=== PATIENT | male | born 1955 | race Caucasian/White ===

== ENCOUNTER 2016-06-27 13:38 | Emergency (ER) | payer MEDICAID ==
[2016-06-27 13:43] VITALS: BP 113/70; PULSE 87; RESP 16; TEMP 97.7; O2SAT 96
[2016-06-27] MEDS ORDERED: NS 1,000 ML IV ONE ×2 (13:44→15:37)
[2016-06-27] MEDS ORDERED: HYDROmorphONE/DILAUDID 1 MG/ML SYR IVP ONE (13:44)
[2016-06-27] MEDS ORDERED: ONDANSETRON 4 MG/2 ML VIAL IVP ONE (13:44)
--- NOTE | 2016-06-27 13:49 | EDPHY ---
H & P Stated Complaint: ABD PAIN, ETOH Time Seen by Provider: 06/27/16 13:39 HPI/ROS: CHIEF COMPLAINT: Abdominal pain HISTORY OF PRESENT ILLNESS: Patient is a homeless alcoholic man chronic pancreatitis who comes to the emergency department complaining of epigastric pain that he feels is a flare up of his chronic pancreatitis. He states that it is exacerbated today because he drink a pint this morning. He has not had a fever. He has not had any vomiting. He denies chest pain or shortness of breath. He states that this is exactly similar to multiple previous episodes. He also states that his amylase and lipase no longer get elevated. REVIEW OF SYSTEMS: Constitutional: denies: chills, fever, recent illness, recent injury EENTM: denies: blurred vision, double vision, nose congestion Respiratory: denies: cough, shortness of breath Cardiac: denies: chest pain, irregular heart rate, lightheadedness, palpitations Gastrointestinal/Abdominal: See HPI Genitourinary: denies: dysuria, frequency, hematuria, pain Musculoskeletal: denies: joint pain, muscle pain Skin: denies: lesions, rash, jaundice, bruising Neurological: denies: headache, numbness, paresthesia, tingling, dizziness, weakness Hematologic/Lymphatic: denies: blood clots, easy bleeding, easy bruising Immunologic/allergic: denies: HIV/AIDS, transplant EXAM: GENERAL: Obese and in no acute distress. HEAD: Atraumatic, normocephalic. EYES: Pupils equal round and reactive to light, extraocular movements intact, sclera anicteric, conjunctiva are normal. ENT: TMs normal, nares patent, oropharynx clear without exudates. Moist mucous membranes. NECK: Normal range of motion, supple without lymphadenopathy or JVD. LUNGS: Breath sounds clear to auscultation bilaterally and equal. No wheezes rales or rhonchi. HEART: Regular rate and rhythm without murmurs, rubs or gallops. ABDOMEN: Epigastric tenderness, large ventral hernia, no discoloration. BACK: No CVA tenderness, no spinal tenderness, step-offs or deformities EXTREMITIES: Normal range of motion, no pitting or edema. No clubbing or cyanosis. NEUROLOGICAL: Cranial nerves II through XII grossly intact. Normal speech, normal gait. 5/5 strength, normal movement in all extremities, normal sensation PSYCH: Normal mood, normal affect. SKIN: Warm, dry, normal turgor, no visible rashes or lesions. Source: Patient, EMS, Old records Exam Limitations: No limitations - Personal History Current Tetanus/Diphtheria Vaccine: Yes Tetanus Vaccine Date: 06/21/2009 - Medical/Surgical History Hx Asthma: No Hx Chronic Respiratory Disease: No Hx Diabetes: No Hx Cardiac Disease: No Hx Renal Disease: No Hx Cirrhosis: No Hx Alcoholism: Yes Hx HIV/AIDS: No Hx Splenectomy or Spleen Trauma: No Other PMH: Pancreatitis, alcoholism, htn - Family History Significant Family History: Hypertension - Social History Smoking Status: Never smoked Alcohol Use: Sober Drug Use: None Constitutional: Initial Vital Signs Temperature (C) 36.5 C 06/27/16 13:41 Heart Rate 87 06/27/16 13:41 Respiratory Rate 16 06/27/16 13:41 Blood Pressure 113/70 06/27/16 13:41 O2 Sat (%) 96 06/27/16 13:41 O2 Delivery Mode Room Air Allergies/Adverse Reactions: No Known Allergies Allergy (Verified 05/20/16 13:41) Home Medications: Medication Instructions Recorded Meloxicam 7.5 mg PO DAILY 07/11/15 Lisinopril [Zestril 20 mg (*)] 20 mg PO DAILY #0 tab 07/18/15 Flomax 08/14/15 Medical Decision Making - Diagnostics EKG Interpretation: An EKG obtained and was read and documented in trace view. Please see trace view for full reading and report. Sinus rhythm, no acute ischemic changes ED Course/Re-evaluation: 3:30 p.m. the patient is feeling better. I will give him another L of fluids. He has received Toradol. He would like to avoid admission if possible. We will continue to hydrate and observe. 5:30 p.m. the patient eloped from the emergency department while we were busy with another patient. Differential Diagnosis: Partial list of the Differential diagnosis considered include but were not limited to; pancreatitis, alcoholism, gastritis and although unlikely based on the history and physical exam, I also considered obstruction, volvulus, ischemia , diverticulitis, appendicitis, acute coronary disease. - Data Points Laboratory Results: Laboratory Results 06/27/16 14:10 06/27/16 14:10 06/27/16 14:10 WBC 8.76 10^3/uL (3.80-9.50) RBC 5.56 10^6/uL (4.40-6.38) Hgb 16.8 g/dL (13.7-17.5) Hct 48.6 % (40.0-51.0) MCV 87.4 fL (81.5-99.8) MCH 30.2 pg (27.9-34.1) MCHC 34.6 g/dL (32.4-36.7) RDW 12.9 % (11.5-15.2) Plt Count 255 10^3/uL (150-400) MPV 9.5 fL (8.7-11.7) Neut % (Auto) 52.0 % (39.3-74.2) Lymph % (Auto) 36.5 % (15.0-45.0) [place] % (Auto) 6.8 % (4.5-13.0) Eos % (Auto) 2.1 % (0.6-7.6) Baso % (Auto) 0.9 % (0.3-1.7) Nucleat RBC Rel Count 0.0 % (0.0-0.2) Absolute Neuts (auto) 4.55 10^3/uL (1.70-6.50) Absolute Lymphs (auto) 3.20 H 10^3/uL (1.00-3.00) Absolute Monos (auto) 0.60 10^3/uL (0.30-0.80) Absolute Eos (auto) 0.18 10^3/uL (0.03-0.40) Absolute Basos (auto) 0.08 10^3/uL (0.02-0.10) Absolute Nucleated RBC 0.00 10^3/uL (0-0.01) Immature Gran % 1.7 H % (0.0-1.1) Immature Gran # 0.15 H 10^3/uL (0.00-0.10) Sodium 142 mEq/L (134-144) Potassium 4.5 mEq/L (3.5-5.2) Chloride 103 mEq/L (97-110) Carbon Dioxide 20 L mEq/l (22-31) Anion Gap 19 mEq/L (8-16) BUN 14 mg/dL (7-23) Creatinine 1.1 mg/dL (0.7-1.3) Estimated GFR > 60 Glucose 94 mg/dL (70-100) Calcium 9.1 mg/dL (8.5-10.4) Total Bilirubin 0.4 mg/dL (0.1-1.4) Conjugated Bilirubin 0.3 mg/dL (0.0-0.5) Unconjugated Bilirubin 0.1 mg/dL (0.0-1.1) AST 21 IU/L (17-59) ALT 34 IU/L (21-72) Alkaline Phosphatase 68 IU/L (38-126) Total Protein 7.2 g/dL (6.3-8.2) Albumin 4.3 g/dL (3.5-5.0) Lipase 419.0 H IU/L (23-300) Medications Given: Discontinued Medications Hydromorphone HCl (Dilaudid) 1 mg IVP EDNOW ONE Stop: 06/27/16 13:45 Last Admin: 06/27/16 14:14 Dose: 1 mg Sodium Chloride (Ns) 1,000 mls @ 0 mls/hr IV ONCE ONE PRN Reason: Wide Open Stop: 06/27/16 13:45 Last Admin: 06/27/16 14:15 Dose: 1,000 mls Sodium Chloride (Ns) 1,000 mls @ 0 mls/hr IV ONCE ONE PRN Reason: Wide Open Stop: 06/27/16 15:38 Last Admin: 06/27/16 15:38 Dose: 1,000 mls Ketorolac Tromethamine (Toradol) 30 mg IVP EDNOW ONE Stop: 06/27/16 14:17 Last Admin: 06/27/16 14:20 Dose: 30 mg Ondansetron HCl (Zofran) 4 mg IVP EDNOW ONE Stop: 06/27/16 13:45 Last Admin: 06/27/16 14:15 Dose: 4 mg Departure - Departure Disposition: Home, Routine, Self-Care Clinical Impression: Alcohol abuse Pancreatitis Qualifiers: Chronicity: chronic Pancreatitis type: alcohol induced Qualifier Code: (K86.0) Alcohol-induced chronic pancreatitis Condition: Good Instructions: Pancreatitis (ED) Referrals: NONE *PRIMARY CARE P,. [Primary Care Provider] - As per Instructions
[2016-06-27] MEDS ORDERED: KETOROLAC 30 MG/1 ML SDV IVP ONE (14:16)
[2016-06-27 14:19] LABS: % IMMATURE GRANULYOCYTES 1.7 % (0.0-1.1); ABSOLUTE IMMATURE GRANULOCYTES 0.15 10^3/uL (0.00-0.10); ADD DIFF? NO; ADD MORPH? NO; ADD SCAN? NO; ATYPICAL LYMPHOCYTE FLAG 0 (0-99); FRAGMENT RBC FLAG 0 (0-99); HEMATOCRIT 48.6 % (40.0-51.0); HEMOGLOBIN 16.8 g/dL (13.7-17.5); LEFT SHIFT FLG 10 (0-99); LIPEMIA HEMOLYSIS FLAG 90 (0-99); MEAN CELL HEMOGLOBIN 30.2 pg (27.9-34.1); MEAN CELL HEMOGLOBIN CONCENTR. 34.6 g/dL (32.4-36.7); MEAN CELL VOLUME 87.4 fL (81.5-99.8); MEAN PLATELET VOLUME 9.5 fL (8.7-11.7); PLATELET CLUMPS FLAG 0 (0-99); PLATELET COUNT 255 10^3/uL (150-400); RED BLOOD CELL COUNT 5.56 10^6/uL (4.40-6.38); RED CELL DISTRIBUTION WIDTH 12.9 % (11.5-15.2)
--- NOTE | 2016-06-27 14:26 | CPEKG ---
Heart Rate: 74 RR Interval: 811 P-R Interval: 152 QRSD Interval: 92 QT Interval: 376 QTC Interval: 418 P [place]: 62 QRS [place]: -28 T Wave [place]: 23 EKG Severity - OTHERWISE NORMAL ECG - EKG Impression: SINUS RHYTHM EKG Impression: BORDERLINE LEFT AXIS DEVIATION Electronically Signed By: Jeremías De Leon 27-Jun-2016 14:44:52
[2016-06-27 14:46] LABS: ALANINE AMINOTRANSFERASE 34 IU/L (21-72); ALBUMIN 4.3 g/dL (3.5-5.0); ALKALINE PHOSPHATASE 68 IU/L (38-126); ANION GAP 19 mEq/L (8-16); ASPARTATE AMINOTRANSFERASE 21 IU/L (17-59); BILIRUBIN,TOTAL 0.4 mg/dL (0.1-1.4); BILIRUBIN-CONJUGATED 0.3 mg/dL (0.0-0.5); BILIRUBIN-UNCONJUGATED 0.1 mg/dL (0.0-1.1); CALCIUM 9.1 mg/dL (8.5-10.4); CARBON DIOXIDE 20 mEq/l (22-31); CHLORIDE 103 mEq/L (97-110); CREATININE 1.1 mg/dL (0.7-1.3); GLOMERULAR FILTRATION RATE > 60; GLUCOSE 94 mg/dL (70-100); POTASSIUM 4.5 mEq/L (3.5-5.2); SODIUM 142 mEq/L (134-144); TOTAL PROTEIN 7.2 g/dL (6.3-8.2)
== END 2016-06-27 17:32 | disposition home or self-care (01) ==
LOC: EDUNIT# → EDBD
DX: K86.0 Alcohol-induced chronic pancreatitis (principal); F10.10 Alcohol abuse, uncomplicated; I10 Essential (primary) hypertension
CPT/HCPCS: 96374; J1170; J1885; J2405

== ENCOUNTER 2016-08-27 22:42 | Emergency (ER) | payer MEDICAID ==
[2016-08-27 22:58] VITALS: TEMP 97.9
--- NOTE | 2016-08-27 23:21 | EDPHY ---
H & P Stated Complaint: FOUND DOWN, + ETOH, ? IVDA Time Seen by Provider: 08/27/16 22:51 HPI/ROS: HPI CHIEF COMPLAINT: Alcohol intoxication HISTORY OF PRESENT ILLNESS: This patient is 61-year-old male, significant past medical history for alcoholism in daily alcohol abuse, chronic pancreatitis, alcohol withdrawal seizures, presents emergency room by EMS presents to the emergency room intoxicated with alcohol smells of alcohol, complaining of epigastric abdominal pain consistent with his chronic pancreatitis. He denies any vomiting denies hematemesis, denies black tarry stool. He is visibly intoxicated here. Past Medical History: alcohol abuse, alcoholism, chronic pancreatitis, chronic abdominal pain, alcohol withdrawal seizures, Past Surgical History: Hand surgery Social History: Daily alcohol use Family History: Noncontributory ROS REVIEW OF SYSTEMS: A comprehensive 10 point review of systems is otherwise negative aside from elements mentioned in the history of present illness. Exam Constitutional appears intoxicated with alcohol, smells of alcohol triage nursing summary reviewed, vital signs reviewed, awake/alert. Eyes normal conjunctivae and sclera, horizontal beating nystagmus consistent with acute alcohol intoxication, PERRLA. HENT normal inspection, atraumatic, moist mucus membranes, no epistaxis, neck supple/ no meningismus, no raccoon eyes. Respiratory clear to auscultation bilaterally, normal breath sounds, no respiratory distress, no wheezing. Cardiovascular rate normal, regular rhythm, no murmur, no edema, distal pulses normal. Gastrointestinal soft, non-tender, no rebound, no guarding, normal bowel sounds, no distension, no pulsatile mass. Genitourinary no CVA tenderness. Musculoskeletal no midline vertebral tenderness, full range of motion, no calf swelling, no tenderness of extremities, no meningismus, good pulses, neurovascularly intact. Skin pink, warm, & dry, no rash, skin atraumatic. Neurologic slurring speech, alcohol intoxication awake, alert and oriented x 3 , AAOx3, moves all 4 extremities equally, motor intact, sensory intact, CN II- XII intact, truncal ataxia, normal vision, Psychiatric normal mood/affect. Heme/Lymph/Immune no lymphadenopathy. Differential Diagnosis: Includes but is not limited to in a particular order, alcohol intoxication, alcohol abuse, dehydration, electrolyte abnormality, pancreatitis Medical Decision Making:Patient had an IV established receive a fluid bolus, check alcohol level and lipase. Monitor closely for sobriety. Once sober. Patient be safely discharged from the emergency room. Re-evaluation: 0650: This patient ambulated well throughout the emergency room. A stable gait , sober. Safe for discharge. He has not any a ongoing abdominal pain, fever, vomiting. Source: Patient - Personal History Current Tetanus Diphtheria and Acellular Pertussis (TDAP): Yes Tetanus Vaccine Date: 06/21/2009 - Medical/Surgical History Hx Asthma: No Hx Chronic Respiratory Disease: No Hx Diabetes: No Hx Cardiac Disease: No Hx Renal Disease: No Hx Cirrhosis: No Hx Alcoholism: Yes Hx HIV/AIDS: No Hx Splenectomy or Spleen Trauma: No Other PMH: Pancreatitis, alcoholism, htn - Social History Smoking Status: Never smoked Constitutional: Initial Vital Signs Temperature (C) 36.6 C 08/27/16 22:45 Heart Rate 95 08/27/16 22:45 Respiratory Rate 16 08/27/16 22:45 Blood Pressure 130/89 H 08/27/16 22:45 O2 Sat (%) 92 08/27/16 22:45 O2 Delivery Mode Nasal Cannula O2 (L/minute) 2 Allergies/Adverse Reactions: No Known Allergies Allergy (Verified 05/20/16 13:41) Home Medications: Medication Instructions Recorded Meloxicam 7.5 mg PO DAILY 07/11/15 Lisinopril [Zestril 20 mg (*)] 20 mg PO DAILY #0 tab 07/18/15 Flomax 08/14/15 Medical Decision Making - Data Points Laboratory Results: Laboratory Results 08/28/16 01:47 08/28/16 01:47 08/28/16 08/28/16 01:47 01:47 WBC 7.35 10^3/uL 10^3/uL (3.80-9.50) RBC 4.77 10^6/uL 10^6/uL (4.40-6.38) Hgb 14.6 g/dL g/dL (13.7-17.5) Hct 41.5 % % (40.0-51.0) MCV 87.0 fL fL (81.5-99.8) MCH 30.6 pg pg (27.9-34.1) MCHC 35.2 g/dL g/dL (32.4-36.7) RDW 13.2 % % (11.5-15.2) Plt Count 149 10^3/uL L 10^3/uL (150-400) MPV 9.9 fL fL (8.7-11.7) Neut % (Auto) 61.2 % % (39.3-74.2) Lymph % (Auto) 28.3 % % (15.0-45.0) [place] % (Auto) 6.9 % % (4.5-13.0) Eos % (Auto) 2.4 % % (0.6-7.6) Baso % (Auto) 0.5 % % (0.3-1.7) Nucleat RBC Rel Count 0.0 % % (0.0-0.2) Absolute Neuts (auto) 4.49 10^3/uL 10^3/uL (1.70-6.50) Absolute Lymphs (auto) 2.08 10^3/uL 10^3/uL (1.00-3.00) Absolute Monos (auto) 0.51 10^3/uL 10^3/uL (0.30-0.80) Absolute Eos (auto) 0.18 10^3/uL 10^3/uL (0.03-0.40) Absolute Basos (auto) 0.04 10^3/uL 10^3/uL (0.02-0.10) Absolute Nucleated RBC 0.00 10^3/uL 10^3/uL (0-0.01) Immature Gran % 0.7 % % (0.0-1.1) Immature Gran # 0.05 10^3/uL 10^3/uL (0.00-0.10) Sodium 149 mEq/L H mEq/L (134-144) Potassium 3.7 mEq/L mEq/L (3.5-5.2) Chloride 110 mEq/L mEq/L (97-110) Carbon Dioxide 23 mEq/l mEq/l (22-31) Anion Gap 16 mEq/L mEq/L (8-16) BUN 9 mg/dL mg/dL (7-23) Creatinine 0.7 mg/dL mg/dL (0.7-1.3) Estimated GFR > 60 Glucose 108 mg/dL H mg/dL (70-100) Calcium 8.5 mg/dL mg/dL (8.5-10.4) Lipase 138.0 IU/L IU/L (23-300) Ethyl Alcohol 322 mg/dL H mg/dL (0-10) Medications Given: Discontinued Medications Sodium Chloride (Ns) 1,000 mls @ 0 mls/hr IV ONCE ONE PRN Reason: Wide Open Stop: 08/27/16 23:31 Last Admin: 08/28/16 02:04 Dose: Not Given Departure - Departure Disposition: Home, Routine, Self-Care Clinical Impression: Alcohol intoxication Qualifiers: Complication of substance-induced condition: uncomplicated Qualified Code(s): F10.120 - Alcohol abuse with intoxication, uncomplicated Condition: Good Instructions: Alcohol Intoxication (ED) Referrals: NONE *PRIMARY CARE P,. [Primary Care Provider] - As per Instructions
[2016-08-27] MEDS ORDERED: NS 1,000 ML IV ONE (23:30)
[2016-08-28 01:51] LABS: % IMMATURE GRANULYOCYTES 0.7 % (0.0-1.1); ABSOLUTE IMMATURE GRANULOCYTES 0.05 10^3/uL (0.00-0.10); ADD DIFF? NO; ADD MORPH? NO; ADD SCAN? NO; ATYPICAL LYMPHOCYTE FLAG 0 (0-99); FRAGMENT RBC FLAG 0 (0-99); HEMATOCRIT 41.5 % (40.0-51.0); HEMOGLOBIN 14.6 g/dL (13.7-17.5); LEFT SHIFT FLG 0 (0-99); LIPEMIA HEMOLYSIS FLAG 90 (0-99); MEAN CELL HEMOGLOBIN 30.6 pg (27.9-34.1); MEAN CELL HEMOGLOBIN CONCENTR. 35.2 g/dL (32.4-36.7); MEAN PLATELET VOLUME 9.9 fL (8.7-11.7); PLATELET CLUMPS FLAG 0 (0-99); PLATELET COUNT 149 10^3/uL (150-400); RED BLOOD CELL COUNT 4.77 10^6/uL (4.40-6.38); RED CELL DISTRIBUTION WIDTH 13.2 % (11.5-15.2)
[2016-08-28 02:04] LABS: ANION GAP 16 mEq/L (8-16); CALCIUM 8.5 mg/dL (8.5-10.4); CARBON DIOXIDE 23 mEq/l (22-31); CHLORIDE 110 mEq/L (97-110); CREATININE 0.7 mg/dL (0.7-1.3); GLOMERULAR FILTRATION RATE > 60; GLUCOSE 108 mg/dL (70-100); POTASSIUM 3.7 mEq/L (3.5-5.2); SODIUM 149 mEq/L (134-144)
[2016-08-28 02:11] LABS: ETHANOL SERUM 322 mg/dL (0-10)
[2016-08-28 05:02] VITALS: BP 111/72; PULSE 87; RESP 18; O2SAT 96
== END 2016-08-28 07:01 | disposition home or self-care (01) ==
LOC: EDUNIT#
DX: F10.120 Alcohol abuse with intoxication, uncomplicated (principal); I10 Essential (primary) hypertension
CPT/HCPCS: G0480

== ENCOUNTER 2016-08-28 11:50 | Emergency (ER) | payer MEDICAID ==
[2016-08-28 12:02] VITALS: TEMP 97.7
--- NOTE | 2016-08-28 13:29 | EDPHY ---
H & P Stated Complaint: yelling in hotel room, PD called, ETOH Time Seen by Provider: 08/28/16 11:55 HPI/ROS: Chief complaint: Intoxication HPI: 61-year-old male well known to this emergency department with a history of chronic alcoholism, chronic pancreatitis and alcohol withdrawal seizures. Patient was seen earlier this morning for abdominal pain and was medically cleared and discharged. Please come report this morning at the patient when this in his hotel room yelling. On arrival they found him on the floor awake and alert and intoxicated. Patient states that he went home this morning and started drinking again. He is complaining of persistent abdominal pain which is unchanged. No nausea or vomiting. No diarrhea. Not vomiting blood. Denies hitting his head. ROS: 10 point Review of Systems is negative except as noted in the HPI. Past medical history: Alcoholism Chronic pancreatitis Alcohol withdrawal seizures Medications: None Allergies: No known drug allergies Social history: Drinks alcohol daily E very heavily Physical exam: Gen: Awake, Alert, smells very strongly of alcohol HEENT: Atraumatic Nose: no rhinorrhea Eyes: PERRLA, EOMI Mouth: Moist mucosa Neck: Supple, no JVD Chest: nontender, lungs clear to auscultation Heart: S1, S2 normal, no murmur Abd: Soft, epigastric tenderness to deep palpation, no guarding Back: no CVA tenderness, no midline tenderness Ext: no edema, non-tender Skin: no rash Neuro: CN II-XII intact, Sensation grossly intact, Strength 5/5 in bilateral upper and lower extremities - Personal History Current Tetanus/Diphtheria Vaccine: Yes Current Tetanus Diphtheria and Acellular Pertussis (TDAP): Yes Tetanus Vaccine Date: 06/21/2009 - Medical/Surgical History Hx Asthma: No Hx Chronic Respiratory Disease: No Hx Diabetes: No Hx Cardiac Disease: No Hx Renal Disease: No Hx Cirrhosis: No Hx Alcoholism: Yes Hx HIV/AIDS: No Hx Splenectomy or Spleen Trauma: No Other PMH: Pancreatitis, alcoholism, htn - Social History Smoking Status: Never smoked Constitutional: Initial Vital Signs Temperature (C) 36.5 C 08/28/16 11:59 Heart Rate 80 08/28/16 11:59 Respiratory Rate 16 08/28/16 11:59 Blood Pressure 125/77 H 08/28/16 11:59 O2 Sat (%) 88 L 08/28/16 11:59 O2 Delivery Mode Room Air Allergies/Adverse Reactions: No Known Allergies Allergy (Verified 05/20/16 13:41) Home Medications: Medication Instructions Recorded Meloxicam 7.5 mg PO DAILY 07/11/15 Lisinopril [Zestril 20 mg (*)] 20 mg PO DAILY #0 tab 07/18/15 Flomax 08/14/15 Medical Decision Making ED Course/Re-evaluation: Patient is now awake and appropriate. Ambulating unassisted to the bathroom. No current complaints. Medically cleared for the [facility] Departure - Departure Disposition: Home, Routine, Self-Care Clinical Impression: Alcohol dependence, Alcohol intoxication, Pancreatitis Condition: Good Instructions: Pancreatitis (ED), Alcohol Intoxication (ED) Referrals: NONE *PRIMARY CARE P,. [Primary Care Provider] - As per Instructions
[2016-08-28 14:17] VITALS: BP 145/74; PULSE 87; RESP 18; O2SAT 95
== END 2016-08-28 14:18 | disposition home or self-care (01) ==
LOC: EDUNIT#
DX: F10.229 Alcohol dependence with intoxication, unspecified (principal); K85.90 Acute pancreatitis without necrosis or infection, unspecified; I10 Essential (primary) hypertension

== ENCOUNTER 2016-09-27 14:19 | Emergency (ER) | payer MEDICAID ==
--- NOTE | 2016-09-27 14:28 | EDPHY ---
Mental Health General Narrative: CHIEF COMPLAINT: suicidal ideation, M1 hold HISTORY OF PRESENT ILLNESS: 61-year-old male presents emergency department by ambulance by EMS accompanied by police on an M1 hold. Patient is well known to our facility for alcohol intoxication and suicidal ideations. Patient called 911 today reporting suicidal ideations, patient reports he has been drinking alcohol today. Upon EMS arrival the patient reported he wanted to . He denies any plan on how to do so. Patient denies suicidal ideation to me upon asking. He has no complaints. REVIEW OF SYSTEMS: Unable to obtain due to intoxication. Physical Exam Gen: Alert and Oriented, smells of alcohol HEENT: PERRL, moist mucous membranes NECK: no meningismus CV: regular rate and regular rhythm PULM: CTAB, no wheezes ABDOMEN: Obese, soft, non tender to palpation, BS present BACK: No CVA tenderness NEURO: Follows commands, moves all extremities, no facial asymmetry EXTREMITIES: normal appearing SKIN: no rash or break in skin on exposed skin PSYCH: answers questions appropriately. Previous Psychiatric History: substance abuse Smoking Status: Never smoked Time Patient Placed on M1 Hold: 14:30 Medical Decision Makinpm-patient continues to deny being suicidal to me. He now reports that he called the police and said he was suicidal as he wanted to be removed from the location that he was. Patient has no complaints. He is ambulatory without difficulty, without assistance, no tongue fasciculations, no tremors, no auditory or visual hallucinations. M1 hold was removed and patient will be [facility] to [facility]. - Objective Vital Signs: Initial Vital Signs Temperature (C) 36.4 C 09/27/16 14:31 Heart Rate 88 09/27/16 14:31 Respiratory Rate 16 09/27/16 14:31 Blood Pressure 116/74 09/27/16 14:31 O2 Sat (%) 91 L 09/27/16 14:31 O2 Delivery Mode Room Air Allergies/Adverse Reactions: No Known Allergies Allergy (Verified 05/20/16 13:41) Home Medications: Medication Instructions Recorded Meloxicam 7.5 mg PO DAILY 07/11/15 Lisinopril [Zestril 20 mg (*)] 20 mg PO DAILY #0 tab 07/18/15 Flomax 08/14/15 Laboratory Results: Laboratory Results 09/27/16 14:59 09/27/16 14:59 09/27/16 09/27/16 09/27/16 14:59 14:59 14:43 WBC 8.60 10^3/uL 10^3/uL (3.80-9.50) RBC 5.31 10^6/uL 10^6/uL (4.40-6.38) Hgb 16.0 g/dL g/dL (13.7-17.5) Hct 46.4 % % (40.0-51.0) MCV 87.4 fL fL (81.5-99.8) MCH 30.1 pg pg (27.9-34.1) MCHC 34.5 g/dL g/dL (32.4-36.7) RDW 13.4 % % (11.5-15.2) Plt Count 244 10^3/uL 10^3/uL (150-400) MPV 10.0 fL fL (8.7-11.7) Neut % (Auto) 56.4 % % (39.3-74.2) Lymph % (Auto) 33.6 % % (15.0-45.0) [place] % (Auto) 5.9 % % (4.5-13.0) Eos % (Auto) 2.3 % % (0.6-7.6) Baso % (Auto) 0.5 % % (0.3-1.7) Nucleat RBC Rel Count 0.0 % % (0.0-0.2) Absolute Neuts (auto) 4.85 10^3/uL 10^3/uL (1.70-6.50) Absolute Lymphs (auto) 2.89 10^3/uL 10^3/uL (1.00-3.00) Absolute Monos (auto) 0.51 10^3/uL 10^3/uL (0.30-0.80) Absolute Eos (auto) 0.20 10^3/uL 10^3/uL (0.03-0.40) Absolute Basos (auto) 0.04 10^3/uL 10^3/uL (0.02-0.10) Absolute Nucleated RBC 0.00 10^3/uL 10^3/uL (0-0.01) Immature Gran % 1.3 % H % (0.0-1.1) Immature Gran # 0.11 10^3/uL H 10^3/uL (0.00-0.10) Sodium 142 mEq/L mEq/L (134-144) Potassium 4.0 mEq/L mEq/L (3.5-5.2) Chloride 106 mEq/L mEq/L (97-110) Carbon Dioxide 21 mEq/l L mEq/l (22-31) Anion Gap 15 mEq/L mEq/L (8-16) BUN 14 mg/dL mg/dL (7-23) Creatinine 0.8 mg/dL mg/dL (0.7-1.3) Estimated GFR > 60 Glucose 124 mg/dL H mg/dL (70-100) Calcium 9.2 mg/dL mg/dL (8.5-10.4) Urine Opiates Screen NEGATIVE (NEGATIVE) Urine Barbiturates NEGATIVE (NEGATIVE) Ur Phencyclidine Scrn NEGATIVE (NEGATIVE) Ur Amphetamine Screen NEGATIVE (NEGATIVE) U Benzodiazepines Scrn NEGATIVE (NEGATIVE) Urine Cocaine Screen NEGATIVE (NEGATIVE) U Marijuana (THC) Screen NEGATIVE (NEGATIVE) Ethyl Alcohol 299 mg/dL H mg/dL (0-10) Departure - Departure Disposition: Home, Routine, Self-Care Clinical Impression: Alcohol intoxication Qualifiers: Complication of substance-induced condition: uncomplicated Qualified Code(s): F10.120 - Alcohol abuse with intoxication, uncomplicated Condition: Good Instructions: Alcohol Intoxication (ED), Depression (ED) Additional Instructions: 1. You are being discharged to the [facility]. 2. [facility] does operate a 24/7 psychiatric crisis unit located at [address] [place] [address]. The telephone number for the 24 hour crisis center is [phone]. 3. Please return to the ED if you are feeling suicidal, having thoughts of harming yourself/others or should you feel unsafe or have worsening symptoms. Referrals: [facility] [Outside] - As per Instructions
[2016-09-27 14:34] VITALS: O2SAT 91
[2016-09-27 15:10] LABS: % IMMATURE GRANULYOCYTES 1.3 % (0.0-1.1); ABSOLUTE IMMATURE GRANULOCYTES 0.11 10^3/uL (0.00-0.10); ADD DIFF? NO; ADD MORPH? NO; ADD SCAN? NO; ATYPICAL LYMPHOCYTE FLAG 0 (0-99); FRAGMENT RBC FLAG 0 (0-99); HEMATOCRIT 46.4 % (40.0-51.0); LEFT SHIFT FLG 10 (0-99); LIPEMIA HEMOLYSIS FLAG 90 (0-99); MEAN CELL HEMOGLOBIN 30.1 pg (27.9-34.1); MEAN CELL HEMOGLOBIN CONCENTR. 34.5 g/dL (32.4-36.7); MEAN CELL VOLUME 87.4 fL (81.5-99.8); PLATELET CLUMPS FLAG 20 (0-99); PLATELET COUNT 244 10^3/uL (150-400); RED BLOOD CELL COUNT 5.31 10^6/uL (4.40-6.38); RED CELL DISTRIBUTION WIDTH 13.4 % (11.5-15.2)
[2016-09-27 15:35] LABS: ANION GAP 15 mEq/L (8-16); CALCIUM 9.2 mg/dL (8.5-10.4); CARBON DIOXIDE 21 mEq/l (22-31); CHLORIDE 106 mEq/L (97-110); CREATININE 0.8 mg/dL (0.7-1.3); ETHANOL SERUM 299 mg/dL (0-10); GLOMERULAR FILTRATION RATE > 60; GLUCOSE 124 mg/dL (70-100); SODIUM 142 mEq/L (134-144)
[2016-09-27 17:23] VITALS: BP 139/80; PULSE 85; RESP 12; TEMP 97.3
== END 2016-09-27 17:45 | disposition home or self-care (01) ==
LOC: EDUNIT#
DX: F10.120 Alcohol abuse with intoxication, uncomplicated (principal)
CPT/HCPCS: 80305; G0480

== ENCOUNTER 2016-12-01 12:22 | Emergency (ER) | payer MEDICAID ==
[2016-12-01 12:28] VITALS: PULSE 89; TEMP 98.4
--- NOTE | 2016-12-01 12:30 | EDPHY ---
H & P - Personal History Tetanus Vaccine Date: 06/21/2009 - Medical/Surgical History Hx Asthma: No Hx Chronic Respiratory Disease: No Hx Diabetes: No Hx Cardiac Disease: No Hx Renal Disease: No Hx Cirrhosis: No Hx Alcoholism: Yes Hx HIV/AIDS: No Hx Splenectomy or Spleen Trauma: No Other PMH: Pancreatitis, alcoholism, htn - Social History Smoking Status: Never smoked Time Seen by Provider: 12/01/16 12:26 HPI/ROS: CHIEF COMPLAINT: Suspected alcohol intoxication HISTORY OF PRESENT ILLNESS: 61-year-old male familiar to emergency department staff, history of alcoholism, arrives via ambulance after he was found sleeping under a [place]ing[place] on a local street. There are no reports of trauma. There are no structures of height nearby. No reports of fall from height. No chest pain. No back pain. No suicidal or homicidal ideation. REVIEW OF SYSTEMS: A ten point review of systems was performed and is negative with the exception of the items mentioned in the HPI PAST MEDICAL & SURGICAL HISTORY: Alcoholism SOCIAL HISTORY: positive alcohol use PHYSICAL EXAM (Prior to examination, patient consented to physical exam, hands were washed and my usual and customary physical exam procedures followed) 1) GENERAL: poorly kept, alert and oriented. 2) HEAD: Normocephalic, atraumatic 3) HEENT: Pupils equal, round, reactive to light bilaterally. Sclera anicteric. 4) NECK: Full range of motion, no meningeal signs. 5) LUNGS: Clear auscultation bilaterally, no wheezes, no rhonchi, no retractions. 6) HEART: Regular rate and rhythm, no murmur, no heave, no gallop. 7) ABDOMEN: No guarding, no rebound, no focal tenderness,, 8) MUSCULOSKELETAL: no signs of trauma No peripheral edema or discoloration. 9) BACK: no visual or palpable abnormality. 10) SKIN: No rash, no petechiae. 11) Psychiatric: Patient is oriented X 3, there is no agitation. DIFFERENTIAL DIAGNOSIS: [in no particular include but limited to acute alcohol intoxication, polysubstance abuse, trauma (Carmen Taylor) Constitutional: Initial Vital Signs Temperature (C) 36.9 C 12/01/16 12:27 Heart Rate 89 12/01/16 12:27 Respiratory Rate 14 12/01/16 12:27 Blood Pressure 155/105 H 12/01/16 12:27 O2 Sat (%) 94 12/01/16 12:27 O2 Delivery Mode Room Air O2 (L/minute) 2 Allergies/Adverse Reactions: No Known Allergies Allergy (Verified 12/01/16 12:26) Home Medications: Medication Instructions Recorded Meloxicam 7.5 mg PO DAILY 07/11/15 Lisinopril [Zestril 20 mg (*)] 20 mg PO DAILY #0 tab 07/18/15 Flomax 08/14/15 Medical Decision Making ED Course/Re-evaluation: 12:20 p.m.: Patient seen on arrival by myself and Dr. Adiel Bullock 12:29 p.m.: Breathalyzer alcohol at this time is 315 (Carmen Taylor) I did not see this patient while he was in the emergency department other than on arrival and taking the history per EMS. However his care was discussed with the PA while the patient was in the department. I agree with treatment plan and management (Adiel Bullock) Departure - Departure Disposition: Home, Routine, Self-Care Clinical Impression: Alcohol intoxication Qualifiers: Complication of substance-induced condition: uncomplicated Qualified Code(s): F10.920 - Alcohol use, unspecified with intoxication, uncomplicated Condition: Good Instructions: Alcohol Intoxication (ED) Referrals: [facility] [Outside] - 1 day without fail
[2016-12-01 13:59] VITALS: BP 145/99; RESP 15; O2SAT 93
== END 2016-12-01 13:59 | disposition home or self-care (01) ==
LOC: EDUNIT#
DX: F10.920 Alcohol use, unspecified with intoxication, uncomplicated (principal); I10 Essential (primary) hypertension

== ENCOUNTER 2016-12-06 17:29 | Emergency (ER) | payer MEDICAID ==
[2016-12-06 17:40] VITALS: RESP 18; TEMP 97.9
--- NOTE | 2016-12-06 17:47 | EDPHY ---
H & P Time Seen by Provider: 12/06/16 17:38 HPI/ROS: CHIEF COMPLAINT: My pancreatitis is worse HISTORY OF PRESENT ILLNESS: 61-year-old man has chronic pancreatitis and alcoholism a continues to drink. He has been seen in the emergency department multiple times. His chief complaint to me is "it's my chronic pancreatitis" and wants to know "what can you do for me?" Patient has chronic abdominal pain which is unchanged today. He continues to drink a large amount of vodka including today. Today he says he vomited once but it was 7 or 8 hours ago and none since. No black stools or melena or red blood per rectum. No hematemesis or coffee- ground emesis. No diarrhea no trauma or fall or injury. REVIEW OF SYSTEMS: Eye: no change in vision ENT: no sore throat Cardiac: no chest pain or syncope Pulmonary: no cough or SOB Abdomen: HPI Musculoskeletal: no back pain Skin: no rash Neuro: no headache Constitutional: no fever : no urinary symptoms A comprehensive 10 point review of systems is otherwise negative aside from elements mentioned in the history of present illness. PAST MEDICAL HISTORY: Chronic pancreatitis, alcoholism, hypertension Social history: Recent alcohol, nonsmoker General Appearance: Alert and conversant, cooperative. Eyes: No scleral icterus. ENT, Mouth: Normal mucous membranes. Respiratory: Normal respiratory effort, breath sounds equal, lungs are clear to auscultation. Cardiovascular: Regular rate and rhythm. Gastrointestinal: Abdomen is soft and non tender. Not distended, normal bowel sounds, no peritoneal signs. Neurological: Alert and oriented x3. Normally conversant. Face symmetric, normal movement and sensation in all extremities. Skin: Warm and dry, no rashes. Musculoskeletal: No peripheral edema and no joint swelling. Psychiatric: Not agitated. Emergency Department course/MDM: Patient presents with alcohol intoxication and chronic abdominal pain problem. His initial oxygen saturation was low but when I sat him up he is about 91% on room air. He does not have any respiratory complaints. He does not have a cough or hemoptysis or leg swelling. I do not think that CHF or pulmonary embolism or pneumonia are likely. Smoking Status: Never smoked Constitutional: Initial Vital Signs Temperature (C) 36.6 C 12/06/16 17:38 Heart Rate 79 12/06/16 17:38 Respiratory Rate 18 12/06/16 17:38 Blood Pressure 149/85 H 12/06/16 17:38 O2 Sat (%) 96 12/06/16 17:38 O2 Delivery Mode Room Air Allergies/Adverse Reactions: No Known Allergies Allergy (Verified 12/01/16 12:26) Home Medications: Medication Instructions Recorded Meloxicam 7.5 mg PO DAILY 07/11/15 Lisinopril [Zestril 20 mg (*)] 20 mg PO DAILY #0 tab 07/18/15 Flomax 08/14/15 Medical Decision Making Differential Diagnosis: Differential considered including but not limited to alcoholic gastritis, pancreatitis, bowel obstruction, cholecystitis. Departure - Departure Disposition: Home, Routine, Self-Care Clinical Impression: Alcoholism Abdominal pain Qualifiers: Abdominal location: generalized Qualified Code(s): R10.84 - Generalized abdominal pain Condition: Good Instructions: Alcohol Intoxication (ED), Alcohol Dependence (ED) Referrals: NONE *PRIMARY CARE P,. [Primary Care Provider] - As per Instructions [facility],. [Clinic] - As per Instructions
[2016-12-06 18:44] VITALS: BP 143/100; PULSE 87; O2SAT 90
== END 2016-12-06 18:44 | disposition home or self-care (01) ==
LOC: EDUNIT#
DX: F10.20 Alcohol dependence, uncomplicated (principal); R10.84 Generalized abdominal pain; I10 Essential (primary) hypertension

== ENCOUNTER 2016-12-10 15:24 | Emergency (ER) | payer MEDICAID ==
[2016-12-10 15:35] VITALS: RESP 18; TEMP 100
--- NOTE | 2016-12-10 16:10 | EDPHY ---
H & P Stated Complaint: ETOH, Depression HPI/ROS: CHIEF COMPLAINT: HISTORY OF PRESENT ILLNESS: REVIEW OF SYSTEMS: A ten point review of systems was performed and is negative with the exception of the items mentioned in the HPI. - Personal History Current Tetanus/Diphtheria Vaccine: No Tetanus Vaccine Date: 06/21/2009 - Medical/Surgical History Hx Asthma: No Hx Chronic Respiratory Disease: No Hx Diabetes: No Hx Cardiac Disease: No Hx Renal Disease: No Hx Cirrhosis: No Hx Alcoholism: Yes Hx HIV/AIDS: No Hx Splenectomy or Spleen Trauma: No Other PMH: Pancreatitis, alcoholism > 30 years, htn, depression - Social History Smoking Status: Never smoked - Physical Exam Exam: General Appearance: Alert. Vital signs reviewed. * Eyes: Pupils equal and round, no conjunctival injection, no discharge. Anicteric. ENT, Mouth: Mucous membranes are moist, no oropharyngeal erythema or edema. Neck: No lymphadenopathy, supple. Respiratory: Lungs are clear to auscultation; no wheezes, rales, or rhonchi. Cardiovascular: Regular rate and rhythm; no murmur, rub, or gallop. Gastrointestinal: Abdomen is soft and nontender, no masses or organomegaly, bowel sounds normal. Skin: Warm and dry, no rashes on exposed skin, normal color. Back: Nontender to palpation over the thoracolumbar spine. No CVAT. Extremities: No lower extremity edema, no calf tenderness or swelling. Neurological: Alert and oriented. Moving all four extremities easily and equally. Psychiatric: Normal affect. Constitutional: Initial Vital Signs Temperature (C) 37.8 C 12/10/16 15:33 Heart Rate 90 12/10/16 15:33 Respiratory Rate 18 12/10/16 15:33 Blood Pressure 158/109 H 12/10/16 15:33 O2 Sat (%) 92 12/10/16 15:33 O2 Delivery Mode Room Air Allergies/Adverse Reactions: No Known Allergies Allergy (Verified 12/01/16 12:26) Home Medications: Medication Instructions Recorded Meloxicam 7.5 mg PO DAILY 07/11/15 Lisinopril [Zestril 20 mg (*)] 20 mg PO DAILY #0 tab 07/18/15 Flomax 08/14/15 Departure - Departure Referrals: NONE *PRIMARY CARE P,. [Primary Care Provider] - As per Instructions Physician Review and Approval Statement: 12/10/16 16:10 Portions of this note were transcribed by the coroner/medical examiner. I, Dr. Josie Edwards, personally performed the history, physical exam, and medical decision- making; and confirmed the accuracy of the information in the transcribed note.
--- NOTE | 2016-12-10 16:11 | EDPHY ---
H & P Stated Complaint: ETOH, Depression Time Seen by Provider: 12/10/16 16:10 HPI/ROS: HPI CHIEF COMPLAINT: Alcohol intoxication, depression HISTORY OF PRESENT ILLNESS: This patient is 61-year-old male well-known to me and the emergency room, with daily alcohol use, he drinks vodka approximately over a pt a day. He presents emergency room stating he has epigastric pain nausea vomiting and is intoxicated with alcohol. He denies chest pain or shortness of breath. States he would like to detox from alcohol. Tells me he has been drinking today as epigastric region started burning. Denies vomiting blood. Denies black tarry stools. Past Medical History: Daily alcohol use, acute acquired pneumonia, pancreatitis from alcoholism, hypertension, anemia Past Surgical History: No significant recent surgical history Social History: Daily alcohol use, not homeless, denies drugs tobacco Family History: Noncontributory ROS REVIEW OF SYSTEMS: A comprehensive 10 point review of systems is otherwise negative aside from elements mentioned in the history of present illness. Exam Constitutional intoxicated, smells of alcohol, slurring speech triage nursing summary reviewed, vital signs reviewed, awake/alert. Eyes normal conjunctivae and sclera, EOMI, PERRLA. HENT normal inspection, atraumatic, moist mucus membranes, no epistaxis, neck supple/ no meningismus, no raccoon eyes. Respiratory clear to auscultation bilaterally, normal breath sounds, no respiratory distress, no wheezing. Cardiovascular rate normal, regular rhythm, no murmur, no edema, distal pulses normal. Gastrointestinal soft, non-tender, no rebound, no guarding, normal bowel sounds, no distension, no pulsatile mass. Genitourinary no CVA tenderness. Musculoskeletal no midline vertebral tenderness, full range of motion, no calf swelling, no tenderness of extremities, no meningismus, good pulses, neurovascularly intact. Skin pink, warm, & dry, no rash, skin atraumatic. Neurologic awake, alert and oriented x 3, AAOx3, moves all 4 extremities equally, motor intact, sensory intact, CN II-XII intact, normal cerebellar, normal vision, slurring speech Psychiatric normal mood/affect. Heme/Lymph/Immune no lymphadenopathy. Differential Diagnosis: Includes but is not limited to in a particular order acute alcohol intoxication, dehydration, alcohol abuse alcohol-induced pancreatitis Medical Decision Making: Plan for this patient IV establishment, IV fluid bolus , IV Zofran for nausea, check lipase, check blood work. Check alcohol level. Re-evaluation: 1643: I did offer this patient detox [facility] however he has declined. 1815: Patient resting comfortably. Requesting discharge. No acute distress. Denies abdominal pain chest pain shortness of breath no vomiting here. He is requesting discharge. Lipase noted be normal. Source: Patient - Personal History Current Tetanus/Diphtheria Vaccine: No Tetanus Vaccine Date: 06/21/2009 - Medical/Surgical History Hx Asthma: No Hx Chronic Respiratory Disease: No Hx Diabetes: No Hx Cardiac Disease: No Hx Renal Disease: No Hx Cirrhosis: No Hx Alcoholism: Yes Hx HIV/AIDS: No Hx Splenectomy or Spleen Trauma: No Other PMH: Pancreatitis, alcoholism > 30 years, htn, depression - Social History Smoking Status: Never smoked Constitutional: Initial Vital Signs Temperature (C) 37.8 C 12/10/16 15:33 Heart Rate 90 12/10/16 15:33 Respiratory Rate 18 12/10/16 15:33 Blood Pressure 158/109 H 12/10/16 15:33 O2 Sat (%) 92 12/10/16 15:33 O2 Delivery Mode Room Air Allergies/Adverse Reactions: No Known Allergies Allergy (Verified 12/01/16 12:26) Home Medications: Medication Instructions Recorded Meloxicam 7.5 mg PO DAILY 07/11/15 Lisinopril [Zestril 20 mg (*)] 20 mg PO DAILY #0 tab 07/18/15 Flomax 08/14/15 Medical Decision Making - Data Points Laboratory Results: Laboratory Results 12/10/16 18:05 12/10/16 16:00 12/10/16 12/10/16 12/10/16 18:05 16:00 16:00 WBC 3.83 10^3/uL 10^3/uL REJ (3.80-9.50) RBC 5.77 10^6/uL 10^6/uL TNP (4.40-6.38) Hgb 17.9 g/dL H g/dL TNP (13.7-17.5) Hct 51.8 % H % TNP (40.0-51.0) MCV 89.8 fL fL TNP (81.5-99.8) MCH 31.0 pg pg TNP (27.9-34.1) MCHC 34.6 g/dL g/dL TNP (32.4-36.7) RDW 14.6 % % TNP (11.5-15.2) Plt Count 94 10^3/uL L 10^3/uL TNP (150-400) MPV 10.4 fL fL TNP (8.7-11.7) Neut % (Auto) 51.2 % % TNP (39.3-74.2) Lymph % (Auto) 38.6 % % TNP (15.0-45.0) [place] % (Auto) 8.4 % % TNP (4.5-13.0) Eos % (Auto) 0.3 % L % TNP (0.6-7.6) Baso % (Auto) 1.0 % % TNP (0.3-1.7) Nucleat RBC Rel Count 0.0 % % TNP (0.0-0.2) Absolute Neuts (auto) 1.96 10^3/uL 10^3/uL TNP (1.70-6.50) Absolute Lymphs (auto) 1.48 10^3/uL 10^3/uL TNP (1.00-3.00) Absolute Monos (auto) 0.32 10^3/uL 10^3/uL TNP (0.30-0.80) Absolute Eos (auto) 0.01 10^3/uL L 10^3/uL TNP (0.03-0.40) Absolute Basos (auto) 0.04 10^3/uL 10^3/uL TNP (0.02-0.10) Absolute Nucleated RBC 0.00 10^3/uL 10^3/uL TNP (0-0.01) Immature Gran % 0.5 % % TNP (0.0-1.1) Immature Gran # 0.02 10^3/uL 10^3/uL TNP (0.00-0.10) Sodium 144 mEq/L mEq/L (134-144) Potassium 4.0 mEq/L mEq/L (3.5-5.2) Chloride 103 mEq/L mEq/L (97-110) Carbon Dioxide 20 mEq/l L mEq/l (22-31) Anion Gap 21 mEq/L H mEq/L (8-16) BUN 7 mg/dL mg/dL (7-23) Creatinine 0.8 mg/dL mg/dL (0.7-1.3) Estimated GFR > 60 Glucose 137 mg/dL H mg/dL (70-100) Calcium 8.8 mg/dL mg/dL (8.5-10.4) Total Bilirubin 1.1 mg/dL mg/dL (0.1-1.4) Conjugated Bilirubin 0.6 mg/dL H mg/dL (0.0-0.5) Unconjugated Bilirubin 0.5 mg/dL mg/dL (0.0-1.1) AST 88 IU/L H IU/L (17-59) ALT 63 IU/L IU/L (21-72) Alkaline Phosphatase 78 IU/L IU/L (38-126) Total Protein 7.2 g/dL g/dL (6.3-8.2) Albumin 4.7 g/dL g/dL (3.5-5.0) Lipase 111.0 IU/L IU/L (23-300) Medications Given: Discontinued Medications Sodium Chloride (Ns) 1,000 mls @ 0 mls/hr IV ONCE ONE; Wide Open PRN Reason: Protocol Stop: 12/10/16 16:42 Last Admin: 12/10/16 17:18 Dose: 1,000 mls Ondansetron HCl (Zofran Odt) 4 mg PO EDNOW ONE Stop: 12/10/16 16:15 Last Admin: 12/10/16 16:15 Dose: 4 mg Departure - Departure Disposition: Home, Routine, Self-Care Clinical Impression: Alcohol intoxication Qualifiers: Complication of substance-induced condition: uncomplicated Qualified Code(s): F10.920 - Alcohol use, unspecified with intoxication, uncomplicated Condition: Good Instructions: Alcohol Intoxication (ED) Referrals: NONE *PRIMARY CARE P,. [Primary Care Provider] - As per Instructions
[2016-12-10] MEDS ORDERED: ONDANSETRON DISINTEGRATING 4 MG TAB ONE (16:13)
[2016-12-10] MEDS ORDERED: ONDANSETRON DISINTEGRATING 4 MG TAB PO ONE (16:14)
[2016-12-10] MEDS ORDERED: ONDANSETRON 4 MG/2 ML VIAL IVP ONE (16:41)
[2016-12-10] MEDS ORDERED: NS 1,000 ML IV ONE (16:41)
[2016-12-10 17:07] LABS: ALANINE AMINOTRANSFERASE 63 IU/L (21-72); ALBUMIN 4.7 g/dL (3.5-5.0); ALKALINE PHOSPHATASE 78 IU/L (38-126); ANION GAP 21 mEq/L (8-16); ASPARTATE AMINOTRANSFERASE 88 IU/L (17-59); BILIRUBIN,TOTAL 1.1 mg/dL (0.1-1.4); BILIRUBIN-CONJUGATED 0.6 mg/dL (0.0-0.5); BILIRUBIN-UNCONJUGATED 0.5 mg/dL (0.0-1.1); CALCIUM 8.8 mg/dL (8.5-10.4); CARBON DIOXIDE 20 mEq/l (22-31); CHLORIDE 103 mEq/L (97-110); CREATININE 0.8 mg/dL (0.7-1.3); GLOMERULAR FILTRATION RATE > 60; GLUCOSE 137 mg/dL (70-100); SODIUM 144 mEq/L (134-144); TOTAL PROTEIN 7.2 g/dL (6.3-8.2)
[2016-12-10 18:08] LABS: % IMMATURE GRANULYOCYTES 0.5 % (0.0-1.1); ABSOLUTE IMMATURE GRANULOCYTES 0.02 10^3/uL (0.00-0.10); ADD DIFF? NO; ADD MORPH? NO; ADD SCAN? NO; ATYPICAL LYMPHOCYTE FLAG 0 (0-99); FRAGMENT RBC FLAG 0 (0-99); HEMATOCRIT 51.8 % (40.0-51.0); HEMOGLOBIN 17.9 g/dL (13.7-17.5); LEFT SHIFT FLG 0 (0-99); LIPEMIA HEMOLYSIS FLAG 90 (0-99); MEAN CELL HEMOGLOBIN CONCENTR. 34.6 g/dL (32.4-36.7); MEAN CELL VOLUME 89.8 fL (81.5-99.8); MEAN PLATELET VOLUME 10.4 fL (8.7-11.7); PLATELET CLUMPS FLAG 0 (0-99); PLATELET COUNT 94 10^3/uL (150-400); RED BLOOD CELL COUNT 5.77 10^6/uL (4.40-6.38); RED CELL DISTRIBUTION WIDTH 14.6 % (11.5-15.2)
[2016-12-10 18:16] VITALS: BP 146/89; PULSE 92; O2SAT 90
== END 2016-12-10 18:25 | disposition home or self-care (01) ==
LOC: EDUNIT#
DX: F10.129 Alcohol abuse with intoxication, unspecified (principal); I10 Essential (primary) hypertension

== ENCOUNTER 2017-03-05 18:51 | Emergency (ER) | payer SELFPAY ==
[2017-03-05 19:01] VITALS: TEMP 97.7; O2SAT 92
--- NOTE | 2017-03-05 19:09 | EDPHY ---
HPI/HX/ROS/PE/MDM Narrative: CHIEF COMPLAINT: Abdominal pain HPI: The patient is a 61 y/o male, with a history of pancreatitis and alcoholism , arriving via EMS complaining of chronic abdominal pain. This is his 13th visit in the last year for similar complaints. His pain feels exactly the same today as previous episodes. He states his pain is worse when he drinks and he has been drinking heavily today. He denies fever, vomiting, diarrhea, or other acute complaints. REVIEW OF SYSTEMS: Aside from elements discussed in the HPI, a comprehensive 10-point review of systems was reviewed and is negative. PMH: Chronic pancreatitis, alcoholism SOCIAL HISTORY: Heavy alcohol use. PHYSICAL EXAM: General:Patient is alert, in no acute distress. ENT:Eyes are normal to inspection. ENT inspection normal. Neck: Normal inspection. Full range of motion. Respiratory:No respiratory distress. Breath sounds normal bilaterally. Cardiovascular: Regular rate and rhythm. Strong peripheral pulses. Normal cap refill. Abdomen:Mild epigastric tenderness to palpation. There are no peritoneal signs. Back: Normal to inspection. No tenderness to palpation. Skin: Normal color. No rash. Warm and dry. Extremities: Normal appearance. Full range of motion. Neuro: Oriented x3. Normal motor function. Normal sensory function. ED Course: Lipase ordered. Lipase is normal. 40mg IV Pepcid administered for symptoms. Patient will be discharged home with standard follow up care and return precautions. - Data Points Laboratory Results: 03/05/17 19:15 Lipase 178 IU/L IU/L (23-300) General Initial Vital Signs: Initial Vital Signs Temperature (C) 36.5 C 03/05/17 19:00 Heart Rate 82 03/05/17 19:00 Respiratory Rate 17 03/05/17 19:00 Blood Pressure 135/91 H 03/05/17 19:00 O2 Sat (%) 92 03/05/17 19:00 O2 Delivery Mode Room Air Allergies/Adverse Reactions: No Known Allergies Allergy (Verified 03/05/17 19:00) Home Medications: Medication Instructions Recorded Meloxicam 7.5 mg PO DAILY 07/11/15 Lisinopril [Zestril 20 mg (*)] 20 mg PO DAILY #0 tab 07/18/15 Flomax 08/14/15 Departure - Departure Disposition: Home, Routine, Self-Care Clinical Impression: Chronic abdominal pain Alcohol intoxication Qualifiers: Complication of substance-induced condition: uncomplicated Qualified Code(s): F10.920 - Alcohol use, unspecified with intoxication, uncomplicated Condition: Good Instructions: Alcohol Intoxication (ED), Abdominal Pain (ED) Additional Instructions: Go to the [facility] if you wish to detox. Follow up with your primary care provider for unimproved symptoms over the next 2-3 days. Referrals: [facility] [Outside] - As per Instructions Report Scribed for: Chad Camp Report Scribed by: Stacie Lott Date of Report: 03/05/17 Time of Report: 19:09 Physician Review and Approval Statement: Portions of this note were transcribed by an ED scribe. I personally performed the history, physical exam, and medical decision making; and confirm the accuracy of the information in the transcribed note.
[2017-03-05] MEDS ORDERED: FAMOTIDINE 20 MG/2 ML SDV IVP ONE (21:09)
[2017-03-05 21:15] VITALS: BP 123/76; PULSE 78; RESP 18
== END 2017-03-05 21:16 | disposition home or self-care (01) ==
LOC: EDUNIT#
DX: R10.13 Epigastric pain (principal); G89.29 Other chronic pain; F10.920 Alcohol use, unspecified with intoxication, uncomplicated

== ENCOUNTER 2017-03-18 14:11 | Emergency (ER) | payer MEDICAID ==
--- NOTE | 2017-03-18 14:21 | EDPHY ---
H & P - Personal History Tetanus Vaccine Date: 06/21/2009 - Medical/Surgical History Hx Asthma: No Hx Chronic Respiratory Disease: No Hx Diabetes: No Hx Cardiac Disease: No Hx Renal Disease: No Hx Cirrhosis: No Hx Alcoholism: Yes Hx HIV/AIDS: No Hx Splenectomy or Spleen Trauma: No Other PMH: Pancreatitis, alcoholism > 30 years, htn, depression - Social History Smoking Status: Never smoked Time Seen by Provider: 03/18/17 14:18 HPI/ROS: CHIEF COMPLAINT: Epigastric pain "I'm drunk " HISTORY OF PRESENT ILLNESS: 61-year-old male history of alcoholism, chronic pancreatitis, was found sleeping and not easily arousable by his roommate, suspected heavy alcohol use and EMS called. Patient is complaining of epigastric discomfort, no nausea or vomiting, no back pain, no chest pain, no dyspnea, no trauma, no hallucination, no seizure, no melena or hematochezia REVIEW OF SYSTEMS: A ten point review of systems was performed and is negative with the exception of the items mentioned in the HPI PAST MEDICAL & SURGICAL HISTORY: Chronic pancreatitis SOCIAL HISTORY: positive alcohol use PHYSICAL EXAM (Prior to examination, patient consented to physical exam, hands were washed and my usual and customary physical exam procedures followed) 1) GENERAL: Well-developed, well-nourished, alert and oriented. Smells of alcohol . 2) HEAD: Normocephalic, atraumatic 3) HEENT: Pupils equal, round, reactive to light bilaterally. Sclera anicteric. 4) NECK: Full range of motion, no meningeal signs. 5) LUNGS: Clear auscultation bilaterally, no wheezes, no rhonchi, no retractions. 6) HEART: Regular rate and rhythm, no murmur, no heave, no gallop. 7) ABDOMEN: No guarding, tender to palpation epigastrium , negative McBurney's, negative Maxwell's, negative Rovsing's, negative peritoneal sign, 8) MUSCULOSKELETAL: Moving all extremities, no focal areas of tenderness, no obvious trauma. No peripheral edema or discoloration. 9) BACK: No CVA tenderness, no midline vertebral tenderness, no fluctuance, no step-off, no obvious trauma, no visual or palpable abnormality. 10) SKIN: No rash, no petechiae. 11) Psychiatric: Patient is oriented X 3, there is no agitation. DIFFERENTIAL DIAGNOSIS: In no particular order, including but not limited to biliary colic, cholecystitis, peptic ulcer disease, pancreatitis, and gastroenteritis. This is a partial list of diagnoses considered. These considerations are based on history, physical exam, past history and reassessment. (Carmen Taylor) Constitutional: Initial Vital Signs Temperature (C) 37.1 C 03/18/17 14:26 Heart Rate 79 03/18/17 14:26 Respiratory Rate 18 03/18/17 14:26 Blood Pressure 111/73 03/18/17 14:26 O2 Sat (%) 90 L 03/18/17 14:26 O2 Delivery Mode Room Air Allergies/Adverse Reactions: No Known Allergies Allergy (Verified 03/18/17 14:26) Home Medications: Medication Instructions Recorded Meloxicam 7.5 mg PO DAILY 07/11/15 Lisinopril [Zestril 20 mg (*)] 20 mg PO DAILY #0 tab 07/18/15 Flomax 08/14/15 Medical Decision Making ED Course/Re-evaluation: 4:15 p.m.: Patient re-evaluated with serial exams he has been sleeping when the ER no vomiting. Discussed his laboratory studies including normal lipase. He is answering questions appropriately with no evidence of delirium. No seizure. I have [facility] which he [facility]. He is clinically sober, observed ambulating with stable steady gait, clear speech pattern, awake alert oriented person place time events and no evidence of trauma. He would like to be discharged home. Denies suicidal or homicidal ideation. Denies hallucination (Carmen Taylor) I did not see this patient while he was in the emergency department. However his care was discussed with the PA while the patient was in the department. I agree with treatment plan and management (Adiel Bullock) - Data Points Laboratory Results: Laboratory Results 03/18/17 14:35 03/18/17 14:35 03/18/17 03/18/17 14:35 14:35 WBC 7.72 10^3/uL 10^3/uL (3.80-9.50) RBC 5.28 10^6/uL 10^6/uL (4.40-6.38) Hgb 17.3 g/dL g/dL (13.7-17.5) Hct 49.3 % % (40.0-51.0) MCV 93.4 fL fL (81.5-99.8) MCH 32.8 pg pg (27.9-34.1) MCHC 35.1 g/dL g/dL (32.4-36.7) RDW 12.2 % % (11.5-15.2) Plt Count 265 10^3/uL 10^3/uL (150-400) MPV 9.4 fL fL (8.7-11.7) Neut % (Auto) 40.8 % % (39.3-74.2) Lymph % (Auto) 51.2 % H % (15.0-45.0) [place] % (Auto) 5.6 % % (4.5-13.0) Eos % (Auto) 0.9 % % (0.6-7.6) Baso % (Auto) 1.0 % % (0.3-1.7) Nucleat RBC Rel Count 0.0 % % (0.0-0.2) Absolute Neuts (auto) 3.15 10^3/uL 10^3/uL (1.70-6.50) Absolute Lymphs (auto) 3.95 10^3/uL H 10^3/uL (1.00-3.00) Absolute Monos (auto) 0.43 10^3/uL 10^3/uL (0.30-0.80) Absolute Eos (auto) 0.07 10^3/uL 10^3/uL (0.03-0.40) Absolute Basos (auto) 0.08 10^3/uL 10^3/uL (0.02-0.10) Absolute Nucleated RBC 0.00 10^3/uL 10^3/uL (0-0.01) Immature Gran % 0.5 % % (0.0-1.1) Immature Gran # 0.04 10^3/uL 10^3/uL (0.00-0.10) Sodium 145 mEq/L H mEq/L (134-144) Potassium 4.1 mEq/L mEq/L (3.5-5.2) Chloride 105 mEq/L mEq/L (97-110) Carbon Dioxide 23 mEq/l mEq/l (22-31) Anion Gap 17 mEq/L H mEq/L (8-16) BUN 14 mg/dL mg/dL (7-23) Creatinine 0.9 mg/dL mg/dL (0.7-1.3) Estimated GFR > 60 Glucose 119 mg/dL H mg/dL (70-100) Calcium 8.8 mg/dL mg/dL (8.5-10.4) Total Bilirubin 0.5 mg/dL mg/dL (0.1-1.4) Conjugated Bilirubin 0.3 mg/dL mg/dL (0.0-0.5) Unconjugated Bilirubin 0.2 mg/dL mg/dL (0.0-1.1) AST 35 IU/L IU/L (17-59) ALT 45 IU/L IU/L (21-72) Alkaline Phosphatase 65 IU/L IU/L (38-126) Total Protein 7.0 g/dL g/dL (6.3-8.2) Albumin 4.3 g/dL g/dL (3.5-5.0) Lipase 72 IU/L IU/L (23-300) Departure - Departure Disposition: Home, Routine, Self-Care Clinical Impression: Alcohol abuse Condition: Good Instructions: Abuse of Alcohol (ED) Additional Instructions: Please consider long-term sobriety Referrals: [facility],. [Clinic] - As per Instructions
[2017-03-18 14:28] VITALS: RESP 18
[2017-03-18 14:45] LABS: % IMMATURE GRANULYOCYTES 0.5 % (0.0-1.1); ABSOLUTE IMMATURE GRANULOCYTES 0.04 10^3/uL (0.00-0.10); ADD DIFF? NO; ADD MORPH? NO; ADD SCAN? NO; ATYPICAL LYMPHOCYTE FLAG 0 (0-99); FRAGMENT RBC FLAG 0 (0-99); HEMATOCRIT 49.3 % (40.0-51.0); HEMOGLOBIN 17.3 g/dL (13.7-17.5); LEFT SHIFT FLG 0 (0-99); LIPEMIA HEMOLYSIS FLAG 90 (0-99); MEAN CELL HEMOGLOBIN 32.8 pg (27.9-34.1); MEAN CELL HEMOGLOBIN CONCENTR. 35.1 g/dL (32.4-36.7); MEAN CELL VOLUME 93.4 fL (81.5-99.8); MEAN PLATELET VOLUME 9.4 fL (8.7-11.7); PLATELET CLUMPS FLAG 20 (0-99); PLATELET COUNT 265 10^3/uL (150-400); RED BLOOD CELL COUNT 5.28 10^6/uL (4.40-6.38); RED CELL DISTRIBUTION WIDTH 12.2 % (11.5-15.2)
[2017-03-18 15:11] LABS: ALANINE AMINOTRANSFERASE 45 IU/L (21-72); ALBUMIN 4.3 g/dL (3.5-5.0); ALKALINE PHOSPHATASE 65 IU/L (38-126); ANION GAP 17 mEq/L (8-16); ASPARTATE AMINOTRANSFERASE 35 IU/L (17-59); BILIRUBIN,TOTAL 0.5 mg/dL (0.1-1.4); BILIRUBIN-CONJUGATED 0.3 mg/dL (0.0-0.5); BILIRUBIN-UNCONJUGATED 0.2 mg/dL (0.0-1.1); CALCIUM 8.8 mg/dL (8.5-10.4); CARBON DIOXIDE 23 mEq/l (22-31); CHLORIDE 105 mEq/L (97-110); CREATININE 0.9 mg/dL (0.7-1.3); GLOMERULAR FILTRATION RATE > 60; GLUCOSE 119 mg/dL (70-100); POTASSIUM 4.1 mEq/L (3.5-5.2); SODIUM 145 mEq/L (134-144)
[2017-03-18 15:52] VITALS: PULSE 74
[2017-03-18 16:45] VITALS: BP 117/89; TEMP 98.6; O2SAT 90
== END 2017-03-18 17:00 | disposition home or self-care (01) ==
LOC: EDUNIT#
DX: F10.10 Alcohol abuse, uncomplicated (principal); I10 Essential (primary) hypertension

== ENCOUNTER 2017-04-08 12:46 | Emergency (ER) | payer MEDICAID ==
[2017-04-08 12:54] VITALS: BP 141/86; PULSE 104; RESP 18; TEMP 99.1; O2SAT 94
[2017-04-08] MEDS ORDERED: NS 1,000 ML IV ONE (13:40)
[2017-04-08] MEDS ORDERED: ONDANSETRON 4 MG/2 ML VIAL IVP ONE (13:40)
--- NOTE | 2017-04-08 13:52 | EDPHY ---
General - History Smoking Status: Never smoked Narrative: CHIEF COMPLAINT: "pancreatitis" HISTORY OF PRESENT ILLNESS: Patient complains of epigastric abdominal pain that he equates to his pancreatitis. This started last night after drinking heavily. He says that he has a history of alcohol use but had not had anything to drink in months. He drank 1 L of vodka yesterday. He has been nauseated but not vomiting. His pain is 10/10. It is constant duration. It radiates through to the back. Patient reports that this is atypical this pain for his chronic pancreatitis. No worse, no better. No bloody stools or emesis. No trauma or injury. No other associated complaints or modifying factors. REVIEW OF SYSTEMS: Ten systems reviewed and are negative unless otherwise noted in the HPI PCP: [facility] SPECIALISTS: No PAST MEDICAL HISTORY: Alcohol abuse, hypertension PAST SURGICAL HISTORY: No abdominal surgeries SOCIAL HISTORY: Nonsmoker alcohol abuse. No marijuana or illicit substance use FAMILY HISTORY: Noncontributory EXAMINATION General Appearance: Alert, no distress, smells of alcohol Head: normocephalic, atraumatic Eyes: Pupils equal and round, no conjunctival pallor or injection. No icterus. ENT, Mouth: Mucous membranes moist. Airway patent Neck: Normal inspection, supple, non-tender Respiratory: Lungs are clear to auscultation Cardiovascular: Regular rate and rhythm. No Gastrointestinal: Abdomen is soft and nontender. There is a large ventral hernia that is nearly loss of domain without incarceration. No tympany. No rigidity. No distention. No guarding. Benign abdominal examination Back: non-tender, no bony abnormalities Neurological: GCS 15. A&O, nonfocal, no tremor. Normal [id number]. Skin: Warm and dry, no rash. No petechiae or purpura Extremities: Nontender, no pedal edema Psychiatric: Mood and affect normal DIFFERENTIAL DIAGNOSES: Including but not limited to acute pancreatitis, chronic pancreatitis, colitis, diverticulitis, gastritis, alcohol intoxication, alcohol abuse MDM: 1:47 p.m. Epigastric abdominal pain with known history of pancreatitis. The patient does smell of alcohol and admits to alcohol ingestion yesterday. He is in no acute distress with no evidence of DTs. No indication for emergent CT scan based on benign abdominal examination. Laboratory studies have been ordered. IV fluid, IV Zofran have been ordered. 3:00 p.m. Laboratory studies thus far are negative. This includes a normal lipase. Serum alcohol level pending. Vital signs remained stable. 3:06 p.m. I have re-evaluated the patient. He reports that he is not feeling any better at this time. I informed him that I suspect this is a gastritis and not a pancreatitis. I will order Protonix and re-evaluate. 3:15 p.m. Notified by ED small engine technician that the blood alcohol is 0.425. At this time the patient is refusing his medications as well. We have ambulated him and he has ambulated in the hallway without any assistance. He has a steady gait and appears clinically sober despite this blood alcohol level. Patient is 30 leave AMA. He does not have a vehicle and thus would not be driving. Regardless, we have contacted his roommate to drive him home. 3:25 p.m. Notified by JOSE FRANCISCO Avelar, patient's remains not answering the phone. Patient is threatening to walk out. He has ambulated successfully in the ER to the point that I do not feel that he is a danger to himself. He does not own a vehicle will not be driving. He informs me that he will take the bus home. I am comfortable with him being discharged to do so at this time. I discussed return to the emergency department for any worsening of his pain, vomiting of blood, bright red or dark tarry stools. He is discharged in stable condition. (Ian Muhammad) - Objective Vital Signs: Initial Vital Signs Temperature (C) 99.1 F 04/08/17 12:53 Heart Rate 104 H 04/08/17 12:53 Respiratory Rate 18 04/08/17 12:53 Blood Pressure 141/86 H 04/08/17 12:53 O2 Sat (%) 94 04/08/17 12:53 O2 Delivery Mode Room Air Allergies/Adverse Reactions: No Known Allergies Allergy (Verified 03/18/17 14:26) Home Medications: Medication Instructions Recorded Lisinopril [Zestril 20 mg (*)] 20 mg PO DAILY #0 tab 07/18/15 Flomax 08/14/15 Ondansetron Odt [Zofran Odt 4 mg 4 mg PO Q6 PRN #12 tab 04/08/17 (*)] Laboratory Results: Laboratory Results 04/08/17 13:45 04/08/17 13:45 04/08/17 04/08/17 13:45 13:45 WBC 8.21 10^3/uL 10^3/uL (3.80-9.50) RBC 5.07 10^6/uL 10^6/uL (4.40-6.38) Hgb 16.4 g/dL g/dL (13.7-17.5) Hct 45.8 % % (40.0-51.0) MCV 90.3 fL fL (81.5-99.8) MCH 32.3 pg pg (27.9-34.1) MCHC 35.8 g/dL g/dL (32.4-36.7) RDW 12.3 % % (11.5-15.2) Plt Count 253 10^3/uL 10^3/uL (150-400) MPV 9.5 fL fL (8.7-11.7) Neut % (Auto) 58.3 % % (39.3-74.2) Lymph % (Auto) 34.8 % % (15.0-45.0) Rosebud % (Auto) 5.1 % % (4.5-13.0) Eos % (Auto) 0.4 % L % (0.6-7.6) Baso % (Auto) 0.9 % % (0.3-1.7) Nucleat RBC Rel Count 0.0 % % (0.0-0.2) Absolute Neuts (auto) 4.79 10^3/uL 10^3/uL (1.70-6.50) Absolute Lymphs (auto) 2.86 10^3/uL 10^3/uL (1.00-3.00) Absolute Monos (auto) 0.42 10^3/uL 10^3/uL (0.30-0.80) Absolute Eos (auto) 0.03 10^3/uL 10^3/uL (0.03-0.40) Absolute Basos (auto) 0.07 10^3/uL 10^3/uL (0.02-0.10) Absolute Nucleated RBC 0.00 10^3/uL 10^3/uL (0-0.01) Immature Gran % 0.5 % % (0.0-1.1) Immature Gran # 0.04 10^3/uL 10^3/uL (0.00-0.10) Sodium 140 mEq/L mEq/L (134-144) Potassium 4.2 mEq/L mEq/L (3.5-5.2) Chloride 102 mEq/L mEq/L (97-110) Carbon Dioxide 19 mEq/l L mEq/l (22-31) Anion Gap 19 mEq/L H mEq/L (8-16) BUN 11 mg/dL mg/dL (7-23) Creatinine 0.8 mg/dL mg/dL (0.7-1.3) Estimated GFR > 60 Glucose 133 mg/dL H mg/dL (70-100) Calcium 8.7 mg/dL mg/dL (8.5-10.4) Total Bilirubin 0.9 mg/dL mg/dL (0.1-1.4) Conjugated Bilirubin 0.5 mg/dL mg/dL (0.0-0.5) Unconjugated Bilirubin 0.4 mg/dL mg/dL (0.0-1.1) AST 48 IU/L IU/L (17-59) ALT 40 IU/L IU/L (21-72) Alkaline Phosphatase 78 IU/L IU/L (38-126) Total Protein 6.7 g/dL g/dL (6.3-8.2) Albumin 4.2 g/dL g/dL (3.5-5.0) Lipase 115 IU/L IU/L (23-300) Ethyl Alcohol 425 mg/dL H* mg/dL (0-10) Medications Given: Discontinued Medications Al Hydroxide/Mg Hydroxide (Maalox Susp) 30 ml PO ONCE ONE Stop: 04/08/17 15:08 Last Admin: 04/08/17 15:17 Dose: Not Given Hyoscyamine Sulfate (Levsin, Hyomax-Sl) 0.25 mg PO ONCE ONE Stop: 04/08/17 15:08 Last Admin: 04/08/17 15:16 Dose: Not Given Sodium Chloride (Ns) 1,000 mls @ 0 mls/hr IV EDNOW ONE; Wide Open PRN Reason: Protocol Stop: 04/08/17 13:41 Last Admin: 04/08/17 13:49 Dose: 1,000 mls Lidocaine (Lidocaine 2% Viscous) 15 ml PO ONCE ONE Stop: 04/08/17 15:08 Last Admin: 04/08/17 15:17 Dose: Not Given Ondansetron HCl (Zofran) 4 mg IVP EDNOW ONE Stop: 04/08/17 13:41 Last Admin: 04/08/17 13:49 Dose: 4 mg Pantoprazole Sodium (Protonix) 40 mg IVP EDNOW ONE Stop: 04/08/17 15:08 Last Admin: 04/08/17 15:17 Dose: Not Given ED Course Discussion: PHYSICIAN DOCUMENTATION: The patient was evaluated and managed by the Physician Contract Administrator and myself. I have reviewed the chart and agree with the findings and plan of care as documented. In addition, I examined the patient myself at 1520. History confirmed as abdominal pain, alcohol ingestion. Physical findings as follows: Soft and nontender, fluent speech, alert and appears comfortable at this time. I am the secondary supervising physician. (Bulmaro Kirkland) Departure - Departure Disposition: Home, Routine, Self-Care Clinical Impression: Alcoholic gastritis Qualifiers: Chronicity: acute Gastritis bleeding: without bleeding Qualified Code(s): K29.20 - Alcoholic gastritis without bleeding Abdominal pain Qualifiers: Abdominal location: epigastric Qualified Code(s): R10.13 - Epigastric pain Nausea & vomiting Qualifiers: Vomiting type: unspecified Vomiting Intractability: non-intractable Qualified Code(s): R11.2 - Nausea with vomiting, unspecified Condition: Good Instructions: Gastritis (ED), Alcohol Intoxication (ED), Abuse of Alcohol (ED) Additional Instructions: 1. Recommend cessation from alcohol 2. Follow up with primary care physician 3. Return to emergency department for worsening pain, bloody vomit, dark or red stools Referrals: NONE *PRIMARY CARE P,. [Primary Care Provider] - As per Instructions Mary Linda MD [[facility] [place]] - As per Instructions [facility],. [Clinic] - As per Instructions Malorie Leonardo MD [Medical Doctor] - As per Instructions Prescriptions: Ondansetron Odt [Zofran Odt 4 mg (*)] 4 mg PO Q6 PRN #12 tab PRN Reason: Nausea/Vomiting, Use 1st
[2017-04-08 14:01] LABS: % IMMATURE GRANULYOCYTES 0.5 % (0.0-1.1); ABSOLUTE IMMATURE GRANULOCYTES 0.04 10^3/uL (0.00-0.10); ADD DIFF? NO; ADD MORPH? NO; ADD SCAN? NO; ATYPICAL LYMPHOCYTE FLAG 0 (0-99); FRAGMENT RBC FLAG 0 (0-99); HEMATOCRIT 45.8 % (40.0-51.0); HEMOGLOBIN 16.4 g/dL (13.7-17.5); LEFT SHIFT FLG 0 (0-99); LIPEMIA HEMOLYSIS FLAG 90 (0-99); MEAN CELL HEMOGLOBIN 32.3 pg (27.9-34.1); MEAN CELL HEMOGLOBIN CONCENTR. 35.8 g/dL (32.4-36.7); MEAN CELL VOLUME 90.3 fL (81.5-99.8); MEAN PLATELET VOLUME 9.5 fL (8.7-11.7); PLATELET CLUMPS FLAG 0 (0-99); PLATELET COUNT 253 10^3/uL (150-400); RED BLOOD CELL COUNT 5.07 10^6/uL (4.40-6.38); RED CELL DISTRIBUTION WIDTH 12.3 % (11.5-15.2)
[2017-04-08 14:53] LABS: ALANINE AMINOTRANSFERASE 40 IU/L (21-72); ALBUMIN 4.2 g/dL (3.5-5.0); ALKALINE PHOSPHATASE 78 IU/L (38-126); ANION GAP 19 mEq/L (8-16); ASPARTATE AMINOTRANSFERASE 48 IU/L (17-59); BILIRUBIN,TOTAL 0.9 mg/dL (0.1-1.4); BILIRUBIN-CONJUGATED 0.5 mg/dL (0.0-0.5); BILIRUBIN-UNCONJUGATED 0.4 mg/dL (0.0-1.1); CALCIUM 8.7 mg/dL (8.5-10.4); CARBON DIOXIDE 19 mEq/l (22-31); CHLORIDE 102 mEq/L (97-110); CREATININE 0.8 mg/dL (0.7-1.3); GLOMERULAR FILTRATION RATE > 60; GLUCOSE 133 mg/dL (70-100); POTASSIUM 4.2 mEq/L (3.5-5.2); SODIUM 140 mEq/L (134-144); TOTAL PROTEIN 6.7 g/dL (6.3-8.2)
[2017-04-08] MEDS ORDERED: HYOSCYAMINE SULFATE 0.125 MG TAB PO ONE (15:07)
[2017-04-08] MEDS ORDERED: MAG HYDROX/AL HYDROX/SIMETH 30 ML UDCUP PO ONE (15:07)
[2017-04-08] MEDS ORDERED: PANTOPRAZOLE SODIUM 40 MG VIAL IVP ONE (15:07)
[2017-04-08] MEDS ORDERED: LIDOCAINE 2% VISCOUS 15 ML UDCUP PO ONE (15:07)
[2017-04-08 15:13] LABS: ETHANOL SERUM 425 mg/dL (0-10)
== END 2017-04-08 15:33 | disposition home or self-care (01) ==
DX: K29.20 Alcoholic gastritis without bleeding (principal); E86.9 Volume depletion, unspecified; I10 Essential (primary) hypertension
CPT/HCPCS: 96374; G0480; J2405

== ENCOUNTER 2017-05-10 10:39 | Emergency (ER) | payer MEDICAID ==
[2017-05-10 10:49] VITALS: BP 107/76; PULSE 85; RESP 16; TEMP 97.5
[2017-05-10 10:50] VITALS: O2SAT 98
[2017-05-10] MEDS ORDERED: NS 1,000 ML IV ONE (10:52)
--- NOTE | 2017-05-10 10:54 | EDPHY ---
H & P Time Seen by Provider: 05/10/17 10:40 HPI/ROS: CHIEF COMPLAINT: Abdominal pain, vomiting HISTORY OF PRESENT ILLNESS: 62-year-old male presents to the emergency department with epigastric abdominal pain and multiple episodes of vomiting since yesterday. The patient has a history of pancreatitis which is typically induced by alcohol. He drank alcohol yesterday. He has had this multiple times. He was most recently at [facility] and was admitted for 1 week with similar symptoms. He has also had watery diarrhea. No fevers or chills. No chest pain or difficulty breathing. No back pain. No urinary symptoms. No recent travel. No reported trauma. REVIEW OF SYSTEMS: Constitutional: No fever, no chills. Eyes: No double or blurry vision. ENT: No sore throat. Respiratory: No cough, no shortness of breath. Cardiac: No chest pain. Gastrointestinal: As above Genitourinary: No dysuria. Musculoskeletal: No neck or back pain. Skin: No rashes. Neurological: No headache. Past Medical/Surgical History: Alcoholism, pancreatitis, hypertension, depression Social History: Single Smoking Status: Never smoked Physical Exam: General Appearance: Alert, no distress. Eyes: Pupils equal and round. Extraocular motions are all intact. ENT: Mouth: Mucous membranes moist. Respiratory: No wheezing, rhonchi, or rales, lungs are clear to auscultation. Cardiovascular: Regular rate and rhythm. Gastrointestinal: Abdomen is soft. It is distended appearing. Tenderness with palpation especially the epigastric area. No rebound or guarding tenderness. No CVA tenderness bilaterally. Neurological: Alert and oriented x 3, cranial nerves II through XII grossly intact Skin: Warm and dry, no rashes. Musculoskeletal: Nontender to palpate along the cervical, thoracic or lumbar spine. Neck is supple. Extremities: Full range of motion and no peripheral edema. Psychiatric: Patient is oriented X 3, there is no agitation. Constitutional: Initial Vital Signs Temperature (C) 36.4 C 05/10/17 10:39 Heart Rate 85 05/10/17 10:39 Respiratory Rate 16 05/10/17 10:39 Blood Pressure 107/76 05/10/17 10:39 O2 Sat (%) 89 L 05/10/17 10:39 O2 Delivery Mode Room Air O2 (L/minute) 2 Allergies/Adverse Reactions: No Known Allergies Allergy (Verified 03/18/17 14:26) Home Medications: Medication Instructions Recorded Lisinopril [Zestril 20 mg (*)] 20 mg PO DAILY #0 tab 07/18/15 Flomax 08/14/15 Ondansetron Odt [Zofran Odt 4 mg 4 mg PO Q6 PRN #12 tab 04/08/17 (*)] Medical Decision Making ED Course/Re-evaluation: 62-year-old male with a known history of pancreatitis and alcoholism presents with epigastric abdominal pain. He states that it feels very similar to his previous episodes of pancreatitis. He last drank alcohol yesterday. Patient had IV established laboratory studies reveal normal white blood cell count. His chemistries are not back yet. The patient is requesting to be discharged from the emergency department. The patient does not want help with his alcohol addiction. He states he does not want to stop drinking. He does not have a primary care provider. He was given the name of the on-call primary care provider. Patient is leaving against medical advice. I do not think this patient has acute abdomen. He had no episodes of vomiting in the emergency department. I did encourage the patient to stop drinking alcohol, however the patient states "I do not want to stop drinking." Differential Diagnosis: Including but not limited to pancreatitis, diverticulitis, acute appendicitis, dehydration - Data Points Laboratory Results: Laboratory Results 05/10/17 11:05 05/10/17 11:05 Departure - Departure Disposition: Against Medical Advice Clinical Impression: Abdominal pain Qualifiers: Abdominal location: epigastric Qualified Code(s): R10.13 - Epigastric pain Condition: Good Instructions: Acute Abdominal Pain (ED), Against Medical Advice (ED) Additional Instructions: Your leaving the hospital against medical advice. I recommended that you stay in the emergency department for further evaluation of your ongoing abdominal pain. Referrals: Maria Eugenia Elizabeth MD [Medical Doctor] - As per Instructions (Primary care provider restoration technician)
[2017-05-10 11:27] LABS: % IMMATURE GRANULYOCYTES 1.1 % (0.0-1.1); ABSOLUTE IMMATURE GRANULOCYTES 0.07 10^3/uL (0.00-0.10); ADD DIFF? NO; ADD MORPH? NO; ADD SCAN? NO; ATYPICAL LYMPHOCYTE FLAG 0 (0-99); FRAGMENT RBC FLAG 50 (0-99); HEMATOCRIT 42.3 % (40.0-51.0); HEMOGLOBIN 14.5 g/dL (13.7-17.5); LEFT SHIFT FLG 10 (0-99); LIPEMIA HEMOLYSIS FLAG 90 (0-99); MEAN CELL HEMOGLOBIN CONCENTR. 34.3 g/dL (32.4-36.7); MEAN CELL VOLUME 93.4 fL (81.5-99.8); MEAN PLATELET VOLUME 9.1 fL (8.7-11.7); PLATELET CLUMPS FLAG 0 (0-99); PLATELET COUNT 538 10^3/uL (150-400); RED BLOOD CELL COUNT 4.53 10^6/uL (4.40-6.38); RED CELL DISTRIBUTION WIDTH 14.3 % (11.5-15.2)
[2017-05-10 11:55] LABS: ALANINE AMINOTRANSFERASE 49 IU/L (21-72); ALBUMIN 4.2 g/dL (3.5-5.0); ALKALINE PHOSPHATASE 75 IU/L (38-126); ANION GAP 17 mEq/L (8-16); ASPARTATE AMINOTRANSFERASE 35 IU/L (17-59); BILIRUBIN,TOTAL 0.4 mg/dL (0.1-1.4); BILIRUBIN-CONJUGATED 0.2 mg/dL (0.0-0.5); BILIRUBIN-UNCONJUGATED 0.2 mg/dL (0.0-1.1); CARBON DIOXIDE 25 mEq/l (22-31); CHLORIDE 101 mEq/L (97-110); CREATININE 0.9 mg/dL (0.7-1.3); GLOMERULAR FILTRATION RATE > 60; GLUCOSE 150 mg/dL (70-100); POTASSIUM 4.1 mEq/L (3.5-5.2); SODIUM 143 mEq/L (134-144); TOTAL PROTEIN 6.9 g/dL (6.3-8.2)
== END 2017-05-10 12:26 | disposition left against medical advice (07) ==
LOC: EDUNIT#
DX: R10.13 Epigastric pain (principal); I10 Essential (primary) hypertension

== ENCOUNTER 2017-05-12 17:00 | Emergency (ER) | payer MEDICAID ==
[2017-05-12 17:05] VITALS: TEMP 97.3
[2017-05-12] MEDS ORDERED: ONDANSETRON 4 MG/2 ML VIAL IVP ONE (17:24)
[2017-05-12] MEDS ORDERED: METOCLOPRAMIDE 10 MG/2 ML VIAL IVP ONE (17:24)
[2017-05-12] MEDS ORDERED: LIDOCAINE 1% 100 MG in NS 100 ML IV ONE (17:24)
[2017-05-12] MEDS ORDERED: NS 1,000 ML IV ONE (17:24)
--- NOTE | 2017-05-12 17:28 | EDPHY ---
H & P Stated Complaint: epigastric pain/etoh/seen 3 times this week for same Time Seen by Provider: 05/12/17 17:18 HPI/ROS: CHIEF COMPLAINT: Epigastric pain HISTORY OF PRESENT ILLNESS: The patient is a 62-year-old alcoholic man with history of pancreatitis who comes to the emergency department complaining of epigastric pain which she states is similar to previous episodes of pancreatitis. He states that he drank yesterday. He was here 2 days ago for the same and had drank then the day before as well. He left AMA that time because we would not give him narcotics. He has not had a fever. No vomiting. No diarrhea. REVIEW OF SYSTEMS: Constitutional: denies: chills, fever, recent illness, recent injury EENTM: denies: blurred vision, double vision, nose congestion Respiratory: denies: cough, shortness of breath Cardiac: denies: chest pain, irregular heart rate, lightheadedness, palpitations Gastrointestinal/Abdominal: See HPI Genitourinary: denies: dysuria, frequency, hematuria, pain Musculoskeletal: denies: joint pain, muscle pain Skin: denies: lesions, rash, jaundice, bruising Neurological: denies: headache, numbness, paresthesia, tingling, dizziness, weakness Hematologic/Lymphatic: denies: blood clots, easy bleeding, easy bruising Immunologic/allergic: denies: HIV/AIDS, transplant EXAM: GENERAL: Well-appearing, well-nourished and in no acute distress. HEAD: Atraumatic, normocephalic. EYES: Pupils equal round and reactive to light, extraocular movements intact, sclera anicteric, conjunctiva are normal. ENT: TMs normal, nares patent, oropharynx clear without exudates. Moist mucous membranes. NECK: Normal range of motion, supple without lymphadenopathy or JVD. LUNGS: Breath sounds clear to auscultation bilaterally and equal. No wheezes rales or rhonchi. HEART: Regular rate and rhythm without murmurs, rubs or gallops. ABDOMEN: Epigastric pain and mild tenderness, normoactive bowel sounds. No guarding, no rebound. No masses appreciated. BACK: No CVA tenderness, no spinal tenderness, step-offs or deformities EXTREMITIES: Normal range of motion, no pitting or edema. No clubbing or cyanosis. NEUROLOGICAL: Cranial nerves II through XII grossly intact. Normal speech, normal gait. 5/5 strength, normal movement in all extremities, normal sensation PSYCH: Normal mood, normal affect. SKIN: Warm, dry, normal turgor, no visible rashes or lesions. Source: Patient Exam Limitations: No limitations - Personal History Current Tetanus/Diphtheria Vaccine: Yes Tetanus Vaccine Date: 06/21/2009 - Medical/Surgical History Hx Asthma: No Hx Chronic Respiratory Disease: No Hx Diabetes: No Hx Cardiac Disease: No Hx Renal Disease: No Hx Cirrhosis: No Hx Alcoholism: Yes Hx HIV/AIDS: No Hx Splenectomy or Spleen Trauma: No Other PMH: Pancreatitis, alcoholism, htn, depression - Family History Significant Family History: No pertinent family hx - Social History Smoking Status: Never smoked Alcohol Use: Sober Drug Use: None Constitutional: Initial Vital Signs Temperature (C) 36.3 C 05/12/17 17:03 Heart Rate 127 H 05/12/17 17:03 Respiratory Rate 18 05/12/17 17:03 Blood Pressure 157/97 H 05/12/17 17:03 O2 Sat (%) 96 05/12/17 17:03 O2 Delivery Mode Room Air Allergies/Adverse Reactions: No Known Allergies Allergy (Verified 05/12/17 22:06) Home Medications: Medication Instructions Recorded Lisinopril [Zestril 20 mg (*)] 20 mg PO DAILY #0 tab 07/18/15 Medical Decision Making ED Course/Re-evaluation: 7:30 p.m. the patient is sleeping. His abdominal exam is benign. Will discharge him at this time. Differential Diagnosis: Partial list of the Differential diagnosis considered include but were not limited to; alcoholism, pancreatitis, hepatitis and although unlikely based on the history and physical exam, I also considered biliary disease, obstruction, ischemia. - Data Points Laboratory Results: Laboratory Results 05/12/17 17:45 05/12/17 17:45 Medications Given: Discontinued Medications Sodium Chloride (Ns) 1,000 mls @ 0 mls/hr IV EDNOW ONE; Wide Open PRN Reason: Protocol Stop: 05/12/17 17:25 Last Admin: 05/12/17 17:44 Dose: 1,000 mls Lidocaine HCl 100 mg/ Sodium (Chloride) 110 mls @ 600 mls/hr IV EDNOW ONE Stop: 05/12/17 17:34 Last Admin: 05/12/17 18:20 Dose: 110 mls Metoclopramide HCl (Reglan Injection) 10 mg IVP EDNOW ONE Stop: 05/12/17 17:25 Last Admin: 05/12/17 17:44 Dose: 10 mg Ondansetron HCl (Zofran) 4 mg IVP EDNOW ONE Stop: 05/12/17 17:25 Last Admin: 05/12/17 17:44 Dose: 4 mg Departure - Departure Disposition: Home, Routine, Self-Care Clinical Impression: Alcohol abuse Abdominal pain Qualifiers: Abdominal location: upper abdomen, unspecified Qualified Code(s): R10.10 - Upper abdominal pain, unspecified Condition: Fair Instructions: Abuse of Alcohol (ED), Acute Abdominal Pain (ED) Referrals: NONE *PRIMARY CARE P,. [Primary Care Provider] - As per Instructions [facility],. [Clinic] - As per Instructions
[2017-05-12 17:58] LABS: % IMMATURE GRANULYOCYTES 0.7 % (0.0-1.1); ABSOLUTE IMMATURE GRANULOCYTES 0.03 10^3/uL (0.00-0.10); ADD DIFF? NO; ADD MORPH? NO; ADD SCAN? NO; ATYPICAL LYMPHOCYTE FLAG 0 (0-99); FRAGMENT RBC FLAG 0 (0-99); HEMATOCRIT 44.2 % (40.0-51.0); HEMOGLOBIN 15.3 g/dL (13.7-17.5); LEFT SHIFT FLG 0 (0-99); LIPEMIA HEMOLYSIS FLAG 90 (0-99); MEAN CELL HEMOGLOBIN 31.7 pg (27.9-34.1); MEAN CELL HEMOGLOBIN CONCENTR. 34.6 g/dL (32.4-36.7); MEAN CELL VOLUME 91.5 fL (81.5-99.8); MEAN PLATELET VOLUME 9.2 fL (8.7-11.7); PLATELET CLUMPS FLAG 0 (0-99); PLATELET COUNT 363 10^3/uL (150-400); RED BLOOD CELL COUNT 4.83 10^6/uL (4.40-6.38); RED CELL DISTRIBUTION WIDTH 14.2 % (11.5-15.2)
[2017-05-12 18:09] LABS: ALANINE AMINOTRANSFERASE 39 IU/L (21-72); ALBUMIN 4.8 g/dL (3.5-5.0); ALKALINE PHOSPHATASE 90 IU/L (38-126); ANION GAP 19 mEq/L (8-16); ASPARTATE AMINOTRANSFERASE 45 IU/L (17-59); BILIRUBIN,TOTAL 0.9 mg/dL (0.1-1.4); BILIRUBIN-CONJUGATED 0.5 mg/dL (0.0-0.5); BILIRUBIN-UNCONJUGATED 0.4 mg/dL (0.0-1.1); CALCIUM 9.2 mg/dL (8.5-10.4); CARBON DIOXIDE 22 mEq/l (22-31); CHLORIDE 101 mEq/L (97-110); CREATININE 0.9 mg/dL (0.7-1.3); GLOMERULAR FILTRATION RATE > 60; GLUCOSE 128 mg/dL (70-100); SODIUM 142 mEq/L (134-144); TOTAL PROTEIN 7.2 g/dL (6.3-8.2)
[2017-05-12 19:51] VITALS: BP 134/87; PULSE 105; RESP 16; O2SAT 92
== END 2017-05-12 19:50 | disposition home or self-care (01) ==
DX: R10.13 Epigastric pain (principal); F10.10 Alcohol abuse, uncomplicated; I10 Essential (primary) hypertension; E86.9 Volume depletion, unspecified
CPT/HCPCS: 96374; J2405; J2765

== ENCOUNTER 2017-05-12 22:01 | Emergency (ER) | payer MEDICAID ==
[2017-05-12 22:09] VITALS: RESP 16; TEMP 97.9
--- NOTE | 2017-05-12 22:09 | EDPHY ---
H & P - Personal History Tetanus Vaccine Date: 06/21/2009 - Medical/Surgical History Hx Asthma: No Hx Chronic Respiratory Disease: No Hx Diabetes: No Hx Cardiac Disease: No Hx Renal Disease: No Hx Cirrhosis: No Hx Alcoholism: Yes Hx HIV/AIDS: No Hx Splenectomy or Spleen Trauma: No Other PMH: Pancreatitis, alcoholism, htn, depression - Social History Smoking Status: Never smoked Time Seen by Provider: 05/12/17 22:03 HPI/ROS: Chief Complaint: Fall, head injury HPI: A 62-year-old male states that he has been drinking heavily this evening. He had mechanical trip and fall and struck his head on the ground. He does not know if he had a loss of consciousness. He has sustained a large laceration. Denies any neck pain. No numbness or weakness. He was up and ambulating after the injury. He was seen here early for epigastric pain. Denies any pain at this time. No nausea or vomiting. No fevers or chills. No cough. No shortness of breath. ROS: 10 point Review of Systems is negative except as noted in the HPI. PMH: Chronic alcoholism, pancreatitis in the past Social History: No smoking, heavy daily alcohol, no recreational drug use Family History: non-contributory Physical Exam: Gen: Awake, Alert, No Distress HEENT: Large frontal central laceration, no active bleeding Nose: no rhinorrhea Eyes: PERRLA, EOMI Mouth: Moist mucosa Neck: Cervical collar in place, no midline tenderness or step-offs Chest: nontender, lungs clear to auscultation Heart: S1, S2 normal, no murmur Abd: Soft, non-tender, no guarding Back: no CVA tenderness, no midline tenderness Ext: no edema, non-tender Skin: no rash Neuro: CN II-XII intact, Sensation grossly intact, Strength 5/5 in bilateral upper and lower extremities (Elan Traylor) Constitutional: Initial Vital Signs Temperature (C) 36.6 C 05/12/17 22:06 Heart Rate 88 05/12/17 22:06 Respiratory Rate 16 05/12/17 22:06 Blood Pressure 154/106 H 05/12/17 22:06 O2 Sat (%) 92 05/12/17 22:06 O2 Delivery Mode Room Air Allergies/Adverse Reactions: No Known Allergies Allergy (Verified 05/12/17 22:06) Home Medications: Medication Instructions Recorded Lisinopril [Zestril 20 mg (*)] 20 mg PO DAILY #0 tab 07/18/15 Medical Decision Making - Diagnostics Imaging: Discussed imaging studies w/ yardage caller Radiologist - Diagnostics Imaging Results: Imaging Impressions Cervical Spine CT 05/12/17 22:05 Impression: Head CT: 1. No acute intracranial abnormality. 2. Right frontal scalp hematoma and laceration. 3. Marked volume loss, more than would be expected for this patient's age. 4. Stable, benign-appearing calcifications and subcortical hypodensity in the right centrum semiovale. Differential includes prior trauma or underlying vascular malformation. Cervical Spine: 1. No acute abnormalities. 2. Cannot exclude ligament, spinal cord and/or vascular abnormalities on this exam. If there is persistent pain or neurologic deficit, consider MRI and/or flexion and extension radiographs of the cervical spine. 3. Degenerative foraminal stenosis, severe bilaterally at C5-C6 and mild bilaterally at C3-C4. Dr. Mullen discussed these findings by telephone with Elan Traylor MD on at 23:19. Head CT 05/12/17 22:05 Impression: Head CT: 1. No acute intracranial abnormality. 2. Right frontal scalp hematoma and laceration. 3. Marked volume loss, more than would be expected for this patient's age. 4. Stable, benign-appearing calcifications and subcortical hypodensity in the right centrum semiovale. Differential includes prior trauma or underlying vascular malformation. Cervical Spine: 1. No acute abnormalities. 2. Cannot exclude ligament, spinal cord and/or vascular abnormalities on this exam. If there is persistent pain or neurologic deficit, consider MRI and/or flexion and extension radiographs of the cervical spine. 3. Degenerative foraminal stenosis, severe bilaterally at C5-C6 and mild bilaterally at C3-C4. Dr. Mullen discussed these findings by telephone with Elan Traylor MD on at 23:19. CT scan of the head and cervical spine show no acute abnormalities per Dr. Mullen. (Elan Traylor) Procedures: I was asked by Dr. Nabor Traylor to repair facial laceration. Laceration repair. Verbal consent was obtained from the patient. The 8 cm laceration on the frontal forehead was anesthetized using 1% lidocaine with epinephrine. The wound was irrigated with saline, draped and explored to its base with a gloved finger. There were no deep structures involved. The wound was repaired with 6 0 Vicryl, 5 sutures and 5 0 Ethilon, 16 sutures. The wound repair was complex. The procedure was performed by myself. (Carmen Harkins) ED Course/Re-evaluation: Lacerations been repaired. CT scans are negative. He is ambulating unassisted emergency department. Patient is medically clear for discharge. (Elan Traylor) Departure - Departure Disposition: Home, Routine, Self-Care Clinical Impression: Alcohol intoxication, Scalp laceration Condition: Good Instructions: Care For Your Stitches (ED), Laceration (ED) Additional Instructions: Sutures need to be removed in about 7 days. Return to the emergency department for suture removal. Return emergency depart for increasing headache, nausea, vomiting, fevers, chills, or any other concerns. Please seek help to decrease your alcohol consumption. Referrals: NONE *PRIMARY CARE P,. [Primary Care Provider] - As per Instructions [facility],. [Clinic] - As per Instructions
[2017-05-12 23:58] VITALS: BP 144/77; PULSE 84; O2SAT 96
== END 2017-05-12 23:58 | disposition home or self-care (01) ==
LOC: EDUNIT#
PROC: 0HQ1XZZ Repair Face Skin, External Approach (ICD-10-PCS; principal; 2017-05-12)
DX: S01.01XA Laceration without foreign body of scalp, initial encounter (principal); F10.129 Alcohol abuse with intoxication, unspecified; I10 Essential (primary) hypertension; W01.198A Fall on same level from slipping, tripping and stumbling with subsequent striking against other object, initial encounter
CPT/HCPCS: 96374; J2405; J2765

== ENCOUNTER 2017-08-13 12:48 | Emergency (ER) | payer MEDICAID ==
[2017-08-13 13:06] VITALS: RESP 16
[2017-08-13] MEDS ORDERED: NS 1,000 ML IV ONE ×2 (14:43)
[2017-08-13] MEDS ORDERED: MAG HYDROX/AL HYDROX/SIMETH 30 ML UDCUP PO ONE (14:43)
[2017-08-13] MEDS ORDERED: HYOSCYAMINE SULFATE 0.125 MG TAB PO ONE (14:43)
--- NOTE | 2017-08-13 14:44 | EDPHY ---
H & P Time Seen by Provider: 08/13/17 14:23 HPI/ROS: CHIEF COMPLAINT: Abdominal pain HISTORY OF PRESENT ILLNESS: History of alcoholism and pancreatitis with sober until yesterday. Started drinking alcohol presents with epigastric abdominal pain radiating to his back associated with vomiting and diarrhea. No melena or hematemesis. Symptoms mild to moderate, he took a cab here today. No recent injury or trauma or fever or chills. REVIEW OF SYSTEMS: Eye: no change in vision ENT: no sore throat Cardiac: no chest pain or syncope Pulmonary: no cough or SOB Abdomen: HPI Musculoskeletal: no back pain Skin: no rash Neuro: no headache Constitutional: no fever : no urinary symptoms A comprehensive 10 point review of systems is otherwise negative aside from elements mentioned in the history of present illness. PAST MEDICAL HISTORY: Alcoholism, pancreatitis, hypertension, depression. No previous surgical history. History of chronic abdominal pain. Social history: Recent alcohol as noted above General Appearance: Alert and conversant, cooperative. Eyes: No scleral icterus. ENT, Mouth: Normal mucous membranes. Respiratory: Normal respiratory effort, breath sounds equal, lungs are clear to auscultation. Cardiovascular: Regular rate and rhythm. Gastrointestinal: Abdomen is soft and non tender. No epigastric tenderness or right upper quadrant tenderness or Maxwell sign. Neurological: Alert, face symmetric, normal motor and sensory in extremities. Skin: Warm and dry, no rashes. Musculoskeletal: No peripheral edema. Psychiatric: Not agitated. Emergency Department course/MDM: Patient denies worsening depression or suicidal ideation. He presents with abdominal pain which in previous visits is more likely to be due to alcohol ingestion then pancreatitis. Zofran 4 mg IV, IV hydration, labs to include LFTs and lipase. 1556: Normal lipase, more likely to be alcoholic gastritis, treatment for nausea and hydration, discharge and outpatient follow-up. Patient ambulatory, stable for discharge is not currently vomiting, abdomen exam does not suggest surgical process. Smoking Status: Never smoked Constitutional: Initial Vital Signs Temperature (C) 36.6 C 08/13/17 13:03 Heart Rate 95 08/13/17 13:03 Respiratory Rate 16 08/13/17 13:03 Blood Pressure 126/75 H 08/13/17 13:03 O2 Sat (%) 91 L 08/13/17 13:03 O2 Delivery Mode Room Air Allergies/Adverse Reactions: No Known Allergies Allergy (Verified 11/22/17 22:06) Home Medications: Medication Instructions Recorded Lisinopril [Zestril 20 mg (*)] 20 mg PO DAILY #0 tab 07/18/15 Medical Decision Making Differential Diagnosis: Differential considered including but not limited to gastritis, pancreatitis, hepatitis, GI bleed, a intestinal perforation. - Data Points Laboratory Results: Laboratory Results 08/13/17 15:36 08/13/17 15:36 08/13/17 08/13/17 15:36 15:36 WBC 5.31 10^3/uL 10^3/uL (3.80-9.50) RBC 5.27 10^6/uL 10^6/uL (4.40-6.38) Hgb 16.8 g/dL g/dL (13.7-17.5) Hct 48.9 % % (40.0-51.0) MCV 92.8 fL fL (81.5-99.8) MCH 31.9 pg pg (27.9-34.1) MCHC 34.4 g/dL g/dL (32.4-36.7) RDW 14.2 % % (11.5-15.2) Plt Count 163 10^3/uL 10^3/uL (150-400) MPV 9.9 fL fL (8.7-11.7) Neut % (Auto) 67.5 % % (39.3-74.2) Lymph % (Auto) 26.6 % % (15.0-45.0) [place] % (Auto) 4.5 % % (4.5-13.0) Eos % (Auto) 0.2 % L % (0.6-7.6) Baso % (Auto) 0.6 % % (0.3-1.7) Nucleat RBC Rel Count 0.0 % % (0.0-0.2) Absolute Neuts (auto) 3.59 10^3/uL 10^3/uL (1.70-6.50) Absolute Lymphs (auto) 1.41 10^3/uL 10^3/uL (1.00-3.00) Absolute Monos (auto) 0.24 10^3/uL L 10^3/uL (0.30-0.80) Absolute Eos (auto) 0.01 10^3/uL L 10^3/uL (0.03-0.40) Absolute Basos (auto) 0.03 10^3/uL 10^3/uL (0.02-0.10) Absolute Nucleated RBC 0.00 10^3/uL 10^3/uL (0-0.01) Immature Gran % 0.6 % % (0.0-1.1) Immature Gran # 0.03 10^3/uL 10^3/uL (0.00-0.10) Sodium 139 mEq/L mEq/L (135-145) Potassium 4.4 mEq/L mEq/L (3.5-5.2) Chloride 95 mEq/L L mEq/L (97-110) Carbon Dioxide 20 mEq/l L mEq/l (22-31) Anion Gap 24 mEq/L H mEq/L (8-16) BUN 15 mg/dL mg/dL (7-23) Creatinine 1.0 mg/dL mg/dL (0.7-1.3) Estimated GFR > 60 Glucose 115 mg/dL H mg/dL (70-100) Calcium 9.1 mg/dL mg/dL (8.5-10.4) Total Bilirubin 1.1 mg/dL mg/dL (0.1-1.4) Conjugated Bilirubin 0.6 mg/dL H mg/dL (0.0-0.5) Unconjugated Bilirubin 0.5 mg/dL mg/dL (0.0-1.1) AST 64 IU/L H IU/L (17-59) ALT 54 IU/L IU/L (21-72) Alkaline Phosphatase 90 IU/L IU/L (38-126) Total Protein 7.2 g/dL g/dL (6.3-8.2) Albumin 4.8 g/dL g/dL (3.5-5.0) Lipase 102 IU/L IU/L (23-300) Medications Given: Discontinued Medications Al Hydroxide/Mg Hydroxide (Maalox Susp) 30 ml PO ONCE ONE Stop: 08/13/17 14:44 Last Admin: 08/13/17 15:18 Dose: 30 ml Hyoscyamine Sulfate (Levsin, Hyomax-Sl) 0.25 mg PO ONCE ONE Stop: 08/13/17 14:44 Last Admin: 08/13/17 15:18 Dose: 0.25 mg Sodium Chloride (Ns) 1,000 mls @ 0 mls/hr IV EDNOW ONE; Wide Open PRN Reason: Protocol Stop: 08/13/17 14:44 Last Admin: 08/13/17 15:47 Dose: 1,000 mls Sodium Chloride (Ns) 1,000 mls @ 0 mls/hr IV EDNOW ONE; Wide Open PRN Reason: Protocol Stop: 08/13/17 14:44 Last Admin: 08/13/17 16:19 Dose: Not Given Departure - Departure Disposition: Home, Routine, Self-Care Clinical Impression: Epigastric abdominal pain Alcohol intoxication Qualifiers: Complication of substance-induced condition: with unspecified complication Qualified Code(s): F10.929 - Alcohol use, unspecified with intoxication, unspecified Condition: Good Instructions: Acute Abdominal Pain (ED) Referrals: [facility],. [Clinic] - As per Instructions
[2017-08-13 15:45] LABS: PLATELET COUNT 163 10^3/uL (150-400)
[2017-08-13 16:23] VITALS: BP 128/84; PULSE 84; TEMP 96.8; O2SAT 96
== END 2017-08-13 16:20 | disposition home or self-care (01) ==
LOC: EDUNIT# → EDBD
DX: R10.13 Epigastric pain (principal); F10.929 Alcohol use, unspecified with intoxication, unspecified; I10 Essential (primary) hypertension; E86.9 Volume depletion, unspecified

== ENCOUNTER 2017-09-11 14:23 | Inpatient (IN) | payer MEDICAID ==
--- NOTE | 2017-09-11 14:28 | EDPHY ---
H & P Time Seen by Provider: 09/11/17 14:28 HPI/ROS: HPI: This is a 62-year-old male who presents with Chief Complaint: Alcohol withdrawal Location:body Quality: Alcohol withdrawal Duration: Today Signs and Symptoms: no shortness of breath at rest, no shortness of breath on exertion, no cough, no chest pain, no palpitations, no lower extremity edema, no wheezing, no orthopnea, no paroxysmal nocturnal dyspnea, no fever, no injury/ trauma, no hemoptysis, no carpal pedal spasms Timing: Acute on chronic Severity: Moderate to severe Context: Patient has a history of alcoholism, drinking 2 pints of vodka daily on average, as well as pancreatitis, presents via ambulance for complaints of going through alcohol withdrawal with complaints of tremors, nausea, sweating, headache, difficulty concentrating. He also reports he woke up this morning with epigastric, burning, radiating pain to his back that is consistent with prior pancreatitis flares. He reports that his last drink was at 4:00 a.m. He reports the last drink was 12 hr prior to arrival to the emergency room and he drank half a pint of vodka. Denies any fever/diarrhea/blood in stool/ hematemesis. He reports he has noted some blood in his urine. Denies any hallucinations/suicidal ideation/homicidal ideation. Reports that he has had hospitalization for alcohol withdrawal in the past but denies any seizure secondary to alcohol withdrawal. Denies any visual or tactile disturbances. Reports that he never has delirium or hallucinations. Has not eaten or drank anything today. When EMS arrived his roommates reported that he appeared sweaty and"not well." Modifying Factors: EMS started IV fluids on route Comment: ROS: see HPI Constitutional: No fever, no chills, no weight loss Eyes: No blurred vision Respiratory: No shortness of breath, no cough Cardiovascular: No chest pain, no palpitations, no lower extremity edema Gastrointestinal: + nausea, no vomiting, no diarrhea Genitourinary: No dysuria Extremities: No myalgias Neurologic: No weakness, no numbness Skin: No rashes Hematologic: No bruising, no bleeding MEDICAL/SURGICAL/SOCIAL HISTORY: Medical history: Pancreatitis, alcoholism, htn, depression. Surgical history: Denies Social history: Unemployed. Lives with roommates. CONSTITUTIONAL: Chronically ill-appearing elderly male, awake and alert, no obvious distress HEENT: Atraumatic and normocephalic, PERRL, EOMI. Tympanic membranes clear. Oropharynx clear, no exudate and moist pink mucosa. Airway patent. No lymphadenopathy. No meningismus. Cardiovascular: Normal S1/S2, tachycardia, regular rhythm, without murmur rub or gallop. PULMONARY/CHEST: Symmetrical and nontender. Clear to auscultation bilaterally. Good air movement. No accessory muscle usage. ABDOMEN: Soft, nondistended, nontender, no rebound, no guarding, no peritoneal signs, no masses or organomegaly. No CVAT. EXTREMITIES: 2/2 pulses, strength 5/5, no deformities, no clubbing, no cyanosis or edema. NEUROLOGICAL: no focal neuro deficits. GCS 15. Tremors. SKIN: Warm and dry, diaphoresis. no erythema. no rash. Good capillary refill. Source: Patient, Old records Exam Limitations: No limitations - Personal History Tetanus Vaccine Date: 06/21/2009 - Medical/Surgical History Hx Asthma: No Hx Chronic Respiratory Disease: No Hx Diabetes: No Hx Cardiac Disease: No Hx Renal Disease: No Hx Cirrhosis: No Hx Alcoholism: Yes Hx HIV/AIDS: No Hx Splenectomy or Spleen Trauma: No Other PMH: Pancreatitis, alcoholism, htn, depression - Social History Smoking Status: Never smoked Constitutional: Initial Vital Signs Temperature (C) 36.8 C 09/11/17 14:23 Heart Rate 127 H 09/11/17 14:23 Respiratory Rate 20 09/11/17 14:23 Blood Pressure 180/124 H 09/11/17 14:23 O2 Sat (%) 95 09/11/17 14:23 O2 Delivery Mode Room Air O2 (L/minute) 2 Allergies/Adverse Reactions: No Known Allergies Allergy (Verified 05/12/17 22:06) Home Medications: Medication Instructions Recorded Lisinopril [Zestril 20 mg (*)] 20 mg PO DAILY 09/11/17 Medical Decision Making ED Course/Re-evaluation: ED alcohol withdrawal protocol initiated upon arrival. Given 2 mg of Ativan and Librium 50 mg. Labs, urinalysis, IV fluids, IV medications ordered. Given 2 L normal saline, IV Protonix, IV Dilaudid upon arrival. Vital signs reviewed and show heart rate between 150 and 170; Sinus rhythm CIWA scale equals 14 upon arrival. Labs reviewed and show normal LFT, platelet 105 K likely due to liver disease. No anemia/acute kidney injury. ED decision to consult for admission for alcohol withdrawal and acute on chronic pancreatitis. Repeat vital signs show heart rate between 110 to 130s and blood pressure 169/115. CT abdomen and pelvis scan pending at time of consultation. Spoke to Dr. Dubois who kindly agrees to admit patient and provide further care. Will admit to step-down. 1555: Notified by nursing that patient is now refusing CT scan. This patient was seen under the supervision of my secondary supervising physician. I evaluated care for this patient independently. Discussed this patient with Dr. Camp who did not see the patient. Differential Diagnosis: Abdominal pain including but not limited to appendicitis, cholecystitis, gastritis and urinary tract infection. - Data Points Laboratory Results: Laboratory Results 09/11/17 15:27 09/11/17 15:00 09/11/17 09/11/17 09/11/17 15:27 15:00 15:00 WBC 7.98 10^3/uL 10^3/uL (3.80-9.50) RBC 4.41 10^6/uL 10^6/uL (4.40-6.38) Hgb 14.2 g/dL g/dL (13.7-17.5) Hct 41.1 % % (40.0-51.0) MCV 93.2 fL fL (81.5-99.8) MCH 32.2 pg pg (27.9-34.1) MCHC 34.5 g/dL g/dL (32.4-36.7) RDW 14.4 % % (11.5-15.2) Plt Count 105 10^3/uL L 10^3/uL (150-400) MPV 10.9 fL fL (8.7-11.7) Neut % (Auto) 93.7 % H % (39.3-74.2) Lymph % (Auto) 1.5 % L % (15.0-45.0) [place] % (Auto) 3.8 % L % (4.5-13.0) Eos % (Auto) 0.0 % L % (0.6-7.6) Baso % (Auto) 0.4 % % (0.3-1.7) Nucleat RBC Rel Count 0.0 % % (0.0-0.2) Absolute Neuts (auto) 7.48 10^3/uL H 10^3/uL (1.70-6.50) Absolute Lymphs (auto) 0.12 10^3/uL L 10^3/uL (1.00-3.00) Absolute Monos (auto) 0.30 10^3/uL 10^3/uL (0.30-0.80) Absolute Eos (auto) 0.00 10^3/uL L 10^3/uL (0.03-0.40) Absolute Basos (auto) 0.03 10^3/uL 10^3/uL (0.02-0.10) Absolute Nucleated RBC 0.00 10^3/uL 10^3/uL (0-0.01) Immature Gran % 0.6 % % (0.0-1.1) Immature Gran # 0.05 10^3/uL 10^3/uL (0.00-0.10) PT 14.2 SEC SEC (12.0-15.0) INR 1.08 (0.83-1.16) APTT 27.4 SEC SEC (23.0-38.0) Sodium 140 mEq/L mEq/L (135-145) Potassium 4.1 mEq/L mEq/L (3.5-5.2) Chloride 101 mEq/L mEq/L (97-110) Carbon Dioxide 15 mEq/l L mEq/l (22-31) Anion Gap 24 mEq/L H mEq/L (8-16) BUN 8 mg/dL mg/dL (7-23) Creatinine 0.8 mg/dL mg/dL (0.7-1.3) Estimated GFR > 60 Glucose 139 mg/dL H mg/dL (70-100) Calcium 8.4 mg/dL L mg/dL (8.5-10.4) Total Bilirubin 1.3 mg/dL mg/dL (0.1-1.4) Conjugated Bilirubin 0.7 mg/dL H mg/dL (0.0-0.5) Unconjugated Bilirubin 0.6 mg/dL mg/dL (0.0-1.1) AST 57 IU/L IU/L (17-59) ALT 44 IU/L IU/L (21-72) Alkaline Phosphatase 98 IU/L IU/L (38-126) Total Protein 6.5 g/dL g/dL (6.3-8.2) Albumin 4.0 g/dL g/dL (3.5-5.0) Lipase 220 IU/L IU/L (23-300) Ethyl Alcohol < 10 mg/dL mg/dL (0-10) 09/11/17 15:00 WBC TNP RBC TNP Hgb TNP Hct TNP MCV TNP MCH TNP MCHC TNP RDW TNP Plt Count TNP MPV TNP Neut % (Auto) Not Reported Lymph % (Auto) Not Reported [place] % (Auto) Not Reported Eos % (Auto) Not Reported Baso % (Auto) Not Reported Nucleat RBC Rel Count Not Reported Absolute Neuts (auto) Not Reported Absolute Lymphs (auto) Not Reported Absolute Monos (auto) Not Reported Absolute Eos (auto) Not Reported Absolute Basos (auto) Not Reported Absolute Nucleated RBC Not Reported Immature Gran % Not Reported Immature Gran # Not Reported PT INR APTT Sodium Potassium Chloride Carbon Dioxide Anion Gap BUN Creatinine Estimated GFR Glucose Calcium Total Bilirubin Conjugated Bilirubin Unconjugated Bilirubin AST ALT Alkaline Phosphatase Total Protein Albumin Lipase Ethyl Alcohol Medications Given: Lorazepam (Ativan Injection) 0 mg IVP Q1H PRN; Protocol PRN Reason: Alcohol Withdrawal w/IV access Stop: 09/12/17 02:33 Last Admin: 09/11/17 16:29 Dose: 2 mg Pantoprazole Sodium (Protonix) 40 mg IVP DAILY LANIE Stop: 03/10/18 16:29 Last Admin: 09/11/17 16:51 Dose: Not Given Discontinued Medications Chlordiazepoxide HCl (Librium) 50 mg PO EDNOW ONE Stop: 09/11/17 14:57 Last Admin: 09/11/17 15:24 Dose: 50 mg Hydromorphone HCl (Dilaudid) 0.5 mg IVP EDNOW ONE Stop: 09/11/17 14:34 Last Admin: 09/11/17 14:53 Dose: 0.5 mg Sodium Chloride (Ns) 1,000 mls @ 0 mls/hr IV EDNOW ONE; Wide Open PRN Reason: Protocol Stop: 09/11/17 14:34 Last Admin: 09/11/17 14:52 Dose: 1,000 mls Sodium Chloride (Ns) 1,000 mls @ 0 mls/hr IV EDNOW ONE; Wide Open PRN Reason: Protocol Stop: 09/11/17 14:34 Last Admin: 09/11/17 14:52 Dose: 1,000 mls Lorazepam (Ativan Injection) 2 mg IVP EDNOW ONE Stop: 09/11/17 14:33 Last Admin: 09/11/17 14:33 Dose: 2 mg Pantoprazole Sodium (Protonix) 40 mg IV ONCE ONE Stop: 09/11/17 14:35 Last Admin: 09/11/17 14:53 Dose: 40 mg Departure - Departure Disposition: [facility] Clinical Impression: Thrombocytopenia, Acute on chronic pancreatitis Alcohol withdrawal syndrome Qualifiers: Complication of substance-induced condition: uncomplicated Qualified Code(s): F10.230 - Alcohol dependence with withdrawal, uncomplicated Condition: Fair
[2017-09-11] MEDS ORDERED: LORazepam 2 MG/ML INJ ONE (14:31)
[2017-09-11] MEDS ORDERED: LORazepam 2 MG/ML INJ IVP ONE (14:32)
[2017-09-11] MEDS ORDERED: LORazepam 1 MG TAB PO PRN (14:33)
[2017-09-11] MEDS ORDERED: HYDROmorphONE/DILAUDID 2 MG/ML INJ IVP ONE (14:33)
[2017-09-11] MEDS ORDERED: NS 1,000 ML IV ONE ×2 (14:33)
[2017-09-11] MEDS ORDERED: PANTOPRAZOLE SODIUM 40 MG VIAL IV ONE (14:34)
[2017-09-11] MEDS ORDERED: chlordiazePOXIDE 25 MG CAP PO ONE (14:56)
[2017-09-11 15:18] LABS: INR 1.08 (0.83-1.16); PROTIME(PATIENT) 14.2 SEC (12.0-15.0)
[2017-09-11] MEDS: LORazepam 2 MG/ML INJ IVP PRN ×5 (15:24→21:02)
[2017-09-11 15:39] LABS: PLATELET COUNT 105 10^3/uL (150-400)
[2017-09-11] MEDS ORDERED: PROMETHAZINE HCL 25 MG/ML INJ IVP PRN (16:22)
[2017-09-11] MEDS ORDERED: PROMETHAZINE HCL 25 MG TAB PO PRN (16:22)
[2017-09-11] MEDS ORDERED: ACETAMINOPHEN 325 MG TAB PO PRN (16:22)
[2017-09-11] MEDS ORDERED: ONDANSETRON DISINTEGRATING 4 MG TAB PO PRN (16:22)
[2017-09-11] MEDS ORDERED: ONDANSETRON 4 MG/2 ML VIAL IVP PRN (16:22)
[2017-09-11] MEDS ORDERED: IOPAMIDOL (ISOVUE-300) 100 ML BTL ONE (16:37)
[2017-09-11] MEDS: PANTOPRAZOLE SODIUM 40 MG VIAL IVP SCH (16:51)
--- NOTE | 2017-09-11 18:44 | PDGENHP ---
History and Physical - Chief Complaint Acute epigastric pain - History of Present Illness Primary care provider: [facility] HPI: 62-year-old male presenting with acute epigastric pain characterized as a burning sensation radiating to his back with associated sweating, nausea, vomiting, headache, tremors, ataxia, generalized weakness, all of which began approximately 2 days prior and had persistent duration thereafter. The patient reports that his last alcoholic beverage was in the early hours of this morning , but he is particularly unclear about the exact details of the past 48 hr. He reports that he recalls not feeling well, recalls waking up in the early hours of the night, decided not to drink alcohol, feeling concerned about his health, and then coming to the hospital. He did not take anything to alleviate the discomfort, he reports that he had a difficult time walking. When he did try to consume some fluids, he began vomiting, green bilious material. In the emergency department he has received 6 mg of IV Ativan, receiving approximately 2 mg every hour that he has been there. He also received 50 mg of Librium and 2 L of IV fluid. History Information - Allergies/Home Medication List Allergies/Adverse Reactions: No Known Allergies Allergy (Verified 05/12/17 22:06) Home Medications: Lisinopril [Zestril 20 mg (*)] 20 mg PO DAILY 09/11/17 [Last Taken 09/09/17 09: 00] I have personally reviewed and updated: family history, medical history, social history, surgical history - Past Medical History Additional medical history: Chronic pain with chronic pancreatitis, secondary to alcoholism. Hypertension. Depression. Anxiety. BPH - Surgical History Additional surgical history: Right hand surgery - Family History Additional family history: Both parents of cancer, unclear type, there is also family history of alcoholism - Social History Smoking Status: Never smoked Alcohol Use: Heavy Drug Use: None Additional social history: Patient's roommate recently the flu Review of Systems Review of Systems: ROS: 10pt was reviewed & negative except for what was stated in HPI & below Constitutional: Reports: malaise, weakness Gastrointestinal: Reports: vomitting, abdominal pain, nausea Neurological: Reports: tingling (Bilateral lower extremity), tremors, weakness Physical Exam Physical Exam: Temp Pulse Resp BP Pulse Ox 37.0 C 94 17 143/94 H 97 09/11/17 17:48 09/11/17 18:00 09/11/17 18:00 09/11/17 18:00 09/11/17 18:00 O2 (L/minute) 2 Constitutional: chronically ill appearing, uncomfortable, unkempt, No not in pain (Moderate) Eyes: scleral injection, other (Mildly dilated pupils) Ears, Nose, Mouth, Throat: other (Tacky mucous membranes) Cardiovascular: tachycardia, edema (Trace bilateral lower extremity), No systolic murmur, No irregularly irregular Respiratory: no respiratory distress, no rales or rhonchi, clear to auscultation Gastrointestinal: normoactive bowel sounds, soft, non-tender abdomen, no palpable masses, No distension Musculoskeletal: no muscle tenderness, No asymmetric calves Neurologic: AAOx3, weakness (3/5 motor strength bilateral lower extremities), asterixes (And tremulous bilateral upper extremity), No sensation intact bilaterally (Hyper paresthesia bilateral plantar surfaces of feet), No facial droop Psychiatric: anxious, flat affect, poor memory, other (Naming 3/3, concentration 7/7), No agitated Lab Data & Imaging Review 09/11/17 15:27 09/11/17 15: WBC 7.98 10^3/uL (3.80-9.50) 09/11/17 15: RBC 4.41 10^6/uL (4.40-6.38) 09/11/17 15: Hgb 14.2 g/dL (13.7-17.5) 09/11/17 15: Hct 41.1 % (40.0-51.0) 09/11/17: MCV 93.2 fL (81.5-99.8) 09/11/17 15: MCH 32.2 pg (27.9-34.1) 09/11/17 15: MCHC 34.5 g/dL (32.4-36.7) 09/11/17: RDW 14.4 % (11.5-15.2) 09/11/17 15: Plt Count 105 10^3/uL (150-400) L 09/11/17 15: MPV 10.9 fL (8.7-11.7) 09/11/17 15: Neut % (Auto) 93.7 % (39.3-74.2) H 09/11/17 15:27 Lymph % (Auto) 1.5 % (15.0-45.0) L 09/11/17 15: [place] % (Auto) 3.8 % (4.5-13.0) L 09/11/17 15: Eos % (Auto) 0.0 % (0.6-7.6) L 09/11/17 15: Baso % (Auto) 0.4 % (0.3-1.7) 09/11/17 15: Nucleat RBC Rel Count 0.0 % (0.0-0.2) 09/11/17 15: Absolute Neuts (auto) 7.48 10^3/uL (1.70-6.50) H 09/11/17 15: Absolute Lymphs (auto) 0.12 10^3/uL (1.00-3.00) L 09/11/17 15: Absolute Monos (auto) 0.30 10^3/uL (0.30-0.80) 09/11/17 15: Absolute Eos (auto) 0.00 10^3/uL (0.03-0.40) L 09/11/17 15: Absolute Basos (auto) 0.03 10^3/uL (0.02-0.10) 09/11/17 15: Absolute Nucleated RBC 0.00 10^3/uL (0-0.01) 09/11/17 15: Immature Gran % 0.6 % (0.0-1.1) 09/11/17 15: Immature Gran # 0.05 10^3/uL (0.00-0.10) 09/11/17 15: PT 14.2 SEC (12.0-15.0) 09/11/17 15: INR 1.08 (0.83-1.16) 09/11/17 15:00 APTT 27.4 SEC (23.0-38.0) 09/11/17 15:00 Sodium 140 mEq/L (135-145) 09/11/17 15:00 Potassium 4.1 mEq/L (3.5-5.2) 09/11/17 15:00 Chloride 101 mEq/L (97-110) 09/11/17 15:00 Carbon Dioxide 15 mEq/l (22-31) L 09/11/17 15:00 Anion Gap 24 mEq/L (8-16) H 09/11/17 15:00 BUN 8 mg/dL (7-23) 09/11/17 15:00 Creatinine 0.8 mg/dL (0.7-1.3) 09/11/17 15:00 Estimated GFR > 60 09/11/17 15:00 Glucose 139 mg/dL (70-100) H 09/11/17 15:00 Calcium 8.4 mg/dL (8.5-10.4) L 09/11/17 15:00 Total Bilirubin 1.3 mg/dL (0.1-1.4) 09/11/17 15:00 Conjugated Bilirubin 0.7 mg/dL (0.0-0.5) H 09/11/17 15:00 Unconjugated Bilirubin 0.6 mg/dL (0.0-1.1) 09/11/17 15:00 AST 57 IU/L (17-59) 09/11/17 15:00 ALT 44 IU/L (21-72) 09/11/17 15:00 Alkaline Phosphatase 98 IU/L (38-126) 09/11/17 15:00 Total Protein 6.5 g/dL (6.3-8.2) 09/11/17 15:00 Albumin 4.0 g/dL (3.5-5.0) 09/11/17 15:00 Lipase 220 IU/L (23-300) 09/11/17 15:00 Ethyl Alcohol < 10 mg/dL (0-10) 09/11/17 15:00 Assessment & Plan Assessment: 62-year-old male presents with severe acute alcohol withdrawal Plan: 1. Severe acute alcohol withdrawal. Hyperactive, with tachycardia, tremulousness, asterixis, anxiety, headache, nausea and vomiting, patient reports that he has not experienced seizures in past but he has been admitted to the hospitalist for alcohol withdrawal -patient has received a substantial amount of benzodiazepine in the emergency department, including 6 mg of IV Ativan and 50 mg of Librium, and he remained tachycardic, tremulous, with asterixis, patient is at high risk of continuing to escalate and he will be placed on the CIWA protocol in the step-down unit, precedex may be indicated if the patient becomes agitated -monitor seizure precautions -offered patient CT scan emergency department to further evaluate for possible acute on chronic pancreatitis given his abdominal pain, but the patient has declined given his concern over small spaces, recommend reassessing tomorrow -get tox screen given his potential for co ingest since -get hemoglobin A1c to determine whether he has developed diabetes in the setting of chronic pancreatic damage -40 min of critical care time spent with this patient, at bedside, coordinating care with the nursing staff, addressing this issue specifically, the patient remains high risk for worsening morbidity and mortality secondary to severe alcohol withdrawal 2. Suspected acute alcohol induced myopathy. Most likely resulting in the patient's generalized weakness and ataxia -get physical and occupational therapy -check CPK -hold on neuro imaging and reassess patient's symptoms as his alcohol withdrawal progresses 3. 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 Patient describes a long history of neuropathic symptoms in his bilateral lower extremities, and I have counseled the patient that completely stopping his alcohol intake can improve outcomes for neuropathy and I would recommend that he also initiate low-dose gabapentin at this juncture and then establish outpatient primary care 4. Chronic abdominal pain. Although the patient has objective evidence of chronic pancreatitis on abdominal CT, it is been called into question whether all of his acute episodes of pain are secondary to acute worsening, and discharge summary by Dr. Kathy Herring from 07/18/15 specifically speaks to this , as the patient was admitted with a normal lipase level, abdominal pain, and was not entirely clear whether the presentation was secondary to pancreatitis Diet. Clears Prophylaxis. High risk patient, SCDs Code. Full, his friend Ramos Harrington is the designated MD POA Disposition. Anticipated discharge uncertain this time, anticipated stay is greater than 48 hr for reasonable medical necessity including severe acute alcohol withdrawal with high risk comorbid alcohol induced myopathy, neuropathy.
--- NOTE | 2017-09-11 19:22 | PDMN ---
Medical Necessity Medical necessity: C/M review: est. > 2 MN LOS for eval and TX of acute severe alcohol withdrawal, suspected acute alcohol induced myopathy and neuropathy, generalized weakness, ataxia, requiring Thiamine, planned Case management consult, ongoing IV Ativan, IV fluids, CIWA protocol, cardiac monitoring, pulse oximetry, supplemental O2, frequent vital signs in SDU, comorbid chronic abdominal pain, chronic pancreatitis secondary to alcoholism, history of hypertension, depression, anxiety, BPH per H/P.
[2017-09-11] MEDS: GABAPENTIN 300 MG CAP PO SCH (21:02)
[2017-09-12] MEDS: LORazepam 2 MG/ML INJ IVP PRN ×6 (01:17→21:44)
[2017-09-12] MEDS: LISINOPRIL 20 MG TAB PO SCH (08:46)
[2017-09-12] MEDS: PANTOPRAZOLE SODIUM 40 MG VIAL IVP SCH (08:46)
[2017-09-12] MEDS: THIAMINE HCL 500 MG in NS 500 ML IV SCH (08:51)
--- NOTE | 2017-09-12 11:53 | GCON ---
[f rep st] CONSULTATION CRITICAL CARE CONSULTATION DATE OF CONSULTATION: 09/12/2017 HISTORY OF PRESENT ILLNESS: This patient is a 62-year-old male with a history of chronic pain, alcoh olism, and pancreatitis at least at one time in the past. He complained of 2 days of nausea, vomitin g, tremor, and abdominal pain radiating to his back. He received multiple doses of Ativan in the [facility] department while he had a workup for pancreatitis. He refused a CT scan at that time, but his lipase was only 220. He was mostly concerned about alcohol withdrawal. He denied any diarrhea over this period of time. REVIEW OF SYSTEMS: Otherwise negative. PAST MEDICAL HISTORY: Includes alcoholism, pancreatitis, hypertension, depression, anxiety, and landy gn prostatic hypertrophy. PAST SURGICAL HISTORY: Includes remote hand surgery. SOCIAL HISTORY: He is a nonsmoker. Does drink quite a bit of alcohol. FAMILY HISTORY: Includes cancer. CURRENT MEDICATIONS: Include Lovenox, Neurontin, Zestril, Ativan p.r.n., morphine, Zofran, Protonix, Phenergan, and thiamine. PHYSICAL EXAMINATION: VITAL SIGNS: He was afebrile. His blood pressure was 144/82, heart rate 73 a nd regular, respirations 16, and oxygen saturation 93% on room air. GENERAL: He was awake and somew hat unkempt, but alert and oriented x3, in no apparent distress. No obvious resting tremor. HEENT: Pupils equally round and reactive to light. Nonicteric and noninjected. Mucous membranes moist, wi thout erythema or exudate. NECK: Supple, without adenopathy or jugular vein distention. LUNGS: Br eath sounds were clear to auscultation bilaterally, without wheezes, rubs, or rales. HEART: Regular rate and rhythm, without murmurs, rubs, or gallops. ABDOMEN: Soft, nontender, and nondistended, wi thout guarding and without rebound. Normoactive bowel tones. No palpable masses. EXTREMITIES: Melissa wed no clubbing, cyanosis, or edema. NEUROLOGIC: Exam nonfocal. SKIN: Warm and dry, without evide nce of rash. ASSESSMENT AND PLAN: 1. Alcohol withdrawal. He is currently not on Precedex. He is using very little Ativan. He has a CIWA score of about 7 at this time. We will see how his score progresses over the course of the day, but he may be able to transfer back to [facility] since he seems to be relatively stable from that per spective. 2. Abdominal pain. This is probably related to his alcohol consumption. There is no evidence of pa ncreatitis right now. I do not feel that he requires narcotics. If he should have any pain issues a nd require narcotics, I would certainly get a CT scan right away. 3. Mild pancytopenia. I think this is baseline for him. I am not terribly worried about it. His s ynthetic function of his liver is fine, with an INR of 1 and an albumin of 4.0. /[id number]/MODL
--- NOTE | 2017-09-12 15:07 | ASMTCMCOM ---
CM Note CM Note Notes: 62yr old male admitted for Chronic abd pain-pancreatitis, N/V, RAJAN, Tremors, Weakness, He has a Hx of HTN, BPH. PT/OT recommending HC vs SNF at this time. CM to follow for possible discharge needs. Date Signed: 09/12/2017 03:06 PM Electronically Signed By:Amanda Quintanilla LCSW
[2017-09-12] MEDS: LORazepam 1 MG TAB PO PRN ×2 (15:30→17:17)
--- NOTE | 2017-09-12 15:39 | HOSPPROG ---
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 No complaints of any low back pain. He states that he did go on alcohol binge in the days prior to coming. Is not complaining of any epigastric pain or nausea or vomiting but does complain of suprapubic discomfort. He states that he had some incontinence of his urine prior to coming in. He does not complain of any burning with urination or malodorous urine. He denies any prior history of urinary tract infections. He does state that the flow of urine was okay prior to coming into the hospital. He did not note any blockage in the flow of urine. Objective Vital signs as detailed below On exam, patient appears comfortable he. He is slightly tremulous but conversant and oriented. On cardiac exam, regular without any significant murmurs. On lung exam, normal respiratory effort without any significant wheezing or crackles. On abdomen exam, patient does have some tenderness and grimaces with palpation around the suprapubic region. Normal bowel sounds. Abdomen is not distended. , Henry catheter is in place with yellow urine. Neurologically, patient is able to lift his heels off the bed bilaterally. Skin , no concerning skin rashes noted. Labs as detailed below Assessment and plan 1. Alcohol withdrawal-patient appears to be doing reasonably well with the current CIWA scale. Continue with administration of lorazepam per the CIWA scale. Continue daily thiamine. 2. 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 A CPK has been ordered but we were unable to get labs from patient this morning. A PICC line has been ordered for tomorrow morning. We can check CPK at that point in time. Otherwise continue work with PT and OT. 3. Neuropathy-patient states history of peripheral neuropathy. This may be alcohol related as well. Continue gabapentin 4. Thrombocytopenia-relatively mild continue to follow. 5. Urinary tract infection-possible. Patient is having suprapubic tenderness on my exam. I have ordered a urine culture to be done. I have started ceftriaxone today pending this culture result. 6. Hypertension-controlled continue current lisinopril. 7. DVT prophylaxis-Lovenox. 8. disposition -PT and OT consult have been placed. Social work consult also placed. Patient is apparently supposed to move out of his apartment by the 19 of September. Depending on how he does with PT and OT and with his lower extremity strength he may need short-term rehab placement. Objective: Vital Signs Temp Pulse Resp BP Pulse Ox 36.9 C 88 16 143/82 H 95 09/12/17 15:28 09/12/17 15:28 09/12/17 15:28 09/12/17 15:28 09/12/17 15:28 Laboratory Results 09/12/17 05:32 09/11/17 09/12/17 09/13/17 05:59 05:59 05:59 Intake Total 3400 Output Total 700 Balance 2700 PT 14.2 SEC (12.0-15.0) 09/11/17 15:00 INR 1.08 (0.83-1.16) 09/11/17 15:00 ICD10 Worksheet Patient Problems: Problems Problem Status Onset Acute on chronic pancreatitis Acute Alcohol withdrawal syndrome Acute Thrombocytopenia Acute Alcohol withdrawal syndrome Active Liver function tests abnormal Active Pain management Active Abdominal pain Acute Alcohol abuse Acute Alcohol intoxication Acute Alcoholism Acute Depression Acute Epigastric abdominal pain Acute Hypoxemia Acute Pancreatitis Acute Pneumonia Acute
[2017-09-12] MEDS ORDERED: ALTEPLASE 2 MG VIAL IVP PRN (18:24)
--- NOTE | 2017-09-12 19:38 | PDRADPN ---
Radiology Procedure Note Date of Procedure: 09/12/17 Radiologist: Ilya Salgado Anesthesia: Local (Specify) Pre-op Diagnosis: EtoH w/d Post-op Diagnosis: same Indication: no access possible Procedure: LUE PICC Finding(s): LUE brachial access with micropuncture. catheter tip well positioned. Inf/Abcess present in the surg proc area at time of surgery?: No EBL: Minimal Complications: none
[2017-09-12] MEDS: GABAPENTIN 300 MG CAP PO SCH (19:48)
[2017-09-12 20:28] LABS: CREATINE KINASE 127 IU/L (0-224)
[2017-09-13] MEDS: LORazepam 2 MG/ML INJ IVP PRN ×4 (05:36→20:23)
[2017-09-13 05:41] LABS: PLATELET COUNT 54 10^3/uL (150-400)
[2017-09-13] MEDS: NS 1,000 ML IV SCH ×2 (05:42→19:31)
[2017-09-13 05:54] LABS: CREATINE KINASE 87 IU/L (0-224)
[2017-09-13] MEDS ORDERED: PROTOCOL MAGNESIUM 1 DOSE IV PRN (06:39)
[2017-09-13] MEDS ORDERED: PROTOCOL POTASSIUM 1 DOSE MISC PRN (06:39)
[2017-09-13] MEDS ORDERED: POTASSIUM CL 10 MEQ TAB PO ONE ×2 (07:09→20:00)
[2017-09-13] MEDS ORDERED: MAGNESIUM SULF 2 GM/WATER 50 ML IV ONE (07:09)
[2017-09-13] MEDS: LISINOPRIL 20 MG TAB PO SCH (07:18)
[2017-09-13] MEDS: PANTOPRAZOLE SODIUM 40 MG VIAL IVP SCH (07:19)
[2017-09-13] MEDS ORDERED: ENOXAPARIN 40 MG/0.4 ML SYR SC SCH (09:00)
[2017-09-13] MEDS: THIAMINE HCL 500 MG in NS 500 ML IV SCH (09:28)
--- NOTE | 2017-09-13 10:09 | HOSPPROG ---
Hospitalist Progress Note Assessment/Plan: Assessment and plan # Alcohol withdrawal- Max CIWA 6 overnight -Continue lorazepam per CIWA scale. -Continue daily thiamine. # Epigastric abdominal pain - lipase nl, suspect etoh induced gastritis -cont IV PPI -add sucralfate -check h pylori Ab and fecal Ag - triple therapy if positive # Neuropathy- likely etoh related -Continue gabapentin # Thrombocytopenia- plts 105-->54, suspect BM suppression 2/2 etoh -hold Lovenox, follow # ?Urinary tract infection- symptoms include suprapubic tenderness -cont ceftriaxone -f/u UCx # Hypertension- controlled continue current lisinopril. # Hypokalemia / Hypomagnesemia - replace per protocol, follow # DVT prophylaxis- Lovenox held due to low plts, SCD's # disposition -PT and OT consult have been placed. Social work consult also placed. Patient is apparently supposed to move out of his apartment by the 19 of September. Depending on how he does with PT and OT and with his lower extremity strength he may need short-term rehab placement. Transfer to med/surg today. Discussed with [facility]. Subjective: Pt doing ok. Asks for IV dilaudid for epigastric pain. No N/V. No hematemesis or BRBPR. No fevers/chills. No events overnight. Objective: Vital Signs Temp Pulse Resp BP Pulse Ox 37.1 C 82 18 151/98 H 96 09/13/17 07:20 09/13/17 07:20 09/13/17 07:20 09/13/17 07:20 09/13/17 07:20 Laboratory Results 09/13/17 05:23 09/13/17 05:23 09/12/17 09/13/17 09/14/17 05:59 05:59 05:59 Intake Total 3400 3048 Output Total 700 1875 Balance 2700 1173 PT 14.2 SEC (12.0-15.0) 09/11/17 15:00 INR 1.08 (0.83-1.16) 09/11/17 15:00 - Physical Exam Constitutional: no apparent distress Eyes: PERRL Ears, Nose, Mouth, Throat: moist mucous membranes Cardiovascular: regular rate and rhythym Respiratory: no respiratory distress Gastrointestinal: normoactive bowel sounds Skin: warm Musculoskeletal: full muscle strength Neurologic: AAOx3, other (+mild tremor) Psychiatric: poor insight ICD10 Worksheet Patient Problems: Problems Problem Status Onset Acute on chronic pancreatitis Acute Alcohol withdrawal syndrome Acute Thrombocytopenia Acute Alcohol withdrawal syndrome Active Liver function tests abnormal Active Pain management Active Abdominal pain Acute Alcohol abuse Acute Alcohol intoxication Acute Alcoholism Acute Depression Acute Epigastric abdominal pain Acute Hypoxemia Acute Pancreatitis Acute Pneumonia Acute
[2017-09-13] MEDS: SUCRALFATE 1 GM/10 ML UDCUP PO SCH ×3 (10:42→20:18)
[2017-09-13] MEDS: GABAPENTIN 300 MG CAP PO SCH (20:18)
[2017-09-14] MEDS: NS 1,000 ML IV SCH ×2 (01:58→08:35)
[2017-09-14] MEDS: LORazepam 2 MG/ML INJ IVP PRN ×6 (02:36→23:32)
[2017-09-14 06:18] LABS: PLATELET COUNT 59 10^3/uL (150-400)
[2017-09-14] MEDS ORDERED: POTASSIUM CL 10 MEQ TAB PO ONE ×2 (07:57→23:24)
[2017-09-14] MEDS: PANTOPRAZOLE SODIUM 40 MG VIAL IVP SCH (08:48)
[2017-09-14] MEDS: LISINOPRIL 20 MG TAB PO SCH (08:50)
[2017-09-14] MEDS: SUCRALFATE 1 GM/10 ML UDCUP PO SCH ×4 (08:50→20:17)
--- NOTE | 2017-09-14 10:23 | ASMTCMCOM ---
CM Note CM Note Notes: CM met w/ pt for dispo planning. Therapies are recommending SNF vs HC. Pt is not interested in going to a SNF at this time. Pt is agreeable to having HC. Pt did not have a preference on HC agencies. Referral sent to [facility]. [facility] is able to accept. Pt does not have a current PCP. Pt is agreeable for CM to make a new PCP appointment. Pt does not have a preference on MD but would prefer a female. Pt is not interested in ETOH resrouces. CM completed CAGE. Pt is not interested in having a BH specialist through [facility]. CM to follow. Plan: [facility], PT, OT, RN Date Signed: 09/14/2017 10:23 AM Electronically Signed By:LETI Arevalo
--- NOTE | 2017-09-14 10:24 | ASMTCAGE ---
CAGE Do you feel you ought to Answers: No cut down on your drinking or drug use? Do people annoy you by Answers: No criticizing your drinking or drug use? Do you feel guilty about Answers: No your drinking or drug use? Do you drink or use drugs Answers: Yes first thing in the morning ([employer])? Date Signed: 09/14/2017 10:23 AM Electronically Signed By:LETI Arevalo
[2017-09-14] MEDS: THIAMINE HCL 500 MG in NS 500 ML IV SCH (10:52)
--- NOTE | 2017-09-14 14:02 | HOSPPROG ---
Hospitalist Progress Note Assessment/Plan: # Alcohol withdrawal- continues with mild withdrawal- CIWA 5-6 this morning- oxygen saturations 95% on room air CXR (personally reviewed and interpreted) no infiltrates or edema visualized Patient quite deficient in motivation and insight -Continue lorazepam per CIWA scale. -Continue daily thiamine # Epigastric abdominal pain - lipase nl- agree likely etoh induced gastritis- H pylori negative -changed to p.o. PPI -add sucralfate # Neuropathy- chronic-suspect etoh related -Continue gabapentin # Thrombocytopenia- plts 105--> 59, suspect BM suppression 2/2 etoh - hold Lovenox - Check CBC in a.m. # Urinary tract infection- patient with symptoms of suprapubic tenderness- UCx - non lactose fermenting Gram-negative cresencio -cont ceftriaxone # Hypertension- controlled continue current lisinopril. # Hypokalemia / Hypomagnesemia - replace per protocol, follow # DVT prophylaxis- Lovenox held due to low plts, SCD's # disposition -PT and OT consult for dispo recommendations I suspect he may need short-term rehab placement. I have discussed the case with the RN-we will encourage the patient to ambulate and activate today for showering etc Subjective: Feels weak and tired Objective: Vital Signs Temp Pulse Resp BP Pulse Ox 36.6 C 82 16 136/93 H 95 09/14/17 11:15 09/14/17 11:15 09/14/17 11:15 09/14/17 11:15 09/14/17 11:15 Laboratory Results 09/14/17 06:00 09/14/17 06:00 09/13/17 09/14/17 09/15/17 05:59 05:59 05:59 Intake Total 3048 2999 Output Total 1875 1655 400 Balance 1173 1344 -400 PT 14.2 SEC (12.0-15.0) 09/11/17 15:00 INR 1.08 (0.83-1.16) 09/11/17 15:00 - Physical Exam Constitutional: appears nourished, chronically ill appearing Eyes: anicteric sclera Ears, Nose, Mouth, Throat: dry mucous membranes Cardiovascular: regular rate and rhythym Respiratory: no respiratory distress Gastrointestinal: normoactive bowel sounds, tenderness, distension, No rebound Genitourinary: no bladder fullness Skin: warm Musculoskeletal: No asymmetric calves Neurologic: AAOx3 Psychiatric: depressed Lymph, Heme, Immunologic: no cervical LAD ICD10 Worksheet Patient Problems: Problems Problem Status Onset Acute on chronic pancreatitis Acute Alcohol withdrawal syndrome Acute Thrombocytopenia Acute Alcohol withdrawal syndrome Active Liver function tests abnormal Active Pain management Active Abdominal pain Acute Alcohol abuse Acute Alcohol intoxication Acute Alcoholism Acute Depression Acute Epigastric abdominal pain Acute Hypoxemia Acute Pancreatitis Acute Pneumonia Acute
[2017-09-14] MEDS ORDERED: THIAMINE HCL 100 MG TAB PO SCH (16:26)
[2017-09-14] MEDS ORDERED: MAGNESIUM SULF 1 GM/DEXTROSE 100 ML IV ONE (17:42)
[2017-09-14] MEDS: GABAPENTIN 300 MG CAP PO SCH (20:17)
[2017-09-15 06:35] LABS: PLATELET COUNT 62 10^3/uL (150-400)
[2017-09-15] MEDS: SUCRALFATE 1 GM/10 ML UDCUP PO SCH ×2 (07:59→11:11)
[2017-09-15] MEDS: LISINOPRIL 20 MG TAB PO SCH (08:00)
[2017-09-15] MEDS: LORazepam 2 MG/ML INJ IVP PRN (08:16)
[2017-09-15] MEDS ORDERED: PANTOPRAZOLE SODIUM 40 MG TAB PO SCH (09:00)
[2017-09-15] MEDS ORDERED: THIAMINE HCL 100 MG TAB PO SCH (09:00)
[2017-09-15] MEDS ORDERED: MAGNESIUM SULF 1 GM/DEXTROSE 100 ML IV ONE (09:00)
[2017-09-15 11:43] VITALS: BP 143/89
--- NOTE | 2017-09-15 12:31 | HOSPPROG ---
Hospitalist Progress Note Assessment/Plan: 62 yo M w alcohol withdrawal Alcohol withdrawal- continues with mild withdrawal- CIWA 5-6 this morning- oxygen saturations 95% on room air CXR (personally reviewed and interpreted) no infiltrates or edema visualized Patient quite deficient in motivation and insight decrease ativan Epigastric abdominal pain - lipase nl- agree likely etoh induced gastritis- H pylori negative -changed to p.o. PPI -add sucralfate Neuropathy- chronic-suspect etoh related -Continue gabapentin Thrombocytopenia- plts 105--> 59, suspect BM suppression 2/2 etoh - hold Lovenox - Check CBC in a.m. Urinary tract infection- patient with symptoms of suprapubic tenderness- UCx - non lactose fermenting Gram-negative cresencio -cont ceftriaxone Hypertension- controlled continue current lisinopril. Hypokalemia / Hypomagnesemia - replace per protocol, follow DVT prophylaxis- Lovenox held due to low plts, SCD's disposition -PT and OT consult for dispo recommendations I suspect he may need short-term rehab placement. he is currently declining I have discussed the case with the RN-we will encourage the patient to ambulate and activate today for showering etc Subjective: still tremulous. PT/OT rec SNF Objective: Vital Signs Temp Pulse Resp BP Pulse Ox 36.6 C 79 12 143/89 H 94 09/15/17 11:42 09/15/17 11:42 09/15/17 11:42 09/15/17 11:42 09/15/17 11:42 Microbiology 09/12/17 14:05 Urine Culture - Final Urine,Catheterized Staphylococcus Epidermidis Citrobacter Koseri Laboratory Results 09/15/17 06:00 09/15/17 06:00 09/14/17 09/15/17 09/16/17 05:59 05:59 05:59 Intake Total 2999 Output Total 1655 700 Balance 1344 -700 PT 14.2 SEC (12.0-15.0) 09/11/17 15:00 INR 1.08 (0.83-1.16) 09/11/17 15:00 - Physical Exam Constitutional: no apparent distress, appears nourished Eyes: PERRL, anicteric sclera Ears, Nose, Mouth, Throat: moist mucous membranes, hearing normal Cardiovascular: regular rate and rhythym, no murmur, rub, or gallop Respiratory: no respiratory distress, no rales or rhonchi Gastrointestinal: normoactive bowel sounds, soft, non-tender abdomen Genitourinary: no bladder fullness, No diaz in urethra Skin: warm, normal color Musculoskeletal: No full muscle strength Neurologic: AAOx3 Psychiatric: interacting appropriately ICD10 Worksheet Patient Problems: Problems Problem Status Onset Acute on chronic pancreatitis Acute Alcohol withdrawal syndrome Acute Thrombocytopenia Acute Alcohol withdrawal syndrome Active Liver function tests abnormal Active Pain management Active Abdominal pain Acute Alcohol abuse Acute Alcohol intoxication Acute Alcoholism Acute Depression Acute Epigastric abdominal pain Acute Hypoxemia Acute Pancreatitis Acute Pneumonia Acute
[2017-09-15] MEDS ORDERED: LORazepam 1 MG TAB PO PRN (12:37)
--- NOTE | 2017-09-15 15:18 | GDS ---
[f rep st] DISCHARGE SUMMARY DISCHARGE DIAGNOSES: 1. Abdominal pain. 2. Alcohol withdrawal. 3. Alcohol dependence. HOSPITAL COURSE: Please see Admission History and Physical by Dr. Richard Dubois. The patient presente d with abdominal pain in the setting of alcohol withdrawal, experienced moderate alcohol withdrawal, requiring ICU hospitalization and Precedex drip, which resolved. The patient on the first hospital d ay when he was more alert, he had no tremor. His Ativan was decreased and he suddenly developed a de sire to be discharged. I am discharging him today. Notable is that the patient was recommended SNF by PT/OT, which he declined. /[id number]/MODL
--- NOTE | 2017-09-15 15:56 | ASMTCMCOM ---
CM Note CM Note Notes: Spoke w/pt re; dc poc. Pt now declines homecare, feels almost back to baseline and does not think he will need it. Pt to follow up with Dr Almeida, appointment scheduled. [facility] notified. DC Plan: Independent Date Signed: 09/15/2017 03:56 PM Electronically Signed By:Rebecca Peña RN
--- NOTE | 2017-09-15 15:57 | ASMTLACE ---
LUCIO Length of stay for Answers: 3 days current admission Acuity / Level of Answers: Yes Care: Did the patient have an inpatient admission? Comorbidities - select Answers: Other Notes: ETOH W/D, Pancreatitis all that apply # of Emergency department Answers: 1-2 visits in the last 6 months Social determinants Answers: History of substance abuse (ETOH, street drugs, prescription drugs, etc.) Mental health diagnosis (anxiety, depression, pers onality disorders, etc.) Score: 14 Date Signed: 09/15/2017 03:57 PM Electronically Signed By:Rebecca Peña RN
== END 2017-09-15 14:34 | disposition home or self-care (01) | DRG 897 ==
LOC: EDUNIT# → F2N 17:40 → F3E 09-13 13:00
PROVIDERS: ADMIT Internal Medicine; ATTEND Internal Medicine
PROC: 02HV33Z Insertion of Infusion Device into Superior Vena Cava, Percutaneous Approach (ICD-10-PCS; principal; 2017-09-14)
DX: F10.239 Alcohol dependence with withdrawal, unspecified (principal); R10.13 Epigastric pain; I10 Essential (primary) hypertension; F32.9 Major depressive disorder, single episode, unspecified; F41.9 Anxiety disorder, unspecified; D69.6 Thrombocytopenia, unspecified; G62.9 Polyneuropathy, unspecified; E87.6 Hypokalemia
CPT/HCPCS: 96374; 97116-GP; 97161-GP; 97165-GO; 97530-GP; 97535-GO; C1751; G0480; J0696; J1170; J2060; J3411; J3475; Q9967

== ENCOUNTER 2017-10-20 23:10 | Emergency (ER) | payer MEDICAID ==
[2017-10-20] MEDS ORDERED: NS 1,000 ML IV ONE (23:16)
[2017-10-20] MEDS ORDERED: LORazepam 2 MG/ML INJ IVP ONE (23:17)
--- NOTE | 2017-10-20 23:21 | EDPHY ---
H & P Stated Complaint: left side back pain Time Seen by Provider: 10/20/17 23:18 HPI/ROS: HPI CHIEF COMPLAINT: Left flank pain status post fall HISTORY OF PRESENT ILLNESS: Patient is a 62-year-old male, well known to myself as well as the emergency room, he has a history of alcoholism daily alcohol use, hypertension, is homeless he presents emergency room from the [facility], where he has been detoxing from alcohol. He thinks his last drink was sometime yesterday. He states he fell but does not recall the events. He is unsure how he fell when he fell. He thinks he fell yesterday but he is complaining of abdominal pain and left flank pain. His main complaint is left flank pain. He thinks he may have injured himself when he fell. He thinks he fell yesterday. He does not remember the events due to alcohol intoxication. He started complaining worsening back pain left CVA region to the staff at [facility], and was referred here to the Er. Past Medical History: Hypertension, anemia, daily alcohol use, alcoholism Past Surgical History: No recent surgery Social History: Homeless, daily alcohol use Family History: Noncontributory ROS REVIEW OF SYSTEMS: A comprehensive 10 point review of systems is otherwise negative aside from elements mentioned in the history of present illness. Exam Constitutional nontoxic. triage nursing summary reviewed, vital signs reviewed , awake/alert. Eyes normal conjunctivae and sclera, EOMI, PERRLA. HENT normal inspection, atraumatic, moist mucus membranes, no epistaxis, neck supple/ no meningismus, no raccoon eyes. Respiratory clear to auscultation bilaterally, normal breath sounds, no respiratory distress, no wheezing. Cardiovascular rate normal, regular rhythm, no murmur, no edema, distal pulses normal. Gastrointestinal distended abdomen however no significant tenderness on exam soft, non-tender, no rebound, no guarding, normal bowel sounds, no distension, no pulsatile mass. Genitourinary mild tender palpation left CVA, no ecchymosis, no significant rib tenderness, focal tenderness over the left CVA region. No midline back pain. Musculoskeletal no midline vertebral tenderness, full range of motion, no calf swelling, no tenderness of extremities, no meningismus, good pulses, neurovascularly intact. Skin pink, warm, & dry, no rash, skin atraumatic. Neurologic awake, alert and oriented x 3, AAOx3, moves all 4 extremities equally, motor intact, sensory intact, CN II-XII intact, normal cerebellar, normal vision, normal speech. Psychiatric normal mood/affect. Heme/Lymph/Immune no lymphadenopathy. Differential Diagnosis: Includes but is not limited to in a particular order kidney injury from fall, musculoskeletal back pain from call, fracture, intra- abdominal solid organ injury, alcoholism. Medical Decision Making: Plan for this patient IV establishment fluid bolus, IV Ativan for anxiety and slight tremors from alcohol draw, check basic blood work, CT scan abdomen pelvis with IV contrast rule out kidney laceration or significant solid organ injury. Re-evaluation: CT scan of the abdomen pelvis with IV contrast negative for acute traumatic injury from a fall. This was called to me by Dr. Gonzales. Noted to have enlarged liver. Blood work is reviewed unremarkable. 1254: Patient resting comfortably. Feels better after IV fluids and Ativan. Vital signs are stable. I do feel that he is safe for discharge back to the [facility]. In terms of his back pain this most likely soft tissue injury from fall. CT scan abdomen pelvis and left flank does not show anything acute. Return precautions discussed with the patient is comfortable this plan. Source: Patient, EMS - Personal History Current Tetanus/Diphtheria Vaccine: Yes Current Tetanus Diphtheria and Acellular Pertussis (TDAP): Yes Tetanus Vaccine Date: 06/21/2009 - Medical/Surgical History Hx Asthma: No Hx Chronic Respiratory Disease: No Hx Diabetes: No Hx Cardiac Disease: No Hx Renal Disease: No Hx Cirrhosis: No Hx Alcoholism: Yes Hx HIV/AIDS: No Hx Splenectomy or Spleen Trauma: No Other PMH: Pancreatitis, alcoholism, htn, depression, numbness/tingling feet, leg weakness - Social History Smoking Status: Never smoked Constitutional: Initial Vital Signs Temperature (C) 36.9 C 10/20/17 23:16 Heart Rate 118 H 10/20/17 23:16 Respiratory Rate 18 10/20/17 23:16 Blood Pressure 146/95 H 10/20/17 23:16 O2 Sat (%) 91 L 10/20/17 23:16 O2 Delivery Mode Room Air O2 (L/minute) 2 Allergies/Adverse Reactions: No Known Allergies Allergy (Verified 10/20/17 23:18) Home Medications: Medication Instructions Recorded Lisinopril [Zestril 20 mg (*)] 20 mg PO DAILY 09/11/17 Medical Decision Making - Diagnostics Imaging Results: Imaging Impressions Chest X-Ray 10/20/17 23:18 Impression: No definite acute cardiopulmonary abnormality. Left basilar opacity is probably atelectasis with clinical correlation to exclude pneumonia. - Data Points Laboratory Results: Laboratory Results 10/20/17 23:50 10/20/17 23:50 10/20/17 10/20/17 10/20/17 23:52 23:50 23:50 WBC 9.51 10^3/uL H 10^3/uL (3.80-9.50) RBC 4.30 10^6/uL L 10^6/uL (4.40-6.38) Hgb 13.9 g/dL g/dL (13.7-17.5) POC Hgb 15.0 gm/dL gm/dL (13.7-17.5) Hct 41.6 % % (40.0-51.0) POC Hct 44 % % (40-51) MCV 96.7 fL fL (81.5-99.8) MCH 32.3 pg pg (27.9-34.1) MCHC 33.4 g/dL g/dL (32.4-36.7) RDW 15.4 % H % (11.5-15.2) Plt Count 345 10^3/uL 10^3/uL (150-400) MPV 9.6 fL fL (8.7-11.7) Neut % (Auto) 75.4 % H % (39.3-74.2) Lymph % (Auto) 14.6 % L % (15.0-45.0) [place] % (Auto) 7.7 % % (4.5-13.0) Eos % (Auto) 0.4 % L % (0.6-7.6) Baso % (Auto) 1.4 % % (0.3-1.7) Nucleat RBC Rel Count 0.0 % % (0.0-0.2) Absolute Neuts (auto) 7.17 10^3/uL H 10^3/uL (1.70-6.50) Absolute Lymphs (auto) 1.39 10^3/uL 10^3/uL (1.00-3.00) Absolute Monos (auto) 0.73 10^3/uL 10^3/uL (0.30-0.80) Absolute Eos (auto) 0.04 10^3/uL 10^3/uL (0.03-0.40) Absolute Basos (auto) 0.13 10^3/uL H 10^3/uL (0.02-0.10) Absolute Nucleated RBC 0.00 10^3/uL 10^3/uL (0-0.01) Immature Gran % 0.5 % % (0.0-1.1) Immature Gran # 0.05 10^3/uL 10^3/uL (0.00-0.10) POC Sodium 141 mEq/L mEq/L (135-145) Sodium 140 mEq/L mEq/L (135-145) POC Potassium 3.9 mEq/L mEq/L (3.3-5.0) Potassium 4.0 mEq/L mEq/L (3.5-5.2) POC Chloride 102 mEq/L mEq/L (97-110) Chloride 101 mEq/L mEq/L (97-110) Carbon Dioxide 22 mEq/l mEq/l (22-31) Anion Gap 17 mEq/L H mEq/L (8-16) POC BUN < 3 mg/dL L mg/dL (7-23) BUN 5 mg/dL L mg/dL (7-23) Creatinine 0.7 mg/dL mg/dL (0.7-1.3) POC Creatinine 0.9 mg/dL mg/dL (0.7-1.3) Estimated GFR > 60 Glucose 183 mg/dL H mg/dL (70-100) POC Glucose 196 mg/dL H mg/dL (70-100) Calcium 8.1 mg/dL L mg/dL (8.5-10.4) Total Bilirubin 0.9 mg/dL mg/dL (0.1-1.4) Conjugated Bilirubin 0.7 mg/dL H mg/dL (0.0-0.5) Unconjugated Bilirubin 0.2 mg/dL mg/dL (0.0-1.1) AST 44 IU/L IU/L (17-59) ALT 43 IU/L IU/L (21-72) Alkaline Phosphatase 75 IU/L IU/L (38-126) Total Protein 5.8 g/dL L g/dL (6.3-8.2) Albumin 3.3 g/dL L g/dL (3.5-5.0) Lipase 112 IU/L IU/L (23-300) Medications Given: Discontinued Medications Sodium Chloride (Ns) 1,000 mls @ 0 mls/hr IV EDNOW ONE; Wide Open PRN Reason: Protocol Stop: 10/20/17 23:17 Last Admin: 10/20/17 23:52 Dose: 1,000 mls Lorazepam (Ativan Injection) 1 mg IVP EDNOW ONE Stop: 10/20/17 23:18 Last Admin: 10/20/17 23:52 Dose: 1 mg Point of Care Test Results: 10/20/17 23:52 POC Sodium 141 POC Potassium 3.9 POC Chloride 102 POC BUN < 3 L POC Creatinine 0.9 POC Glucose 196 H Departure - Departure Disposition: Home, Routine, Self-Care Clinical Impression: Back pain Qualifiers: Back pain location: low back pain Chronicity: acute Back pain laterality: left Sciatica presence: without sciatica Qualified Code(s): M54.5 - Low back pain Condition: Fair Instructions: Back Pain (ED) Additional Instructions: 1. Return emergency room if you have any worsening symptoms questions or concerns. 2. Refrain from drinking alcohol. Referrals: Patient,NotPresent [Unknown] - As per Instructions
[2017-10-20] MEDS ORDERED: IOPAMIDOL (ISOVUE-300) 100 ML BTL ONE (23:32)
[2017-10-21 00:09] LABS: PLATELET COUNT 345 10^3/uL (150-400)
[2017-10-21 00:12] VITALS: BP 139/89
== END 2017-10-21 01:26 | disposition home or self-care (01) ==
LOC: EDUNIT#
DX: S39.92XA Unspecified injury of lower back, initial encounter (principal); I10 Essential (primary) hypertension; E86.9 Volume depletion, unspecified; W19.XXXA Unspecified fall, initial encounter
CPT/HCPCS: 82947-QW; 96374; J2060; Q9967

== ENCOUNTER 2017-10-25 18:52 | Emergency (ER) | payer MEDICAID ==
--- NOTE | 2017-10-25 18:53 | EDPHY ---
H & P Time Seen by Provider: 10/25/17 18:53 HPI/ROS: HPI CHIEF COMPLAINT: Left lateral lower rib pain, abdominal pain, alcohol intoxication HISTORY OF PRESENT ILLNESS: Patient is a 62-year-old male, well known to myself as well as the emergency room, he is homeless and drinks alcohol daily. He has been drinking alcohol today. Call 911 from the [facility] for left lateral rib pain and abdominal pain. This is a chronic complaint of his. States been drinking alcohol today which that flares up his pancreatitis. He states that he fell a while ago and has had left lateral lower rib pain. Denies headache. Denies neck pain denies chest pain or shortness of breath. Past Medical History: Chronic alcoholism Past Surgical History: No recent surgery Social History: Homeless, chronic alcohol use Family History: Noncontributory ROS REVIEW OF SYSTEMS: A comprehensive 10 point review of systems is otherwise negative aside from elements mentioned in the history of present illness. Exam Constitutional appears well nontoxic, triage nursing summary reviewed, vital signs reviewed, awake/alert. Eyes normal conjunctivae and sclera, EOMI, PERRLA. HENT normal inspection, atraumatic, moist mucus membranes, no epistaxis, neck supple/ no meningismus, no raccoon eyes. Respiratory clear to auscultation bilaterally, normal breath sounds, no respiratory distress, no wheezing. Cardiovascular chest wall mild tender palpation left lateral lower ribs, rate normal, regular rhythm, no murmur, no edema, distal pulses normal. Gastrointestinal I cannot elicit any significant tenderness on exam of the abdomen soft, non-tender, no rebound, no guarding, normal bowel sounds, no distension, no pulsatile mass. Genitourinary no CVA tenderness. Musculoskeletal no midline vertebral tenderness, full range of motion, no calf swelling, no tenderness of extremities, no meningismus, good pulses, neurovascularly intact. Skin pink, warm, & dry, no rash, skin atraumatic. Neurologic awake, alert and oriented x 3, AAOx3, moves all 4 extremities equally, motor intact, sensory intact, CN II-XII intact, normal cerebellar, normal vision, normal speech. Psychiatric normal mood/affect. Heme/Lymph/Immune no lymphadenopathy. Differential diagnosis includes but is not limited to and in no particular order : Pancreatitis, pneumothorax, hemothorax, rib fractures Bowel obstruction, appendicitis, gallbladder disease, diverticulitis, colitis, enteritis, perforated viscus, gastritis, GERD, esophagitis, urinary tract infection, pyelonephritis, kidney stones Medical Decision Making: Plan for this patient IV establishment blood draw, check lipase, alcohol level, x-ray two view, will pneumothorax or rib fractures. Re-evaluate. Re-evaluation: Serum alcohol 266. Patient's blood work and electrolytes reviewed. Lipase is normal. Serum alcohol level is 266. 2105: Patient now asking to eat and drink. I did reexamine his abdomen is soft nontender is not vomiting. He is requesting discharge. He would like something to eat 1st. X-ray of the chest reviewed shows a left lower lobe infiltrate. Unclear how long he has had this. Patient denies any significant respiratory symptoms. However will place him on Levaquin. I discussed his x-ray results with him. He is not hypoxic here, he is afebrile, he does not have elevated white count. I do feel that it is reasonable to treat male outpatient basis Levaquin for possible pneumonia. I do recommend he stops drinking alcohol. He understands Source: Patient, EMS - Personal History Tetanus Vaccine Date: 06/21/2009 - Medical/Surgical History Hx Asthma: No Hx Chronic Respiratory Disease: No Hx Diabetes: No Hx Cardiac Disease: No Hx Renal Disease: No Hx Cirrhosis: No Hx Alcoholism: Yes Hx HIV/AIDS: No Hx Splenectomy or Spleen Trauma: No Other PMH: Pancreatitis, alcoholism, htn, depression, numbness/tingling feet, leg weakness - Social History Smoking Status: Never smoked Constitutional: Initial Vital Signs Temperature (C) 37.0 C 10/25/17 18:57 Heart Rate 83 10/25/17 18:57 Respiratory Rate 16 10/25/17 18:57 Blood Pressure 108/71 10/25/17 18:57 O2 Sat (%) 92 10/25/17 18:57 O2 Delivery Mode Room Air O2 (L/minute) 2 Allergies/Adverse Reactions: No Known Allergies Allergy (Verified 10/25/17 18:56) Home Medications: Medication Instructions Recorded Lisinopril [Zestril 20 mg (*)] 20 mg PO DAILY 09/11/17 levOFLOXACIN [levAQUIN (*)] 750 mg PO DAILY #10 tab 10/25/17 Medical Decision Making - Diagnostics Imaging Results: Imaging Impressions Chest X-Ray 10/25/17 18:56 Impression: Increased left lower lobe airspace opacity which may represent a developing pneumonia. Recommend follow-up chest x-ray in 6-8 weeks to verify resolution. - Data Points Laboratory Results: Laboratory Results 10/25/17 19:20 10/25/17 19:20 10/25/17 10/25/17 19:20 19:20 WBC 9.71 10^3/uL H 10^3/uL (3.80-9.50) RBC 4.24 10^6/uL L 10^6/uL (4.40-6.38) Hgb 13.7 g/dL g/dL (13.7-17.5) Hct 40.8 % % (40.0-51.0) MCV 96.2 fL fL (81.5-99.8) MCH 32.3 pg pg (27.9-34.1) MCHC 33.6 g/dL g/dL (32.4-36.7) RDW 15.2 % % (11.5-15.2) Plt Count 217 10^3/uL 10^3/uL (150-400) MPV 11.1 fL fL (8.7-11.7) Neut % (Auto) 76.3 % H % (39.3-74.2) Lymph % (Auto) 16.1 % % (15.0-45.0) [place] % (Auto) 5.7 % % (4.5-13.0) Eos % (Auto) 0.6 % % (0.6-7.6) Baso % (Auto) 0.6 % % (0.3-1.7) Nucleat RBC Rel Count 0.0 % % (0.0-0.2) Absolute Neuts (auto) 7.41 10^3/uL H 10^3/uL (1.70-6.50) Absolute Lymphs (auto) 1.56 10^3/uL 10^3/uL (1.00-3.00) Absolute Monos (auto) 0.55 10^3/uL 10^3/uL (0.30-0.80) Absolute Eos (auto) 0.06 10^3/uL 10^3/uL (0.03-0.40) Absolute Basos (auto) 0.06 10^3/uL 10^3/uL (0.02-0.10) Absolute Nucleated RBC 0.00 10^3/uL 10^3/uL (0-0.01) Immature Gran % 0.7 % % (0.0-1.1) Immature Gran # 0.07 10^3/uL 10^3/uL (0.00-0.10) Platelet Estimate TNP Sodium 142 mEq/L mEq/L (135-145) Potassium 3.7 mEq/L mEq/L (3.5-5.2) Chloride 106 mEq/L mEq/L (97-110) Carbon Dioxide 21 mEq/l L mEq/l (22-31) Anion Gap 15 mEq/L mEq/L (8-16) BUN 10 mg/dL mg/dL (7-23) Creatinine 0.8 mg/dL mg/dL (0.7-1.3) Estimated GFR > 60 Glucose 86 mg/dL mg/dL (70-100) Calcium 8.9 mg/dL mg/dL (8.5-10.4) Total Bilirubin 0.8 mg/dL mg/dL (0.1-1.4) Conjugated Bilirubin 0.5 mg/dL mg/dL (0.0-0.5) Unconjugated Bilirubin 0.3 mg/dL mg/dL (0.0-1.1) AST 21 IU/L IU/L (17-59) ALT 27 IU/L IU/L (21-72) Alkaline Phosphatase 61 IU/L IU/L (38-126) Total Protein 6.1 g/dL L g/dL (6.3-8.2) Albumin 3.5 g/dL g/dL (3.5-5.0) Lipase 94 IU/L IU/L (23-300) Ethyl Alcohol 266 mg/dL H mg/dL (0-10) Medications Given: Discontinued Medications Sodium Chloride (Ns) 1,000 mls @ 0 mls/hr IV EDNOW ONE; Wide Open PRN Reason: Protocol Stop: 10/25/17 18:57 Last Admin: 10/25/17 19:27 Dose: 1,000 mls Departure - Departure Disposition: Home, Routine, Self-Care Clinical Impression: Alcohol intoxication Qualifiers: Complication of substance-induced condition: uncomplicated Qualified Code(s): F10.920 - Alcohol use, unspecified with intoxication, uncomplicated Pneumonia Qualifiers: Pneumonia type: due to unspecified organism Laterality: left Lung location: lower lobe of lung Qualified Code(s): J18.1 - Lobar pneumonia, unspecified organism Condition: Good Instructions: Alcohol Intoxication (ED), Pneumonia (ED) Additional Instructions: 1. Please stop drinking alcohol. 2. Take her antibiotics as prescribed. 3. If develops worsening shortness of breath, fever feeling worse return emergency room. Referrals: Patient,NotPresent [Unknown] - As per Instructions Prescriptions: levOFLOXACIN [levAQUIN (*)] 750 mg PO DAILY #10 tab
[2017-10-25] MEDS ORDERED: NS 1,000 ML IV ONE (18:56)
[2017-10-25 19:52] LABS: PLATELET COUNT 217 10^3/uL (150-400)
[2017-10-25 21:32] VITALS: BP 117/79
== END 2017-10-25 21:31 | disposition home or self-care (01) ==
LOC: EDBD → EDUNIT#
DX: J18.1 Lobar pneumonia, unspecified organism (principal); F10.920 Alcohol use, unspecified with intoxication, uncomplicated; E86.9 Volume depletion, unspecified; I10 Essential (primary) hypertension
CPT/HCPCS: G0480

== ENCOUNTER 2017-10-31 09:16 | Emergency (ER) | payer MEDICAID ==
--- NOTE | 2017-10-31 09:26 | EDPHY ---
H & P Smoking Status: Never smoked Time Seen by Provider: 10/31/17 09:16 HPI/ROS: CHIEF COMPLAINT: Alcohol intoxication HISTORY OF PRESENT ILLNESS: 62-year-old male presents to the emergency department by ambulance with acute alcohol intoxication. Apparently the patient is staying at the [facility] in [place] and when he return to the hotel he was found by staff having difficulty walking. They assisted him back to his room and then called EMS for evaluation. No reported trauma. The patient admits to drinking alcohol today. He denies any other substance abuse. He states "I feel awful". He denies pain in his chest. Denies difficulty breathing. No reports of vomiting or diarrhea. Patient does complain of some abdominal pain. REVIEW OF SYSTEMS: Constitutional: No fever, no chills. Eyes: No double or blurry vision. ENT: No sore throat. Respiratory: No cough, no shortness of breath. Cardiac: No chest pain. Gastrointestinal: Abdominal pain. No vomiting or diarrhea. Genitourinary: No dysuria. Musculoskeletal: No neck or back pain. Skin: No rashes. Neurological: No headache. (Carmen Harkins) Past Medical/Surgical History: Alcoholism, pancreatitis, hypertension, depression, leg weakness (Carmen Harkins) Social History: Homeless (Carmen Harkins) Physical Exam: General Appearance: Alert, no distress. Smells strongly of alcohol. No visible signs of trauma to his head. Eyes: Pupils equal and round. Extraocular motions are all intact. ENT: Mouth: Mucous membranes moist. Respiratory: No wheezing, rhonchi, or rales, lungs are clear to auscultation. Cardiovascular: Regular rate and rhythm. Gastrointestinal: Abdomen is soft and nontender, no masses, no rebound or guarding, bowel sounds normal. Neurological: Uncooperative, cannot determine. Skin: Warm and dry, no rashes. Musculoskeletal: Nontender to palpate along the cervical, thoracic or lumbar spine. Neck is supple. Extremities: Full range of motion and no peripheral edema. Ecchymosis noted to dorsal aspect of his left forearm and dorsal aspect of his left hand. He is moving all extremities well. He is unable to ambulate. Psychiatric: No agitation. (Carmen Harkins) Constitutional: Initial Vital Signs Temperature (C) 37.3 C 10/31/17 09:24 Heart Rate 82 10/31/17 09:24 Respiratory Rate 18 10/31/17 09:24 Blood Pressure 118/74 10/31/17 09:24 O2 Sat (%) 93 10/31/17 09:24 O2 Delivery Mode Room Air O2 (L/minute) 2 Allergies/Adverse Reactions: No Known Allergies Allergy (Verified 10/31/17 09:24) Home Medications: Medication Instructions Recorded Lisinopril [Zestril 20 mg (*)] 20 mg PO DAILY 09/11/17 Medical Decision Making ED Course/Re-evaluation: 62-year-old male presents to the emergency department with acute alcohol intoxication. Patient is well-known to the emergency department. He has a history of chronic abdominal pain. He has had multiple episodes of pancreatitis. I do not think laboratory studies are indicated today. Patient' s abdominal exam is benign. Patient smells strongly of alcohol. Patient was observed for several hours in the emergency department. He was able to ambulate upon discharge. He is on an [facility] and [facility] (Carmen Harkins) Differential Diagnosis: Altered mental status including but not limited to hypoglycemia, infectious process, electrolyte abnormality, head injury and intoxicants. (Carmen Harkins) Other Provider: PHYSICIAN DOCUMENTATION: The patient was evaluated and managed by the Physician Warehouse Logistics Manager and myself. I have reviewed the chart and agree with the findings and plan of care as documented. In addition, I examined the patient myself at 1050. History confirmed as admits to alcohol, chronic abdominal pain. Physical findings as follows: The patient was sleeping when I enter the room and is easily awakened. Abdominal exam shows soft nontender without rebound or guarding. I am the secondary supervising physician. (Bulmaro Kirkland) Departure - Departure Disposition: Home, Routine, Self-Care Clinical Impression: Alcohol intoxication Qualifiers: Complication of substance-induced condition: uncomplicated Qualified Code(s): F10.920 - Alcohol use, unspecified with intoxication, uncomplicated Condition: Good Instructions: Alcohol Intoxication (ED), Abuse of Alcohol (ED) Additional Instructions: You should not drink alcohol in excess. Referrals: [facility] [Outside] - As per Instructions [facility],. [Clinic] - As per Instructions
[2017-10-31 13:33] VITALS: BP 112/68
== END 2017-10-31 14:40 | disposition home or self-care (01) ==
LOC: EDUNIT#
DX: F10.920 Alcohol use, unspecified with intoxication, uncomplicated (principal); I10 Essential (primary) hypertension

== ENCOUNTER 2017-11-03 04:10 | Emergency (ER) | payer MEDICAID ==
[2017-11-03] MEDS ORDERED: NS 1,000 ML IV ONE (04:25)
[2017-11-03] MEDS ORDERED: LORazepam 2 MG/ML INJ IVP ONE (04:26)
--- NOTE | 2017-11-03 04:29 | EDPHY ---
H & P Stated Complaint: abd pain, ETOH Time Seen by Provider: 11/03/17 04:34 HPI/ROS: HPI CHIEF COMPLAINT: Chronic alcoholism, abdominal pain, alcohol withdraw HISTORY OF PRESENT ILLNESS: This patient is 62-year-old male, very familiar to myself as well as the emergency room he has a history of alcoholism, chronic alcohol use, and at times gets chronic abdominal pain and pancreatitis. He is currently at the [facility], his last drink was yesterday. He states that his abdomen is hurting him in the mid epigastric region. States feels exactly like his previous pancreatitis flares. No vomiting. He does appear shaky. He denies chest pain or shortness of breath. Current level pain 6/10 epigastric. Typically drinks vodka a large amount. Past Medical History: Chronic alcoholism, alcohol abuse, hypertension, chronic pancreatitis Past Surgical History: Recent surgical history Social History: Alcoholic. Family History: Noncontributory ROS REVIEW OF SYSTEMS: A comprehensive 10 point review of systems is otherwise negative aside from elements mentioned in the history of present illness. Exam Constitutional appears nontoxic no acute distress triage nursing summary reviewed, vital signs reviewed, awake/alert. Eyes normal conjunctivae and sclera, EOMI, PERRLA. HENT normal inspection, atraumatic, moist mucus membranes, no epistaxis, neck supple/ no meningismus, no raccoon eyes. Respiratory clear to auscultation bilaterally, normal breath sounds, no respiratory distress, no wheezing. Cardiovascular rate normal, regular rhythm, no murmur, no edema, distal pulses normal. Gastrointestinal no significant tenderness on exam soft, non-tender, no rebound , no guarding, normal bowel sounds, no distension, no pulsatile mass. Genitourinary no CVA tenderness. Musculoskeletal no midline vertebral tenderness, full range of motion, no calf swelling, no tenderness of extremities, no meningismus, good pulses, neurovascularly intact. Skin pink, warm, & dry, no rash, skin atraumatic. Neurologic somewhat tremulous, with full arm extension, awake, alert and oriented x 3, AAOx3, moves all 4 extremities equally, motor intact, sensory intact, CN II-XII intact, normal cerebellar, normal vision, normal speech. Psychiatric normal mood/affect. Heme/Lymph/Immune no lymphadenopathy. Differential Diagnosis: Includes but is not limited to in a particular order alcohol withdrawal, alcoholism, dehydration, electrolyte disturbance, pancreatitis, gastritis, esophagitis, perforated viscus Medical Decision Making: Plan for this patient IV establishment IV fluid bolus , check belly labs including lipase LFTs, CBC and chemistry, IV fluids, IV Ativan. Re-evaluate. Re-evaluation: 0530: Patient re-evaluated resting comfortably. Feels better after IV fluids and IV Ativan. P.o. Librium. Blood work is reassuring. Does have slight hemolysis on the BMP. No elevated lipase. Patient feels comfortable being discharged back to the [facility]. Librium Provided. Return precautions discussed with him he understands return emergency room if develops worsening symptoms questions or concerns. Source: Patient - Personal History Current Tetanus/Diphtheria Vaccine: Yes Current Tetanus Diphtheria and Acellular Pertussis (TDAP): Yes Tetanus Vaccine Date: 06/21/2009 - Medical/Surgical History Hx Asthma: No Hx Chronic Respiratory Disease: No Hx Diabetes: No Hx Cardiac Disease: No Hx Renal Disease: No Hx Cirrhosis: No Hx Alcoholism: Yes Hx HIV/AIDS: No Hx Splenectomy or Spleen Trauma: No Other PMH: Pancreatitis, alcoholism, htn, depression, numbness/tingling feet, leg weakness - Social History Smoking Status: Never smoked Constitutional: Initial Vital Signs Temperature (C) 37.2 C 11/03/17 04:13 Heart Rate 103 H 11/03/17 04:13 Respiratory Rate 16 11/03/17 04:13 Blood Pressure 151/108 H 11/03/17 04:13 O2 Sat (%) 94 11/03/17 04:13 O2 Delivery Mode Room Air Allergies/Adverse Reactions: No Known Allergies Allergy (Verified 11/03/17 04:15) Home Medications: Medication Instructions Recorded Lisinopril [Zestril 20 mg (*)] 20 mg PO DAILY 09/11/17 Medical Decision Making - Data Points Laboratory Results: Laboratory Results 11/03/17 04:35 11/03/17 04:35 11/03/17 11/03/17 04:35 04:35 WBC 7.24 10^3/uL 10^3/uL (3.80-9.50) RBC 5.05 10^6/uL 10^6/uL (4.40-6.38) Hgb 16.2 g/dL g/dL (13.7-17.5) Hct 48.1 % % (40.0-51.0) MCV 95.2 fL fL (81.5-99.8) MCH 32.1 pg pg (27.9-34.1) MCHC 33.7 g/dL g/dL (32.4-36.7) RDW 15.6 % H % (11.5-15.2) Plt Count 305 10^3/uL 10^3/uL (150-400) MPV 9.6 fL fL (8.7-11.7) Neut % (Auto) 63.0 % % (39.3-74.2) Lymph % (Auto) 28.0 % % (15.0-45.0) [place] % (Auto) 6.9 % % (4.5-13.0) Eos % (Auto) 0.7 % % (0.6-7.6) Baso % (Auto) 1.0 % % (0.3-1.7) Nucleat RBC Rel Count 0.0 % % (0.0-0.2) Absolute Neuts (auto) 4.56 10^3/uL 10^3/uL (1.70-6.50) Absolute Lymphs (auto) 2.03 10^3/uL 10^3/uL (1.00-3.00) Absolute Monos (auto) 0.50 10^3/uL 10^3/uL (0.30-0.80) Absolute Eos (auto) 0.05 10^3/uL 10^3/uL (0.03-0.40) Absolute Basos (auto) 0.07 10^3/uL 10^3/uL (0.02-0.10) Absolute Nucleated RBC 0.00 10^3/uL 10^3/uL (0-0.01) Immature Gran % 0.4 % % (0.0-1.1) Immature Gran # 0.03 10^3/uL 10^3/uL (0.00-0.10) Sodium 141 mEq/L mEq/L (135-145) Potassium 5.5 mEq/L H mEq/L (3.3-5.0) Chloride 101 mEq/L mEq/L (97-110) Carbon Dioxide 24 mEq/l mEq/l (22-31) Anion Gap 16 mEq/L mEq/L (8-16) BUN 10 mg/dL mg/dL (7-23) Creatinine 0.8 mg/dL mg/dL (0.7-1.3) Estimated GFR > 60 Glucose 103 mg/dL H mg/dL (70-100) Calcium 8.5 mg/dL mg/dL (8.5-10.4) Total Bilirubin 2.1 mg/dL H mg/dL (0.1-1.4) Conjugated Bilirubin 1.2 mg/dL H mg/dL (0.0-0.5) Unconjugated Bilirubin 0.9 mg/dL mg/dL (0.0-1.1) AST 78 IU/L H IU/L (17-59) ALT 29 IU/L IU/L (21-72) Alkaline Phosphatase 113 IU/L IU/L (38-126) Total Protein 7.3 g/dL g/dL (6.3-8.2) Albumin 4.2 g/dL g/dL (3.5-5.0) Lipase 100 IU/L IU/L (23-300) Specimen Hemolysis 191 Medications Given: Discontinued Medications Chlordiazepoxide HCl (Librium) 25 mg PO EDNOW ONE Stop: 11/03/17 04:39 Last Admin: 11/03/17 04:45 Dose: 25 mg Sodium Chloride (Ns) 1,000 mls @ 0 mls/hr IV EDNOW ONE; Wide Open PRN Reason: Protocol Stop: 11/03/17 04:26 Last Admin: 11/03/17 04:42 Dose: 1,000 mls Lorazepam (Ativan Injection) 1 mg IVP EDNOW ONE Stop: 11/03/17 04:27 Last Admin: 11/03/17 04:42 Dose: 1 mg Ondansetron HCl (Zofran) 4 mg IVP EDNOW ONE Stop: 11/03/17 04:37 Last Admin: 11/03/17 04:42 Dose: 4 mg Departure - Departure Disposition: Home, Routine, Self-Care Clinical Impression: Alcohol withdrawal Qualifiers: Complication of substance-induced condition: uncomplicated Qualified Code(s): F10.230 - Alcohol dependence with withdrawal, uncomplicated Condition: Good Instructions: Chlordiazepoxide/Clidinium (By mouth), Alcohol Withdrawal (ED) Additional Instructions: 1.Please stop drinking alcohol. 2. Return emergency room if develops worsening abdominal pain fever vomiting. Referrals: [facility] [Other] - As per Instructions
[2017-11-03] MEDS ORDERED: ONDANSETRON 4 MG/2 ML VIAL IVP ONE (04:36)
[2017-11-03] MEDS ORDERED: chlordiazePOXIDE 25 MG CAP PO ONE (04:38)
[2017-11-03] MEDS ORDERED: CHLORDIAZEPOXIDE 25MG PREPK#6 BTL TAKEHOME ONE (04:38)
[2017-11-03 04:43] LABS: PLATELET COUNT 305 10^3/uL (150-400)
[2017-11-03 06:43] VITALS: BP 138/97
== END 2017-11-03 06:45 | disposition home or self-care (01) ==
DX: F10.230 Alcohol dependence with withdrawal, uncomplicated (principal); E86.9 Volume depletion, unspecified; I10 Essential (primary) hypertension
CPT/HCPCS: 96374; J2060; J2405

== ENCOUNTER 2017-11-04 14:19 | Emergency (ER) | payer MEDICAID ==
--- NOTE | 2017-11-04 14:37 | EDPHY ---
H & P Stated Complaint: RUQ pain x2 weeks, hx pancreatitis . Time Seen by Provider: 11/04/17 14:30 - Personal History Current Tetanus/Diphtheria Vaccine: Yes Current Tetanus Diphtheria and Acellular Pertussis (TDAP): Yes Tetanus Vaccine Date: 06/21/2009 - Medical/Surgical History Hx Asthma: No Hx Chronic Respiratory Disease: No Hx Diabetes: No Hx Cardiac Disease: No Hx Renal Disease: No Hx Cirrhosis: No Hx Alcoholism: Yes Hx HIV/AIDS: No Hx Splenectomy or Spleen Trauma: No Other PMH: Pancreatitis, alcoholism, htn, depression, numbness/tingling feet, leg weakness - Social History Smoking Status: Never smoked Constitutional: Initial Vital Signs Temperature (C) 37.0 C 11/04/17 14:22 Heart Rate 92 11/04/17 14:22 Respiratory Rate 18 11/04/17 14:22 Blood Pressure 116/79 11/04/17 14:22 O2 Sat (%) 94 11/04/17 14:22 O2 Delivery Mode Room Air Allergies/Adverse Reactions: No Known Allergies Allergy (Verified 11/03/17 04:15) Home Medications: Medication Instructions Recorded Lisinopril [Zestril 20 mg (*)] 20 mg PO DAILY 09/11/17 Medical Decision Making ED Course/Re-evaluation: CHIEF COMPLAINT: Chronic abdominal pain HISTORY OF PRESENT ILLNESS: The patient is a 62 y/o male with a history of alcoholism and chronic abdominal pain and well-known to this department with 14 visits in the last year who presents with abdominal pain. He admits to heavy alcohol use in the last several days and today. His abdominal pain is primarily located epigastrically and feels the same as prior pancreatitis episodes. He denies vomiting, diarrhea, fever, recent illness, recent trauma. REVIEW OF SYSTEMS: A 10 point review of systems was performed and is negative with the exception of the elements mentioned in the history of present illness. PHYSICAL EXAM: HR, BP, O2 Sat, RR. Temp noted General Appearance: Alert, well hydrated, appropriate, and non-toxic appearing. Head: Atraumatic without scalp tenderness or obvious injury Eyes: Pupils equal, round, reactive to light and accommodation, EOMI, no trauma , no injection. Nose: Atraumatic, no rhinorrhea, clear. Throat: Mucus membranes moist. Neck: Supple, non-tender, no lymphadenopathy. Respiratory: No retractions, no distress, no wheezes, and no accessory muscle use. Lungs are clear to auscultation bilaterally. Cardiovascular: Regular rate and rhythm, no murmurs, rubs, or gallops. Good capillary refill all extremities. Gastrointestinal: Abdomen is soft, mild epigastric tenderness, non-distended, no masses, no rebound, no guarding, no peritoneal signs. Musculoskeletal: Normal active ROM of all extremities, atraumatic. Neurological: Alert, appropriate, and interactive. The patient has non-focal cranial nerves, motor, sensory, and cerebellar exam. Skin: No rashes, good turgor, no nodules on palpation. PAST MEDICAL HISTORY: Chronic abdominal pain, pancreatitis, alcoholism, hypertension, depression, BPH PAST SURGICAL HISTORY: Right hand surgery. SOCIAL HISTORY: Heavy alcohol use. Nonsmoker. Prior medical records reviewed including admission 09/11/17 for epigastric pain and alcohol withdrawal. DIFFERENTIAL DIAGNOSIS: The differential diagnosis for the patient's abdominal pain included but was not limited to appendicitis, cholecystitis, hernias, testicular torsion, gastritis, and urinary tract infection. MEDICAL DECISION MAKING: This is a 62 y/o male who is a chronic alcohol abuser and heavy system utilizer who presents intoxicated and complaining of the same chronic abdominal pain he has most days. He has no evidence of systemic infection by history of exam. We will not perform further imaging here for his chronic complaint. He has mild epigastric tenderness on exam. Plan for lipase to assess for pancreatitis. Lipase is normal. Case management will discuss ED utilization and outpatient resources with patient prior to discharge to the [facility]. Return precautions discussed. He agrees with plan for discharge. Nursing staff, case assistant, and security have been attempting to discharge the patient for almost an hour and he is malingering. He has repeatedly gotten dressed and undressed and is dumping his clothes out on the bed and folding them over and over. He reported that could not find his wallet. The wallet was later found between his buttocks. - Data Points Laboratory Results: 11/04/17 16:21 Lipase 70 IU/L IU/L (23-300) Departure - Departure Disposition: Home, Routine, Self-Care Clinical Impression: Chronic abdominal pain Alcohol intoxication Qualifiers: Complication of substance-induced condition: uncomplicated Qualified Code(s): F10.920 - Alcohol use, unspecified with intoxication, uncomplicated Condition: Good Instructions: Alcohol Intoxication (ED), Abuse of Alcohol (ED), Chronic Abdominal Pain (ED) Additional Instructions: Medically clear for the [facility]. Avoid abuse of alcohol. Follow up with your primary care provider for continued symptoms. Referrals: [facility],. [Clinic] - As per Instructions [facility] Detox 24 Hours [Outside] - As per Instructions Report Scribed for: Parish Mack Report Scribed by: Stacie Lott Date of Report: 11/04/17 Time of Report: 15:35
[2017-11-04 17:36] VITALS: BP 138/84
--- NOTE | 2017-11-04 18:33 | ASDISCHSUM ---
Discharge Information Plan Status:Homeless/[facility] Medically Cleared to Leave: Discharge Date:11/04/2017 05:46 PM CM D/C Disposition:Streets (Homeless) ADT D/C Disposition:Home, Routine, Self-Care Projected Discharge Date:11/04/2017 05:46 PM Transportation at D/C:Self Discharge Delay Reason: Follow-Up Date:11/04/2017 05:46 PM Discharge Slot: Final Diagnosis: Placement Information Patient Contact Information Contact Name:ANDRAE Relationship:Daughter Address: Work Phone: City:[place] Alternate Phone: [facility]/Zip Code:[place] Email: Financial Information Financial Class:Medicaid Primary Plan 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 Pt has history of pancreatitis, secondary to alcoholism. This is the pt's 5th ED visit in October. Pt was recently admitted to [facility] 09/11-09/15 and discharged independently (pt declined SNF and HC). Pt had 14 visits in 2017. Pt recently d/c'd from [facility] detox this morning and per Heidi, central office supervisor at ([phone]), they have placed pt on a 24-hour "hold" where they will not admit pt for 24 hours since his last visit. Pt has been to their detox, [facility] ED, [facility], etc. numerous times in the past few months. On 10/20/17 pt was placed on an Emergency Commitment hold by detox center (document can be found under that visit and by selecting "Legal/Indicators" under "Summary" in [employer]). The [facility] is closed for the summer season. Pt has not completed [facility] and severe weather retirement is not open tonight, so patient is not able to stay at the [facility] retirement offered by [facility]. Pt will need to follow up tomorrow and complete [facility]. Pt provided various information on local homelessness resources, [facility], [facility], etc. Pt states he never followed up with a provider after his August 2017 admission. This CM spoke lorenza/Ivonne at [facility] ([phone]) and she said patient's last visit was with Lyndsay Wilson on 05/21/17 and pt is primarily seen at their [facility]. Ivonne also said there were numerous notes in his chart where [facility] staff had tried to call and reach out to pt to offer follow-up appts, home visits, and other assistance but patient always either disconnected the call, told staff he would them back, or not answer the phone; the last attempts to contact pt were 10/21,10/22, & 10/26/17. One of the notes mentioned pt had been admitted to [facility] from 10/08-10/15. He states he normally stays with a friend who lives at the [facility] address provided as his address. But when his friend is out of town he either stays at hotels (pt is employed and says he gets paid in two weeks), pt sleeps on the street, or is at the [facility]. Pt states his friend is in [place] for the next two months. Pt states he has two daughters who live locally but "they refuse to talk to me." The rest of his friends and family "all left, moved away." After pt was informed that he wouldn't be admitted and there were no retirement options for him tonight, pt briskly stood up from the bed and said "alright then, goodbye. I'm out of here." Pt was provided various resources and strongly encouraged to follow up with [facility], [facility], [facility], etc. CM available for further assistance if needed. Date Signed: 11/04/2017 06:30 PM Electronically Signed By:Vivien Plaza RN Intervention Information Intervention Type:Health Clinic Date of Service:11/04/2017 06:30 PM Patient Type:Emergency Room Staff Member:JOSE FRANCISCO Plaza [place] Hours:0.25 Discipline:Housemaid Severity: Comment: Intervention Type:Education Family/Patient Date of Service:11/04/2017 06:30 PM Patient Type:Emergency Room Staff Member:JOSE FRANCISCO Plaza [place] Hours:0.5 Discipline:Housemaid Severity: Comment: Intervention Type:Community Resources Date of Service:11/04/2017 06:30 PM Patient Type:Emergency Room Staff Member:JOSE FRANCISCO Plaza [place] Hours:0.5 Discipline:Housemaid Severity: Comment:
== END 2017-11-04 17:46 | disposition home or self-care (01) ==
LOC: EDUNIT#
DX: R10.13 Epigastric pain (principal); F10.920 Alcohol use, unspecified with intoxication, uncomplicated; G89.29 Other chronic pain; I10 Essential (primary) hypertension

== ENCOUNTER 2017-11-05 04:26 | Emergency (ER) | payer MEDICAID ==
--- NOTE | 2017-11-05 05:31 | EDPHY ---
H & P Stated Complaint: cold states " i may have hit my head" Time Seen by Provider: 11/05/17 04:47 HPI/ROS: Chief Complaint: Feels cold, fall HPI: 62-year-old male states that he fell down yesterday after he stumbled on a rock and hit the back of his neck. He has not had any significant neck pain since that time. Patient states that he was laying down outside this morning and is feeling cold and is concerned he might be hypothermic. He states that he called 911 mostly because he is worried that he is hypothermic. No new numbness or weakness. He has been ambulating without difficulty. He has a history of chronic alcoholism, last drink was yesterday. He is homeless and is well known to this emergency department. Denies any loss of conscious. No head injury or headache. No nausea or vomiting. No chest pain or shortness of breath. ROS: 10 point Review of Systems is negative except as noted in the HPI. PMH: Homelessness, pancreatitis, alcoholic liver disease Social History: No smoking, daily heavy alcohol, no recreational drug use Family History: non-contributory Physical Exam: Gen: Awake, Alert, Airway Intact HEENT: Head: Atraumatic Eyes: PERRLA, EOMI Nose: No epistaxis Mouth: Normal dentition, Airway patent Face: No deformity Neck: non-tender, no stepoff, Full ROM without pain Chest: non-tender, lungs CTA Heart: normal heart tones Abd: soft, non-tender, atraumatic Pelvis: non-tender, stable to AP and Lateral compression Back: atraumatic, no midline tenderness Ext: atramatic, full ROM Skin: no rash Neuro: CN II-XII intact, Strength 5/5 in all extremities, sensation intact in all extremities - Personal History Current Tetanus/Diphtheria Vaccine: Yes Current Tetanus Diphtheria and Acellular Pertussis (TDAP): Yes Tetanus Vaccine Date: 06/21/2009 - Medical/Surgical History Hx Asthma: No Hx Chronic Respiratory Disease: No Hx Diabetes: No Hx Cardiac Disease: No Hx Renal Disease: No Hx Cirrhosis: No Hx Alcoholism: Yes Hx HIV/AIDS: No Hx Splenectomy or Spleen Trauma: No Other PMH: Pancreatitis, alcoholism, htn, depression, numbness/tingling feet, leg weakness - Social History Smoking Status: Never smoked Constitutional: Initial Vital Signs Temperature (C) 36.8 C 05/18/18 04:25 Heart Rate 108 H 11/05/17 04:25 Respiratory Rate 18 11/05/17 04:25 Blood Pressure 144/100 H 11/05/17 04:25 O2 Sat (%) 94 11/05/17 04:25 O2 Delivery Mode Room Air Allergies/Adverse Reactions: No Known Allergies Allergy (Verified 11/05/17 04:41) Home Medications: Medication Instructions Recorded Lisinopril [Zestril 20 mg (*)] 20 mg PO DAILY 09/11/17 Medical Decision Making ED Course/Re-evaluation: 62-year-old homeless male who is complaining of feeling cold worried about being hypothyroid. She fell yesterday in his neck. On my examination today he has absolutely no reproducible tenderness. There is no deformity or ecchymosis. He has full range of motion without any pain whatsoever. His vital signs are normal here. He is not hypothyroid. He has been observed in the emergency department is been without complaint. He will be discharged with follow up with primary care physician. He is currently not clinically intoxicated. No evidence of acute alcohol withdrawal at this time. Departure - Departure Disposition: Home, Routine, Self-Care Clinical Impression: Neck ache, Fall Condition: Good Instructions: Neck Pain (ED) Additional Instructions: Follow up with primary care physician in 2-3 days for any concerns. Return to the emergency department for worsening pain, numbness, weakness, or any other concerns. Referrals: Lyndsay Wilson, PAC [Primary Care Provider] - As per Instructions
[2017-11-05 05:59] VITALS: BP 143/76
--- NOTE | 2017-11-05 14:14 | ASMTCMCOM ---
CM Note CM Note Notes: Followed up and called patient today but pt didn't answer; there was an anonymous voicemail recording so no message was left. Called the Case Mgmt Netting Weaver at the [facility] ([phone]); staff states patient did complete CE this morning and was referred to [facility] [place] residential [facility]. Staff mentioned patient seemed confused and it took them awhile to explain their rotating residential locations. Patient is now active and able to stay at [facility] shelters. Called the [facility] ([facility]) and left a voicemail for JOSE FRANCISCO Beltre Frame Trimmer ([phone]) and/or clinic office coordinator Raquel) to discuss additional outpatient follow up and outreach options. CM available for further assistance if needed. Date Signed: 11/05/2017 02:13 PM Electronically Signed By:Vivien Plaza RN
--- NOTE | 2017-11-05 14:15 | ASDISCHSUM ---
Discharge Information Plan Status:Homeless/[facility] Medically Cleared to Leave: Discharge Date:11/05/2017 06:00 AM CM D/C Disposition:Streets (Homeless) ADT D/C Disposition:Home, Routine, Self-Care Projected Discharge Date:11/05/2017 06:00 AM Transportation at D/C:Self Discharge Delay Reason: Follow-Up Date:11/05/2017 06:00 AM Discharge Slot: Final Diagnosis: Placement Information Patient Contact Information Contact Name:ANDRAE Relationship:Daughter Address: Work Phone: City:[place] Alternate Phone: [facility]/Zip Code:[place] Email: Financial Information Financial Class:Medicaid Primary Plan Desc:MEDICAID HEALTH FIRST WHITE SUGAR BOILER Primary Plan Number:[id number] Secondary Plan Desc: Secondary Plan Number: Assessment Information [facility] Progress Note CM Note CM Note Notes: Followed up and called patient today but pt didn't answer; there was an anonymous voicemail recording so no message was left. Called the Case Mgmt Armed Security Professional at the [facility] ([phone]); staff states patient did complete CE this morning and was referred to [facility] residential [facility]. Staff mentioned patient seemed confused and it took them awhile to explain their rotating residential locations. Patient is now active and able to stay at [facility] shelters. Called the [facility] ([facility]) and left a voicemail for JOSE FRANCISCO Beltre Principal Secretary ([phone]) and/or customs and border protection officer Raquel) to discuss additional outpatient follow up and outreach options. CM available for further assistance if needed. Date Signed: 11/05/2017 02:13 PM Electronically Signed By:Vivien Plaza RN Intervention Information Intervention Type:Post Acute Communication Date of Service:11/05/2017 02:14 PM Patient Type:Emergency Room Staff Member:JOSE FRANCISCO Plaza [place] Hours:0.25 Discipline:Molded Rubber Goods Cutter Severity: Comment:
== END 2017-11-05 06:00 | disposition home or self-care (01) ==
LOC: EDUNIT#
DX: S19.9XXA Unspecified injury of neck, initial encounter (principal); I10 Essential (primary) hypertension; W01.198A Fall on same level from slipping, tripping and stumbling with subsequent striking against other object, initial encounter; Y92.89 Other specified places as the place of occurrence of the external cause; Y99.8 Other external cause status; Y93.89 Activity, other specified

== ENCOUNTER 2017-12-08 08:55 | Inpatient (IN) | payer MEDICAID ==
[2017-12-08] MEDS ORDERED: NS 1,000 ML IV ONE ×2 (09:32→12:34)
[2017-12-08] MEDS ORDERED: LORazepam 1 MG TAB PO PRN (09:32)
--- NOTE | 2017-12-08 09:40 | EDPHY ---
General - History Smoking Status: Never smoked Time Seen by Provider: 12/08/17 09:32 Narrative: CHIEF COMPLAINT: "Pancreatitis, and withdrawing from alcohol" HISTORY OF PRESENT ILLNESS: Patient presents with complaints of abdominal pain and alcohol withdrawal. He says he has had abdominal pain for 24 hr. It started abruptly. This is epigastric and described as the same as his previous pancreatitis pain. He has nausea and multiple episodes of vomiting. Unable to tolerate any liquids. He has no bloody emesis. No dark tarry stools or bright red stools. No constipation. He has no fever. No trauma or injury. He says he drinks at least 1 pt per day of vodka 2-3 days per week. He says he had alcohol yesterday while at the [facility] and none since then. He has felt shaky, anxious and feels like he is going into withdrawals. No modifying factors otherwise. No other associated complaints. REVIEW OF SYSTEMS: Ten systems reviewed and are negative unless otherwise noted in the HPI PCP: [facility] SPECIALISTS: None PAST MEDICAL HISTORY: Alcohol abuse, hypertension, pancreatitis, depression, neuropathy, weakness PAST SURGICAL HISTORY: No recent surgeries SOCIAL HISTORY: Denies tobacco use. Admits to daily vodka intake of at least 1 pt per day. Denies drug use. Lives independently. FAMILY HISTORY: Noncontributory EXAMINATION General Appearance: Alert, no distress. Anxious and tremulous. Well- developed well-nourished. Head: normocephalic, atraumatic Eyes: Pupils equal and round, no conjunctival pallor or injection. EOMS intact no nystagmus. ENT, Mouth: Mucous membranes moist Neck: Normal inspection, supple, non-tender Respiratory: Lungs are clear to auscultation Cardiovascular: Regular rate and rhythm Gastrointestinal: Abdomen is soft and nondistended. There is tenderness in the epigastrium. No tympany. No rigidity. No crepitus. No guarding. No palpable masses. Back: non-tender, no bony abnormalities Neurological: GCS 15. A&O, nonfocal, normal gait. Strength is symmetric in the limbs. There is no pronator drift. There is resting tremor but no dysmetria Skin: Warm and dry, no rash no petechiae or purpura Extremities: Nontender, no pedal edema Psychiatric: Mood and affect normal DIFFERENTIAL DIAGNOSES: Including but not limited to alcohol withdrawal, delirium tremens, dehydration, gastritis, pancreatitis, colitis, diverticulitis MDM: 9:30 a.m. Abdominal pain with history of alcohol abuse and pancreatitis. He does appear to alcohol withdrawal symptoms but no evidence of delirium tremens at this time. I have ordered the ED alcohol withdrawal protocol, laboratory studies, engine monitor, IV fluid, thiamine and folate. He is awake alert no acute distress but he is tachycardic but otherwise hemodynamically stable and does not meet SIRS criteria. 10:30 a.m. Notified by RN. The patient's initial CIWA score was 11. He has received 2 mg of IV Ativan. He is feeling much better and resting comfortably. CBC unremarkable. Remainder of workup is pending. 11:30 a.m. Laboratory studies do reveal some mild hypomagnesemia. I have ordered IV magnesium as he is NPO due to pancreatitis. I have also treated him with Ativan , thiamine, folate, IV fluid resuscitation. 12:30 p.m. Patient evaluated by Dr. Kamilla Guaman. She agrees with management thus far and recommends admission to the hospital. 12:45 p.m. Case discussed with hospitalist Isabel Chappell, gina. Patient has been accepted to Dr. Clemente. He is admitted in stable condition. He is admitted for pancreatitis, abdominal pain, vomiting and alcohol withdrawal without delirium tremens. SUPERVISION: Patient was evaluated and examined in conjunction with my secondary supervising physician as documented. We have both examined the patient. (Ian Muhammad) Discussion: The patient was evaluated and managed by the Physician Manufacturing Assembler. I discussed the patient's presentation and course with the physician assistant center director and agree with the evaluation. I evaluated the patient briefly. He is alert, c/o abdominal pain, slightly tremorous. Abd is tender but without rebound or guarding. My co-signature indicates that I have reviewed this chart and I agree with the findings and plan of care as documented. I am the secondary supervising physician. (Kamilla Guaman) - Objective Vital Signs: Initial Vital Signs Temperature (C) 37.2 C 12/08/17 08:59 Heart Rate 128 H 12/08/17 08:59 Respiratory Rate 18 12/08/17 08:59 Blood Pressure 170/114 H 12/08/17 08:59 O2 Sat (%) 96 12/08/17 08:59 O2 Delivery Mode Room Air Allergies/Adverse Reactions: No Known Allergies Allergy (Verified 12/08/17 08:57) Home Medications: Medication Instructions Recorded Meloxicam 7.5 mg PO DAILY 12/08/17 Hydrochlorothiazide [HCTZ (*)] 25 mg PO DAILY #30 cap 12/13/17 Hydrochlorothiazide [HCTZ (*)] 25 mg PO DAILY #30 tab 12/13/17 Lisinopril [Zestril 20 mg (*)] 20 mg PO DAILY #30 tab 12/13/17 Lisinopril [Zestril 20 mg (*)] 20 mg PO DAILY #30 tab 12/13/17 oxyCODONE IR [Oxycodone Ir (*)] 5 - 10 mg PO Q6HRS PRN #10 tab 12/13/17 oxyCODONE IR [Oxycodone Ir (*)] 5 mg PO Q4HRS PRN #10 tab 12/13/17 Laboratory Results: Laboratory Results 12/08/17 10:20 12/09/17 04:30 Medications Given: Discontinued Medications Clonidine (Catapres) 0.1 mg PO Q8HRS PRN PRN Reason: SBP>150 Stop: 06/10/18 14:27 Last Admin: 12/12/17 15:47 Dose: 0.1 mg Enoxaparin Sodium (Lovenox) 40 mg SC DAILY [facility] Stop: 06/07/18 08:59 Last Admin: 12/13/17 08:11 Dose: 40 mg Folic Acid (Folic Acid) 1 mg PO EDNOW ONE Stop: 12/08/17 09:42 Last Admin: 12/08/17 11:07 Dose: 1 mg Hydralazine HCl (Apresoline) 15 mg IVP Q6HRS PRN PRN Reason: SBP>150 Stop: 06/09/18 15:46 Last Admin: 12/12/17 07:54 Dose: 15 mg Hydrochlorothiazide (Microzide) 12.5 mg PO DAILY [facility] Stop: 06/10/18 14:29 Last Admin: 12/13/17 08:11 Dose: 12.5 mg Hydrochlorothiazide (Hydrochlorothiazide) 25 mg PO DAILY [facility] Stop: 06/11/18 11:59 Last Admin: 12/13/17 13:09 Dose: Not Given Sodium Chloride (Ns) 1,000 mls @ 0 mls/hr IV EDNOW ONE; Wide Open PRN Reason: Protocol Stop: 12/08/17 09:33 Last Admin: 12/08/17 10:33 Dose: 1,000 mls Thiamine HCl 100 mg/ Sodium (Chloride) 101 mls @ 202 mls/hr IV EDNOW ONE Stop: 12/08/17 11:59 Last Admin: 12/08/17 12:36 Dose: 101 mls Magnesium Sulfate/Dextrose (Magnesium Sulf 1 Gm (Premix)) 100 mls @ 100 mls/hr IV EDNOW ONE Stop: 12/08/17 13:25 Last Admin: 12/08/17 14:39 Dose: 100 mls Sodium Chloride (Ns) 1,000 mls @ 0 mls/hr IV EDNOW ONE; Wide Open PRN Reason: Protocol Stop: 12/08/17 12:35 Last Admin: 12/08/17 14:40 Dose: 1,000 mls Sodium Chloride (Ns) 1,000 mls @ 75 mls/hr IV CONT LANIE Stop: 06/06/18 16:29 Last Admin: 12/11/17 12:15 Dose: 1,000 mls Thiamine HCl 500 mg/ Sodium (Chloride) 105 mls @ 210 mls/hr IV DAILY LANIE Stop: 12/10/17 09:29 Last Admin: 12/10/17 11:24 Dose: 105 mls Magnesium Sulfate/Dextrose (Magnesium Sulf 1 Gm (Premix)) 100 mls @ 100 mls/hr IV ONCE ONE Stop: 12/09/17 08:34 Last Admin: 12/09/17 08:02 Dose: 100 mls Magnesium Sulfate/Dextrose (Magnesium Sulf 1 Gm (Premix)) 100 mls @ 100 mls/hr IV ONCE ONE Stop: 12/10/17 12:52 Last Admin: 12/10/17 14:29 Dose: 100 mls Magnesium Sulfate/Dextrose (Magnesium Sulf 1 Gm (Premix)) 100 mls @ 100 mls/hr IV ONCE ONE Stop: 12/11/17 08:35 Last Admin: 12/11/17 07:52 Dose: 100 mls Magnesium Sulfate/Dextrose (Magnesium Sulf 1 Gm (Premix)) 100 mls @ 100 mls/hr IV ONCE ONE Stop: 12/12/17 08:32 Last Admin: 12/12/17 07:54 Dose: 100 mls Thiamine HCl 500 mg/ Sodium (Chloride) 105 mls @ 210 mls/hr IV Q8HRS LANIE Stop: 06/10/18 21:59 Last Admin: 12/13/17 13:33 Dose: Not Given Magnesium Sulfate/Dextrose (Magnesium Sulf 1 Gm (Premix)) 100 mls @ 100 mls/hr IV ONCE ONE Stop: 12/13/17 08:14 Last Admin: 12/13/17 08:11 Dose: 100 mls Ketorolac Tromethamine (Toradol) 30 mg IVP EDNOW ONE Stop: 12/08/17 10:39 Last Admin: 12/08/17 11:02 Dose: 30 mg Lisinopril (Zestril) 20 mg PO DAILY LANIE Stop: 06/07/18 09:44 Last Admin: 12/13/17 08:11 Dose: 20 mg Lorazepam (Ativan Injection) 0 mg IVP Q1H PRN; Protocol PRN Reason: Alcohol Withdrawal w/IV access Stop: 12/08/17 21:32 Last Admin: 12/08/17 11:53 Dose: 2 mg Lorazepam (Ativan Injection) 0 mg IVP Q1H PRN; Protocol PRN Reason: Alcohol Withdrawal w/IV access Stop: 06/06/18 16:23 Last Admin: 12/11/17 08:03 Dose: 2 mg Lorazepam (Ativan Injection) 0 mg IVP Q4HRS PRN; Protocol PRN Reason: Alcohol Withdrawal w/IV access Stop: 06/06/18 16:23 Last Admin: 12/11/17 16:55 Dose: 2 mg Lorazepam (Ativan Injection) 0 mg IVP Q8HRS PRN; Protocol PRN Reason: Alcohol Withdrawal w/IV access Stop: 06/09/18 10:45 Last Admin: 12/12/17 10:09 Dose: 2 mg Morphine Sulfate (Morphine) 1 - 2 mg IVP Q1HR PRN PRN Reason: Pain, Severe Unable to Take PO Stop: 12/18/17 16:18 Last Admin: 12/11/17 08:03 Dose: 2 mg Morphine Sulfate (Morphine) 1 mg IVP Q4HRS PRN PRN Reason: Pain, Severe Unable to Take PO Stop: 12/18/17 16:18 Last Admin: 12/11/17 21:12 Dose: 1 mg Morphine Sulfate (Morphine) 1 mg IVP Q8HRS PRN PRN Reason: Pain, Severe Unable to Take PO Stop: 12/21/17 10:46 Last Admin: 12/12/17 20:17 Dose: 1 mg Ondansetron HCl (Zofran) 4 mg IVP EDNOW ONE Stop: 12/08/17 10:39 Last Admin: 12/08/17 11:02 Dose: 4 mg Oxycodone HCl (Oxycodone Ir) 5 mg PO Q4HRS PRN PRN Reason: Pain, Severe Able to Take PO Stop: 12/21/17 12:32 Last Admin: 12/12/17 12:11 Dose: 5 mg Oxycodone HCl (Oxycodone Ir) 5 - 10 mg PO Q4HRS PRN PRN Reason: Pain, Severe Able to Take PO Stop: 12/21/17 12:32 Last Admin: 12/13/17 05:05 Dose: 10 mg Pantoprazole Sodium (Protonix) 40 mg IVP EDNOW ONE Stop: 12/08/17 10:39 Last Admin: 12/08/17 11:04 Dose: 40 mg Thiamine HCl (Vitamin B-1) 100 mg PO DAILY LANIE Stop: 06/09/18 08:59 Last Admin: 12/12/17 10:04 Dose: 100 mg Departure - Departure Disposition: [facility] Acute Clinical Impression: Alcoholism Pancreatitis Qualifiers: Chronicity: chronic Pancreatitis type: alcohol induced Qualified Code(s): K86.0 - Alcohol-induced chronic pancreatitis Alcohol withdrawal Qualifiers: Complication of substance-induced condition: uncomplicated Qualified Code(s): F10.230 - Alcohol dependence with withdrawal, uncomplicated
[2017-12-08] MEDS ORDERED: FOLIC ACID 1 MG TAB PO ONE (09:41)
--- NOTE | 2017-12-08 09:53 | CPEKG ---
Heart Rate: 107 RR Interval: 561 P-R Interval: 128 QRSD Interval: 74 QT Interval: 340 QTC Interval: 454 P Lonsdale: 75 QRS Lonsdale: -51 T Wave Lonsdale: 42 EKG Severity - ABNORMAL ECG - EKG Impression: SINUS TACHYCARDIA EKG Impression: LEFT ANTERIOR FASCICULAR BLOCK EKG Impression: NONSPECIFIC T ABNORMALITIES, ANTERIOR LEADS Electronically Signed By: Bulmaro Kirkland 11-Dec-2017 06:59:45
[2017-12-08 10:31] LABS: PLATELET COUNT 182 10^3/uL (150-400)
[2017-12-08] MEDS: LORazepam 2 MG/ML INJ IVP PRN ×3 (10:32→16:57)
[2017-12-08] MEDS ORDERED: PANTOPRAZOLE SODIUM 40 MG VIAL IVP ONE (10:38)
[2017-12-08] MEDS ORDERED: KETOROLAC 30 MG/1 ML SDV IVP ONE (10:38)
[2017-12-08] MEDS ORDERED: ONDANSETRON 4 MG/2 ML VIAL IVP ONE (10:38)
[2017-12-08] MEDS ORDERED: THIAMINE HCL 100 MG in NS 100 ML IV ONE (11:30)
[2017-12-08] MEDS ORDERED: MAGNESIUM SULF 1 GM/DEXTROSE 100 ML IV ONE (12:26)
--- NOTE | 2017-12-08 13:24 | ASMTCMCOM ---
CM Note CM Note Notes: See CM notes from 11/04/17 and 11/05/17. I have called and LM with [facility] desk and [facility] regarding patient's admission. PLEASE note, both of these numbers are for CM communication only. Please do not give them to patient or others. CM to follow and contact both [facility] and [facility] for coordination of care at discharge Date Signed: 12/08/2017 01:23 PM Electronically Signed By:Brooke Mccarthy RN
--- NOTE | 2017-12-08 13:26 | ASMTLACE ---
LUCIO Comorbidities - select Answers: Moderate or severe liver all that apply or renal disease # of Emergency department Answers: 3-4 visits in the last 6 months Social determinants Answers: History of substance abuse (ETOH, street drugs, prescription drugs, etc.) Homelessness (street, penitentiary) Score: 13 Date Signed: 12/08/2017 01:12 PM Electronically Signed By:Brooke Mccarthy RN
[2017-12-08] MEDS ORDERED: ONDANSETRON 4 MG/2 ML VIAL IVP PRN (16:19)
[2017-12-08] MEDS ORDERED: ONDANSETRON DISINTEGRATING 4 MG TAB PO PRN (16:19)
[2017-12-08] MEDS ORDERED: ACETAMINOPHEN 325 MG TAB PO PRN (16:19)
[2017-12-08] MEDS ORDERED: FLUMAZENIL 0.5 MG/5 ML MDV IVP PRN (16:24)
[2017-12-08] MEDS ORDERED: PROTOCOL MAGNESIUM 1 DOSE IV PRN (16:29)
--- NOTE | 2017-12-08 16:58 | GHP ---
[f rep st] HISTORY AND PHYSICAL DATE OF ADMISSION: 12/08/2017 CHIEF COMPLAINT: Abdominal pain. HISTORY OF PRESENT ILLNESS: This is a 62-year-old man with history of alcohol abuse, as well as panc reatitis who presents with abdominal pain. He describes it is exactly like his previous episodes of pancreatitis. He has been told that his lipase does not elevate since he has had pancreatitis so man y times. He describes it as an epigastric burning wrapping around to his back, as well as to the low er abdomen. He had some nausea and multiple episodes of nonbloody emesis associated with this. He h ad 1 episode of diarrhea. He was discharged from here at the end of August. After that hospitalizati on, he was completely sober for about 7 weeks. He has slowly started drinking again, most recently h as been drinking quite heavily for the past week or so. He went to the [facility] today where he was sent i refugioo the emergency department. PAST MEDICAL/SURGICAL HISTORY: 1. Pancreatitis. 2. Alcohol abuse. 3. Hypertension. 4. Depression. 5. Neuropathy. 6. Hand surgery. MEDICATIONS: Please see medication reconciliation. ALLERGIES: No known drug allergies. SOCIAL HISTORY: Drinks as above. He does not smoke. 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 FAMILY HISTORY: No alcohol abuse. REVIEW OF SYSTEMS: A 10-point review of systems is conducted and is negative, except per HPI. PHYSICAL EXAMINATION: VITAL SIGNS: Blood pressure 158/103, heart rate 79, respiration rate 18, satu rating 96% on room air. Temperature is 37.1. GENERAL: The patient is a pleasant man who is resting comfortably. No acute distress. HEENT: Normocephalic, atraumatic. CARDIOVASCULAR: Regular rate and rhythm. There are no murmurs, rubs, or gallops. PULMONARY: Lungs clear to auscultation bilater ally. ABDOMEN: Soft. He is moderately tender to palpation mostly in his epigastrium. He had some voluntary guarding, but no rebound tenderness. SKIN: No rash. : No Henry. NEUROLOGIC: Alert a nd oriented x3. He is moving all extremities. PSYCHIATRIC: Normal mood and affect. LABORATORY DATA: CBC is unremarkable. Bicarb is 21, glucose 111, magnesium is 1.2. Total bilirubin is 1.8. Urinalysis is negative. Tox screen is negative for alcohol. DATA: 1. I reviewed his chart. 2. I personally viewed and interpreted his ECG. This shows sinus tachycardia. He has left axis dev iation. 3. I personally viewed and interpreted his previous CT scan from 2 months ago, showed calcifications in the pancreas. IMPRESSION/PLAN: 1. Acute pancreatitis: No elevation in lipase, though I suspect that he has quite a chronic compone nt. We will treat him for acute pancreatitis with keeping him n.p.o., give him intravenous fluids, a s well as pain medications. Currently, no complications from this. 2. Alcohol abuse and withdrawal: He was withdrawing in the emergency department, received some Ativ an. Currently not tremulous on my exam. We will monitor him for alcohol, place him on CIWA. 3. Hypertension: Hold his lisinopril for now. 4. Venous thromboembolism risk. He is high risk. I will place him on Lovenox. /[id number]/MODL
[2017-12-08] MEDS: THIAMINE HCL 500 MG in NS 100 ML IV SCH (18:55)
[2017-12-08] MEDS: NS 1,000 ML IV SCH (21:01)
[2017-12-09] MEDS: NS 1,000 ML IV SCH ×2 (04:41→15:51)
[2017-12-09] MEDS ORDERED: MAGNESIUM SULF 1 GM/DEXTROSE 100 ML IV ONE (07:35)
[2017-12-09] MEDS: LORazepam 2 MG/ML INJ IVP PRN ×4 (08:01→19:55)
[2017-12-09] MEDS: ENOXAPARIN 40 MG/0.4 ML SYR SC SCH (08:02)
[2017-12-09] MEDS: THIAMINE HCL 500 MG in NS 100 ML IV SCH (08:52)
--- NOTE | 2017-12-09 09:36 | HOSPPROG ---
Hospitalist Progress Note Assessment/Plan: # acute pancreatitis - normal lipase, but sx c/w pancreatitis - if does not respond to conservative treatment consider CT abd tomorrow - cont NPO, IVF, narcotics # etOH abuse and withdrawal - cont CIWA - cont thiamine # gait instability, started a few days ago - possibly d/t acute illnes; consider Wernicke's, CVA (less likely) - follow with PT # htn - start home lisinopril # dvt ppx - lovenox Subjective: tremulous this am, received ativan; abd still very TTP; c/o gait instability Objective: Vital Signs Temp Pulse Resp BP Pulse Ox 36.9 C 73 16 152/105 H 93 12/09/17 08:13 12/09/17 08:13 12/09/17 08:13 12/09/17 08:13 12/09/17 08:13 Laboratory Results 12/09/17 04:30 12/08/17 12/09/17 12/10/17 05:59 05:59 05:59 Intake Total 2200 Output Total 1625 Balance 575 high risk on iv narcotics - Physical Exam Cardiovascular: regular rate and rhythym, no murmur, rub, or gallop Respiratory: no respiratory distress, no rales or rhonchi, clear to auscultation Gastrointestinal: normoactive bowel sounds, no palpable masses, tenderness ( epigastric), guarding (voluntary), other (soft), No rebound, No distension ICD10 Worksheet Patient Problems: Problems Problem Status Onset Alcohol abuse Acute Liver function tests abnormal Active Pain management Active Alcohol withdrawal syndrome Active Depression Acute Alcohol intoxication Acute Abdominal pain Acute Pancreatitis Acute Pneumonia Acute Epigastric abdominal pain Acute Hypoxemia Acute Alcoholism Acute Alcohol withdrawal syndrome Acute Thrombocytopenia Acute Acute on chronic pancreatitis Acute
[2017-12-09] MEDS: LISINOPRIL 20 MG TAB PO SCH (09:37)
--- NOTE | 2017-12-09 10:41 | PDMN ---
Medical Necessity Medical necessity: Change to IP, as of 12/09/17, per MD; los >2 mn for ongoing management of acute pancreatitis w/severe abdominal pain, ETOH withdrawal & gait instability; admit for further monitoring, NPO status, IVFs, IV pain meds, CIWA protocol & therapy; per progress note & order 12/09/17
[2017-12-10] MEDS: LORazepam 2 MG/ML INJ IVP PRN ×4 (03:55→18:49)
[2017-12-10] MEDS: ENOXAPARIN 40 MG/0.4 ML SYR SC SCH (08:04)
[2017-12-10] MEDS: LISINOPRIL 20 MG TAB PO SCH (08:05)
[2017-12-10] MEDS: THIAMINE HCL 500 MG in NS 100 ML IV SCH ×2 (10:51→11:24)
[2017-12-10] MEDS ORDERED: MAGNESIUM SULF 1 GM/DEXTROSE 100 ML IV ONE (11:53)
--- NOTE | 2017-12-10 14:42 | ASMTCAGE ---
CAGE Do you feel you ought to Answers: Yes cut down on your drinking or drug use? Do people annoy you by Answers: No criticizing your drinking or drug use? Do you feel guilty about Answers: Yes your drinking or drug use? Do you drink or use drugs Answers: No first thing in the morning ([employer])? Additional Comments states he went on a myers Date Signed: 12/10/2017 02:41 PM Electronically Signed By:Slime Salas RN
--- NOTE | 2017-12-10 14:50 | ASMTCMCOM ---
CM Note CM Note Notes: Chart reviewed. Met with patient today,. He expresses remorse over hs binge drinking. He states that he has pancreatitis again "feels lousy". He shares that he had a recent breakup with a girlfriend prompting him to drink. He states he is home less and has no local family, but a daughter is listed as a contact locally. He would be grateful to receive a prison bed reservation for his discharge night. I am providing him with resources in the area to support sobriety via alcohol packet of resources from Rebecca Wellington RN. He will need a bus token and states he is aware of [facility] but they were unable to provide him housing 3 weeks ago. He has lived in [place] for 44 years. He hopes to move to [place] to live with a friend in the near future. Cage completed. Plan: DC to prison when medically cleared for discharge. Date Signed: 12/10/2017 02:49 PM Electronically Signed By:Slime Salas RN
--- NOTE | 2017-12-10 18:00 | HOSPPROG ---
Hospitalist Progress Note Assessment/Plan: Subjective Follow-up on acute pancreatitis. Patient states he is not feel like advance his diet currently but thought maybe the time he might be ready for some broth. Pain appears reasonably well controlled with the current pain regimen and place. Sounds like he has had recurrent episodes of pancreatitis which is have been felt to be related to alcohol consumption. Objective Vital signs as detailed below Physical exam General-patient appears comfortable he is awake alert conversant no acute distress Heart-regular rate and rhythm no murmurs Lungs-Clear to auscultation normal respiratory effort Abdomen-no significant tenderness with deep palpation at the epigastrium but possibly mild tenderness based upon grimacing. Abdomen does not appear distended normal bowel sounds. -no Henry catheter in place Extremities-no significant pitting edema Labs as detailed below Assessment plan Pancreatitis-acute. Alcoholic related. Try to advance diet to clears today otherwise continue supportive measures with IV fluids and pain medications. Alcohol withdrawal-patient appears to be doing reasonably well in regards to alcohol withdrawal. Gait instability-will have work with PT and OT he is also on thiamine. Hypertension-continue current medical treatment. DVT prophylaxis-Lovenox Disposition-likely able for discharge was able to tolerate a diet and pain controlled. Objective: Vital Signs Temp Pulse Resp BP Pulse Ox 36.9 C 97 16 166/111 H 92 12/10/17 15:27 12/10/17 15:27 12/10/17 15:27 12/10/17 15:27 12/10/17 15:27 12/09/17 12/10/17 12/11/17 05:59 05:59 05:59 Intake Total 900 1013 Output Total 1025 Balance -125 1013 ICD10 Worksheet Patient Problems: Problems Problem Status Onset Alcohol withdrawal syndrome Acute Alcoholism Acute Pancreatitis Acute Alcohol withdrawal syndrome Active Liver function tests abnormal Active Pain management Active Abdominal pain Acute Acute on chronic pancreatitis Acute Alcohol abuse Acute Alcohol intoxication Acute Depression Acute Epigastric abdominal pain Acute Hypoxemia Acute Pneumonia Acute Thrombocytopenia Acute
[2017-12-11] MEDS: NS 1,000 ML IV SCH ×2 (00:42→12:15)
[2017-12-11] MEDS ORDERED: MAGNESIUM SULF 1 GM/DEXTROSE 100 ML IV ONE (07:36)
[2017-12-11] MEDS: LORazepam 2 MG/ML INJ IVP PRN ×3 (08:03→16:55)
[2017-12-11] MEDS: LISINOPRIL 20 MG TAB PO SCH (08:07)
[2017-12-11] MEDS: THIAMINE HCL 100 MG TAB PO SCH (10:37)
[2017-12-11] MEDS: ENOXAPARIN 40 MG/0.4 ML SYR SC SCH (10:38)
[2017-12-11] MEDS ORDERED: HYDROCODONE/APAP 5/325 TAB PO PRN (10:46)
[2017-12-11] MEDS: hydrALAZINE 20 MG/ML VIAL IVP PRN (16:48)
--- NOTE | 2017-12-11 16:50 | HOSPPROG ---
Hospitalist Progress Note Assessment/Plan: Subjective Follow-up on acute pancreatitis. Patient tolerated advance his diet okay overnight with using clear liquids. He says the broth actually taste quite good and he has been able to hold down without any significant worsening of his abdominal pain. Objective Vital signs as detailed below Physical exam General-patient appears comfortable he is awake alert conversant no acute distress Heart-regular rate and rhythm no murmurs Lungs clear to auscultation with normal respiratory effort Abdomen-no significant tenderness with palpation. Normal bowel sounds -no Henry catheter in place Extremities-no significant pitting edema Labs as detailed below Assessment and plan Pancreatitis-acute. Alcohol related. Doing well with advancing diet. Will go ahead and adjust to advance as tolerated and wean down frequency of pain medications. Alcohol withdrawal-patient appears to be doing reasonably well in regards to alcohol withdrawal I think we can taper down interval of benzodiazepines. Hypertension-I will add hydralazine to his current lisinopril for isolated spikes. DVT prophylaxis Lovenox Disposition-likely discharge in the next 1-2 days as long as he can tolerate a diet and pain is controlled. Objective: Vital Signs Temp Pulse Resp BP Pulse Ox 37.0 C 90 16 173/100 H 94 12/11/17 16:00 12/11/17 16:00 12/11/17 16:00 12/11/17 16:00 12/11/17 16:00 12/10/17 12/11/17 12/12/17 05:59 05:59 05:59 Intake Total 900 1013 Output Total 1025 625 400 Balance -125 388 -400 ICD10 Worksheet Patient Problems: Problems Problem Status Onset Alcohol withdrawal syndrome Acute Alcoholism Acute Pancreatitis Acute Alcohol withdrawal syndrome Active Liver function tests abnormal Active Pain management Active Abdominal pain Acute Acute on chronic pancreatitis Acute Alcohol abuse Acute Alcohol intoxication Acute Depression Acute Epigastric abdominal pain Acute Hypoxemia Acute Pneumonia Acute Thrombocytopenia Acute
[2017-12-12] MEDS ORDERED: MAGNESIUM SULF 1 GM/DEXTROSE 100 ML IV ONE (07:33)
[2017-12-12] MEDS: hydrALAZINE 20 MG/ML VIAL IVP PRN (07:54)
[2017-12-12] MEDS: LISINOPRIL 20 MG TAB PO SCH (07:54)
[2017-12-12] MEDS: oxyCODONE IR 5 MG TAB PO PRN ×4 (08:03→22:46)
[2017-12-12] MEDS ORDERED: LORazepam 2 MG/ML INJ IVP PRN (08:29)
[2017-12-12] MEDS: ENOXAPARIN 40 MG/0.4 ML SYR SC SCH (10:04)
[2017-12-12] MEDS: THIAMINE HCL 100 MG TAB PO SCH (10:04)
[2017-12-12] MEDS: HYDROCHLOROTHIAZIDE 12.5 MG CAP PO SCH (15:39)
--- NOTE | 2017-12-12 18:24 | HOSPPROG ---
Hospitalist Progress Note Assessment/Plan: Subjective Follow-up on acute pancreatitis. Patient has been making progress in advancing his diet. Although he says his epigastric pain was somewhat increased with the advancement. No nausea or vomiting. We discussed that I am working to taper down IV pain medications in tried only more on oral medications to control his pain to get a good sense of worse pain control be at hospital discharge. He states that his current plan is to relocate to [place] to live with the good friend of his who is live with for now over 10 years previously. He states he is waiting for his next check from the [facility] in order diff on this trip. Objective Vital signs as detailed below Physical exam General-patient appears comfortable no acute distress Heart regular rate and rhythm no murmurs Lungs-clear auscultation with normal respiratory effort Abdomen-mild tenderness with palpation today as compared to yesterday's exam. Normal bowel sounds -no Henry catheter in place Neuro-no horizontal nystagmus noted Labs as detailed below Assessment plan Pancreatitis acute. Alcohol related. Doing reasonably well with advance his diet although some increased level of pain today. Will increase oxycodone to the 5-10 mg every 4 hr as needed. I have also taper down on the frequency of lorazepam and morphine to q.8 hours. Alcohol withdrawal-patient appears to be doing reasonably well. Continue taper of lorazepam. Imbalance-clinical concern for Wernicke encephalopathy. He has been on thiamine orally. I will adjust this to IV for now and reassess with physical therapy tomorrow. Hypertension-add hydrochlorothiazide at 12.5 mg to the current lisinopril. Some of the elevations may be related to pain. DVT prophylaxis-Lovenox Disposition-hopeful defer discharge in next 1-2 days long as he can tolerate a diet and pain is controlled. Objective: Vital Signs Temp Pulse Resp BP Pulse Ox 37.2 C 93 16 169/110 H 96 12/12/17 16:00 12/12/17 16:00 12/12/17 16:00 12/12/17 16:00 12/12/17 16:00 12/11/17 12/12/17 12/13/17 05:59 05:59 05:59 Intake Total 1013 1550 1000 Output Total 625 1400 200 Balance 388 150 800 ICD10 Worksheet Patient Problems: Problems Problem Status Onset Alcohol withdrawal syndrome Acute Alcoholism Acute Pancreatitis Acute Alcohol withdrawal syndrome Active Liver function tests abnormal Active Pain management Active Abdominal pain Acute Acute on chronic pancreatitis Acute Alcohol abuse Acute Alcohol intoxication Acute Depression Acute Epigastric abdominal pain Acute Hypoxemia Acute Pneumonia Acute Thrombocytopenia Acute
[2017-12-12] MEDS: THIAMINE HCL 500 MG in NS 100 ML IV SCH (20:16)
[2017-12-13] MEDS: oxyCODONE IR 5 MG TAB PO PRN (05:05)
[2017-12-13] MEDS: THIAMINE HCL 500 MG in NS 100 ML IV SCH ×2 (05:06→13:33)
[2017-12-13] MEDS ORDERED: oxyCODONE IR 5 MG TAB PO PRN ×2 (06:49→12:19)
[2017-12-13] MEDS ORDERED: MAGNESIUM SULF 1 GM/DEXTROSE 100 ML IV ONE (07:15)
[2017-12-13] MEDS: HYDROCHLOROTHIAZIDE 12.5 MG CAP PO SCH (08:11)
[2017-12-13] MEDS: LISINOPRIL 20 MG TAB PO SCH (08:11)
[2017-12-13] MEDS: ENOXAPARIN 40 MG/0.4 ML SYR SC SCH (08:11)
[2017-12-13 11:30] VITALS: BP 150/103
[2017-12-13] MEDS ORDERED: HYDROCHLOROTHIAZIDE 25 MG TAB PO SCH (12:00)
--- NOTE | 2017-12-13 12:57 | GDS ---
[f rep st] DISCHARGE SUMMARY DISCHARGE DIAGNOSIS: Possible acute pancreatitis, secondary to alcohol abuse. HISTORY OF PRESENT ILLNESS: Mr. German is a 62-year-old homeless gentleman with a past medical hist ory of hypertension and alcohol abuse, who presented to the [facility] Room on 12/08/2017, with the complaints of . His initial chemistries were unremarkable with no rmal lipase. However, the patient reports that he has had pancreatitis in the past with normal lipas e readings. We do not have any imaging from this admission of his pancreas, but he did have a recent CT scan of his abdomen in October of this year, which did not show any acute abnormalities in the pancre as. The patient was treated in the usual fashion for pancreatitis with IV fluids, pain medications. Fortunately, his diet was gradually able to be advanced and pain control was transitioned to oral pa in medications. In retrospect, I am not certain that his symptoms were definitely accountable to acu te pancreatitis as there is some incentive to malinger in light of his history of homelessness, but gonzález villegas was nonetheless treated for acute pancreatitis and did seem to progress during this hospitalization . I think in the future having an objective abnormality in his pancreas could be helpful if his lipa se is normal and he is complaining of epigastric pain. He did work with physical therapy as well as he did have some imbalance when he came in. I am recommending that we discharge him with a front whe eled walker to assist with his ambulation. There was some consideration given to the possibility of Wernicke encephalopathy; however, he did not appear entirely confused. He did not have any visual ab normalities such as horizontal nystagmus. I reviewed his case with case management and physical therapy teacher apy on day of discharge, and ultimately feel comfortable with the discharge with the plan to go to [facility]. The patient has expressed that he will be attempting to relocate to [place] to live with a friend, whom he lived with for many years in the past. HOSPITAL COURSE BY PROBLEM: 1. Acute pancreatitis, possible. He was treated in the usual fashion for acute pancreatitis and see med to progress, although I am uncertain if this is a true diagnosis in light of a normal lipase jerica davidson For his pain, I think we can continue with as needed oxycodone, which I provided 5 mg tablets and #10 of them. 2. Alcohol withdrawal. No serious alcohol withdrawal symptoms during this hospitalization. He was treated with as needed lorazepam during the hospitalization, but never really displayed any significa nt tremulous activity. 3. Imbalance. Lower suspicion for Wernicke's encephalopathy, but would not exclude this possibility . I recommend we discharge him with a front wheel walker for his assistance. 4. Hypertension. I did add hydrochlorothiazide to his lisinopril for blood pressure control as his systolic readings were consistently in the 150s. 5. DVT prophylaxis. Patient was on Lovenox during this hospitalization. 6. Disposition. Patient appears stable for discharge from the hospital today. EXAMINATION: On discharge: VITAL SIGNS: Temperature 36.8, blood pressure 150/103, heart rate 95, r espirations 18, saturating 96% on room air. GENERAL: Patient appears comfortable. He is sitting in bed, awake, alert, conversant, no acute distress. HEART: Regular rate and rhythm. No murmurs appr eciated. LUNGS: Clear to auscultation with normal respiratory effort. ABDOMEN: Normal bowel sound s. Nondistended, nontender with palpation with my stethoscope. : No Henry catheter in place. EX TREMITIES: No significant pitting edema. LABS: Notable studies: Labs on day of discharge show sodium 136, potassium 3.7, chloride 103, bicar b 21, BUN 5, creatinine 0.6, glucose of 105, magnesium 1.6, and lipase of 44. His lipase on admissio n was also within normal limits. DISCHARGE MEDICATIONS: 1. Lisinopril 20 mg daily. 2. Hydrochlorothiazide 25 mg daily. 3. Oxycodone 5 mg 1-2 tablets every 6 hours as needed for pain. 4. Meloxicam. DISCHARGE INSTRUCTIONS: We are working on arrangements for short-term housing with Case Management, and making arrangements for front wheel walker and hospital to assist with his assistance as well in walking. The patient will be relocating to [place] to live with a friend, whom he has lived with here in [place] in the past. Forty minutes of time dedicated to discharge efforts. /[id number]/MODL
--- NOTE | 2017-12-13 14:10 | ASDISCHSUM ---
Discharge Information Plan Status:Homeless/Fdc Medically Cleared to Leave:12/13/2017 Discharge Date:12/13/2017 CM D/C Disposition:Home, Routine, Self-Care ADT D/C Disposition:Home, Routine, Self-Care Projected Discharge Date:12/13/2017 12:00 AM Transportation at D/C:Cab Voucher Discharge Delay Reason: Follow-Up Date:12/13/2017 12:00 AM Discharge Slot:2 - 12:01 pm - 18:00 pm Final Diagnosis:Pancreatitis, hypertension, etoh abuse, neuropathy, depression Placement Information Patient Contact Information Contact Name:ANDRAE Relationship:Daughter Address: Work Phone: City:[place] Alternate Phone: [facility] Code:[place] Email: Financial Information Financial Class:Medicaid Primary Plan Desc[place] Primary Plan Number:[id number] Secondary Plan Desc: Secondary Plan Number: Assessment Information LACE LACE Comorbidities - select Answers: Moderate or severe liver all that apply or renal disease # of Emergency department Answers: 3-4 visits in the last 6 months Social determinants Answers: History of substance abuse (ETOH, street drugs, prescription drugs, etc.) Homelessness (street, chcf) Score: 13 Date Signed: 12/08/2017 01:12 PM Electronically Signed By:Brooke Mccarthy RN [facility] CM Progress Note CM Note CM Note Notes: See CM notes from 11/04/17 and 11/05/17. I have called and LM with [facility] Case [facility] desk and [facility] regarding patient's admission. PLEASE note, both of these numbers are for CM communication only. Please do not give them to patient or others. CM to follow and contact both [facility] and [facility] for coordination of care at discharge Date Signed: 12/08/2017 01:23 PM Electronically Signed By:Brooke Mccarthy RN CAGE Questionnaire CAGE Do you feel you ought to Answers: Yes cut down on your drinking or drug use? Do people annoy you by Answers: No criticizing your drinking or drug use? Do you feel guilty about Answers: Yes your drinking or drug use? 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 Additional Comments states he went on a myers Date Signed: 12/10/2017 02:41 PM Electronically Signed By:Slime Salas RN [facility] CM Progress Note CM Note CM Note Notes: Chart reviewed. Met with patient today,. He expresses remorse over hs binge drinking. He states that he has pancreatitis again "feels lousy". He shares that he had a recent breakup with a girlfriend prompting him to drink. He states he is home less and has no local family, but a daughter is listed as a contact locally. He would be grateful to receive a [facility] bed reservation for his discharge night. I am providing him with resources in the area to support sobriety via alcohol packet of resources from Rebecca Wellington RN. He will need a bus token and states [facility] but [facility] were unable to provide him housing 3 weeks ago. He has lived in [place] for 44 years. He hopes to move to [place] to live with a friend in the near future. Cage completed. Plan: DC to [facility] when medically cleared for discharge. Date Signed: 12/10/2017 02:49 PM Electronically Signed By:Slime Salas RN Case Management Discharge Plan Note Case Management Discharge Discharge Order Complete? Answers: Yes Patient to Obtain Answers: via MAP Medications Transportation Arranged Answers: Taxi - Voucher Transport will Pick (Date 12/13/2017 12:00 AM & Time) Case Management Transport Answers: Yes Notes: voucher Form Complete Discharge Comments Notes: Patient is d/c'ing today to a [facility] bed for the evening. He was given a taxi voucher to transport him to the [facility]cf. Patient was also given his medications to take with him from [facility]. Patient has made application to [facility] and was originally going to go there but they do not have beds for this evening. Patient will follow up with them tomorrow as he needs a place to stay until the when he gets his check and plans to move to [place] where he has some friends. No further needs today. Date Signed: 12/13/2017 02:07 PM Electronically Signed By:Mary Lou Gallegos LCSW Intervention Information
[2017-12-14] MEDS ORDERED: HYDROCHLOROTHIAZIDE 25 MG TAB PO SCH (09:00)
[2017-12-14] MEDS ORDERED: LISINOPRIL 20 MG TAB PO SCH (09:00)
[2017-12-14] MEDS ORDERED: LISINOPRIL/HCTZ 20/12.5MG 1 EA TAB PO SCH (09:00)
== END 2017-12-13 14:16 | disposition home or self-care (01) | DRG 282 ==
LOC: F3E 15:15 → OBSVTOIN 12-09 09:36
PROVIDERS: ADMIT Student in an Organized Health Care Education/Training Program; ATTEND Internal Medicine
PROC: HZ2ZZZZ Detoxification Services for Substance Abuse Treatment (ICD-10-PCS; principal; 2017-12-09)
DX: K86.0 Alcohol-induced chronic pancreatitis (principal); F10.230 Alcohol dependence with withdrawal, uncomplicated; I10 Essential (primary) hypertension; F32.9 Major depressive disorder, single episode, unspecified; G62.9 Polyneuropathy, unspecified; E83.42 Hypomagnesemia; R00.0 Tachycardia, unspecified; R26.81 Unsteadiness on feet; Z59.0 Homelessness
CPT/HCPCS: 96365; 97116-GP; 97161-GP; G0378; G0480; J0360; J1650; J1885; J2060; J2270; J2405; J3411; J3475

== ENCOUNTER 2017-12-14 21:02 | Emergency (ER) | payer MEDICAID, OTHER ==
[2017-12-14 21:08] VITALS: BP 102/67
--- NOTE | 2017-12-14 21:10 | EDPHY ---
H & P Stated Complaint: Abd pain Time Seen by Provider: 12/14/17 21:04 - Personal History Tetanus Vaccine Date: 06/21/2009 - Medical/Surgical History Hx Asthma: No Hx Chronic Respiratory Disease: No Hx Diabetes: No Hx Cardiac Disease: No Hx Renal Disease: No Hx Cirrhosis: No Hx Alcoholism: Yes Hx HIV/AIDS: No Hx Splenectomy or Spleen Trauma: No Other PMH: Pancreatitis, alcoholism, htn, depression, numbness/tingling feet, leg weakness - Social History Smoking Status: Never smoked Constitutional: Initial Vital Signs Temperature (C) 36.8 C 12/14/17 21:07 Heart Rate 84 12/14/17 21:07 Respiratory Rate 20 12/14/17 21:07 Blood Pressure 102/67 12/14/17 21:07 O2 Sat (%) 90 L 12/14/17 21:07 Allergies/Adverse Reactions: No Known Allergies Allergy (Verified 12/14/17 21:07) Home Medications: Medication Instructions Recorded Meloxicam 7.5 mg PO DAILY 12/08/17 Hydrochlorothiazide [HCTZ (*)] 25 mg PO DAILY #30 cap 12/13/17 Hydrochlorothiazide [HCTZ (*)] 25 mg PO DAILY #30 tab 12/13/17 Lisinopril [Zestril 20 mg (*)] 20 mg PO DAILY #30 tab 12/13/17 Lisinopril [Zestril 20 mg (*)] 20 mg PO DAILY #30 tab 12/13/17 oxyCODONE IR [Oxycodone Ir (*)] 5 - 10 mg PO Q6HRS PRN #10 tab 12/13/17 oxyCODONE IR [Oxycodone Ir (*)] 5 mg PO Q4HRS PRN #10 tab 12/13/17 Medical Decision Making ED Course/Re-evaluation: CHIEF COMPLAINT: alcohol intoxication HISTORY OF PRESENT ILLNESS: The patient is a chronic alcoholic. Patient drinks on a daily basis and obtains whatever alcohol is available. Patient was found by bystanders who called EMS system. He complains of his chronic abdominal pain. Patient has had multiple ER visits over the last several years for the same complaint. He has had several admissions this year for abdominal pain and alcohol withdrawal. Patient denies any injuries denies loss of consciousness denies any recent trauma. Patient denies coingestion patient denies suicidal or homicidal behavior. REVIEW OF SYSTEMS: A 10 point review of systems was performed and is negative with the exception of the elements mentioned in the history of present illness.. PHYSICAL EXAM: General Appearance: Alert, well hydrated, appropriate, and non-toxic appearing. Head: Atraumatic without scalp tenderness or obvious injury Eyes: Pupils equal, round, reactive to light and accommodation, EOMI, no trauma , no injection. Ears: Clear bilaterally, no perforation, normal landmarks Nose: Atraumatic, no rhinorrhea, clear. Throat: There is no erythema or exudates, no lesions, normal tonsils, mucus membranes moist. Neck: Supple, 2+ carotid upstroke, non-tender, no lymphadenopathy. Respiratory: No retractions, no distress, no wheezes, and no accessory muscle use. Lungs are clear to auscultation bilaterally. Cardiovascular: Regular rate and rhythm, no murmurs, rubs, or gallops. Bilateral carotid, radial, dorsalis pedis, and posterior tibial pulses intact. Good capillary refill all extremities. Gastrointestinal: Abdomen is soft, non-tender, non-distended, no masses, no rebound, no guarding, no peritoneal signs. Musculoskeletal: Normal active ROM of all extremities, atraumatic. Neurological: Alert, appropriate, and interactive. The patient has normal DTRs and non-focal cranial nerves, motor, sensory, and cerebellar exam. Skin: No rashes, good turgor, no nodules on palpation. PAST MEDICAL HISTORY: Pancreatitis. PAST SURGICAL HISTORY: Noncontributory SOCIAL HISTORY: Lives in [place]. DIFFERENTIAL DIAGNOSIS: Includes but not limited to alcohol intoxication, alcohol withdrawal, co- ingestion, chronic abdominal pain. MEDICAL DECISION MAKING: Patient has been seen several times recently for similar complaints. We will not perform further imaging here for his chronic complaint. He is clearly intoxicated. He denies any trauma, any head injury, and any illicit drug use. At this point, the patient is walking the department freely and is clinically sober. We're [facility] the [facility] to the [facility] in stable condition. Departure - Departure Disposition: Home, Routine, Self-Care Clinical Impression: Alcohol intoxication Qualifiers: Complication of substance-induced condition: uncomplicated Qualified Code(s): F10.920 - Alcohol use, unspecified with intoxication, uncomplicated Condition: Good Instructions: Alcohol Intoxication (ED) Additional Instructions: Please refrain from abusing alcohol. Return to the emergency department for fever, vomiting, confusion, headache, abdominal pain or other worsening of condition. Referrals: [facility] [Outside] - As per Instructions Report Scribed for: Parish Mack Report Scribed by: Giselle Wilson Date of Report: 12/14/17 Time of Report: 21:12
== END 2017-12-14 21:22 | disposition home or self-care (01) ==
LOC: EDUNIT#
DX: F10.920 Alcohol use, unspecified with intoxication, uncomplicated (principal); I10 Essential (primary) hypertension

== ENCOUNTER 2017-12-23 18:15 | Emergency (ER) | payer MEDICAID ==
--- NOTE | 2017-12-23 18:31 | EDPHY ---
H & P Time Seen by Provider: 12/23/17 18:15 HPI/ROS: CHIEF COMPLAINT: Abdominal pain HISTORY OF PRESENT ILLNESS: Patient is well known to our emergency department, drinks alcohol regularly including today. Presents complaining of abdominal pain. He was picked up on the street in the rain complaining of abdominal pain , says he has"my usual pancreatitis." He says that symptoms have been going on"for days."No vomiting or diarrhea or melena. REVIEW OF SYSTEMS: Eye: no change in vision ENT: no sore throat Cardiac: no chest pain or syncope Pulmonary: no cough or SOB Abdomen: HPI Musculoskeletal: no back pain, no neck pain, no fall or injury Skin: no rash Neuro: no headache Constitutional: no fever : no urinary symptoms A comprehensive 10 point review of systems is otherwise negative aside from elements mentioned in the history of present illness. PAST MEDICAL HISTORY: H&P dated 12/08/2017 includes hypertension, neuropathy, alcoholism, pancreatitis, depression. At that time he was admitted for a diagnosis of pancreatitis with normal lipase. Social history: Frequent and recent alcohol. Had at least a pt of vodka this afternoon by his report. General Appearance: Patient is sleepy but response to questions and is cooperative with the examination. Eyes: No scleral icterus. ENT, Mouth: Normal mucous membranes. Respiratory: Normal respiratory effort, breath sounds equal, lungs are clear to auscultation. Cardiovascular: Regular rate and rhythm. Gastrointestinal: Abdomen is soft and non tender. Specifically no epigastric or right upper quadrant tenderness. Neurological: Sleepy, but awakens to voice, face symmetric, normal motor and sensory in extremities. Skin: Warm and dry, no rashes. Musculoskeletal: No peripheral edema. Psychiatric: Not agitated. Emergency Department course/MDM: Patient presents with his typical previous pattern of abdominal pain although he appears completely comfortable and intoxicated. He does not appear to be in pain. Plan for serial examinations. I think acute pancreatitis or appendicitis, bowel obstruction, or other emergent medical or surgical abdominal process is unlikely. 1928: Awakened from a sound sleep, ambulatory, not ataxic, abdomen soft, pain appears to have resolved at this time. Smoking Status: Never smoked Constitutional: Initial Vital Signs Temperature (C) 36.4 C 12/23/17 18:20 Heart Rate 63 12/23/17 18:20 Respiratory Rate 16 12/23/17 18:20 Blood Pressure 117/91 H 12/23/17 18:20 O2 Sat (%) 98 12/23/17 18:20 O2 Delivery Mode Room Air Allergies/Adverse Reactions: No Known Allergies Allergy (Verified 12/14/17 21:07) Home Medications: Medication Instructions Recorded Meloxicam 7.5 mg PO DAILY 12/08/17 Hydrochlorothiazide [HCTZ (*)] 25 mg PO DAILY #30 cap 12/13/17 Hydrochlorothiazide [HCTZ (*)] 25 mg PO DAILY #30 tab 12/13/17 Lisinopril [Zestril 20 mg (*)] 20 mg PO DAILY #30 tab 12/13/17 Lisinopril [Zestril 20 mg (*)] 20 mg PO DAILY #30 tab 12/13/17 oxyCODONE IR [Oxycodone Ir (*)] 5 - 10 mg PO Q6HRS PRN #10 tab 12/13/17 oxyCODONE IR [Oxycodone Ir (*)] 5 mg PO Q4HRS PRN #10 tab 12/13/17 Medical Decision Making Differential Diagnosis: Differential considered including but not limited to gastritis, hepatitis, pancreatitis, chronic abdominal pain, intestinal perforation or bowel obstruction - Data Points Medications Given: Discontinued Medications Chlordiazepoxide (Librium 25 Mg Prepack#6) [facility] Stop: 12/23/17 19:27 Last Admin: 12/23/17 19:54 Dose: 1 btl Departure - Departure Disposition: Home, Routine, Self-Care Clinical Impression: Chronic abdominal pain Alcohol intoxication Qualifiers: Complication of substance-induced condition: uncomplicated Qualified Code(s): F10.920 - Alcohol use, unspecified with intoxication, uncomplicated Condition: Good Instructions: Chlordiazepoxide/Clidinium (By mouth), Alcohol Intoxication (ED) Referrals: [facility],. [Clinic] - As per Instructions
[2017-12-23] MEDS ORDERED: CHLORDIAZEPOXIDE 25MG PREPK#6 BTL TAKEHOME ONE (19:26)
[2017-12-23 19:56] VITALS: BP 141/77
== END 2017-12-23 19:56 | disposition home or self-care (01) ==
LOC: EDUNIT#
DX: R10.9 Unspecified abdominal pain (principal); G89.29 Other chronic pain; F10.920 Alcohol use, unspecified with intoxication, uncomplicated; I10 Essential (primary) hypertension

== ENCOUNTER 2017-12-24 18:49 | Emergency (ER) | payer SELFPAY ==
--- NOTE | 2017-12-24 19:09 | EDPHY ---
H & P Time Seen by Provider: 12/24/17 18:58 HPI/ROS: CHIEF COMPLAINT: Abdominal pain, intoxication HISTORY OF PRESENT ILLNESS: The patient is a 62-year-old homeless alcoholic man well known to our department. He is here frequently for epigastric pain. He was here yesterday. He has a history of pancreatitis. He states that this feels similar to all of his other episodes of epigastric pain. No vomiting. No blood in his stool. No fever. REVIEW OF SYSTEMS: Constitutional: denies: chills, fever, recent illness, recent injury EENTM: denies: blurred vision, double vision, nose congestion Respiratory: denies: cough, shortness of breath Cardiac: denies: chest pain, irregular heart rate, lightheadedness, palpitations Gastrointestinal/Abdominal: See HPI Genitourinary: denies: dysuria, frequency, hematuria, pain Musculoskeletal: denies: joint pain, muscle pain Skin: denies: lesions, rash, jaundice, bruising Neurological: denies: headache, numbness, paresthesia, tingling, dizziness, weakness Hematologic/Lymphatic: denies: blood clots, easy bleeding, easy bruising Immunologic/allergic: denies: HIV/AIDS, transplant EXAM: GENERAL: Disheveled, sleeping, no acute distress HEAD: Atraumatic, normocephalic. EYES: Pupils equal round and reactive to light, extraocular movements intact, sclera anicteric, conjunctiva are normal. ENT: TMs normal, nares patent, oropharynx clear without exudates. Moist mucous membranes. NECK: Normal range of motion, supple without lymphadenopathy or JVD. LUNGS: Breath sounds clear to auscultation bilaterally and equal. No wheezes rales or rhonchi. HEART: Regular rate and rhythm without murmurs, rubs or gallops. ABDOMEN: Soft, nontender, normoactive bowel sounds. No guarding, no rebound. No masses appreciated. BACK: No CVA tenderness, no spinal tenderness, step-offs or deformities EXTREMITIES: Normal range of motion, no pitting or edema. No clubbing or cyanosis. NEUROLOGICAL: Cranial nerves II through XII grossly intact. Normal speech, normal gait. 5/5 strength, normal movement in all extremities, normal sensation PSYCH: Normal mood, normal affect. SKIN: Warm, dry, normal turgor, no visible rashes or lesions. Source: Patient - Personal History Tetanus Vaccine Date: 06/21/2009 - Medical/Surgical History Hx Asthma: No Hx Chronic Respiratory Disease: No Hx Diabetes: No Hx Cardiac Disease: No Hx Renal Disease: No Hx Cirrhosis: No Hx Alcoholism: Yes Hx HIV/AIDS: No Hx Splenectomy or Spleen Trauma: No Other PMH: Pancreatitis, alcoholism, htn, depression, numbness/tingling feet, leg weakness - Family History Significant Family History: No pertinent family hx - Social History Smoking Status: Never smoked Alcohol Use: Heavy Drug Use: Marijuana Allergies/Adverse Reactions: No Known Allergies Allergy (Verified 12/14/17 21:07) Home Medications: Medication Instructions Recorded Meloxicam 7.5 mg PO DAILY 12/08/17 Hydrochlorothiazide [HCTZ (*)] 25 mg PO DAILY #30 cap 12/13/17 Hydrochlorothiazide [HCTZ (*)] 25 mg PO DAILY #30 tab 12/13/17 Lisinopril [Zestril 20 mg (*)] 20 mg PO DAILY #30 tab 12/13/17 Lisinopril [Zestril 20 mg (*)] 20 mg PO DAILY #30 tab 12/13/17 oxyCODONE IR [Oxycodone Ir (*)] 5 - 10 mg PO Q6HRS PRN #10 tab 12/13/17 oxyCODONE IR [Oxycodone Ir (*)] 5 mg PO Q4HRS PRN #10 tab 12/13/17 Medical Decision Making ED Course/Re-evaluation: The patient has a nontender abdominal exam. The last several times we have checked his lipase it has not been elevated. His vital signs are stable. We discussed options. He would prefer not to have blood drawn . I told him we would not give him narcotics. He would like to leave. Differential Diagnosis: Partial list of the Differential diagnosis considered include but were not limited to; chronic abdominal pain, alcoholic gastritis, pancreatitis, peptic ulcer disease and although unlikely based on the history and physical exam, I also considered perforation, ischemia, volvulus. I discussed these differential diagnoses and the plan with the patient as well as the usual and expected course. The patient understands that the diagnosis is provisional and that in medicine we are not always correct and that further workup is often warranted. Usual and customary warnings were given. All of the patient's questions were answered. The patient was instructed to return to the emergency department should the symptoms at all worsen or return, otherwise to followup with the physician as we discussed. Departure - Departure Disposition: Home, Routine, Self-Care Clinical Impression: Alcohol intoxication, Alcoholism, Chronic abdominal pain Condition: Fair Instructions: Alcohol Intoxication (ED), Epigastric Pain (ED) Referrals: NONE *PRIMARY CARE P,. [Primary Care Provider] - As per Instructions Jorge Staples MD [place] [place]] - As per Instructions
[2017-12-24 19:21] VITALS: BP 98/63
== END 2017-12-24 19:55 | disposition home or self-care (01) ==
LOC: EDUNIT#
DX: F10.20 Alcohol dependence, uncomplicated (principal); R10.9 Unspecified abdominal pain; G89.29 Other chronic pain; I10 Essential (primary) hypertension

== ENCOUNTER 2017-12-25 03:18 | Emergency (ER) | payer SELFPAY ==
--- NOTE | 2017-12-25 04:21 | EDPHY ---
H & P Stated Complaint: fall on face Time Seen by Provider: 12/25/17 03:58 HPI/ROS: HPI: The patient presents with fall which occurred just prior to arrival when he was walking down the sidewalk while intoxicated from drinking alcohol. He landed on his face. He is had bleeding from his nose. He denies any headache, vomiting, vision change, weakness of his arms or legs. He has been seen here daily for the last 3 days. REVIEW OF SYSTEMS Constitutional: No fever, no chills. Eyes: No discharge. ENT: No sore throat. Cardiovascular: No chest pain, no palpitations. Respiratory: No cough, no shortness of breath. Gastrointestinal: No abdominal pain, no vomiting. Genitourinary: No hematuria. Musculoskeletal: No back pain. Skin: No rashes. Neurological: No headache. PMHx: Hypertension, alcohol abuse TRAUMA PHYSICAL General Appearance: Alert, no distress Head: Abrasion to his nasal bridge and left nostril which is superficial Eyes: Pupils equal, round, reactive ENT, Mouth: No hemotypanium, no oral trauma Neck: Non- tender, trachea midline Respiratory: No chest wall tenderness, no subcutaneous air, lungs clear bilaterallty Cardiovascular: Regular rate and rhythm Abdomen: Abdomen is soft and non-tender, pelvis stable Skin: No lacerations, No abrasion Back: No midline T/L/S pain Extremities: Non-tender, full range of motion Neurological: A&Ox3, GCS=15,normal motor function with 5/5 strength in all 4 extremities, normal sensory exam Source: Patient Exam Limitations: Intoxication - Personal History Current Tetanus/Diphtheria Vaccine: Unsure Current Tetanus Diphtheria and Acellular Pertussis (TDAP): Unsure Tetanus Vaccine Date: 06/21/2009 - Medical/Surgical History Hx Asthma: No Hx Chronic Respiratory Disease: No Hx Diabetes: No Hx Cardiac Disease: No Hx Renal Disease: No Hx Cirrhosis: No Hx Alcoholism: Yes Hx HIV/AIDS: No Hx Splenectomy or Spleen Trauma: No Other PMH: Pancreatitis, alcoholism, htn, depression, numbness/tingling feet, leg weakness - Social History Smoking Status: Never smoked Constitutional: Initial Vital Signs Temperature (C) 36.6 C 12/25/17 03:26 Heart Rate 85 12/25/17 03:26 Respiratory Rate 16 12/25/17 03:26 Blood Pressure 112/74 12/25/17 03:26 O2 Sat (%) 93 12/25/17 03:26 O2 Delivery Mode Room Air Allergies/Adverse Reactions: No Known Allergies Allergy (Verified 12/14/17 21:07) Home Medications: Medication Instructions Recorded Meloxicam 7.5 mg PO DAILY 12/08/17 Hydrochlorothiazide [HCTZ (*)] 25 mg PO DAILY #30 cap 12/13/17 Hydrochlorothiazide [HCTZ (*)] 25 mg PO DAILY #30 tab 12/13/17 Lisinopril [Zestril 20 mg (*)] 20 mg PO DAILY #30 tab 12/13/17 Lisinopril [Zestril 20 mg (*)] 20 mg PO DAILY #30 tab 12/13/17 oxyCODONE IR [Oxycodone Ir (*)] 5 - 10 mg PO Q6HRS PRN #10 tab 12/13/17 oxyCODONE IR [Oxycodone Ir (*)] 5 mg PO Q4HRS PRN #10 tab 12/13/17 Medical Decision Making - Diagnostics Imaging Results: CT head without contrast demonstrates no acute intracranial abnormality, no facial bone fracture, discussed with Dr. Gonzales of Radiology. Imaging: Discussed imaging studies w/ order desk caller Radiologist Differential Diagnosis: 62-year-old man self presents after a fall landing on his face in the setting of alcohol intoxication. He is still currently intoxicated. He does have a abrasion to his nose. CT scan of his head was obtained showing no facial bone fracture, no head injury. His wounds were cleansed by our hematology technician. He will be discharged home and is able to walk with a steady gait currently. Differential diagnoses considered include intracranial hemorrhage, concussion, nasal bone fracture. Departure - Departure Disposition: Home, Routine, Self-Care Clinical Impression: Fall Qualifiers: Encounter type: initial encounter Qualified Code(s): W19.XXXA - Unspecified fall, initial encounter Head injury Qualifiers: Encounter type: initial encounter Qualified Code(s): S09.90XA - Unspecified injury of head, initial encounter Nasal abrasion Qualifiers: Encounter type: initial encounter Qualified Code(s): S00.31XA - Abrasion of nose, initial encounter Condition: Good Instructions: Abuse of Alcohol (ED), At-Risk Alcohol Use (ED) Additional Instructions: Please return to the emergency department if your worse in any way. Referrals: [facility],. [Clinic] - As per Instructions
[2017-12-25] MEDS ORDERED: SKIN ADHESIVE (DERMABOND) 1 EACH TP ONE (04:37)
[2017-12-25 04:55] VITALS: BP 111/88
== END 2017-12-25 04:55 | disposition home or self-care (01) ==
DX: S09.90XA Unspecified injury of head, initial encounter (principal); S00.31XA Abrasion of nose, initial encounter; I10 Essential (primary) hypertension; W01.0XXA Fall on same level from slipping, tripping and stumbling without subsequent striking against object, initial encounter; Y92.480 Sidewalk as the place of occurrence of the external cause; Y99.8 Other external cause status; Y93.01 Activity, walking, marching and hiking

== ENCOUNTER 2017-12-25 18:05 | Emergency (ER) | payer MEDICAID ==
[2017-12-25] MEDS ORDERED: MAG HYDROX/AL HYDROX/SIMETH 30 ML UDCUP PO PRN (18:31)
[2017-12-25 19:11] LABS: PLATELET COUNT 337 10^3/uL (150-400)
--- NOTE | 2017-12-25 20:01 | EDPHY ---
H & P Smoking Status: Never smoked Time Seen by Provider: 12/25/17 19:59 HPI/ROS: CHIEF COMPLAINT: Abdominal pain HISTORY OF PRESENT ILLNESS: Patient is a 62-year-old male with history of alcoholism and pancreatitis well known to this emergency room. He was seen and discharged from here 2 hr ago. Is complaining of abdominal pain. He is unaware to say when this pain started. Denies any change in his stools including no black or bloody stools. He has had no fever. He has had no emesis. He does admit to drinking alcohol. REVIEW OF SYSTEMS: Constitutional: No fever, no chills. Eyes: No discharge. ENT: No sore throat. Cardiovascular: No chest pain, no palpitations. Respiratory: No cough, no shortness of breath. Gastrointestinal: + abdominal pain, no vomiting. Genitourinary: No hematuria. Musculoskeletal: No back pain. Skin: No rashes. Neurological: No headache. (Elan Alexander) Physical Exam: General Appearance: Alert and no distress. Eyes: Pupils equal and round no injection. Respiratory: Chest is nontender, lungs are clear to auscultation. Cardiac: regular rate and rhythm. Gastrointestinal: Abdomen is soft and nontender, no masses, bowel sounds normal. Musculoskeletal: Neck is supple and nontender. Extremities have full range of motion and are nontender. Skin: No rashes or lesions. (Elan Alexander) Constitutional: Initial Vital Signs Temperature (C) 37.2 C 12/25/17 18:08 Heart Rate 74 12/25/17 18:08 Respiratory Rate 16 12/25/17 18:08 Blood Pressure 104/70 12/25/17 18:08 O2 Sat (%) 91 L 12/25/17 18:08 O2 Delivery Mode Room Air Allergies/Adverse Reactions: No Known Allergies Allergy (Verified 12/14/17 21:07) Home Medications: Medication Instructions Recorded Meloxicam 7.5 mg PO DAILY 12/08/17 Hydrochlorothiazide [HCTZ (*)] 25 mg PO DAILY #30 cap 12/13/17 Hydrochlorothiazide [HCTZ (*)] 25 mg PO DAILY #30 tab 12/13/17 Lisinopril [Zestril 20 mg (*)] 20 mg PO DAILY #30 tab 12/13/17 Lisinopril [Zestril 20 mg (*)] 20 mg PO DAILY #30 tab 12/13/17 oxyCODONE IR [Oxycodone Ir (*)] 5 - 10 mg PO Q6HRS PRN #10 tab 12/13/17 oxyCODONE IR [Oxycodone Ir (*)] 5 mg PO Q4HRS PRN #10 tab 12/13/17 Medical Decision Making ED Course/Re-evaluation: Pancreatitis, gastrointestinal bleed, gastric ulcer, gastritis Patient improved significantly after GI cocktail. He was stable at time for discharge is ambulatory with no signs of altered mental status or acute alcohol detoxification. (Elan Alexander) Other Provider: The patient was evaluated and managed by the Physician Print Color Operator. I discussed the patient's presentation and course with the physician behavioral modification assistant and agree with the evaluation. My co-signature indicates that I have reviewed this chart and I agree with the findings and plan of care as documented, with one exception. Patient actually discharged from ED about 12 hours prior to this representation. I am the secondary supervising physician. (Kamilla Guaman) - Data Points Laboratory Results: Laboratory Results 12/25/17 19:02 12/25/17 19:02 Departure - Departure Disposition: Home, Routine, Self-Care Clinical Impression: Gastritis, Epigastric abdominal pain, Alcoholism Condition: Good Instructions: Gastritis (ED) Referrals: Patient,NotPresent [Primary Care Provider] - As per Instructions [facility],. [Clinic] - As per Instructions
[2017-12-25 20:17] VITALS: BP 125/76
--- NOTE | 2017-12-26 16:41 | ASMTCMCOM ---
CM Note CM Note Notes: Pt presented to the Emergency Department (ED) s/p a fall secondary to alcohol intoxication. Pt is well known to this ED with 13 ER visits and two inpt hospitalizations this year. Pt is homeless and has been a resident of [place] for 44 years. Pt has previously been given alcohol resources, including information on sobriety groups, an alcohol packet and information from [facility], and assistance with outpt treatment programs. Pt has been offered resources with the [facility] program, but has declined them. CM recently assisted pt to complete a Path to Home application for housing and CM has previously attempted to connect pt with homeless outreach programs. This CM unable to meet with pt; visit occurred after CM hrs. CM will continue to follow and will attempt to offer resources again in the future. Date Signed: 12/26/2017 04:41 PM Electronically Signed By:Romina Siu RN
== END 2017-12-25 20:22 | disposition home or self-care (01) ==
LOC: EDUNIT#
DX: K29.20 Alcoholic gastritis without bleeding (principal)

== ENCOUNTER 2017-12-26 17:22 | Emergency (ER) | payer SELFPAY ==
--- NOTE | 2017-12-26 17:27 | EDPHY ---
H & P Time Seen by Provider: 12/26/17 17:25 HPI/ROS: CHIEF COMPLAINT: Chronic abdominal pain HISTORY OF PRESENT ILLNESS: Patient is a homeless alcoholic who presents to the ED with chronic abdominal pain. This is his 7th visit to the emergency department this month. The patient was seen yesterday and had laboratory studies which were unremarkable. REVIEW OF SYSTEMS: A comprehensive 10 point review of systems is otherwise negative aside from elements mentioned in the history of present illness. Source: Patient - Personal History Tetanus Vaccine Date: 06/21/2009 - Medical/Surgical History Hx Asthma: No Hx Chronic Respiratory Disease: No Hx Diabetes: No Hx Cardiac Disease: No Hx Renal Disease: No Hx Cirrhosis: No Hx Alcoholism: Yes Hx HIV/AIDS: No Hx Splenectomy or Spleen Trauma: No Other PMH: Pancreatitis, alcoholism, htn, depression, numbness/tingling feet, leg weakness - Social History Smoking Status: Never smoked - Physical Exam Exam: General Appearance: Alert, no distress, slightly disheveled Eyes: Pupils equal and round no pallor or injection ENT, Mouth: Mucous membranes moist Respiratory: There are no retractions, lungs are clear to auscultation Cardiovascular: Regular rate and rhythm Gastrointestinal: Minimal epigastric tenderness, no peritoneal signs, normal bowel sounds Neurological: A&O, normal motor function, normal sensory exam, normal cranial nerves Skin: Warm and dry, no rashes Musculoskeletal: Neck is supple nontender Extremities: symmetrical, full range of motion Constitutional: Initial Vital Signs Temperature (C) 37.2 C 12/26/17 17:25 Heart Rate 86 12/26/17 17:25 Respiratory Rate 16 12/26/17 17:25 Blood Pressure 118/71 12/26/17 17:25 O2 Sat (%) 92 12/26/17 17:25 O2 Delivery Mode Room Air Allergies/Adverse Reactions: No Known Allergies Allergy (Verified 12/14/17 21:07) Home Medications: Medication Instructions Recorded Meloxicam 7.5 mg PO DAILY 12/08/17 Hydrochlorothiazide [HCTZ (*)] 25 mg PO DAILY #30 cap 12/13/17 Hydrochlorothiazide [HCTZ (*)] 25 mg PO DAILY #30 tab 12/13/17 Lisinopril [Zestril 20 mg (*)] 20 mg PO DAILY #30 tab 12/13/17 Lisinopril [Zestril 20 mg (*)] 20 mg PO DAILY #30 tab 12/13/17 oxyCODONE IR [Oxycodone Ir (*)] 5 - 10 mg PO Q6HRS PRN #10 tab 12/13/17 oxyCODONE IR [Oxycodone Ir (*)] 5 mg PO Q4HRS PRN #10 tab 12/13/17 Medical Decision Making ED Course/Re-evaluation: The patient is well known to the emergency department. He was seen yesterday and had unremarkable laboratory studies. His abdominal examination is benign. The patient is ambulatory with a steady gait. [facility] and has declined. The patient is discharged from the emergency department. Departure - Departure Disposition: Home, Routine, Self-Care Clinical Impression: Chronic abdominal pain Condition: Good Instructions: Chronic Abdominal Pain (ED) Additional Instructions: 1. I recommend complete abstinence from alcohol. 2. Please follow up with [facility]. 3. Please follow up with the [facility] if you desire assistance with alcohol dependence. Referrals: [facility],. [Clinic] - As per Instructions [facility] Detox 24 Hours [Outside] - As per Instructions
[2017-12-26 17:29] VITALS: BP 118/71
== END 2017-12-26 17:36 | disposition home or self-care (01) ==
LOC: EDUNIT#
DX: R10.13 Epigastric pain (principal); G89.29 Other chronic pain; I10 Essential (primary) hypertension

== ENCOUNTER 2018-01-09 17:45 | Emergency (ER) | payer MEDICAID ==
--- NOTE | 2018-01-09 17:44 | EDPHY ---
H & P Time Seen by Provider: 01/09/18 17:45 Allergies/Adverse Reactions: No Known Allergies Allergy (Verified 12/14/17 21:07) Home Medications: Medication Instructions Recorded Meloxicam 7.5 mg PO DAILY 12/08/17 Hydrochlorothiazide [HCTZ (*)] 25 mg PO DAILY #30 cap 12/13/17 Hydrochlorothiazide [HCTZ (*)] 25 mg PO DAILY #30 tab 12/13/17 Lisinopril [Zestril 20 mg (*)] 20 mg PO DAILY #30 tab 12/13/17 Lisinopril [Zestril 20 mg (*)] 20 mg PO DAILY #30 tab 12/13/17 oxyCODONE IR [Oxycodone Ir (*)] 5 - 10 mg PO Q6HRS PRN #10 tab 12/13/17 oxyCODONE IR [Oxycodone Ir (*)] 5 mg PO Q4HRS PRN #10 tab 12/13/17 Medical Decision Making ED Course/Re-evaluation: CHIEF COMPLAINT: Alcohol intoxication HISTORY OF PRESENT ILLNESS: The patient is a chronic alcoholic living on the [address]. Patient drinks on a daily basis and obtains whatever alcohol is available. Patient was found by bystanders who called EMS system. Patient has had multiple ER visits over the last several months for the same complaint. Patient denies any injuries denies loss of consciousness denies any recent trauma. Patient denies co-ingestion patient denies suicidal or homicidal behavior. REVIEW OF SYSTEMS: A 10 point review of systems was performed and is negative with the exception of the elements mentioned in the history of present illness. PHYSICAL EXAM: General Appearance: Alert, well hydrated, appropriate, and non-toxic appearing. Head: Atraumatic without scalp tenderness or obvious injury Eyes: Pupils equal, round, reactive to light and accommodation, EOMI, no trauma , no injection. Ears: Clear bilaterally, no perforation, normal landmarks Nose: Atraumatic, no rhinorrhea, clear. Throat: There is no erythema or exudates, no lesions, normal tonsils, mucus membranes moist. Neck: Supple, 2+ carotid upstroke, non-tender, no lymphadenopathy. Respiratory: No retractions, no distress, no wheezes, and no accessory muscle use. Lungs are clear to auscultation bilaterally. Cardiovascular: Regular rate and rhythm, no murmurs, rubs, or gallops. Bilateral carotid, radial, dorsalis pedis, and posterior tibial pulses intact. Good capillary refill all extremities. Gastrointestinal: Abdomen is soft, non-tender, non-distended, no masses, no rebound, no guarding, no peritoneal signs. Musculoskeletal: Normal active ROM of all extremities, atraumatic. Neurological: Alert, appropriate, and interactive. The patient has normal DTRs and non-focal cranial nerves, motor, sensory, and cerebellar exam. Skin: No rashes, good turgor, no nodules on palpation. PAST MEDICAL HISTORY: Pancreatitis. PAST SURGICAL HISTORY: Noncontributory SOCIAL HISTORY: Lives in [place]. DIFFERENTIAL DIAGNOSIS: Includes but not limited to alcohol intoxication, alcohol withdrawal, co- ingestion. MEDICAL DECISION [id number] y/o male arrives via EMS for evaluation of alcohol intoxication. I serially examined this patient since the patient's arrival here in the emergency department. I serially questioned the patient and the patient's story given initially has not changed. The patient still denies any trauma, any head injury, and any illicit drug use. At this point, the patient is walking the department freely and is clinically sober. We're discharging the patient to the [facility] in stable condition. Plan to d/c with Librium pre-pack for alcohol withdrawal. Departure - Departure Disposition: Home, Routine, Self-Care Clinical Impression: Alcohol intoxication Qualifiers: Complication of substance-induced condition: uncomplicated Qualified Code(s): F10.920 - Alcohol use, unspecified with intoxication, uncomplicated Condition: Good Instructions: Alcohol Intoxication (ED) Additional Instructions: 1. Proceed to the [facility] for assistance in alcohol recovery. 2. Take Librium as prescribed as needed for withdrawal symptoms. Referrals: [facility] Detox 24 Hours [Outside] - As per Instructions Report Scribed for: Parish Mack Report Scribed by: Giselle Wilson Date of Report: 01/09/18 Time of Report: 17:46
[2018-01-09] MEDS: CHLORDIAZEPOXIDE 25MG PREPK#6 BTL TAKEHOME ONE (17:50)
[2018-01-09 17:52] VITALS: BP 125/86
--- NOTE | 2018-01-09 18:55 | ASDISCHSUM ---
Discharge Information Plan Status:Homeless/Fpc Medically Cleared to Leave: Discharge Date:01/09/2018 05:56 PM D/C Disposition:Streets (Homeless) ADT D/C Disposition:Home, Routine, Self-Care Projected Discharge Date:01/09/2018 05:56 PM Transportation at D/C:None or Unknown Discharge Delay Reason: Follow-Up Date:01/09/2018 05:56 PM Discharge Slot: Final Diagnosis: Placement Information Patient Contact Information Contact Name:ANDRAE Relationship:Daughter Address: Work Phone: City:[place] Alternate Phone: State/[place] Code:[place] Email: Financial Information Financial Class:Medicaid Primary Plan Desc:[employer] Primary Plan Number:[id number] Secondary Plan Desc: Secondary Plan Number: Assessment Information [facility] CM Progress Note CM Note CM Note Notes: Pt presented to the ED via EMS for ETOH intoxication. Pt placed on an alcohol hold by [facility]. Pt medically cleared and discharged to Withdrawal Management detox via [facility]. This was the patient's 17th ED visit in 2018 for ETOH related reasons. Please see past CM Reports 12/26/17, 12/13/17, 11/05/17 and past visits for additional background information. CM available for further assistance if needed. Date Signed: 01/09/2018 06:53 PM Electronically Signed By:Vivien Plaza RN Intervention Information
== END 2018-01-09 17:56 | disposition home or self-care (01) ==
LOC: EDUNIT#
DX: F10.920 Alcohol use, unspecified with intoxication, uncomplicated (principal)

== ENCOUNTER 2018-01-10 07:20 | Emergency (ER) | payer MEDICAID ==
--- NOTE | 2018-01-10 07:24 | EDPHY ---
H & P Time Seen by Provider: 01/10/18 07:23 HPI/ROS: CHIEF COMPLAINT: Abdominal pain HISTORY OF PRESENT ILLNESS: The patient is a 62-year-old alcoholic homeless man with a history of chronic abdominal pain. He has had pancreatitis in the past. He has seen here frequently. He was here last night intoxicated and [facility]. He is now sober and is complaining of chronic abdominal pain. The last several times if checked his lipase that is been normal. He does not have a fever. No vomiting. He states that this is typical of his chronic abdominal pain. No diarrhea REVIEW OF SYSTEMS: Constitutional: denies: chills, fever, recent illness, recent injury EENTM: denies: blurred vision, double vision, nose congestion Respiratory: denies: cough, shortness of breath Cardiac: denies: chest pain, irregular heart rate, lightheadedness, palpitations Gastrointestinal/Abdominal: See HPI Genitourinary: denies: dysuria, frequency, hematuria, pain Musculoskeletal: denies: joint pain, muscle pain Skin: denies: lesions, rash, jaundice, bruising Neurological: denies: headache, numbness, paresthesia, tingling, dizziness, weakness Hematologic/Lymphatic: denies: blood clots, easy bleeding, easy bruising Immunologic/allergic: denies: HIV/AIDS, transplant EXAM: GENERAL: Disheveled HEAD: Atraumatic, normocephalic. EYES: Pupils equal round and reactive to light, extraocular movements intact, sclera anicteric, conjunctiva are normal. ENT: TMs normal, nares patent, oropharynx clear without exudates. Moist mucous membranes. NECK: Normal range of motion, supple without lymphadenopathy or JVD. LUNGS: Breath sounds clear to auscultation bilaterally and equal. No wheezes rales or rhonchi. HEART: Regular rate and rhythm without murmurs, rubs or gallops. ABDOMEN: Soft, nontender, normoactive bowel sounds. No guarding, no rebound. No masses appreciated. BACK: No CVA tenderness, no spinal tenderness, step-offs or deformities EXTREMITIES: Normal range of motion, no pitting or edema. No clubbing or cyanosis. NEUROLOGICAL: Cranial nerves II through XII grossly intact. Normal speech, normal gait. 5/5 strength, normal movement in all extremities, normal sensation PSYCH: Normal mood, normal affect. SKIN: Warm, dry, normal turgor, no visible rashes or lesions. Source: Patient, EMS Exam Limitations: No limitations - Personal History Tetanus Vaccine Date: 06/21/2009 - Medical/Surgical History Hx Asthma: No Hx Chronic Respiratory Disease: No Hx Diabetes: No Hx Cardiac Disease: No Hx Renal Disease: No Hx Cirrhosis: No Hx Alcoholism: Yes Hx HIV/AIDS: No Hx Splenectomy or Spleen Trauma: No Other PMH: Pancreatitis, alcoholism, htn, depression, numbness/tingling feet, leg weakness - Family History Significant Family History: No pertinent family hx - Social History Smoking Status: Never smoked Alcohol Use: Heavy Drug Use: Other Constitutional: Initial Vital Signs Temperature (C) 37.3 C 01/10/18 07:23 Heart Rate 97 01/10/18 07:23 Respiratory Rate 16 01/10/18 07:23 Blood Pressure 162/104 H 01/10/18 07:23 O2 Sat (%) 96 01/10/18 07:23 O2 Delivery Mode Room Air Allergies/Adverse Reactions: No Known Allergies Allergy (Verified 12/14/17 21:07) Home Medications: Medication Instructions Recorded Meloxicam 7.5 mg PO DAILY 12/08/17 Hydrochlorothiazide [HCTZ (*)] 25 mg PO DAILY #30 cap 12/13/17 Hydrochlorothiazide [HCTZ (*)] 25 mg PO DAILY #30 tab 12/13/17 Lisinopril [Zestril 20 mg (*)] 20 mg PO DAILY #30 tab 12/13/17 Lisinopril [Zestril 20 mg (*)] 20 mg PO DAILY #30 tab 12/13/17 oxyCODONE IR [Oxycodone Ir (*)] 5 - 10 mg PO Q6HRS PRN #10 tab 12/13/17 oxyCODONE IR [Oxycodone Ir (*)] 5 mg PO Q4HRS PRN #10 tab 12/13/17 Medical Decision Making ED Course/Re-evaluation: I offered to check the patient's lab work but told him up front that we would not give him narcotic medications for his chronic unchanged pain. The patient got angry and stood up and left. He is supposed to be on a 5 day are cold. We offered to help him get back there. His stuff is there. He said that he was just going to leave and that he would get his own way back there. He was prescribed Librium last night that is at the [facility]. Differential Diagnosis: Partial list of the Differential diagnosis considered include but were not limited to; alcohol abuse, opiate abuse, chronic abdominal pain, pancreatitis and although unlikely based on the history and physical exam, I also considered perforation, ischemia, obstruction. I discussed these differential diagnoses and the plan with the patient as well as the usual and expected course. The patient understands that the diagnosis is provisional and that in medicine we are not always correct and that further workup is often warranted. Usual and customary warnings were given. All of the patient's questions were answered. The patient was instructed to return to the emergency department should the symptoms at all worsen or return, otherwise to followup with the physician as we discussed. Departure - Departure Disposition: Home, Routine, Self-Care Clinical Impression: Chronic abdominal pain, Alcoholism /alcohol abuse Condition: Fair Instructions: Alcohol Use Disorder (ED), Chronic Abdominal Pain (ED) Additional Instructions: Return directly to the [facility] Referrals: Patient,NotPresent [Unknown] - As per Instructions
[2018-01-10 07:27] VITALS: BP 162/104
== END 2018-01-10 07:23 | disposition home or self-care (01) ==
LOC: EDUNIT#
DX: R10.9 Unspecified abdominal pain (principal); G89.29 Other chronic pain; F10.20 Alcohol dependence, uncomplicated; I10 Essential (primary) hypertension

== ENCOUNTER → 2018-01-10 | Emergency (ER) | payer MEDICAID | LOC: EDUNIT# | DX: Z53.21 Procedure and treatment not carried out due to patient leaving prior to being seen by health care provider (principal) ==

== ENCOUNTER 2018-03-01 16:45 | Emergency (ER) | payer MEDICAID ==
--- NOTE | 2018-03-01 17:12 | EDPHY ---
H & P Stated Complaint: abd pain - Personal History Tetanus Vaccine Date: 06/21/2009 - Medical/Surgical History Hx Asthma: No Hx Chronic Respiratory Disease: No Hx Diabetes: No Hx Cardiac Disease: No Hx Renal Disease: No Hx Cirrhosis: No Hx Alcoholism: Yes Hx HIV/AIDS: No Hx Splenectomy or Spleen Trauma: No Other PMH: Pancreatitis, alcoholism, htn, depression, numbness/tingling feet, leg weakness - Social History Smoking Status: Never smoked Time Seen by Provider: 03/01/18 16:46 HPI/ROS: CHIEF COMPLAINT: "My belly hurts" HISTORY OF PRESENT ILLNESS: 62-year-old male familiar to emergency department staff arrives via ambulance complaining of heavy alcohol use and epigastric abdominal pain since afternoon. No nausea or vomiting. No back flank pain. No chest pain. No dyspnea. No seizure. No suicidal homicidal ideation. REVIEW OF SYSTEMS: 10 systems reviewed and negative with the exception of the elements mentioned in the history of present illness PAST MEDICAL & SURGICAL HISTORY: Alcoholism. Pancreatitis. SOCIAL HISTORY: Last drink of alcohol approximately 1:00 p.m. Today FAMILY HISTORY: No pertinent family history PHYSICAL EXAM (Prior to examination, patient consented to physical exam, hands were washed and my usual and customary physical exam procedures followed) 1) GENERAL: Well-developed, well-nourished, alert and oriented. Appears to be in no acute distress. Sleeping 2) HEAD: Normocephalic, atraumatic 3) HEENT: Pupils equal, round, reactive to light bilaterally. Sclera anicteric. Nasopharynx, oropharynx, clear, no lesions. Moist mucous membranes. Ears bilaterally with normal tympanic membranes. 4) NECK: Full range of motion, no meningeal signs. 5) LUNGS: Clear auscultation bilaterally, no wheezes, no rhonchi, no retractions. 6) HEART: Regular rate and rhythm, no murmur, no heave, no gallop. 7) ABDOMEN: No guarding, tender to palpation epigastrium, no palpable or pulsatile mass. Negative McBurney's, negative Maxwell's, negative Rovsing's, negative peritoneal sign, 8) MUSCULOSKELETAL: Moving all extremities, no focal areas of tenderness, no obvious trauma. No peripheral edema or discoloration. 9) BACK: No CVA tenderness, no midline vertebral tenderness, no fluctuance, no step-off, no obvious trauma, no visual or palpable abnormality. 10) SKIN: No rash, no petechiae. 11) Psychiatric: Patient is oriented X 3, there is no agitation. DIFFERENTIAL DIAGNOSIS: In no particular order, including but not limited to biliary colic, cholecystitis, peptic ulcer disease, pancreatitis, and gastroenteritis. This is a partial list of diagnoses considered. These considerations are based on history, physical exam, past history and reassessment. (Carmen Taylor) Constitutional: Initial Vital Signs Temperature (C) 36.8 C 03/01/18 16:53 Heart Rate 83 03/01/18 16:53 Respiratory Rate 18 03/01/18 16:53 Blood Pressure 123/68 H 03/01/18 16:53 O2 Sat (%) 93 03/01/18 16:53 O2 Delivery Mode Room Air Allergies/Adverse Reactions: No Known Allergies Allergy (Verified 03/01/18 17:00) Home Medications: Medication Instructions Recorded Meloxicam 7.5 mg PO DAILY 12/08/17 Hydrochlorothiazide [HCTZ (*)] 25 mg PO DAILY #30 cap 12/13/17 Hydrochlorothiazide [HCTZ (*)] 25 mg PO DAILY #30 tab 12/13/17 Lisinopril [Zestril 20 mg (*)] 20 mg PO DAILY #30 tab 12/13/17 Lisinopril [Zestril 20 mg (*)] 20 mg PO DAILY #30 tab 12/13/17 oxyCODONE IR [Oxycodone Ir (*)] 5 - 10 mg PO Q6HRS PRN #10 tab 12/13/17 oxyCODONE IR [Oxycodone Ir (*)] 5 mg PO Q4HRS PRN #10 tab 12/13/17 Medical Decision Making ED Course/Re-evaluation: 5:27 p.m.: The patient walked out of the emergency department at this time , visibly upset that he was brought to the ER by ambulance.. He was observed with a stable steady gait, clear speech pattern, alert oriented person place time events, he is clinically sober. We are unable to draw laboratory studies on the patient as he repeatedly refused and eventually walked out without receiving aftercare instructions. I saw this patient independently based on established practice protocols. Care of patient under supervision of secondary supervising physician Dr Guaman . (Carmen Taylor) Other Provider: The patient was evaluated and managed by the Physician Mold Shaker. My co-signature indicates that I have reviewed this chart and I agree with the findings and plan of care as documented. I am the secondary supervising physician. (Kamilla Guaman) Departure - Departure Disposition: Against Medical Advice Clinical Impression: Abdominal pain Qualifiers: Abdominal location: epigastric Qualified Code(s): R10.13 - Epigastric pain Referrals: NONE *PRIMARY CARE P,. [Primary Care Provider] - As per Instructions
[2018-03-01 17:47] VITALS: BP 123/68
== END 2018-03-01 17:24 | disposition left against medical advice (07) ==
LOC: EDUNIT#
DX: R10.13 Epigastric pain (principal); I10 Essential (primary) hypertension; K85.20 Alcohol induced acute pancreatitis without necrosis or infection; F10.20 Alcohol dependence, uncomplicated

== ENCOUNTER 2018-03-04 16:34 | Emergency (ER) | payer SELFPAY ==
[2018-03-04 16:42] VITALS: BP 186/81
--- NOTE | 2018-03-04 19:42 | EDPHY ---
JOE Addendum - Addendum .: This patient left the ED on his own prior to evaluation or examination by myself.
== END 2018-03-04 19:34 | disposition left against medical advice (07) ==
LOC: EDUNIT#
DX: Z53.21 Procedure and treatment not carried out due to patient leaving prior to being seen by health care provider (principal)

== ENCOUNTER 2018-03-05 17:47 | Emergency (ER) | payer SELFPAY ==
--- NOTE | 2018-03-05 18:52 | EDPHY ---
H & P Time Seen by Provider: 03/05/18 18:45 HPI/ROS: CHIEF COMPLAINT: Altered mental status HISTORY OF PRESENT ILLNESS: Brought in by EMS with normal glucose after being found down on the street. Called in by bystander. No history of trauma, review of systems and HPI unobtainable on arrival because of altered mental status. PAST MEDICAL HISTORY: Known alcoholic, history of pancreatitis. Hypertension. Social history: History of frequent alcohol ingestion. General Appearance: Nonverbal. Eyes: No scleral icterus. Pupils 3 mm reactive. ENT, Mouth: Normal mucous membranes. No tongue laceration or abrasion. Respiratory: Normal respiratory effort, breath sounds equal, lungs are clear to auscultation. Cardiovascular: Regular rate and rhythm. Gastrointestinal: Abdomen is soft and non tender. Neurological: Nonverbal, lethargic. Drooling but protecting his airway. Does have spontaneous movement of extremities. Skin: Warm and dry, no rashes. No laceration or abrasion. Musculoskeletal: No peripheral edema. Psychiatric: Unable, nonverbal Emergency Department course/MDM: Pre-hospital glucose was normal. Does not have external evidence of trauma. Plan for labs and serial exam. 2036: Ethanol reviewed is very high. 2054: Ambulatory, not ataxic, no medical complaints, stable for discharge to detox. Plan to JACOB, RN to discuss with Hernandez waterman MD if not able. Smoking Status: Never smoked Constitutional: Initial Vital Signs Temperature (C) 37.0 C 03/05/18 17:49 Heart Rate 91 03/05/18 17:49 Respiratory Rate 16 03/05/18 17:49 Blood Pressure 128/76 H 03/05/18 17:49 O2 Sat (%) 91 L 03/05/18 17:49 O2 Delivery Mode Room Air O2 (L/minute) 2 Allergies/Adverse Reactions: No Known Allergies Allergy (Verified 03/05/18 17:49) Home Medications: Medication Instructions Recorded Meloxicam 7.5 mg PO DAILY 12/08/17 Hydrochlorothiazide [HCTZ (*)] 25 mg PO DAILY #30 cap 12/13/17 Hydrochlorothiazide [HCTZ (*)] 25 mg PO DAILY #30 tab 12/13/17 Lisinopril [Zestril 20 mg (*)] 20 mg PO DAILY #30 tab 12/13/17 Lisinopril [Zestril 20 mg (*)] 20 mg PO DAILY #30 tab 12/13/17 oxyCODONE IR [Oxycodone Ir (*)] 5 - 10 mg PO Q6HRS PRN #10 tab 12/13/17 oxyCODONE IR [Oxycodone Ir (*)] 5 mg PO Q4HRS PRN #10 tab 12/13/17 Medical Decision Making Differential Diagnosis: Differential diagnosis considered for altered mental status including but not limited to hypoglycemia, infectious process, electrolyte abnormality, head injury and intoxicants. - Data Points Laboratory Results: Laboratory Results 03/05/18 19:43 03/05/18 19:43 03/05/18 03/05/18 19:43 19:43 WBC 9.05 10^3/uL 10^3/uL (3.80-9.50) RBC 5.08 10^6/uL 10^6/uL (4.40-6.38) Hgb 14.9 g/dL g/dL (13.7-17.5) Hct 43.6 % % (40.0-51.0) MCV 85.8 fL fL (81.5-99.8) MCH 29.3 pg pg (27.9-34.1) MCHC 34.2 g/dL g/dL (32.4-36.7) RDW 14.4 % % (11.5-15.2) Plt Count 226 10^3/uL 10^3/uL (150-400) MPV 9.2 fL fL (8.7-11.7) Neut % (Auto) 56.4 % % (39.3-74.2) Lymph % (Auto) 32.6 % % (15.0-45.0) [place] % (Auto) 5.9 % % (4.5-13.0) Eos % (Auto) 4.0 % % (0.6-7.6) Baso % (Auto) 0.8 % % (0.3-1.7) Nucleat RBC Rel Count 0.0 % % (0.0-0.2) Absolute Neuts (auto) 5.11 10^3/uL 10^3/uL (1.70-6.50) Absolute Lymphs (auto) 2.95 10^3/uL 10^3/uL (1.00-3.00) Absolute Monos (auto) 0.53 10^3/uL 10^3/uL (0.30-0.80) Absolute Eos (auto) 0.36 10^3/uL 10^3/uL (0.03-0.40) Absolute Basos (auto) 0.07 10^3/uL 10^3/uL (0.02-0.10) Absolute Nucleated RBC 0.00 10^3/uL 10^3/uL (0-0.01) Immature Gran % 0.3 % % (0.0-1.1) Immature Gran # 0.03 10^3/uL 10^3/uL (0.00-0.10) Sodium 139 mEq/L mEq/L (135-145) Potassium 4.8 mEq/L mEq/L (3.3-5.0) Chloride 100 mEq/L mEq/L (97-110) Carbon Dioxide 21 mEq/l L mEq/l (22-31) Anion Gap 18 mEq/L H mEq/L (8-16) BUN 14 mg/dL mg/dL (7-23) Creatinine 0.8 mg/dL mg/dL (0.7-1.3) Estimated GFR > 60 Glucose 105 mg/dL H mg/dL (70-100) Calcium 9.2 mg/dL mg/dL (8.5-10.4) Ethyl Alcohol 476 mg/dL H* mg/dL (0-10) Medications Given: Discontinued Medications Chlordiazepoxide (Librium 25 Mg Prepack#6) 1 btl [facility] ONE Stop: 03/05/18 23:00 Last Admin: 03/06/18 01:35 Dose: Not Given Departure - Departure Disposition: Home, Routine, Self-Care Clinical Impression: Alcohol intoxication Qualifiers: Complication of substance-induced condition: uncomplicated Qualified Code(s): F10.920 - Alcohol use, unspecified with intoxication, uncomplicated Condition: Good Instructions: Alcohol Intoxication (ED) Referrals: [facility],. [Clinic] - As per Instructions
[2018-03-05 19:51] LABS: PLATELET COUNT 226 10^3/uL (150-400)
[2018-03-06 00:26] VITALS: BP 125/85
[2018-03-06] MEDS: CHLORDIAZEPOXIDE 25MG PREPK#6 BTL TAKEHOME ONE ×2 (00:27→01:35)
== END 2018-03-06 01:38 | disposition home or self-care (01) ==
LOC: EDUNIT#
DX: F10.129 Alcohol abuse with intoxication, unspecified (principal); I10 Essential (primary) hypertension
CPT/HCPCS: G0480

== ENCOUNTER 2018-03-06 19:47 | Emergency (ER) | payer MEDICAID ==
[2018-03-06 19:53] VITALS: BP 137/92
[2018-03-06] MEDS ORDERED: CHLORDIAZEPOXIDE 25MG PREPK#6 BTL TAKEHOME ONE ×2 (19:58→19:59)
--- NOTE | 2018-03-06 20:00 | EDPHY ---
General Time Seen by Provider: 03/06/18 19:56 Narrative: CHIEF COMPLAINT: abdominal pain HISTORY OF PRESENT ILLNESS: Patient presents by EMS with complaints of abdominal pain. Epigastric per mild- to-moderate. This pain has been present for nearly 3-4 weeks. Patient is well known to this emergency department with history of alcohol dependency and chronic pancreatitis. He tells me that "it is no worse than before but I had no where else to be." Denies any vomiting. No hematemesis, constipation, diarrhea or hematochezia recently. He continues to drink alcohol. No fever. No headache. No falls or trauma. He says that he is here because he cannot go to the [facility] at this time. No other associated complaints or modifying factors REVIEW OF SYSTEMS: 10 systems were reviewed and negative with the exception of the elements mentioned in the history of present illness. PCP: No consistent care SPECIALISTS: None PAST MEDICAL HISTORY: Chronic pancreatitis, alcohol dependency PAST SURGICAL HISTORY: No recent surgeries SOCIAL HISTORY: Currently homeless. Admits to daily ingestion of clear liquor heavily, as well as beer FAMILY HISTORY: Noncontributory EXAMINATION: General Appearance: Alert, no distress. Unkempt. Ambulatory without difficulty. Head: normocephalic, atraumatic. No depression or deformity. Eyes: Pupils equal and round, no conjunctival pallor or injection ENT, Mouth: Mucous membranes moist Neck: Normal inspection, supple, non-tender Respiratory: Lungs are clear to auscultation Cardiovascular: Regular rate and rhythm Gastrointestinal: Abdomen is soft and nondistended. There is no tympany rigidity. No tenderness in the 4 quadrants. No guarding. Back: non-tender, no bony abnormalities Neurological: A&O, nonfocal, normal gait Skin: Warm and dry, no rash Extremities: Nontender, no pedal edema Psychiatric: Mood and affect normal DIFFERENTIAL DIAGNOSES: Including but not limited to chronic pancreatitis, colitis, diverticulitis, alcohol dependency, gastritis, alcoholic gastritis MDM: 8:00 p.m. Abdominal pain with benign abdominal examination in known alcohol dependent, chronic pancreatitis male. He admits to being here because he has nowhere else to be does not want any test performed Vital signs are within normal limits. He will be discharged in stable condition to the [facility]. He is ambulatory without assistance. SUPERVISION: Patient was independently examined, but I discussed the case with my secondary supervising physician The CONSULTATION: - History Smoking Status: Never smoked - Objective Vital Signs: Initial Vital Signs Temperature (C) 97.5 F 03/06/18 19:51 Heart Rate 92 03/06/18 19:51 Respiratory Rate 18 03/06/18 19:51 Blood Pressure 137/92 H 03/06/18 19:51 O2 Sat (%) 90 L 03/06/18 19:51 O2 Delivery Mode Room Air Allergies/Adverse Reactions: No Known Allergies Allergy (Verified 03/05/18 17:49) Home Medications: Medication Instructions Recorded Meloxicam 7.5 mg PO DAILY 12/08/17 Hydrochlorothiazide [HCTZ (*)] 25 mg PO DAILY #30 cap 12/13/17 Hydrochlorothiazide [HCTZ (*)] 25 mg PO DAILY #30 tab 12/13/17 Lisinopril [Zestril 20 mg (*)] 20 mg PO DAILY #30 tab 12/13/17 Lisinopril [Zestril 20 mg (*)] 20 mg PO DAILY #30 tab 12/13/17 oxyCODONE IR [Oxycodone Ir (*)] 5 - 10 mg PO Q6HRS PRN #10 tab 12/13/17 oxyCODONE IR [Oxycodone Ir (*)] 5 mg PO Q4HRS PRN #10 tab 12/13/17 Medications Given: Discontinued Medications Chlordiazepoxide (Librium 25 Mg Prepack#6) 1 btl [facility] ONE Stop: 03/06/18 20:00 Last Admin: 03/06/18 20:19 Dose: 1 btl Departure - Departure Disposition: Home, Routine, Self-Care Clinical Impression: Abdominal pain Qualifiers: Abdominal location: generalized Qualified Code(s): R10.84 - Generalized abdominal pain Acute alcohol intoxication Qualifiers: Complication of substance-induced condition: uncomplicated Qualified Code(s): F10.929 - Alcohol use, unspecified with intoxication, unspecified Instructions: Alcohol Intoxication (ED), Abuse of Alcohol (ED) Additional Instructions: 1. Contact primary care physician tomorrow for outpatient care 2. [facility] for supervised detox Referrals: [facility],. [Clinic] - As per Instructions
== END 2018-03-06 20:33 | disposition home or self-care (01) ==
LOC: EDUNIT#
DX: R10.9 Unspecified abdominal pain (principal); F10.229 Alcohol dependence with intoxication, unspecified; K86.1 Other chronic pancreatitis; Z59.0 Homelessness

== ENCOUNTER 2018-03-07 15:32 | Emergency (ER) | payer MEDICAID ==
--- NOTE | 2018-03-07 15:45 | EDPHY ---
H & P Time Seen by Provider: 03/07/18 15:34 HPI/ROS: CHIEF COMPLAINT: Intoxication HISTORY OF PRESENT ILLNESS: Patient is a 62-year-old alcoholic homeless man with history of chronic abdominal pain. Bystanders at the bus stop called EMS because he was intoxicated. To EMS he complained of abdominal pain which she states is due to his chronic pancreatitis. No vomiting. No fever. Severity: Moderate Modifying factors: Alcohol REVIEW OF SYSTEMS: Constitutional: denies: chills, fever, recent illness, recent injury EENTM: denies: blurred vision, double vision, nose congestion Respiratory: denies: cough, shortness of breath Cardiac: denies: chest pain, irregular heart rate, lightheadedness, palpitations Gastrointestinal/Abdominal: denies: abdominal pain, diarrhea, nausea, vomiting, blood streaked stools Genitourinary: denies: dysuria, frequency, hematuria, pain Musculoskeletal: denies: joint pain, muscle pain Skin: denies: lesions, rash, jaundice, bruising Neurological: denies: headache, numbness, paresthesia, tingling, dizziness, weakness Hematologic/Lymphatic: denies: blood clots, easy bleeding, easy bruising Immunologic/allergic: denies: HIV/AIDS, transplant 10 systems reviewed and negative except as noted EXAM: GENERAL: Intoxicated, overweight and in no acute distress. HEAD: Atraumatic, normocephalic. EYES: Pupils equal round and reactive to light, extraocular movements intact, sclera anicteric, conjunctiva are normal. ENT: TMs normal, nares patent, oropharynx clear without exudates. Moist mucous membranes. NECK: Normal range of motion, supple without lymphadenopathy or JVD. LUNGS: Breath sounds clear to auscultation bilaterally and equal. No wheezes rales or rhonchi. HEART: Regular rate and rhythm without murmurs, rubs or gallops. ABDOMEN: Soft, nontender, normoactive bowel sounds. No guarding, no rebound. No masses appreciated. BACK: No CVA tenderness, no spinal tenderness, step-offs or deformities EXTREMITIES: Normal range of motion, no pitting or edema. No clubbing or cyanosis. NEUROLOGICAL: Cranial nerves II through XII grossly intact. Normal speech, slightly unbalanced gait. 5/5 strength, normal movement in all extremities, normal sensation, normal reflexes PSYCH: Normal mood, normal affect. SKIN: Warm, dry, normal turgor, no visible rashes or lesions. Source: Patient Exam Limitations: No limitations - Personal History Tetanus Vaccine Date: 06/21/2009 - Medical/Surgical History Hx Asthma: No Hx Chronic Respiratory Disease: No Hx Diabetes: No Hx Cardiac Disease: No Hx Renal Disease: No Hx Cirrhosis: No Hx Alcoholism: Yes Hx HIV/AIDS: No Hx Splenectomy or Spleen Trauma: No Other PMH: Pancreatitis, alcoholism, htn, depression, numbness/tingling feet, leg weakness - Family History Significant Family History: No pertinent family hx - Social History Smoking Status: Never smoked Alcohol Use: Sober Drug Use: None Constitutional: Initial Vital Signs Temperature (C) 37.0 C 03/07/18 15:28 Heart Rate 94 03/07/18 15:28 Respiratory Rate 18 03/07/18 15:28 Blood Pressure 128/86 H 03/07/18 15:28 O2 Sat (%) 92 03/07/18 15:28 O2 Delivery Mode Room Air Allergies/Adverse Reactions: No Known Allergies Allergy (Verified 03/08/18 23:45) Home Medications: Medication Instructions Recorded Meloxicam 7.5 mg PO DAILY 12/08/17 Hydrochlorothiazide [HCTZ (*)] 25 mg PO DAILY #30 cap 12/13/17 Hydrochlorothiazide [HCTZ (*)] 25 mg PO DAILY #30 tab 12/13/17 Lisinopril [Zestril 20 mg (*)] 20 mg PO DAILY #30 tab 12/13/17 Lisinopril [Zestril 20 mg (*)] 20 mg PO DAILY #30 tab 12/13/17 oxyCODONE IR [Oxycodone Ir (*)] 5 - 10 mg PO Q6HRS PRN #10 tab 12/13/17 oxyCODONE IR [Oxycodone Ir (*)] 5 mg PO Q4HRS PRN #10 tab 12/13/17 Medical Decision Making ED Course/Re-evaluation: The patient's exam is benign. He can ambulate safely. The last few times we have checked his lipase that is been normal. His abdominal exam is nontender. I told him I would not give him any pain medication for his chronic pancreatitis /abdominal pain. At this point he stood up and told me that he would like to leave then if we cannot help him. No sign of head injury. Differential Diagnosis: Partial list of the Differential diagnosis considered include but were not limited to; intoxication, malingering, chronic pancreatitis and although unlikely based on the history and physical exam, I also considered fever, aneurysm, dissection, obstruction, acute coronary disease, head injury. Departure - Departure Disposition: Home, Routine, Self-Care Clinical Impression: Alcohol dependence Qualifiers: Substance use status: unspecified alcohol-induced disorder Qualified Code(s): F10.29 - Alcohol dependence with unspecified alcohol-induced disorder Condition: Fair Instructions: Alcohol Intoxication (ED) Referrals: NONE *PRIMARY CARE P,. [Primary Care Provider] - As per Instructions [facility],. [Clinic] - As per Instructions
[2018-03-07 17:29] VITALS: BP 130/79
== END 2018-03-07 17:28 | disposition home or self-care (01) ==
LOC: EDUNIT#
DX: F10.29 Alcohol dependence with unspecified alcohol-induced disorder (principal); Z59.0 Homelessness

== ENCOUNTER 2018-03-08 23:40 | Emergency (ER) | payer SELFPAY ==
[2018-03-08] MEDS ORDERED: NS 1,000 ML IV ONE (23:48)
--- NOTE | 2018-03-08 23:51 | EDPHY ---
H & P Stated Complaint: EPIGASTRIC PAIN , HEAVY ETOH USE Time Seen by Provider: 03/08/18 23:50 HPI/ROS: HPI CHIEF COMPLAINT: "My pancreatitis is acting up" HISTORY OF PRESENT ILLNESS: This is a 62-year-old male, well known to myself as well as the emergency room a history of alcoholism daily alcohol use, history of alcohol-induced pancreatitis, presents emergency room by ambulance appears to be intoxicated with alcohol. He is complaining of that his pancreatitis is acting up. Of note this is this patient's 30th ER visit for similar complaint. Past Medical History: History of alcoholism daily alcohol use, history pancreatitis. Past Surgical History: No recent surgery Social History: Daily alcohol use. Homeless. Family History: Noncontributory ROS REVIEW OF SYSTEMS: 10 Systems were reviewed and negative with the exception of the elements mentioned in the history of present illness. Exam Constitutional intoxicated, smells of alcohol triage nursing summary reviewed, vital signs reviewed, awake/alert. Eyes normal conjunctivae and sclera, EOMI, PERRLA. HENT normal inspection, atraumatic, moist mucus membranes, no epistaxis, neck supple/ no meningismus, no raccoon eyes. Respiratory clear to auscultation bilaterally, normal breath sounds, no respiratory distress, no wheezing. Cardiovascular rate normal, regular rhythm, no murmur, no edema, distal pulses normal. Gastrointestinal soft, non-tender, no rebound, no guarding, normal bowel sounds, no distension, no pulsatile mass. Genitourinary no CVA tenderness. Musculoskeletal no midline vertebral tenderness, full range of motion, no calf swelling, no tenderness of extremities, no meningismus, good pulses, neurovascularly intact. Skin pink, warm, & dry, no rash, skin atraumatic. Neurologic awake, alert and oriented x 3, AAOx3, moves all 4 extremities equally, motor intact, sensory intact, CN II-XII intact, normal cerebellar, normal vision, normal speech. Psychiatric normal mood/affect. Heme/Lymph/Immune no lymphadenopathy. Differential Diagnosis: Includes but is not limited to in a particular order acute alcohol intoxication, acute pancreatitis, electrolyte disturbance, dehydration Medical Decision Making: Plan for this patient IV establishment IV fluid bolus. Check basic electrolytes, check lipase level. Re-evaluate. Re-evaluation: Alcohol level 336. [id number]: Patient resting comfortably, patient ambulatory throughout the emergency room. Clinically sober. In no acute distress. Feels comfortable being discharged. Stable gait. No other complaints. Source: Patient - Personal History Current Tetanus/Diphtheria Vaccine: Yes Current Tetanus Diphtheria and Acellular Pertussis (TDAP): Yes Tetanus Vaccine Date: 06/21/2009 - Medical/Surgical History Hx Asthma: No Hx Chronic Respiratory Disease: No Hx Diabetes: No Hx Cardiac Disease: No Hx Renal Disease: No Hx Cirrhosis: No Hx Alcoholism: Yes Hx HIV/AIDS: No Hx Splenectomy or Spleen Trauma: No Other PMH: Pancreatitis, alcoholism, htn, depression, numbness/tingling feet, leg weakness - Social History Smoking Status: Never smoked Constitutional: Initial Vital Signs Temperature (C) 36.6 C 03/08/18 23:43 Heart Rate 81 03/08/18 23:43 Respiratory Rate 18 03/08/18 23:43 Blood Pressure 129/98 H 03/08/18 23:43 O2 Sat (%) 94 03/08/18 23:43 O2 Delivery Mode Room Air Allergies/Adverse Reactions: No Known Allergies Allergy (Verified 03/08/18 23:45) Home Medications: Medication Instructions Recorded Meloxicam 7.5 mg PO DAILY 12/08/17 Hydrochlorothiazide [HCTZ (*)] 25 mg PO DAILY #30 cap 12/13/17 Hydrochlorothiazide [HCTZ (*)] 25 mg PO DAILY #30 tab 12/13/17 Lisinopril [Zestril 20 mg (*)] 20 mg PO DAILY #30 tab 12/13/17 Lisinopril [Zestril 20 mg (*)] 20 mg PO DAILY #30 tab 12/13/17 oxyCODONE IR [Oxycodone Ir (*)] 5 - 10 mg PO Q6HRS PRN #10 tab 12/13/17 oxyCODONE IR [Oxycodone Ir (*)] 5 mg PO Q4HRS PRN #10 tab 12/13/17 Medical Decision Making - Data Points Laboratory Results: Laboratory Results 03/09/18 01:10 03/09/18 01:10 03/09/18 03/09/18 01:10 01:10 WBC 6.96 10^3/uL 10^3/uL (3.80-9.50) RBC 4.74 10^6/uL 10^6/uL (4.40-6.38) Hgb 14.3 g/dL g/dL (13.7-17.5) Hct 41.0 % % (40.0-51.0) MCV 86.5 fL fL (81.5-99.8) MCH 30.2 pg pg (27.9-34.1) MCHC 34.9 g/dL g/dL (32.4-36.7) RDW 14.1 % % (11.5-15.2) Plt Count 153 10^3/uL 10^3/uL (150-400) MPV 10.2 fL fL (8.7-11.7) Neut % (Auto) 51.4 % % (39.3-74.2) Lymph % (Auto) 37.6 % % (15.0-45.0) Morrison % (Auto) 5.5 % % (4.5-13.0) Eos % (Auto) 4.5 % % (0.6-7.6) Baso % (Auto) 0.7 % % (0.3-1.7) Nucleat RBC Rel Count 0.0 % % (0.0-0.2) Absolute Neuts (auto) 3.58 10^3/uL 10^3/uL (1.70-6.50) Absolute Lymphs (auto) 2.62 10^3/uL 10^3/uL (1.00-3.00) Absolute Monos (auto) 0.38 10^3/uL 10^3/uL (0.30-0.80) Absolute Eos (auto) 0.31 10^3/uL 10^3/uL (0.03-0.40) Absolute Basos (auto) 0.05 10^3/uL 10^3/uL (0.02-0.10) Absolute Nucleated RBC 0.00 10^3/uL 10^3/uL (0-0.01) Immature Gran % 0.3 % % (0.0-1.1) Immature Gran # 0.02 10^3/uL 10^3/uL (0.00-0.10) Sodium 141 mEq/L mEq/L (135-145) Potassium 3.9 mEq/L mEq/L (3.3-5.0) Chloride 103 mEq/L mEq/L (97-110) Carbon Dioxide 26 mEq/l mEq/l (22-31) Anion Gap 12 mEq/L mEq/L (8-16) BUN 6 mg/dL L mg/dL (7-23) Creatinine 0.7 mg/dL mg/dL (0.7-1.3) Estimated GFR > 60 Glucose 106 mg/dL H mg/dL (70-100) Calcium 9.0 mg/dL mg/dL (8.5-10.4) Lipase 71 IU/L IU/L (23-300) Ethyl Alcohol 336 mg/dL H mg/dL (0-10) Medications Given: Discontinued Medications Sodium Chloride (Ns) 1,000 mls @ 0 mls/hr IV EDNOW ONE; Wide Open PRN Reason: Protocol Stop: 03/08/18 23:49 Last Admin: 03/09/18 00:39 Dose: 1,000 mls Departure - Departure Disposition: Home, Routine, Self-Care Clinical Impression: Alcoholism, Alcohol abuse Condition: Good Instructions: Alcohol Intoxication (ED), Abuse of Alcohol (ED) Referrals: NONE *PRIMARY CARE P,. [Primary Care Provider] - As per Instructions
[2018-03-09 01:18] LABS: PLATELET COUNT 153 10^3/uL (150-400)
[2018-03-09 04:49] VITALS: BP 125/80
== END 2018-03-09 04:49 | disposition home or self-care (01) ==
LOC: EDUNIT#
DX: F10.220 Alcohol dependence with intoxication, uncomplicated (principal); Y90.8 Blood alcohol level of 240 mg/100 ml or more; E86.9 Volume depletion, unspecified; I10 Essential (primary) hypertension; Z87.19 Personal history of other diseases of the digestive system
CPT/HCPCS: G0480

== ENCOUNTER 2018-03-10 17:57 | Emergency (ER) | payer SELFPAY ==
--- NOTE | 2018-03-10 18:04 | EDPHY ---
H & P Smoking Status: Never smoked Time Seen by Provider: 03/10/18 18:03 HPI/ROS: CHIEF COMPLAINT: Fall with facial laceration HISTORY OF PRESENT ILLNESS: Patient was found on the ground by passerby on [facility], with 2 empty vodka bottles nearby. Patient admits to drinking alcohol and is known to consume alcohol regularly. Tells me he lost his balance and fell down. Presents with a laceration over his right eyebrow. Pain over the right side of the forehead but otherwise no head or neck symptoms. No other complaints except for chronic abdominal pain which is unchanged. REVIEW OF SYSTEMS: Eye: no change in vision ENT: no sore throat Cardiac: no chest pain or syncope Pulmonary: no cough or SOB Abdomen: Denies vomiting or diarrhea, chronic abdominal pain as above Musculoskeletal: no back pain or neck pain or extremity injury Skin: Facial laceration only Neuro: no headache Constitutional: no fever : no urinary symptoms A comprehensive 10 point review of systems is otherwise negative aside from elements mentioned in the history of present illness. PAST MEDICAL HISTORY: Alcoholism, depression, pancreatitis, hypertension Social history: Recent vodka General Appearance: Alert and conversant, cooperative. Eyes: No scleral icterus. Pupils equal reactive extraocular motion intact, 3 mm. 1.5 cm right eyebrow laceration. ENT, Mouth: Normal mucous membranes. Respiratory: Normal respiratory effort, breath sounds equal, lungs are clear to auscultation. Cardiovascular: Regular rate and rhythm. Gastrointestinal: Abdomen is soft and non tender. Neurological: Alert, face symmetric, normal motor and sensory in extremities. Slurred speech and not complete sentences, but otherwise responding appropriately to commands. Skin: Negative except for facial laceration. Musculoskeletal: No spinal or extremity or clavicular tenderness. Psychiatric: Not agitated. Emergency Department course/MDM: Head and cervical spine CT ordered with head injury, alcohol intoxication, altered mental status was GCS 14. Procedure: Laceration repair. Verbal consent was obtained from the patient. The 1.5 cm laceration on the right eyebrow was anesthetized using 0.5% bupivacaine with epinephrine. The wound was irrigated with standard emergency department protocol, draped and explored. There were no deep structures involved. No tendon injury was identified. No foreign body found. The wound was repaired with buried 5 0 Vicryl. The wound repair was simple. Excellent hemostasis was obtained. Wound care instructions were discussed and the patient was warned regarding scarring. The procedure was performed by myself. 1849: Negative CT head and cervical spine per Dr. Castaneda, patient cleared clinically at this time. Plan for serial examination then discharge to detox. 1941: Signed out to Dr. Reddy pending discharge to detox, serial exams. (Leyla Ly) Constitutional: Initial Vital Signs Temperature (C) 36.8 C 03/10/18 18:01 Heart Rate 88 03/10/18 18:01 Respiratory Rate 18 03/10/18 18:01 Blood Pressure 128/84 H 03/10/18 18:01 O2 Sat (%) 91 L 03/10/18 18:01 O2 Delivery Mode Room Air Allergies/Adverse Reactions: No Known Allergies Allergy (Verified 03/10/18 18:03) Home Medications: Medication Instructions Recorded Meloxicam 7.5 mg PO DAILY 12/08/17 Hydrochlorothiazide [HCTZ (*)] 25 mg PO DAILY #30 cap 12/13/17 Hydrochlorothiazide [HCTZ (*)] 25 mg PO DAILY #30 tab 12/13/17 Lisinopril [Zestril 20 mg (*)] 20 mg PO DAILY #30 tab 12/13/17 Lisinopril [Zestril 20 mg (*)] 20 mg PO DAILY #30 tab 12/13/17 oxyCODONE IR [Oxycodone Ir (*)] 5 - 10 mg PO Q6HRS PRN #10 tab 12/13/17 oxyCODONE IR [Oxycodone Ir (*)] 5 mg PO Q4HRS PRN #10 tab 12/13/17 Medical Decision Making - Diagnostics Imaging: Discussed imaging studies w/ train caller Radiologist - Diagnostics Imaging Results: Imaging Impressions Cervical Spine CT 03/10/18 18:03 Impression: 1. No acute intracranial posttraumatic sequela identified. 2. Right periorbital soft tissue trauma. 3. Bilateral cerumen, left greater than right. 2. CT Cervical Spine Without Contrast, 18:07 History: Trauma. Fall. Technique: Multi-slice ultrathin single breath-hold helical CT through the neck from the skull base through the thoracic inlet without contrast. Soft tissue and bone window evaluation is performed. Sagittal and coronal reconstructions are obtained. Dose reduction techniques were utilized. Findings: There is a small amount of patient motion artifact present. Alignment is anatomic. No fracture or dislocation is identified. Disk spaces are well maintained, except for moderate degenerative narrowing of the C5-C6 disk space where there are both small dorsal and ventral osteophytes present.. Facets are normally aligned and are intact. There is degenerative facet disease greatest on the right between C2 and C4. The skull base - C1 and C1-C2 relationships are normal. 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 The odontoid process is intact. There is no evidence of a prevertebral or epidural hematoma. The cervical thoracic junction is normally aligned. Incidentally noted is a large macrocalcification in the right mid thyroid gland. Impression: Nothing acute identified. If there is concern for instability, then consider lateral flexion-extension views, cervical fluoroscopy and/or cervical MRI. Results called and discussed with LEYLA LY, at 03/10/2018 18:46 General information for patients regarding this examination can be found at [email or web address]. If you have questions or comments about this report, please contact me at [phone](hospital) or [phone] (cell). Head CT 03/10/18 18:03 Impression: 1. No acute intracranial posttraumatic sequela identified. 2. Right periorbital soft tissue trauma. 3. Bilateral cerumen, left greater than right. 2. CT Cervical Spine Without Contrast, 18:07 History: Trauma. Fall. Technique: Multi-slice ultrathin single breath-hold helical CT through the neck from the skull base through the thoracic inlet without contrast. Soft tissue and bone window evaluation is performed. Sagittal and coronal reconstructions are obtained. Dose reduction techniques were utilized. Findings: There is a small amount of patient motion artifact present. Alignment is anatomic. No fracture or dislocation is identified. Disk spaces are well maintained, except for moderate degenerative narrowing of the C5-C6 disk space where there are both small dorsal and ventral osteophytes present.. Facets are normally aligned and are intact. There is degenerative facet disease greatest on the right between C2 and C4. The skull base - C1 and C1-C2 relationships are normal. 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 The odontoid process is intact. There is no evidence of a prevertebral or epidural hematoma. The cervical thoracic junction is normally aligned. Incidentally noted is a large macrocalcification in the right mid thyroid gland. Impression: Nothing acute identified. If there is concern for instability, then consider lateral flexion-extension views, cervical fluoroscopy and/or cervical MRI. Results called and discussed with LEYLA LY, at 03/10/2018 18:46 General information for patients regarding this examination can be found at [email or web address]. If you have questions or comments about this report, please contact me at (hospital) or [phone] (cell). Differential Diagnosis: Differential diagnosis considered for head injury including but not limited to concussion, skull fracture, intraparenchymal contusion, subarachnoid, subdural and epidural hematoma. (Leyla Ly) Other Provider: I assumed care of the patient at 8:00 p.m. pending further sobriety. 9:00 p.m.: The patient is ambulatory in the emergency department and will be discharged per Dr. Ly's instructions. (Philip Reddy) Departure - Departure Disposition: Home, Routine, Self-Care Clinical Impression: Acute alcohol intoxication Qualifiers: Complication of substance-induced condition: uncomplicated Qualified Code(s): F10.929 - Alcohol use, unspecified with intoxication, unspecified Laceration of eyebrow, right Qualifiers: Encounter type: initial encounter Qualified Code(s): S01.111A - Laceration without foreign body of right eyelid and periocular area, initial encounter Condition: Good Instructions: Laceration (ED), Head Injury (ED), Alcohol Intoxication (ED) Referrals: [facility],. [Clinic] - As per Instructions
[2018-03-10] MEDS ORDERED: SKIN ADHESIVE (DERMABOND) 1 EACH TP ONE (18:20)
[2018-03-10] MEDS ORDERED: CHLORDIAZEPOXIDE 25MG PREPK#6 BTL TAKEHOME ONE (21:02)
[2018-03-10 21:32] VITALS: BP 143/74
== END 2018-03-10 21:35 | disposition home or self-care (01) ==
LOC: EDUNIT# → EDAGE
PROC: 0HQ1XZZ Repair Face Skin, External Approach (ICD-10-PCS; principal; 2018-03-10)
DX: S01.81XA Laceration without foreign body of other part of head, initial encounter (principal); I10 Essential (primary) hypertension; F10.929 Alcohol use, unspecified with intoxication, unspecified; W19.XXXA Unspecified fall, initial encounter; Y92.9 Unspecified place or not applicable; Y93.9 Activity, unspecified; Y99.9 Unspecified external cause status

== ENCOUNTER 2018-03-11 09:56 | Emergency (ER) | payer MEDICAID ==
[2018-03-11 10:05] VITALS: BP 159/106
--- NOTE | 2018-03-11 10:11 | EDPHY ---
H & P Stated Complaint: N/V since 2199 last night, ETOH yest., denies bleeding Time Seen by Provider: 03/11/18 10:06 HPI/ROS: CHIEF COMPLAINT: "I think it's my pancreatitis" HISTORY OF PRESENT ILLNESS: 62-year-old male took a taxi to the emergency department from [facility] complaining epigastric abdominal pain and diarrhea which started this morning. He was seen the ER yesterday and since [facility]. At yesterday's emergency department visit he was found on the ground, had negative CT imaging the head and C-spine. Today he states that he woken [facility] with epigastric pain, vomiting , diarrhea is concerned about pancreatitis. He denies: Hallucination, seizure, chest pain, dyspnea, back pain, testicular pain PRIMARY CARE PROVIDER: REVIEW OF SYSTEMS: 10 systems reviewed and negative with the exception of the elements mentioned in the history of present illness PAST MEDICAL & SURGICAL HISTORY: Alcoholism. Pancreatitis. SOCIAL HISTORY: Last drink alcohol yesterday afternoon PHYSICAL EXAM (Prior to examination, patient consented to physical exam, hands were washed and my usual and customary physical exam procedures followed) 1) GENERAL: Well-developed, well-nourished, alert and oriented. Appears to be in no acute distress. 2) HEAD: Normocephalic, right frontal laceration abrasion granulating appropriately no signs of infection. 3) HEENT: Pupils equal, round, reactive to light bilaterally. Sclera anicteric. Nasopharynx, oropharynx, clear, no lesions. MoistDry mucous membranes. Ears bilaterally with normal tympanic membranes. 4) NECK: Full range of motion, no meningeal signs. 5) LUNGS: Clear auscultation bilaterally, no wheezes, no rhonchi, no retractions. 6) HEART: Regular rate and rhythm, no murmur, no heave, no gallop. 7) ABDOMEN: tender to palpation epigastrium, negative McBurney's, negative Maxwell's, negative Rovsing's, negative peritoneal sign, 8) MUSCULOSKELETAL: Moving all extremities, no focal areas of tenderness, no obvious trauma. No peripheral edema or discoloration. 9) BACK: No CVA tenderness, no midline vertebral tenderness, no fluctuance, no step-off, no obvious trauma, no visual or palpable abnormality. 10) SKIN: No rash, no petechiae. 11) Psychiatric: Patient is oriented X 3, answering questions appropriately, observed ambulating from the waiting room to his exam bed with stable steady gait without assistance, there is no agitation. Tremulous DIFFERENTIAL DIAGNOSIS: In no particular order including but not limited to acute pancreatitis, acute alcohol withdrawal, AAA, [place] - Personal History Current Tetanus/Diphtheria Vaccine: Yes Tetanus Vaccine Date: 06/21/2009 - Medical/Surgical History Hx Asthma: No Hx Chronic Respiratory Disease: No Hx Diabetes: No Hx Cardiac Disease: No Hx Renal Disease: No Hx Cirrhosis: No Hx Alcoholism: Yes Hx HIV/AIDS: No Hx Splenectomy or Spleen Trauma: No Other PMH: Pancreatitis, alcoholism, htn, depression, numbness/tingling feet, leg weakness - Social History Smoking Status: Never smoked Constitutional: Initial Vital Signs Temperature (C) 36.9 C 03/11/18 10:03 Heart Rate 118 H 03/11/18 10:03 Respiratory Rate 20 03/11/18 10:03 Blood Pressure 159/106 H 03/11/18 10:03 O2 Sat (%) 96 03/11/18 10:03 O2 Delivery Mode Room Air Allergies/Adverse Reactions: No Known Allergies Allergy (Verified 03/11/18 10:03) Home Medications: Medication Instructions Recorded Meloxicam 7.5 mg PO DAILY 12/08/17 Hydrochlorothiazide [HCTZ (*)] 25 mg PO DAILY #30 cap 12/13/17 Hydrochlorothiazide [HCTZ (*)] 25 mg PO DAILY #30 tab 12/13/17 Lisinopril [Zestril 20 mg (*)] 20 mg PO DAILY #30 tab 12/13/17 Lisinopril [Zestril 20 mg (*)] 20 mg PO DAILY #30 tab 12/13/17 oxyCODONE IR [Oxycodone Ir (*)] 5 - 10 mg PO Q6HRS PRN #10 tab 12/13/17 oxyCODONE IR [Oxycodone Ir (*)] 5 mg PO Q4HRS PRN #10 tab 12/13/17 Medical Decision Making ED Course/Re-evaluation: 10:10 a.m.: I reviewed the patient's old medical records produce seen the ER yesterday post suspected alcohol intoxication fall, head negative CT head and C- spine imaging at that time. Patient is tender to palpation epigastrium. I have recommended checking diagnostic studies at which point he says "Fuck it, I' m just going to leave" and walked out. As he was walking out I recommend he return so that we may perform further evaluation on him however he kept on walking. He did not receive aftercare instructions. I saw this patient independently based on established practice protocols. Care of patient under supervision of secondary supervising physician Dr Burt . Departure - Departure Disposition: Against Medical Advice Clinical Impression: Epigastric abdominal pain Condition: Fair Referrals: NONE *PRIMARY CARE P,. [Primary Care Provider] - As per Instructions
== END 2018-03-11 10:10 | disposition left against medical advice (07) ==
DX: R10.13 Epigastric pain (principal); Z53.20 Procedure and treatment not carried out because of patient's decision for unspecified reasons

== ENCOUNTER 2018-03-11 15:43 | Emergency (ER) | payer MEDICAID ==
[2018-03-11 15:50] VITALS: BP 167/98
--- NOTE | 2018-03-11 16:01 | EDPHY ---
H & P Stated Complaint: "I'm really sick", poss W/D - Personal History Current Tetanus/Diphtheria Vaccine: Yes Tetanus Vaccine Date: 06/21/2009 - Medical/Surgical History Hx Asthma: No Hx Chronic Respiratory Disease: No Hx Diabetes: No Hx Cardiac Disease: No Hx Renal Disease: No Hx Cirrhosis: No Hx Alcoholism: Yes Hx HIV/AIDS: No Hx Splenectomy or Spleen Trauma: No Other PMH: Pancreatitis, alcoholism, htn, depression, numbness/tingling feet, leg weakness - Social History Smoking Status: Never smoked Time Seen by Provider: 03/11/18 15:52 HPI/ROS: CHIEF COMPLAINT: "I'm withdrawing and my pancreas hurts" HISTORY OF PRESENT ILLNESS: 62-year-old male familiar to emergency department staff walked to the ER complaining of acute alcohol withdrawal symptoms, feeling tremulous, anxious, experiencing epigastric pain. Patient was seen the ER a few hours ago by myself and walked out the within a few minutes of my evaluating him stating that he was unhappy with level of service. He did not receive any diagnostic studies at that time. States that he has been wandering the wandering the bike paths of [place] ever since and decided to come back to the hospital. Denies: Fall, seizure, hallucination, suicidal homicidal ideation. Patient was seen the ER last evening was noted to have head injury and had negative CT head and C-spine imaging at that time. REVIEW OF SYSTEMS: 10 systems reviewed and negative with the exception of the elements mentioned in the history of present illness PAST MEDICAL & SURGICAL HISTORY: History of alcoholism. History of alcoholic pancreatitis. SOCIAL HISTORY: Homeless. Last drink of alcohol last evening PHYSICAL EXAM (Prior to examination, patient consented to physical exam, hands were washed and my usual and customary physical exam procedures followed) 1) GENERAL: Well-developed, well-nourished, alert and oriented. Appears anxious 2) HEAD: Normocephalic, right frontal scalp lesion granulating appropriately with no signs of infection. 3) HEENT: Pupils equal, round, reactive to light bilaterally. Sclera anicteric. Nasopharynx, oropharynx, clear, no lesions. MoistDry mucous membranes. Ears bilaterally with normal tympanic membranes. 4) NECK: Full range of motion, no meningeal signs. 5) LUNGS: Clear auscultation bilaterally, no wheezes, no rhonchi, no retractions. 6) HEART: Regular rate and rhythm, no murmur, no heave, no gallop. 7) ABDOMEN: No guarding, no rebound, no focal tenderness, negative McBurney's, negative Maxwell's, negative Rovsing's, negative peritoneal sign, 8) MUSCULOSKELETAL: Moving all extremities, no focal areas of tenderness, no obvious trauma. No peripheral edema or discoloration. 9) BACK: No CVA tenderness, no midline vertebral tenderness, no fluctuance, no step-off, no obvious trauma, no visual or palpable abnormality. 10) SKIN: No rash, no petechiae. 11) Psychiatric: Patient is oriented X 3, there is no agitation. Tremulous. DIFFERENTIAL DIAGNOSIS: In no particular order including but not limited to alcohol withdrawal, alcohol withdrawal seizure, delirium tremens (Claudia,Carmen Miroslava) Constitutional: Initial Vital Signs Temperature (C) 37.0 C 03/11/18 15:47 Heart Rate 124 H 03/11/18 15:47 Respiratory Rate 20 03/11/18 15:47 Blood Pressure 167/98 H 03/11/18 15:47 O2 Sat (%) 98 03/11/18 15:47 O2 Delivery Mode Room Air Allergies/Adverse Reactions: No Known Allergies Allergy (Verified 03/11/18 10:03) Home Medications: Medication Instructions Recorded Meloxicam 7.5 mg PO DAILY 12/08/17 Hydrochlorothiazide [HCTZ (*)] 25 mg PO DAILY #30 cap 12/13/17 Hydrochlorothiazide [HCTZ (*)] 25 mg PO DAILY #30 tab 12/13/17 Lisinopril [Zestril 20 mg (*)] 20 mg PO DAILY #30 tab 12/13/17 Lisinopril [Zestril 20 mg (*)] 20 mg PO DAILY #30 tab 12/13/17 oxyCODONE IR [Oxycodone Ir (*)] 5 - 10 mg PO Q6HRS PRN #10 tab 12/13/17 oxyCODONE IR [Oxycodone Ir (*)] 5 mg PO Q4HRS PRN #10 tab 12/13/17 Medical Decision Making ED Course/Re-evaluation: 4:01 p.m.: Will check laboratory studies including lipase administer IV fluids , IV Ativan, oral folate and thiamine. States that he may consider [facility]. At this time, doubt delirium tremens. I saw this patient independently based on established practice protocols. Care of patient under supervision of secondary supervising physician Dr Kirkland with whom I discussed care. 4:41 p.m.: ER staff difficulty obtaining IV access on the patient, 11 attempts were unsuccessful obtaining peripheral access at which point the patient declined further intervention. States that he would like oral benzodiazepine and would like to go to the [facility]. Doubt delirium tremens. Doubt Wernickes encephalopathy. (Carmen Taylor) Other Provider: PHYSICIAN DOCUMENTATION: The patient was evaluated and managed by the Physician Associate Brand Manager and myself. I have reviewed the chart and agree with the findings and plan of care as documented. In addition, I examined the patient myself at 1655. History confirmed as currently does not have any abdominal pain. Physical findings as follows: Abdominal nontender, ambulatory without assistance or ataxia, slightly tremulous. Answers questions appropriately. I am the secondary supervising physician. (Bulmaro Kirkland) - Data Points Medications Given: Discontinued Medications Chlordiazepoxide (Librium 25 Mg Prepack#6) 1 btl TAKEHOME EDNOW ONE Stop: 03/11/18 16:43 Last Admin: 03/11/18 16:51 Dose: 1 btl Folic Acid (Folic Acid) 1 mg PO EDNOW ONE Stop: 03/11/18 16:07 Last Admin: 03/11/18 17:00 Dose: 1 mg Lorazepam (Ativan Injection) 2 mg IVP EDNOW ONE Stop: 03/11/18 16:07 Last Admin: 03/11/18 16:43 Dose: Not Given Lorazepam (Ativan) 2 mg PO EDNOW ONE Stop: 03/11/18 16:43 Last Admin: 03/11/18 16:51 Dose: 2 mg Thiamine HCl (Vitamin B-1) 100 mg PO EDNOW ONE Stop: 03/11/18 16:07 Last Admin: 03/11/18 16:51 Dose: 100 mg Departure - Departure Disposition: Home, Routine, Self-Care Clinical Impression: Alcohol withdrawal syndrome Condition: Fair Instructions: Chlordiazepoxide (By mouth), Abuse of Alcohol (ED) Additional Instructions: Please consider long-term sobriety Referrals: [facility] [Outside] - As per Instructions
[2018-03-11] MEDS ORDERED: LORazepam 1 MG TAB PO PRN (16:06)
[2018-03-11] MEDS ORDERED: THIAMINE HCL 100 MG TAB PO ONE (16:06)
[2018-03-11] MEDS ORDERED: FOLIC ACID 1 MG TAB PO ONE (16:06)
[2018-03-11] MEDS ORDERED: LORazepam 2 MG/ML INJ IVP PRN (16:06)
[2018-03-11] MEDS ORDERED: LORazepam 2 MG/ML INJ IVP ONE (16:06)
[2018-03-11] MEDS ORDERED: CHLORDIAZEPOXIDE 25MG PREPK#6 BTL TAKEHOME ONE (16:42)
[2018-03-11] MEDS ORDERED: LORazepam 1 MG TAB PO ONE (16:42)
== END 2018-03-11 17:00 | disposition home or self-care (01) ==
DX: F10.239 Alcohol dependence with withdrawal, unspecified (principal)

== ENCOUNTER 2018-05-19 00:04 | Emergency (ER) | payer OTHER ==
[2018-05-19] MEDS ORDERED: NS 1,000 ML IV ONE (00:21)
--- NOTE | 2018-05-19 00:21 | EDPHY ---
H & P Stated Complaint: epigastric pain for 6 hours Time Seen by Provider: 05/19/18 00:18 HPI/ROS: Chief Complaint: Epigastric pain HPI: 63-year-old male well known to this emergency department history of chronic alcohol abuse and pancreatitis. He is presenting with epigastric pain which has been going on for the course the day. Patient states his drink was just couple hours ago. No nausea or vomiting. No black tarry stools. No fevers or chills. ROS: 10 systems were reviewed and were negative except those elements noted in the HPI. PMH: Pancreatitis, chronic alcohol abuse Social History: No smoking, daily heavy alcohol Family History: non-contributory Physical Exam: Gen: Awake, Alert, No Distress HEENT: Nose: no rhinorrhea Eyes: PERRLA, EOMI Mouth: Moist mucosa Neck: Supple, no JVD Chest: nontender, lungs clear to auscultation Heart: S1, S2 normal, no murmur Abd: Soft, moderate diffuse tenderness primarily epigastrium, large ventral hernia, easily reducible noted., no guarding Back: no CVA tenderness, no midline tenderness Ext: no edema, non-tender Skin: no rash Neuro: CN II-XII intact, Sensation grossly intact, Strength 5/5 in bilateral upper and lower extremities - Personal History Current Tetanus/Diphtheria Vaccine: Yes Current Tetanus Diphtheria and Acellular Pertussis (TDAP): Yes Tetanus Vaccine Date: 06/21/2009 - Medical/Surgical History Hx Asthma: No Hx Chronic Respiratory Disease: No Hx Diabetes: No Hx Cardiac Disease: No Hx Renal Disease: No Hx Cirrhosis: No Hx Alcoholism: Yes Hx HIV/AIDS: No Hx Splenectomy or Spleen Trauma: No Other PMH: Pancreatitis, alcoholism, htn, depression, numbness/tingling feet, leg weakness - Social History Smoking Status: Never smoked Constitutional: Initial Vital Signs Temperature (C) 36.6 C 05/19/18 00:09 Heart Rate 79 05/19/18 00:09 Respiratory Rate 18 05/19/18 00:09 Blood Pressure 139/86 H 05/19/18 00:09 O2 Sat (%) 94 05/19/18 00:09 O2 Delivery Mode Nasal Cannula O2 (L/minute) 2 Allergies/Adverse Reactions: No Known Allergies Allergy (Verified 05/19/18 00:11) Home Medications: Medication Instructions Recorded Meloxicam 7.5 mg PO DAILY 12/08/17 Hydrochlorothiazide [HCTZ (*)] 25 mg PO DAILY #30 cap 12/13/17 Lisinopril [Zestril 20 mg (*)] 20 mg PO DAILY #30 tab 12/13/17 oxyCODONE IR [Oxycodone Ir (*)] 5 - 10 mg PO Q6HRS PRN #10 tab 12/13/17 Medical Decision Making ED Course/Re-evaluation: 63-year-old male [facility] with chronic alcohol abuse and pancreatitis. His liver function tests is lipase are normal today. He has a normal white count. Symptoms are consistent with alcoholic gastritis. I have given him a GI cocktail. Plan will be to [facility], return for any concerns. No evidence of acute intra-abdominal infection obstruction or surgical pathology at this time. - Data Points Laboratory Results: Laboratory Results 05/19/18 00:30 05/19/18 00:30 05/19/18 05/19/18 00:30 00:30 WBC 7.70 10^3/uL 10^3/uL (3.80-9.50) RBC 4.60 10^6/uL 10^6/uL (4.40-6.38) Hgb 13.3 g/dL L g/dL (13.7-17.5) Hct 38.8 % L % (40.0-51.0) MCV 84.3 fL fL (81.5-99.8) MCH 28.9 pg pg (27.9-34.1) MCHC 34.3 g/dL g/dL (32.4-36.7) RDW 13.5 % % (11.5-15.2) Plt Count 119 10^3/uL L 10^3/uL (150-400) MPV 10.3 fL fL (8.7-11.7) Neut % (Auto) 63.9 % % (39.3-74.2) Lymph % (Auto) 24.0 % % (15.0-45.0) [place] % (Auto) 9.2 % % (4.5-13.0) Eos % (Auto) 1.9 % % (0.6-7.6) Baso % (Auto) 0.4 % % (0.3-1.7) Nucleat RBC Rel Count 0.0 % % (0.0-0.2) Absolute Neuts (auto) 4.91 10^3/uL 10^3/uL (1.70-6.50) Absolute Lymphs (auto) 1.85 10^3/uL 10^3/uL (1.00-3.00) Absolute Monos (auto) 0.71 10^3/uL 10^3/uL (0.30-0.80) Absolute Eos (auto) 0.15 10^3/uL 10^3/uL (0.03-0.40) Absolute Basos (auto) 0.03 10^3/uL 10^3/uL (0.02-0.10) Absolute Nucleated RBC 0.00 10^3/uL 10^3/uL (0-0.01) Immature Gran % 0.6 % % (0.0-1.1) Immature Gran # 0.05 10^3/uL 10^3/uL (0.00-0.10) Sodium 139 mEq/L mEq/L (135-145) Potassium 3.6 mEq/L mEq/L (3.3-5.0) Chloride 105 mEq/L mEq/L (97-110) Carbon Dioxide 22 mEq/l mEq/l (22-31) Anion Gap 12 mEq/L mEq/L (6-14) BUN 12 mg/dL mg/dL (7-23) Creatinine 0.6 mg/dL L mg/dL (0.7-1.3) Estimated GFR > 60 Glucose 149 mg/dL H mg/dL (70-100) Calcium 8.9 mg/dL mg/dL (8.5-10.4) Total Bilirubin 0.5 mg/dL mg/dL (0.1-1.4) AST 35 IU/L IU/L (17-59) ALT 40 IU/L IU/L (21-72) Alkaline Phosphatase 52 IU/L IU/L (38-126) Total Protein 6.4 g/dL g/dL (6.3-8.2) Albumin 3.9 g/dL g/dL (3.5-5.0) Lipase 49 IU/L IU/L (23-300) Medications Given: Discontinued Medications Al Hydroxide/Mg Hydroxide (Maalox Susp) 30 ml PO ONCE ONE Stop: 05/19/18 01:20 Last Admin: 05/19/18 01:26 Dose: 30 ml Sodium Chloride (Ns) 1,000 mls @ 0 mls/hr IV ONCE ONE; Wide Open PRN Reason: Protocol Stop: 05/19/18 00:22 Last Admin: 05/19/18 00:29 Dose: 1,000 mls Lidocaine (Lidocaine 2% Viscous) 15 ml PO ONCE ONE Stop: 05/19/18 01:20 Last Admin: 05/19/18:26 Dose: 15 ml Departure - Departure Disposition: Home, Routine, Self-Care Clinical Impression: Alcohol dependence, Chronic abdominal pain Condition: Good Instructions: Gastritis (ED), Alcohol Dependence (ED), Alcohol Use Disorder (ED ) Additional Instructions: Follow up with primary care physician in 3-4 days for further evaluation. Return to the emergency department for increasing abdominal pain, uncontrolled nausea vomiting, seizures, chest pain, shortness of breath, or any other concerns. Referrals: Lyndsay Wilson, PAC [Primary Care Provider] - As per Instructions
[2018-05-19] MEDS ORDERED: fentaNYL 100 MCG/2 ML INJ ONE (00:34)
[2018-05-19] MEDS ORDERED: ONDANSETRON 4 MG/2 ML VIAL ONE (00:35)
[2018-05-19 01:01] LABS: PLATELET COUNT 119 10^3/uL (150-400)
[2018-05-19] MEDS ORDERED: MAG HYDROX/AL HYDROX/SIMETH 30 ML UDCUP PO ONE (01:19)
[2018-05-19] MEDS ORDERED: LIDOCAINE 2% VISCOUS 15 ML UDCUP PO ONE (01:19)
[2018-05-19 06:12] VITALS: BP 115/74
== END 2018-05-19 06:24 | disposition home or self-care (01) ==
LOC: EDUNIT#
DX: K29.70 Gastritis, unspecified, without bleeding (principal); I10 Essential (primary) hypertension; F10.10 Alcohol abuse, uncomplicated; K85.90 Acute pancreatitis without necrosis or infection, unspecified; E86.9 Volume depletion, unspecified
CPT/HCPCS: 96360; 99284; J2405; J3010

== ENCOUNTER 2018-07-08 15:25 | Emergency (ER) | payer OTHER ==
[2018-07-08 15:27] VITALS: BP 178/100
--- NOTE | 2018-07-08 15:36 | EDPHY ---
H & P Time Seen by Provider: 07/08/18 15:31 HPI/ROS: CHIEF COMPLAINT: Medical screening for incarceration HISTORY OF PRESENT ILLNESS: 63-year-old male well known to emergency department staff arrives via police in custody of police for medical screening prior to incarceration. No complaints of pain or discomfort. However patient was unable to ambulate due to suspected alcohol abuse. He was able to ambulate into the emergency department in custody of police. Denies hallucination. Denies seizure. Denies suicidal or homicidal ideation. REVIEW OF SYSTEMS: 10 systems reviewed and negative with the exception of the elements mentioned in the history of present illness PAST MEDICAL & SURGICAL HISTORY: history of alcohol abuse SOCIAL HISTORY: Admits to recent alcohol use PHYSICAL EXAM (Prior to examination, patient consented to physical exam, hands were washed and my usual and customary physical exam procedures followed) 1) GENERAL: poorly kept, alert and oriented. Appears to be in no acute distress. Smells of alcohol 2) HEAD: Normocephalic, atraumatic 3) HEENT: Pupils equal, round, reactive to light bilaterally. Sclera anicteric. 4) NECK: Full range of motion, no meningeal signs. 5) LUNGS: Clear auscultation bilaterally, no wheezes, no rhonchi, no retractions. 6) HEART: Regular rate and rhythm, no murmur, no heave, no gallop. 7) ABDOMEN: No guarding, no rebound, no focal tenderness, negative McBurney's, negative Maxwell's, negative Rovsing's, negative peritoneal sign, 8) MUSCULOSKELETAL: Moving all extremities, no focal areas of tenderness, no obvious trauma. No peripheral edema or discoloration. 9) BACK: No CVA tenderness, no midline vertebral tenderness, no fluctuance, no step-off, no obvious trauma, no visual or palpable abnormality. 10) SKIN: No rash, no petechiae. 11) Psychiatric: Patient is oriented X 3, there is no agitation. DIFFERENTIAL DIAGNOSIS: In no particular order including but not limited to acute alcohol abuse, suicidal ideation, homicidal ideation Smoking Status: Never smoked Constitutional: Initial Vital Signs Temperature (C) 36.8 C 07/08/18 15:26 Heart Rate 108 H 07/08/18 15:26 Respiratory Rate 18 07/08/18 15:26 Blood Pressure 178/100 H 07/08/18 15:26 O2 Sat (%) 92 07/08/18 15:26 O2 Delivery Mode Room Air Allergies/Adverse Reactions: No Known Allergies Allergy (Verified 05/19/18 00:11) Home Medications: Medication Instructions Recorded Meloxicam 7.5 mg PO DAILY 12/08/17 Hydrochlorothiazide [HCTZ (*)] 25 mg PO DAILY #30 cap 12/13/17 Lisinopril [Zestril 20 mg (*)] 20 mg PO DAILY #30 tab 12/13/17 oxyCODONE IR [Oxycodone Ir (*)] 5 - 10 mg PO Q6HRS PRN #10 tab 12/13/17 MDM/Departure - MDM ED Course/Re-evaluation: 3:34 p.m.: Patient is well known to emergency department staff for history of chronic alcohol abuse. No complaints of pain or discomfort. No trauma or fall. Initial concerns by the police that the patient was unable to ambulate due to acute alcohol abuse. He was able to ambulate into the emergency department by without assistance. He will be discharged to intermediate in custody of police. He is medically screened for incarceration. Care of patient under supervision of secondary supervising physician Dr Kirkland . - Depart Disposition: Law Enforcement/Court/[facility] Clinical Impression: Alcohol abuse Condition: Good Instructions: Abuse of Alcohol (ED) Additional Instructions: Please consider long-term sobriety from alcohol. You are medically screened for incarceration. Referrals: [facility],. [Clinic] - As per Instructions
== END 2018-07-08 15:48 ==
DX: F10.920 Alcohol use, unspecified with intoxication, uncomplicated (principal)

== ENCOUNTER 2018-07-09 20:37 | Emergency (ER) | payer OTHER ==
[2018-07-09] MEDS ORDERED: NS 1,000 ML IV ONE (21:04)
--- NOTE | 2018-07-09 21:08 | EDPHY ---
General Time Seen by Provider: 07/09/18 21:05 Narrative: CLINICAL IMPRESSION: Abdominal pain, intoxication ASSESSMENT/PLAN: Patient is a 63-year-old man who is well known to our facility, history of chronic pancreatitis and alcohol abuse presents with abdominal pain, nausea, vomiting and diarrhea. Patient is afebrile, he is disheveled in appearance, not toxic-appearing. His abdomen was soft and nondistended, generalized, nonfocal tenderness to palpation; no peritoneal signs or evidence of a surgical abdomen. CBC revealed no evidence of leukocytosis. His vital signs were reviewed and there was no evidence of sepsis or serious bacterial illness. BMP revealed no significant metabolic abnormality. Lipase and hepatic panel revealed grossly unremarkable, no findings to suggest acute pancreatitis flare, acute hepatobiliary obstruction or acute pancreatitis. ETOH level 230. History and physical examination is most consistent with acute alcohol abuse and intoxication as well as acute on chronic abdominal pain. The patient's records were reviewed in he was seen and evaluated at [facility] earlier this morning for the same symptoms, had a reassuring workup, given Librium and discharged. Based on reassuring laboratory studies and nonfocal abdominal exam , I did not feel that any imaging was warranted. There were any findings at this time to suggest bowel perforation, bowel obstruction, acute appendicitis, acute cholecystitis, acute pancreatitis, AAA, ACS or other acute intra- abdominal surgical process. There were no findings to suggest alcohol withdrawal. The patient was given IV fluids, Pepcid, Toradol and a GI cocktail with improvement of his symptoms. He was able to tolerate p.o. and was able to ambulate independently and without difficulty prior to discharge. Patient declined detox and preferred to go back to his hotel. Prior to discharge he is well-appearing, no evidence of clinical intoxication in his abdomen remained soft without evidence of surgical abdomen. His vital signs remained stable. Referral was provided for [facility] and strict return precautions discussed-patient will return for significantly worsening or uncontrolled pain, persistent nausea, vomiting, diarrhea or signs of dehydration, fever, chest pain , shortness of breath or for any other concerning symptom. Patient verbalizes understanding and he is comfortable and in agreement with this plan. DIFFERENTIAL DX: Abdominal pain including but not limited to appendicitis, cholecystitis, gastritis and urinary tract infection. CHIEF COMPLAINT: Abdominal pain, nausea, vomiting, diarrhea HPI: Patient is a 63-year-old male with a history of chronic alcohol abuse, hypertension, pancreatitis and chronic abdominal pain who presents to the emergency department complaining of acute on chronic abdominal pain, nausea, vomiting and diarrhea. Patient has had intermittent symptoms over the last several days, reports that he went to [facility] either yesterday or today he cannot quite remember for the same symptoms. Since he was discharged from a [facility] he has proceeded to drink a pt of vodka and has subsequently been experiencing increased generalized abdominal pain, nausea, vomiting and diarrhea. Patient is currently residing in a hotel in [place], he was visiting a friend in [place] when he started to walk to the hospital secondary to his above-mentioned symptoms. Patient denies any fevers, chills, chest pain or shortness of breath. He denies any hematemesis, melena or hematochezia. His abdominal pain feels exactly like previous episodes when he has had acute pancreatitis. He denies any urinary symptoms to include dysuria, hematuria or increased frequency. PMH: Alcohol abuse, hypertension, chronic pancreatitis Pertinent Past Surgical History: Denies Family History: Noncontributory Social History: Alcohol abuse, denies illicit drug use REVIEW OF SYSTEMS: All other systems negative Constitutional: [No fever, no chills, appetite change.] Eyes: [No discharge, vision change] ENT: [No sore throat, congestion, ear pain.] Cardiovascular: [No chest pain, no palpitations.] Respiratory: [No cough, no shortness of breath.] Gastrointestinal: Abdominal pain, nausea, vomiting, diarrhea. Genitourinary: [No hematuria, dysuria, flank pain, pelvic pain] Musculoskeletal: [No back pain, joint swelling, joint pain, myalgias.] Skin: [No rashes, color change.] Neurological: [No headache, dizziness, weakness.] PHYSICAL EXAM: General Appearance: Unkempt, no acute distress and not toxic-appearing. HENT: Normocephalic, atraumatic. Bilateral external ears are normal. Bilateral tympanic membranes are normal with pearly sahu reflex. Nares are clear, mucosa is pink. Oropharynx is clear, mucous membranes dry, uvula is midline. There is no tonsillar enlargement or exudate. The dentition is normal. Eyes: [PERRLA, no acute vision change, nystagmus, swelling, discharge, pain or photosensitivity. Conjunctiva pink, no pallor or injection] Neck: [Supple, nontender, no lymphadenopathy, no midline pain, FROM, no meningismus.] Respiratory: [There are no retractions, lungs are clear to auscultation.] Cardiac: [Regular rate and rhythm, no murmurs or gallops.] Gastrointestinal: Patient's abdomen is soft and nondistended. With exertion he does have a nontender reproducible ventral hernia. Patient with nonfocal generalized abdominal tenderness to palpation without voluntary guarding or rebound tenderness. Negative Maxwell sign, negative Rovsing's and negative McBurney's point tenderness. Bowel sounds normal, no masses/hernia, no rigidity, guarding or focal peritoneal findings.] Neurological: [ Alert and oriented x 3, CN 2-12 grossly intact, normal gait no ataxia, DTR's intact, normal sensation and strength] Skin: [Warm, dry, no rashes, no nodules on palpation.] Musculoskeletal: [Extremities are symmetrical, full range of motion, no tenderness, deformity, swelling, or erythema.] Psychiatric: [Patient is oriented X 3, there is no agitation.] MEDICAL DECISION MAKING: Patient was seen independently. Secondary supervising physician at time of evaluation was Dr. Zaragoza, he also evaluated this patient. Diagnosis: Acute on chronic abdominal pain, alcohol abuse. New, requires workup Summary: [ See Assessment and Plan for summary of ED visit ] Clinical lab tests: [ ordered / reviewed]. Independent visualization of images, tracing, or specimens: Not applicable. Decision to obtain medical records or history from someone other than the patient: Yes Review / Summarize previous medical records: Yes Discussed patient with another provider: Yes, Dr. Zaragoza Patient Progress: Stable, discharged. - History Smoking Status: Never smoked - Objective Vital Signs: Initial Vital Signs Temperature (C) 36.7 C 07/09/18 20:40 Heart Rate 73 07/09/18 20:40 Respiratory Rate 18 07/09/18 20:40 Blood Pressure 144/86 H 07/09/18 20:40 O2 Sat (%) 92 07/09/18 20:40 O2 Delivery Mode Room Air Allergies/Adverse Reactions: No Known Allergies Allergy (Verified 07/09/18 20:40) Home Medications: Medication Instructions Recorded Meloxicam 7.5 mg PO DAILY 12/08/17 Hydrochlorothiazide [HCTZ (*)] 25 mg PO DAILY #30 cap 12/13/17 Lisinopril [Zestril 20 mg (*)] 20 mg PO DAILY #30 tab 12/13/17 oxyCODONE IR [Oxycodone Ir (*)] 5 - 10 mg PO Q6HRS PRN #10 tab 12/13/17 Laboratory Results: Laboratory Results 07/09/18 21:21 07/09/18 21:20 07/09/18 07/09/18 21:21 21:20 WBC 7.66 10^3/uL 10^3/uL (3.80-9.50) RBC 5.42 10^6/uL 10^6/uL (4.40-6.38) Hgb 15.7 g/dL g/dL (13.7-17.5) Hct 45.2 % % (40.0-51.0) MCV 83.4 fL fL (81.5-99.8) MCH 29.0 pg pg (27.9-34.1) MCHC 34.7 g/dL g/dL (32.4-36.7) RDW 14.2 % % (11.5-15.2) Plt Count 108 10^3/uL L 10^3/uL (150-400) MPV 10.4 fL fL (8.7-11.7) Neut % (Auto) 71.1 % % (39.3-74.2) Lymph % (Auto) 20.8 % % (15.0-45.0) Dawes % (Auto) 6.1 % % (4.5-13.0) Eos % (Auto) 1.0 % % (0.6-7.6) Baso % (Auto) 0.5 % % (0.3-1.7) Nucleat RBC Rel Count 0.0 % % (0.0-0.2) Absolute Neuts (auto) 5.44 10^3/uL 10^3/uL (1.70-6.50) Absolute Lymphs (auto) 1.59 10^3/uL 10^3/uL (1.00-3.00) Absolute Monos (auto) 0.47 10^3/uL 10^3/uL (0.30-0.80) Absolute Eos (auto) 0.08 10^3/uL 10^3/uL (0.03-0.40) Absolute Basos (auto) 0.04 10^3/uL 10^3/uL (0.02-0.10) Absolute Nucleated RBC 0.00 10^3/uL 10^3/uL (0-0.01) Immature Gran % 0.5 % % (0.0-1.1) Immature Gran # 0.04 10^3/uL 10^3/uL (0.00-0.10) Platelet Estimate DECREASED L (ADEQ) Sodium 139 mEq/L mEq/L (135-145) Potassium 3.6 mEq/L mEq/L (3.5-5.2) Chloride 104 mEq/L mEq/L (97-110) Carbon Dioxide 19 mEq/l L mEq/l (22-31) Anion Gap 16 mEq/L H mEq/L (6-14) BUN 15 mg/dL mg/dL (7-23) Creatinine 0.8 mg/dL mg/dL (0.7-1.3) Estimated GFR > 60 Glucose 109 mg/dL H mg/dL (70-100) Calcium 9.0 mg/dL mg/dL (8.5-10.4) Total Bilirubin 0.9 mg/dL mg/dL (0.1-1.4) Conjugated Bilirubin 0.4 mg/dL mg/dL (0.0-0.5) Unconjugated Bilirubin 0.5 mg/dL mg/dL (0.0-1.1) AST 40 IU/L IU/L (17-59) ALT 24 IU/L IU/L (21-72) Alkaline Phosphatase 89 IU/L IU/L (38-126) Total Protein 6.9 g/dL g/dL (6.3-8.2) Albumin 4.3 g/dL g/dL (3.5-5.0) Lipase 97 IU/L IU/L (23-300) Ethyl Alcohol 231 mg/dL H mg/dL (0-10) Medications Given: Discontinued Medications Al Hydroxide/Mg Hydroxide (Maalox Susp) 30 ml PO EDNOW ONE Stop: 07/09/18 21:28 Last Admin: 07/09/18 21:33 Dose: 30 ml Hyoscyamine Sulfate (Levsin, Hyomax-Sl) 0.25 mg PO EDNOW ONE Stop: 07/09/18 21:31 Last Admin: 07/09/18 21:33 Dose: 0.25 mg Sodium Chloride (Ns) 1,000 mls @ 0 mls/hr IV ONCE ONE PRN Reason: Wide Open Stop: 07/09/18 21:05 Last Admin: 07/09/18 21:27 Dose: 1,000 mls Famotidine/Sodium Chloride (Pepcid 20 Mg (Premix)) 50 mls @ 200 mls/hr IV EDNOW ONE Stop: 07/09/18 22:12 Last Admin: 07/09/18 22:02 Dose: 50 mls Ketorolac Tromethamine (Toradol) 15 mg IVP EDNOW ONE Stop: 07/09/18 21:59 Last Admin: 07/09/18 22:01 Dose: 15 mg Lidocaine (Lidocaine 2% Viscous) 5 ml PO EDNOW ONE Stop: 07/09/18 21:28 Last Admin: 07/09/18 21:33 Dose: 15 ml Departure - Departure Disposition: Home, Routine, Self-Care Clinical Impression: Alcohol abuse Abdominal pain Qualifiers: Abdominal location: generalized Qualified Code(s): R10.84 - Generalized abdominal pain Condition: Good Instructions: Abuse of Alcohol (ED), Abdominal Pain (ED) Additional Instructions: DISCHARGE INSTRUCTIONS FROM YOUR DOCTOR Thank you for visiting our emergency department today. Please keep in mind that discharge from the emergency department does not mean that there is nothing wrong - it simply means that we have not identified an emergency condition that requires further evaluation or treatment in the hospital. You should always plan to follow up with primary care for re-evaluation of your condition in the next 2-3 days. Rest, push non-diuretic, non-caffeinated fluids, clear liquid diet, then a BRAT diet (bananas, rice, applesauce, toast), then slowly advance diet to normal. Attempt small frequent meals. Please refrain from drinking alcohol. Schedule a follow-up appointment with your primary care physician in the next 1- 2 days for re-evaluation. Bring a copy of your test results with you to that appointment. Return for increased or unmanageable pain, new site or character of pain, flank pain, groin pain, pelvic pain, development of fever, chills, recurrent vomiting , vomiting blood or coffee grounds, diarrhea, constipation, bloody stools, black tarry stools, burning or pain with urination, bloody urine, inability to urinate, decreased urine output or other signs of dehydration, dizziness, weakness, fainting, difficulty breathing or swallowing, chest pain, or for any other new, worsening or worrisome symptoms. People present with illnesses and injuries in different ways, and it is always possible that we have missed something. You may always return for re-evaluation if symptoms worsen or if they are not improving or if you develop new/different symptoms. Again, thank you for choosing our emergency department. We hope that you feel better. [facility] has walk-in appointments for the homeless at the following days/locations. No appointment is needed. Wednesday 8-10 am @ [facility] 11 AM-1 PM @ [facility] Wednesday 8-10:30 AM @ [facility] Wednesday 8-10 AM @ [facility] 2-4 PM @ [facility] Wednesday 8-10 AM @ [facility] Referrals: NONE *PRIMARY CARE P,. [Primary Care Provider] - As per Instructions
[2018-07-09] MEDS ORDERED: HYOSCYAMINE SULFATE 0.125 MG TAB ONE (21:23)
[2018-07-09] MEDS ORDERED: LIDOCAINE 2% VISCOUS 15 ML UDCUP ONE (21:23)
[2018-07-09] MEDS ORDERED: MAG HYDROX/AL HYDROX/SIMETH 30 ML UDCUP ONE (21:23)
[2018-07-09] MEDS ORDERED: LIDOCAINE 2% VISCOUS 15 ML UDCUP PO ONE (21:27)
[2018-07-09] MEDS ORDERED: MAG HYDROX/AL HYDROX/SIMETH 30 ML UDCUP PO ONE (21:27)
[2018-07-09] MEDS ORDERED: HYOSCYAMINE SULFATE 0.125 MG TAB PO ONE (21:30)
[2018-07-09 21:58] LABS: PLATELET COUNT 108 10^3/uL (150-400)
[2018-07-09] MEDS ORDERED: FAMOTIDINE 20 MG/NACL 50 ML IV ONE (21:58)
[2018-07-09] MEDS ORDERED: KETOROLAC 15 MG/1 ML SDV IVP ONE (21:58)
[2018-07-09 22:09] VITALS: BP 141/92
== END 2018-07-09 23:31 | disposition home or self-care (01) ==
LOC: EDUNIT#
DX: F10.920 Alcohol use, unspecified with intoxication, uncomplicated (principal); R10.84 Generalized abdominal pain
CPT/HCPCS: 96361; 96374; 96375; 99284; J1885; G0480

== ENCOUNTER 2018-07-10 07:18 | Emergency (ER) | payer OTHER ==
[2018-07-10 07:22] VITALS: BP 170/80
[2018-07-10] MEDS ORDERED: chlordiazePOXIDE 25 MG CAP PO ONE (07:30)
--- NOTE | 2018-07-10 07:30 | EDPHY ---
H & P Time Seen by Provider: 07/10/18 07:26 HPI/ROS: CHIEF COMPLAINT: Shaky and can't walk HISTORY OF PRESENT ILLNESS: 63-year-old man was in our emergency department last evening with labs done at 9:20 p.m. Including alcohol of 231. He had abdominal pain and had negative LFT and lipase. Patient [facility] by [facility] with a complaint of being shaky and can't walk. Patient tells me he was recently in retirement and has not had any alcohol for 4 days, but his medical record from yesterday suggest otherwise. Patient says his abdominal pain is quite mild and better than usual. Denies vomiting or diarrhea. He was sleeping on the floor and tried to get up this morning and fell onto his knees because he was too shaky to stand. Denies headache or weakness in extremities, has chronic bilateral leg numbness from his neuropathy. REVIEW OF SYSTEMS: Eye: no change in vision ENT: no sore throat Cardiac: no chest pain or syncope Pulmonary: no cough or SOB Abdomen: no vomiting, diarrhea, abdominal pain Musculoskeletal: Patient says he fell onto his knees but he does not have any spinal or extremity tenderness or pain. Skin: Bilateral knee abrasions Neuro: no headache Constitutional: no fever : no urinary symptoms A comprehensive 10 point review of systems is otherwise negative aside from elements mentioned in the history of present illness. PAST MEDICAL HISTORY: Includes hypertension, alcoholism, history of pancreatitis, peripheral neuropathy Social history: Last alcohol yesterday by the chart General Appearance: Alert and conversant, cooperative. Eyes: No scleral icterus. Pupils equal reactive extraocular motion intact. ENT, Mouth: Normal mucous membranes. Respiratory: Normal respiratory effort, breath sounds equal, lungs are clear to auscultation. Cardiovascular: Regular rate and rhythm. Gastrointestinal: Abdomen is soft and non tender. No epigastric tenderness. Neurological: Alert, face symmetric, normal motor in extremities. He says he has a little bilateral leg numbness but is sensation is intact to light touch. His speech is fluent but he does have resting tremor bilaterally in his arms as well as in his tongue. Skin: Warm and dry, no rashes. Musculoskeletal: No bony spinal or extremity tenderness, both knees are stable. Psychiatric: Not agitated. Emergency Department course/MDM: Patient presents unable to walk likely because of tremor from alcohol withdrawal. I think it is unlikely that he has had stroke or seizure, intracranial bleed, severe metabolic abnormality, spinal cord problem or other neurologic emergency. 810: Up ambulatory without assistance or ataxia, stable for discharge. Smoking Status: Never smoked Constitutional: Initial Vital Signs Temperature (C) 36.6 C 07/10/18 07:21 Heart Rate 88 07/10/18 07:21 Respiratory Rate 16 07/10/18 07:21 Blood Pressure 170/80 H 07/10/18 07:21 O2 Sat (%) 96 07/10/18 07:21 O2 Delivery Mode Room Air Allergies/Adverse Reactions: No Known Allergies Allergy (Verified 07/09/18 20:40) Home Medications: Medication Instructions Recorded Meloxicam 7.5 mg PO DAILY 12/08/17 Hydrochlorothiazide [HCTZ (*)] 25 mg PO DAILY #30 cap 12/13/17 Lisinopril [Zestril 20 mg (*)] 20 mg PO DAILY #30 tab 12/13/17 oxyCODONE IR [Oxycodone Ir (*)] 5 - 10 mg PO Q6HRS PRN #10 tab 12/13/17 Medical Decision Making - Data Points Medications Given: Discontinued Medications Chlordiazepoxide HCl (Librium) 50 mg PO EDNOW ONE Stop: 07/10/18 07:31 Last Admin: 07/10/18 07:33 Dose: 50 mg Departure - Departure Disposition: Home, Routine, Self-Care Clinical Impression: Alcohol withdrawal syndrome Qualifiers: Complication of substance-induced condition: uncomplicated Qualified Code(s): F10.230 - Alcohol dependence with withdrawal, uncomplicated Condition: Good Instructions: Chlordiazepoxide (By mouth), Alcohol Withdrawal (ED) Referrals: [facility],. [Clinic] - As per Instructions
== END 2018-07-10 08:14 | disposition home or self-care (01) ==
LOC: EDUNIT#
DX: F10.230 Alcohol dependence with withdrawal, uncomplicated (principal); I10 Essential (primary) hypertension; G62.9 Polyneuropathy, unspecified

== ENCOUNTER 2018-07-14 18:02 | Emergency (ER) | payer OTHER ==
--- NOTE | 2018-07-14 18:44 | EDPHY ---
H & P Stated Complaint: ETOH Time Seen by Provider: 07/14/18 18:14 HPI/ROS: CHIEF COMPLAINT: Alcohol intoxication HISTORY OF PRESENT ILLNESS: 63-year-old male with alcoholism presents with alcohol intoxication. He collapsed in front of a store just prior to arrival. On EMS arrival, smelled of alcohol and was complaining of abdominal pain. He has a history of chronic abdominal pain and uses alcohol to sooth the pain. Multiple prior ED visits for similar. Denies injuries. REVIEW OF SYSTEMS: complete 10 point ROS reviewed and is negative except for the noted elements in the HPI - Personal History Current Tetanus Diphtheria and Acellular Pertussis (TDAP): Yes Tetanus Vaccine Date: 06/21/2009 - Medical/Surgical History Hx Asthma: No Hx Chronic Respiratory Disease: No Hx Diabetes: No Hx Cardiac Disease: No Hx Renal Disease: No Hx Cirrhosis: No Hx Alcoholism: Yes Hx HIV/AIDS: No Hx Splenectomy or Spleen Trauma: No Other PMH: Pancreatitis, alcoholism, htn, depression, numbness/tingling feet, leg weakness - Social History Smoking Status: Never smoked - Physical Exam Exam: General Appearance: Drowsy, opens eyes to voice, slurred speech, cooperative Eyes: Pupils dilated, no nystagmus ENT, Mouth: Mucous membranes moist, no trauma Neck: normal inspection, no tenderness Respiratory: Lungs are clear to auscultation anteriorly Cardiovascular: Regular rate and rhythm Gastrointestinal: Abdomen is soft, no apparent tenderness Neurological: Drowsy, non-focal exam Skin: Warm and dry, no visible wounds Extremities: normal inspection Psychiatric: Flat affect Constitutional: Initial Vital Signs Heart Rate 80 07/14/18 18:14 Respiratory Rate 18 07/14/18 18:14 Blood Pressure 105/55 L 07/14/18 18:14 O2 Sat (%) 94 07/14/18 18:14 O2 Delivery Mode Room Air O2 (L/minute) 2 Allergies/Adverse Reactions: No Known Allergies Allergy (Verified 07/09/18 20:40) Home Medications: Medication Instructions Recorded Meloxicam 7.5 mg PO DAILY 12/08/17 Hydrochlorothiazide [HCTZ (*)] 25 mg PO DAILY #30 cap 12/13/17 Lisinopril [Zestril 20 mg (*)] 20 mg PO DAILY #30 tab 12/13/17 oxyCODONE IR [Oxycodone Ir (*)] 5 - 10 mg PO Q6HRS PRN #10 tab 12/13/17 Medical Decision Making ED Course/Re-evaluation: This patient presents with alcohol intoxication. Abdominal exam is benign. Placed on a egg sorter, will observe. 2015: opens eyes to voice, then falls back to sleep. On d/c, pt walks with a steady gait. Tolerates oral fluids/food well. No c/o abd pain. Staying in a hotel in [place] and will go there this evening. Departure - Departure Disposition: Home, Routine, Self-Care Clinical Impression: Acute alcohol intoxication Condition: Good Instructions: Alcohol Intoxication (ED) Additional Instructions: [facility] has walk-in appointments for the homeless at the following days/locations. No appointment is needed. Wednesday 8-10 am @ [facility] 11 AM-1 PM @ [facility] Wednesday 8-10:30 AM @ [facility] Wednesday 8-10 AM @ [facility] 2-4 PM @ [facility] Wednesday 8-10 AM @ [facility] Referrals: [facility],. [Clinic] - As per Instructions
[2018-07-14 21:50] VITALS: BP 124/76
== END 2018-07-14 21:49 | disposition home or self-care (01) ==
LOC: EDUNIT#
DX: F10.920 Alcohol use, unspecified with intoxication, uncomplicated (principal)

== ENCOUNTER 2018-07-24 23:12 | Emergency (ER) | payer OTHER ==
[2018-07-24] MEDS ORDERED: NS 1,000 ML IV ONE (23:18)
[2018-07-24] MEDS ORDERED: ONDANSETRON 4 MG/2 ML VIAL IVP ONE (23:19)
--- NOTE | 2018-07-24 23:23 | EDPHY ---
H & P Time Seen by Provider: 07/24/18 23:21 HPI/ROS: HPI CHIEF COMPLAINT: "I am having pancreatitis" HISTORY OF PRESENT ILLNESS: This is a very pleasant 63-year-old male well known to myself as well as the emergency room, , has a history of alcoholism daily alcohol use, alcohol-induced pancreatitis, and chronic abdominal pain. He arrives to the emergency room complaining of epigastric abdominal pain. This is this patient's 26th ER visit this year. He states feels exactly like his previous pancreatitis. Denies any chest pain or shortness of breath. His main complaint nausea vomiting epigastric abdominal pain. Burning sensation. Patient reports he is drinking vodka tonight. Past Medical History: Alcoholism with daily alcohol use. Alcohol-induced pancreatitis Past Surgical History: No recent surgery Social History: Daily alcohol use. Denies drugs or tobacco. Family History: Noncontributory ROS REVIEW OF SYSTEMS: 10 Systems were reviewed and negative with the exception of the elements mentioned in the history of present illness. Exam Constitutional disheveled, nontoxic, triage nursing summary reviewed, vital signs reviewed, awake/alert. Vital signs stable Eyes normal conjunctivae and sclera, EOMI, PERRLA. HENT normal inspection, atraumatic, moist mucus membranes, no epistaxis, neck supple/ no meningismus, no raccoon eyes. Respiratory clear to auscultation bilaterally, normal breath sounds, no respiratory distress, no wheezing. Cardiovascular rate normal, regular rhythm, no murmur, no edema, distal pulses normal. Gastrointestinal tender to palpation epigastric region, no rebound, no guarding , normal bowel sounds, no distension, no pulsatile mass. Genitourinary no CVA tenderness. Musculoskeletal no midline vertebral tenderness, full range of motion, no calf swelling, no tenderness of extremities, no meningismus, good pulses, neurovascularly intact. Skin pink, warm, & dry, no rash, skin atraumatic. Neurologic awake, alert and oriented x 3, AAOx3, moves all 4 extremities equally, motor intact, sensory intact, CN II-XII intact, normal cerebellar, normal vision, normal speech. Psychiatric normal mood/affect. Heme/Lymph/Immune no lymphadenopathy. Differential Diagnosis: Differential diagnosis includes but is not limited to and in no particular order: Bowel obstruction, appendicitis, gallbladder disease, diverticulitis, colitis, enteritis, perforated viscus, gastritis, GERD , esophagitis, urinary tract infection, pyelonephritis, kidney stones Medical Decision Making: Plan for this patient IV establishment with IV fluid bolus IV Zofran nausea, check lipase, LFTs, alcohol level re-evaluate. Re-evaluation: Serum alcohol level 246. Troponin 0.00 EKG interpretation by me on record in [employer] system. Impression time of EKG 2353, sinus rhythm rate of 65 no signs of acute ischemia. Unchanged from previous EKG. 12/08/2017. Lipase normal. 0146: Patient re-evaluated this time no acute distress. In fact he was sleeping. On re-examination abdomen soft nontender. He is not vomiting. Patient is clinically sober. Labs have reviewed he does not have an elevated lipase. Is abdomen is soft nontender here in emergency room Do not believe he needs any CT imaging. Lipase noted to be normal Alcohol level was elevated. Troponin EKG unremarkable Patient denies any chest pain or shortness of breath Patient resting comfortably Plan will be for discharge to detox. Source: Patient, EMS - Personal History Tetanus Vaccine Date: 06/21/2009 - Medical/Surgical History Hx Asthma: No Hx Chronic Respiratory Disease: No Hx Diabetes: No Hx Cardiac Disease: No Hx Renal Disease: No Hx Cirrhosis: No Hx Alcoholism: Yes Hx HIV/AIDS: No Hx Splenectomy or Spleen Trauma: No Other PMH: Pancreatitis, alcoholism, htn, depression, numbness/tingling feet, leg weakness - Social History Smoking Status: Never smoked Constitutional: Initial Vital Signs Temperature (C) 36.4 C 07/24/18 23:12 Heart Rate 66 07/24/18 23:12 Respiratory Rate 16 07/24/18 23:12 Blood Pressure 117/74 07/24/18 23:12 O2 Sat (%) 92 07/24/18 23:12 O2 Delivery Mode Nasal Cannula O2 (L/minute) 2 Allergies/Adverse Reactions: No Known Allergies Allergy (Verified 07/09/18 20:40) Home Medications: Medication Instructions Recorded NK [No Known Home Meds] 07/24/18 Medical Decision Making - Data Points Laboratory Results: Laboratory Results 07/24/18 23:43 07/24/18 23:43 07/25/18 07/24/18 07/24/18 00:10 23:47 23:43 WBC RBC Hgb Hct MCV MCH MCHC RDW Plt Count MPV Neut % (Auto) Lymph % (Auto) [place] % (Auto) Eos % (Auto) Baso % (Auto) Nucleat RBC Rel Count Absolute Neuts (auto) Absolute Lymphs (auto) Absolute Monos (auto) Absolute Eos (auto) Absolute Basos (auto) Absolute Nucleated RBC Immature Gran % Immature Gran # Sodium 139 mEq/L mEq/L (135-145) Potassium 4.1 mEq/L mEq/L (3.5-5.2) Chloride 110 mEq/L mEq/L (97-110) Carbon Dioxide 19 mEq/l L mEq/l (22-31) Anion Gap 10 mEq/L mEq/L (6-14) BUN 20 mg/dL mg/dL (7-23) Creatinine 0.9 mg/dL mg/dL (0.7-1.3) Estimated GFR > 60 Glucose 111 mg/dL H mg/dL (70-100) Calcium 9.1 mg/dL mg/dL (8.5-10.4) Total Bilirubin 0.5 mg/dL mg/dL (0.1-1.4) Conjugated Bilirubin 0.4 mg/dL mg/dL (0.0-0.5) Unconjugated Bilirubin 0.1 mg/dL mg/dL (0.0-1.1) AST 30 IU/L IU/L (17-59) ALT 28 IU/L IU/L (21-72) Alkaline Phosphatase 66 IU/L IU/L (38-126) POC Troponin I 0.00 ng/mL ng/mL (0.00-0.08) Total Protein 6.7 g/dL g/dL (6.3-8.2) Albumin 4.1 g/dL g/dL (3.5-5.0) Lipase 109 IU/L IU/L (23-300) Urine Color PALE YELLOW Urine Appearance CLEAR Urine pH 6.0 (5.0-7.5) Ur Specific [place] 1.003 (1.002-1.030) Urine Protein NEGATIVE (NEGATIVE) Urine Ketones NEGATIVE (NEGATIVE) Urine Blood NEGATIVE (NEGATIVE) Urine Nitrate NEGATIVE (NEGATIVE) Urine Bilirubin NEGATIVE (NEGATIVE) Urine Urobilinogen NEGATIVE EU EU (0.2-1.0) Ur Leukocyte Esterase NEGATIVE (NEGATIVE) Urine Glucose NEGATIVE (NEGATIVE) Ethyl Alcohol 246 mg/dL H mg/dL (0-10) 07/24/18 23:43 WBC 7.78 10^3/uL 10^3/uL (3.80-9.50) RBC 4.98 10^6/uL 10^6/uL (4.40-6.38) Hgb 15.0 g/dL g/dL (13.7-17.5) Hct 45.3 % % (40.0-51.0) MCV 91.0 fL fL (81.5-99.8) MCH 30.1 pg pg (27.9-34.1) MCHC 33.1 g/dL g/dL (32.4-36.7) RDW 14.8 % % (11.5-15.2) Plt Count 200 10^3/uL 10^3/uL (150-400) MPV 10.0 fL fL (8.7-11.7) Neut % (Auto) 63.6 % % (39.3-74.2) Lymph % (Auto) 24.0 % % (15.0-45.0) [place] % (Auto) 9.5 % % (4.5-13.0) Eos % (Auto) 1.0 % % (0.6-7.6) Baso % (Auto) 0.9 % % (0.3-1.7) Nucleat RBC Rel Count 0.0 % % (0.0-0.2) Absolute Neuts (auto) 4.94 10^3/uL 10^3/uL (1.70-6.50) Absolute Lymphs (auto) 1.87 10^3/uL 10^3/uL (1.00-3.00) Absolute Monos (auto) 0.74 10^3/uL 10^3/uL (0.30-0.80) Absolute Eos (auto) 0.08 10^3/uL 10^3/uL (0.03-0.40) Absolute Basos (auto) 0.07 10^3/uL 10^3/uL (0.02-0.10) Absolute Nucleated RBC 0.00 10^3/uL 10^3/uL (0-0.01) Immature Gran % 1.0 % % (0.0-1.1) Immature Gran # 0.08 10^3/uL 10^3/uL (0.00-0.10) Sodium Potassium Chloride Carbon Dioxide Anion Gap BUN Creatinine Estimated GFR Glucose Calcium Total Bilirubin Conjugated Bilirubin Unconjugated Bilirubin AST ALT Alkaline Phosphatase POC Troponin I Total Protein Albumin Lipase Urine Color Urine Appearance Urine pH Ur Specific [place] Urine Protein Urine Ketones Urine Blood Urine Nitrate Urine Bilirubin Urine Urobilinogen Ur Leukocyte Esterase Urine Glucose Ethyl Alcohol Medications Given: Discontinued Medications Sodium Chloride (Ns) 1,000 mls @ 0 mls/hr IV EDNOW ONE; Wide Open PRN Reason: Protocol Stop: 07/24/18 23:19 Last Admin: 07/24/18 23:46 Dose: 1,000 mls Ondansetron HCl (Zofran) 4 mg IVP EDNOW ONE Stop: 07/24/18 23:20 Last Admin: 07/24/18 23:46 Dose: 4 mg Point of Care Test Results: Chemistry 07/24/18 23:47 POC Troponin I 0.00 ng/mL ng/mL (0.00-0.08) Departure - Departure Disposition: Home, Routine, Self-Care Clinical Impression: Alcohol intoxication Qualifiers: Complication of substance-induced condition: uncomplicated Qualified Code(s): F10.920 - Alcohol use, unspecified with intoxication, uncomplicated Instructions: Alcohol Intoxication (ED), Abuse of Alcohol (ED) Referrals: Patient,NotPresent [Unknown] - As per Instructions
[2018-07-24 23:56] LABS: PLATELET COUNT 200 10^3/uL (150-400)
[2018-07-25 02:01] VITALS: BP 136/74
== END 2018-07-25 02:01 | disposition home or self-care (01) ==
LOC: EDUNIT#
DX: F10.920 Alcohol use, unspecified with intoxication, uncomplicated (principal); R10.13 Epigastric pain; E86.9 Volume depletion, unspecified
CPT/HCPCS: 96361; 96374; 99284; J2405; 84484-ER; G0480

== ENCOUNTER 2018-07-25 22:27 | Emergency (ER) | payer OTHER ==
[2018-07-25] MEDS ORDERED: NS 1,000 ML IV ONE (22:30)
--- NOTE | 2018-07-25 22:33 | EDPHY ---
H & P Time Seen by Provider: 07/25/18 22:31 HPI/ROS: HPI CHIEF COMPLAINT: Alcohol Intoxication HISTORY OF PRESENT ILLNESS: 63-year-old male, presents emergency room with acute alcohol intoxication, very familiar to myself, he is homeless, he has a history of alcoholism daily alcohol use alcohol-induced pancreatitis. I did see him last night for alcohol intoxication. He sobered nicely in the emergency room. His lipase was negative last night. He arrives to the emergency room as he was at [facility] apparently has been in the book store all day today they were getting ready to close and 911 was called for his assistance. He arrives to the emergency room is very sleepy, intoxicated, does state his pancreatitis is acting up. According to EMS he was ambulatory. Past Medical History: Alcoholism daily alcohol use. Alcohol-induced pancreatitis. Homelessness. Past Surgical History: No recent surgery Social History: Alcohol use daily alcoholism. Homeless. Family History: Noncontributory ROS REVIEW OF SYSTEMS: 10 Systems were reviewed and negative with the exception of the elements mentioned in the history of present illness. Exam Constitutional Intoxicated, triage nursing summary reviewed, vital signs reviewed, Sleepy, smells of alcohol Eyes normal conjunctivae and sclera, horizontal beating nystagmus consistent acute alcohol intoxication, otherwise pupils equal and react to light HENT normal inspection, atraumatic, moist mucus membranes, no epistaxis, neck supple/ no meningismus, no raccoon eyes. Respiratory clear to auscultation bilaterally, normal breath sounds, no respiratory distress, no wheezing. Cardiovascular rate normal, regular rhythm, no murmur, no edema, distal pulses normal. Gastrointestinal soft, non-tender, no rebound, no guarding, normal bowel sounds, no distension, no pulsatile mass. Genitourinary no CVA tenderness. Musculoskeletal no midline vertebral tenderness, full range of motion, no calf swelling, no tenderness of extremities, no meningismus, good pulses, neurovascularly intact. Skin pink, warm, & dry, no rash, skin atraumatic. Neurologic sleepy, intoxicated with alcohol,, alert and oriented x 3, AAOx3, moves all 4 extremities equally, motor intact, sensory intact, CN II-XII intact , , normal vision, normal speech. Psychiatric normal mood/affect. Heme/Lymph/Immune no lymphadenopathy. Differential Diagnosis: Includes but is not limited to in a particular order acute alcohol intoxication, alcohol abuse, dehydration, electrolyte abnormality , nausea vomiting from acute alcohol intoxication Medical Decision Making: Plan for this patient patient arrives highly intoxicated with alcohol IV establishment IV fluid bolus basic blood work electrolytes, check blood glucose and observed. Monitor for worsening condition. Monitor for sobriety. Once patient is sober he can be safely discharged from the emergency room. Re-evaluation: Serum alcohol level 298 12:05 a.m.. 0220: Patient re-evaluated this time resting comfortably he is clinically sober. Ambulates with a steady gait. Answers my questions appropriately. Is safe for discharge he has no complaints. His blood work has been reviewed normal glucose, initial serum alcohol was 298. I again counseled him on alcohol cessation. Highly recommend refrain from drinking alcohol Return precautions discussed with the patient Offered to go to detox. Source: Patient, EMS - Personal History Tetanus Vaccine Date: 06/21/2009 - Medical/Surgical History Hx Asthma: No Hx Chronic Respiratory Disease: No Hx Diabetes: No Hx Cardiac Disease: No Hx Renal Disease: No Hx Cirrhosis: No Hx Alcoholism: Yes Hx HIV/AIDS: No Hx Splenectomy or Spleen Trauma: No Other PMH: Pancreatitis, alcoholism, htn, depression, numbness/tingling feet, leg weakness - Social History Smoking Status: Never smoked Constitutional: Initial Vital Signs O2 Sat (%) 96 07/25/18 22:30 O2 Delivery Mode Room Air O2 (L/minute) 2 Allergies/Adverse Reactions: No Known Allergies Allergy (Verified 07/09/18 20:40) Home Medications: Medication Instructions Recorded NK [No Known Home Meds] 07/24/18 Medical Decision Making - Data Points Laboratory Results: Laboratory Results 07/25/18 23:30 07/25/18 23:30 07/25/18 07/25/18 23:30 23:30 WBC 7.43 10^3/uL 10^3/uL (3.80-9.50) RBC 4.73 10^6/uL 10^6/uL (4.40-6.38) Hgb 13.9 g/dL g/dL (13.7-17.5) Hct 42.3 % % (40.0-51.0) MCV 89.4 fL fL (81.5-99.8) MCH 29.4 pg pg (27.9-34.1) MCHC 32.9 g/dL g/dL (32.4-36.7) RDW 15.2 % % (11.5-15.2) Plt Count 230 10^3/uL 10^3/uL (150-400) MPV 10.1 fL fL (8.7-11.7) Neut % (Auto) 52.4 % % (39.3-74.2) Lymph % (Auto) 34.9 % % (15.0-45.0) [place] % (Auto) 8.1 % % (4.5-13.0) Eos % (Auto) 2.0 % % (0.6-7.6) Baso % (Auto) 1.1 % % (0.3-1.7) Nucleat RBC Rel Count 0.0 % % (0.0-0.2) Absolute Neuts (auto) 3.90 10^3/uL 10^3/uL (1.70-6.50) Absolute Lymphs (auto) 2.59 10^3/uL 10^3/uL (1.00-3.00) Absolute Monos (auto) 0.60 10^3/uL 10^3/uL (0.30-0.80) Absolute Eos (auto) 0.15 10^3/uL 10^3/uL (0.03-0.40) Absolute Basos (auto) 0.08 10^3/uL 10^3/uL (0.02-0.10) Absolute Nucleated RBC 0.00 10^3/uL 10^3/uL (0-0.01) Immature Gran % 1.5 % H % (0.0-1.1) Immature Gran # 0.11 10^3/uL H 10^3/uL (0.00-0.10) Sodium 142 mEq/L mEq/L (135-145) Potassium 5.0 mEq/L mEq/L (3.5-5.2) Chloride 111 mEq/L H mEq/L (97-110) Carbon Dioxide 20 mEq/l L mEq/l (22-31) Anion Gap 11 mEq/L mEq/L (6-14) BUN 14 mg/dL mg/dL (7-23) Creatinine 1.0 mg/dL mg/dL (0.7-1.3) Estimated GFR > 60 Glucose 111 mg/dL H mg/dL (70-100) Calcium 8.8 mg/dL mg/dL (8.5-10.4) Lipase 132 IU/L IU/L (23-300) Ethyl Alcohol 298 mg/dL H mg/dL (0-10) Medications Given: Discontinued Medications Sodium Chloride (Ns) 1,000 mls @ 0 mls/hr IV EDNOW ONE; Wide Open PRN Reason: Protocol Stop: 07/25/18 22:31 Last Admin: 07/25/18 23:28 Dose: 1,000 mls Departure - Departure Disposition: Home, Routine, Self-Care Clinical Impression: Alcoholism, Alcohol abuse Alcohol intoxication Qualifiers: Complication of substance-induced condition: uncomplicated Qualified Code(s): F10.920 - Alcohol use, unspecified with intoxication, uncomplicated Condition: Good Instructions: Alcohol Intoxication (ED), Abuse of Alcohol (ED) Referrals: NONE *PRIMARY CARE P,. [Primary Care Provider] - As per Instructions
[2018-07-25 23:47] LABS: PLATELET COUNT 230 10^3/uL (150-400)
[2018-07-26 02:48] VITALS: BP 145/76
== END 2018-07-26 02:50 | disposition home or self-care (01) ==
LOC: EDUNIT#
DX: F10.129 Alcohol abuse with intoxication, unspecified (principal); Y90.8 Blood alcohol level of 240 mg/100 ml or more; E86.9 Volume depletion, unspecified
CPT/HCPCS: G0480

== ENCOUNTER 2018-07-29 13:02 | Emergency (ER) | payer OTHER ==
[2018-07-29 13:30] VITALS: BP 132/75
--- NOTE | 2018-07-29 13:48 | EDPHY ---
H & P Stated Complaint: intoxication Time Seen by Provider: 07/29/18 13:31 HPI/ROS: CHIEF COMPLAINT: Intoxication HISTORY OF PRESENT ILLNESS: The patient is a 63-year-old homeless alcoholic man who is brought to the emergency department for intoxication. He was found by bystanders intoxicated on the street. He is unable to ambulate on his own. He has no complaints here and tells me that he did not want to go to the hospital. He is slightly difficult to arouse. He will answer questions appropriately however. no vomiting. No recent fevers or illness. No trauma. Severity: Moderate Modifying factors: None REVIEW OF SYSTEMS: Constitutional: denies: chills, fever, recent illness, recent injury EENTM: denies: blurred vision, double vision, nose congestion Respiratory: denies: cough, shortness of breath Cardiac: denies: chest pain, irregular heart rate, lightheadedness, palpitations Gastrointestinal/Abdominal: denies: abdominal pain, diarrhea, nausea, vomiting, blood streaked stools Genitourinary: denies: dysuria, frequency, hematuria, pain Musculoskeletal: denies: joint pain, muscle pain Skin: denies: lesions, rash, jaundice, bruising Neurological: denies: headache, numbness, paresthesia, tingling, dizziness, weakness Hematologic/Lymphatic: denies: blood clots, easy bleeding, easy bruising Immunologic/allergic: denies: HIV/AIDS, transplant 10 systems reviewed and negative except as noted Physical Exam General Appearance: WD/WN, no apparent distress, obtunded (But arousable with painful stimulation) EENT: PERRL/EOMI, normal ENT inspection, TMs normal, pharynx normal Neck: non-tender, full range of motion, supple, normal inspection Respiratory: chest non-tender, lungs clear, normal breath sounds Cardiac/Chest: normal peripheral pulses, regular rate, rhythm, P Peripheral Pulses: 2+: carotid (R), carotid (L), femoral (R), femoral (L), dorsalis-pedis (R), dorsalis-pedis (L) Abdomen: normal bowel sounds, non-tender, soft Extremities: normal range of motion, non-tender, normal inspection, normal capillary refill Neurological: calm, hose tubing 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 No: alert (Somnolent) Appearance: appropriate appearance, appropriate insight, neat, denies illness Behavior/Eye Contact/Speech: cooperative, decreased rate of speech Thoughts/Hallucinations: normal thought pattern, no apparent hallucination Skin: normal color, warm/dry Source: Patient, EMS Exam Limitations: No limitations - Personal History Tetanus Vaccine Date: 06/21/2009 - Medical/Surgical History Hx Asthma: No Hx Chronic Respiratory Disease: No Hx Diabetes: No Hx Cardiac Disease: No Hx Renal Disease: No Hx Cirrhosis: No Hx Alcoholism: Yes Hx HIV/AIDS: No Hx Splenectomy or Spleen Trauma: No Other PMH: Chronic Pancreatitis, alcoholism, htn, depression, numbness/tingling feet, leg weakness - Social History Smoking Status: Never smoked Alcohol Use: Heavy Constitutional: Initial Vital Signs Temperature (C) 36.8 C 07/29/18 13:28 Heart Rate 82 07/29/18 13:28 Respiratory Rate 16 07/29/18 13:28 Blood Pressure 132/75 H 07/29/18 13:28 O2 Sat (%) 91 L 07/29/18 13:28 O2 Delivery Mode Room Air Allergies/Adverse Reactions: No Known Allergies Allergy (Verified 07/29/18 20:43) Home Medications: Medication Instructions Recorded NK [No Known Home Meds] 07/24/18 Medical Decision Making ED Course/Re-evaluation: 4:10 p.m. the patient is ambulating without assistance. He does not wish to go to the [facility]. Will discharge him to the street. No complaints currently. Differential Diagnosis: Partial list of the Differential diagnosis considered include but were not limited to; intoxication, polysubstance abuse and although unlikely based on the history and physical exam, I also considered head injury, pancreatitis, infection. Departure - Departure Disposition: Home, Routine, Self-Care Clinical Impression: Alcohol intoxication Qualifiers: Complication of substance-induced condition: uncomplicated Qualified Code(s): F10.920 - Alcohol use, unspecified with intoxication, uncomplicated Condition: Good Instructions: Alcohol Intoxication (ED) Referrals: NONE *PRIMARY CARE P,. [Primary Care Provider] - As per Instructions [facility],. [Clinic] - 2-3 days, if not improved
== END 2018-07-29 15:00 | disposition home or self-care (01) ==
LOC: EDUNIT#
DX: F10.920 Alcohol use, unspecified with intoxication, uncomplicated (principal); I10 Essential (primary) hypertension; K86.1 Other chronic pancreatitis; Z59.0 Homelessness

== ENCOUNTER 2018-07-29 20:36 | Emergency (ER) | payer OTHER ==
[2018-07-29] MEDS ORDERED: NS 1,000 ML IV ONE (20:49)
[2018-07-29 20:50] VITALS: BP 110/68
[2018-07-29 22:21] LABS: PLATELET COUNT 305 10^3/uL (150-400)
--- NOTE | 2018-07-29 22:45 | EDPHY ---
H & P Stated Complaint: abd pain etoh Time Seen by Provider: 07/29/18 20:49 HPI/ROS: Chief complaint: Abdominal pain History of present illness: This is a 63-year-old male who presents to the emergency department with EMS for abdominal pain. He reports the onset of symptoms today. Pain is in the upper aspect of the abdomen. Associated nausea. He reports a history of pancreatitis. He does have a history of alcohol abuse. He has been seen extensively in this emergency department including earlier today. Review of systems: A 10 point review of systems was obtained and other than described above was negative - Personal History Current Tetanus/Diphtheria Vaccine: Yes Current Tetanus Diphtheria and Acellular Pertussis (TDAP): Yes Tetanus Vaccine Date: 06/21/2009 - Medical/Surgical History Hx Asthma: No Hx Chronic Respiratory Disease: No Hx Diabetes: No Hx Cardiac Disease: No Hx Renal Disease: No Hx Cirrhosis: No Hx Alcoholism: Yes Hx HIV/AIDS: No Hx Splenectomy or Spleen Trauma: No Other PMH: Chronic Pancreatitis, alcoholism, htn, depression, numbness/tingling feet, leg weakness - Social History Smoking Status: Never smoked - Physical Exam Exam: General Appearance: Alert, nontoxic. Eyes: Pupils equal and round no pallor or injection. ENT, Mouth: Mucous membranes moist. Respiratory: There are no retractions, lungs are clear to auscultation. Cardiovascular: Regular rate and rhythm. Gastrointestinal: Bowel sounds normal. Abdomen soft, nondistended, nontender to palpation. Neurological: Alert. Skin: Warm and dry, no rashes. Musculoskeletal: Neck is supple non tender. Extremities are symmetrical, full range of motion. Psychiatric: There is no agitation. Constitutional: Initial Vital Signs Temperature (C) 36.8 C 07/29/18 20:48 Heart Rate 73 07/29/18 20:48 Respiratory Rate 18 07/29/18 20:48 Blood Pressure 110/68 07/29/18 20:48 O2 Sat (%) 91 L 07/29/18 20:48 O2 Delivery Mode Room Air Allergies/Adverse Reactions: No Known Allergies Allergy (Verified 07/29/18 20:43) Home Medications: Medication Instructions Recorded NK [No Known Home Meds] 07/24/18 Medical Decision Making ED Course/Re-evaluation: Patient seen under the supervision of my secondary supervising physician Dr. Kasia Mares. Patient presents for abdominal pain. He is nontoxic. Vital signs are stable. He has a benign abdominal exam. Blood studies are unremarkable. I do not believe further evaluation is warranted at this time. He is discharged as he is clinically sober. He is referred to a primary care doctor. Return precautions are given. Differential Diagnosis: Included but not limited to alcohol abuse, gastritis, biliary tract disease, pancreatitis, hepatitis - Data Points Laboratory Results: Laboratory Results 07/29/18 22:03 07/29/18 22:03 07/29/18 07/29/18 22:03 22:03 WBC 8.60 10^3/uL 10^3/uL (3.80-9.50) RBC 5.24 10^6/uL 10^6/uL (4.40-6.38) Hgb 15.5 g/dL g/dL (13.7-17.5) Hct 47.8 % % (40.0-51.0) MCV 91.2 fL fL (81.5-99.8) MCH 29.6 pg pg (27.9-34.1) MCHC 32.4 g/dL g/dL (32.4-36.7) RDW 15.4 % H % (11.5-15.2) Plt Count 305 10^3/uL 10^3/uL (150-400) MPV 9.6 fL fL (8.7-11.7) Neut % (Auto) 50.8 % % (39.3-74.2) Lymph % (Auto) 38.6 % % (15.0-45.0) [place] % (Auto) 7.0 % % (4.5-13.0) Eos % (Auto) 1.6 % % (0.6-7.6) Baso % (Auto) 1.3 % % (0.3-1.7) Nucleat RBC Rel Count 0.0 % % (0.0-0.2) Absolute Neuts (auto) 4.37 10^3/uL 10^3/uL (1.70-6.50) Absolute Lymphs (auto) 3.32 10^3/uL H 10^3/uL (1.00-3.00) Absolute Monos (auto) 0.60 10^3/uL 10^3/uL (0.30-0.80) Absolute Eos (auto) 0.14 10^3/uL 10^3/uL (0.03-0.40) Absolute Basos (auto) 0.11 10^3/uL H 10^3/uL (0.02-0.10) Absolute Nucleated RBC 0.00 10^3/uL 10^3/uL (0-0.01) Immature Gran % 0.7 % % (0.0-1.1) Immature Gran # 0.06 10^3/uL 10^3/uL (0.00-0.10) Sodium 143 mEq/L mEq/L (135-145) Potassium 4.1 mEq/L mEq/L (3.5-5.2) Chloride 110 mEq/L mEq/L (97-110) Carbon Dioxide 22 mEq/l mEq/l (22-31) Anion Gap 11 mEq/L mEq/L (6-14) BUN 13 mg/dL mg/dL (7-23) Creatinine 0.9 mg/dL mg/dL (0.7-1.3) Estimated GFR > 60 Glucose 122 mg/dL H mg/dL (70-100) Calcium 9.0 mg/dL mg/dL (8.5-10.4) Total Bilirubin 0.4 mg/dL mg/dL (0.1-1.4) Conjugated Bilirubin 0.4 mg/dL mg/dL (0.0-0.5) Unconjugated Bilirubin 0.0 mg/dL mg/dL (0.0-1.1) AST 43 IU/L IU/L (17-59) ALT 35 IU/L IU/L (21-72) Alkaline Phosphatase 76 IU/L IU/L (38-126) Total Protein 6.9 g/dL g/dL (6.3-8.2) Albumin 4.3 g/dL g/dL (3.5-5.0) Lipase 124 IU/L IU/L (23-300) Medications Given: Discontinued Medications Sodium Chloride (Ns) 1,000 mls @ 0 mls/hr IV EDNOW ONE; Wide Open PRN Reason: Protocol Stop: 07/29/18 20:50 Last Admin: 07/29/18 22:31 Dose: 1,000 mls Departure - Departure Disposition: Home, Routine, Self-Care Clinical Impression: Abdominal pain Qualifiers: Abdominal location: upper abdomen, unspecified Qualified Code(s): R10.10 - Upper abdominal pain, unspecified Condition: Good Instructions: Acute Abdominal Pain (ED) Additional Instructions: Follow-up with primary care doctor for recheck If symptoms worsen or new symptoms develop return to the emergency room for recheck Referrals: NONE *PRIMARY CARE P,. [Primary Care Provider] - As per Instructions [facility],. [Clinic] - As per Instructions
== END 2018-07-29 23:06 | disposition home or self-care (01) ==
LOC: EDUNIT#
DX: R10.10 Upper abdominal pain, unspecified (principal); E86.9 Volume depletion, unspecified

== ENCOUNTER 2018-08-20 00:05 | Emergency (ER) | payer OTHER | END 2018-08-20 06:31 | disposition home or self-care (01) ==

== ENCOUNTER 2018-08-27 22:33 | Emergency (ER) | payer OTHER ==
[2018-08-27] MEDS ORDERED: NS 1,000 ML IV ONE (22:35)
--- NOTE | 2018-08-27 22:40 | EDPHY ---
H & P Time Seen by Provider: 08/27/18 22:38 HPI/ROS: HPI CHIEF COMPLAINT: Alcohol Intoxication HISTORY OF PRESENT ILLNESS: The 63-year-old male very well known to myself as well as the emergency room, history of alcoholism daily alcohol use, alcohol- induced pancreatitis, presents emergency room for acute alcohol intoxication. He is brought into the emergency room by EMS highly intoxicated with alcohol. The patient has no complaints. It Is reported to EMS that he ran into a wall while walking but otherwise atraumatic. Past Medical History: Medical history consistent with alcoholism daily alcohol use. Past Surgical History: No recent surgical history Social History: Daily alcohol use. Homeless. Family History: Noncontributory ROS REVIEW OF SYSTEMS: Limited due to alcohol intoxication. Exam Constitutional Intoxicated, triage nursing summary reviewed, vital signs reviewed, Sleepy, smells of alcohol Eyes normal conjunctivae and sclera, horizontal beating nystagmus consistent acute alcohol intoxication, otherwise pupils equal and react to light HENT normal inspection, atraumatic, moist mucus membranes, no epistaxis, neck supple/ no meningismus, no raccoon eyes. Respiratory clear to auscultation bilaterally, normal breath sounds, no respiratory distress, no wheezing. Cardiovascular rate normal, regular rhythm, no murmur, no edema, distal pulses normal. Gastrointestinal soft, non-tender, no rebound, no guarding, normal bowel sounds, no distension, no pulsatile mass. Genitourinary no CVA tenderness. Musculoskeletal no midline vertebral tenderness, full range of motion, no calf swelling, no tenderness of extremities, no meningismus, good pulses, neurovascularly intact. Skin pink, warm, & dry, no rash, skin atraumatic. Neurologic sleepy, intoxicated with alcohol,, alert and oriented x 3, AAOx3, moves all 4 extremities equally, motor intact, sensory intact, CN II-XII intact , , normal vision, normal speech. Psychiatric normal mood/affect. Heme/Lymph/Immune no lymphadenopathy. 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 Monitor for sedation. Monitor for sobriety. Once patient is more sober he can be appropriately discharged from the emergency room. Re-evaluation: 1207: Breath alcohol 241. Finger stick blood sugar 109. 0627: Patient re-evaluated this time resting comfortably. No acute distress. Ambulate well to the bathroom. Clinically sober. Answers questions appropriately. Is safe for discharge. Offered him to go to detox however he declined this. Source: Patient, EMS Exam Limitations: Intoxication - Personal History Tetanus Vaccine Date: 06/21/2009 - Medical/Surgical History Hx Asthma: No Hx Chronic Respiratory Disease: No Hx Diabetes: No Hx Cardiac Disease: Yes Hx Renal Disease: No Hx Cirrhosis: No Hx Alcoholism: Yes Hx HIV/AIDS: No Hx Splenectomy or Spleen Trauma: No Other PMH: Chronic Pancreatitis, alcoholism, htn, depression, numbness/tingling feet, leg weakness - Social History Smoking Status: Never smoked Constitutional: Initial Vital Signs Temperature (C) 37.1 C 08/27/18 22:33 Heart Rate 73 08/27/18 22:33 Respiratory Rate 16 08/27/18 22:33 Blood Pressure 111/77 08/27/18 22:33 O2 Sat (%) 92 08/27/18 22:33 O2 Delivery Mode Room Air O2 (L/minute) 2 Allergies/Adverse Reactions: No Known Allergies Allergy (Verified 07/29/18 20:43) Home Medications: Medication Instructions Recorded Lisinopril 08/20/18 Medical Decision Making - Data Points Laboratory Results: Laboratory Results 08/27/18 23:05 08/27/18 23:05 08/28/18 08/27/18 08/27/18 00:07 23:05 23:05 WBC REJ RBC REJ Hgb REJ Hct REJ MCV REJ MCH REJ MCHC REJ RDW REJ Plt Count REJ MPV REJ Neut % (Auto) REJ Lymph % (Auto) REJ [place] % (Auto) REJ Eos % (Auto) REJ Baso % (Auto) REJ Nucleat RBC Rel Count REJ Absolute Neuts (auto) REJ Absolute Lymphs (auto) REJ Absolute Monos (auto) REJ Absolute Eos (auto) REJ Absolute Basos (auto) REJ Absolute Nucleated RBC REJ Immature Gran % REJ Immature Gran # REJ Sodium REJ Potassium REJ Chloride REJ Carbon Dioxide REJ Anion Gap REJ BUN REJ Creatinine REJ Estimated GFR REJ Glucose REJ POC Glucose 109 mg/dL H mg/dL (70-100) Calcium REJ Ethyl Alcohol REJ Medications Given: Discontinued Medications Sodium Chloride (Ns) 1,000 mls @ 0 mls/hr IV EDNOW ONE; Wide Open PRN Reason: Protocol Stop: 08/27/18 22:36 Last Admin: 08/28/18 00:15 Dose: Not Given Point of Care Test Results: Chemistry 08/28/18 00:07 POC Glucose 109 mg/dL H mg/dL (70-100) Departure - Departure Disposition: Home, Routine, Self-Care Clinical Impression: Alcohol intoxication Condition: Good Instructions: Alcohol Intoxication (ED), Abuse of Alcohol (ED) Referrals: Patient,NotPresent [Unknown] - As per Instructions [facility],. [Clinic] - As per Instructions
[2018-08-28 06:41] VITALS: BP 118/79
== END 2018-08-28 06:40 | disposition home or self-care (01) ==
LOC: EDUNIT#
DX: F10.920 Alcohol use, unspecified with intoxication, uncomplicated (principal); I10 Essential (primary) hypertension; Z59.0 Homelessness

== ENCOUNTER 2018-08-28 19:00 | Emergency (ER) | payer OTHER ==
--- NOTE | 2018-08-28 19:54 | EDPHY ---
H & P Stated Complaint: depression and ETOH - Personal History Current Tetanus/Diphtheria Vaccine: Yes Current Tetanus Diphtheria and Acellular Pertussis (TDAP): Yes Tetanus Vaccine Date: 06/21/2009 - Medical/Surgical History Hx Asthma: No Hx Chronic Respiratory Disease: No Hx Diabetes: No Hx Cardiac Disease: Yes Hx Renal Disease: No Hx Cirrhosis: No Hx Alcoholism: Yes Hx HIV/AIDS: No Hx Splenectomy or Spleen Trauma: No Other PMH: Chronic Pancreatitis, alcoholism, htn, depression, numbness/tingling feet, leg weakness - Social History Smoking Status: Never smoked Time Seen by Provider: 08/28/18 19:01 HPI/ROS: CHIEF COMPLAINT: Alcohol intoxication HISTORY OF PRESENT ILLNESS: 63-year-old male with alcoholism and frequent ED visits presents with alcohol intoxication. He drank a pt of alcohol today, which is usual amount. He is now unable to walk. He complains of ongoing "pancreatitis". No recent illness or injury. REVIEW OF SYSTEMS: complete 10 point ROS reviewed and is negative except for the noted elements in the HPI (Tiffanie Burt) - Physical Exam Exam: General Appearance: Drowsy, cooperative Eyes: Pupils equal and round, 3mm, no conjunctival injection ENT, Mouth: Mucous membranes moist Neck: Normal inspection Respiratory: Lungs are clear to auscultation anteriorly Cardiovascular: Regular rate and rhythm Gastrointestinal: Abdomen is soft and nontender Neurological: Drowsy, nonfocal exam Skin: Warm and dry Extremities: No tenderness Psychiatric: Flat affect (Tiffanie Burt) Constitutional: Initial Vital Signs Temperature (C) 36.4 C 08/28/18 19:08 Heart Rate 83 08/28/18 19:08 Respiratory Rate 16 08/28/18 19:08 Blood Pressure 98/46 L 08/28/18 19:08 O2 Sat (%) 88 L 08/28/18 19:08 O2 Delivery Mode Room Air O2 (L/minute) 2 Allergies/Adverse Reactions: No Known Allergies Allergy (Verified 08/30/18 12:13) Home Medications: Medication Instructions Recorded NK [No Known Home Meds] 08/29/18 Medical Decision Making ED Course/Re-evaluation: 0556: Patient ambulated well throughout the emergency room, room air saturation 91%. No acute distress. He slept here for close to 11 hr, he ate and drank, he has no complaints. He is comfortable discharge. It is now 6:00 a.m.. I again encouraged him to stop drinking alcohol. I also discussed return precautions with him including abdominal pain, vomiting , shortness of breath, not doing well he understands and is comfortable this plan. (Sheldon Zaragoza) This pt presents with alcohol intoxication. O2 sat 88% RA. No respiratory sx; likely d/t intoxication. Will obs until sober, consider CXR if hypoxia persists. Signed over to Dr. Guaman at 9pm. Pt reassessed, remains too intoxicated to ambulate. (Tiffanie Burt) Other Provider: Assumed care of this patient from Dr. Tiffanie Burt at 9:00 p.m.. Patient is sleeping. Patient is not allowed to be [facility] for [facility] intoxication. Patient was up and ambulatory at 11:30 p.m., however, continues to be significantly hypoxic when he sleeping. Pulse ox is 84% on room air. Will allow patient to continue to sober. Patient's care assumed by Dr. Sheldon Zaragoza at the 12:00 am.. (Kamilla Guaman) Departure - Departure Disposition: Home, Routine, Self-Care Clinical Impression: Alcohol intoxication Condition: Good Instructions: Alcohol Intoxication (ED) Additional Instructions: The [facility] has walk-in appointments for the homeless at the following days/locations. No appointment is needed. Wednesday 8-10 am @ [facility] 11 AM-1 PM @ [facility] Wednesday 8-10:30 AM @ [facility] Wednesday 8-10 AM @ [facility] 2-4 PM @ [facility] Wednesday 8-10 AM @ [facility] Referrals: [facility],. [Clinic] - As per Instructions
[2018-08-29 05:45] VITALS: BP 145/84
== END 2018-08-29 05:57 | disposition home or self-care (01) ==
LOC: EDUNIT#
DX: F10.220 Alcohol dependence with intoxication, uncomplicated (principal)

== ENCOUNTER 2018-08-29 16:13 | Emergency (ER) | payer OTHER ==
--- NOTE | 2018-08-29 16:34 | EDPHY ---
H & P Stated Complaint: ETOH Time Seen by Provider: 08/29/18 16:16 HPI/ROS: CHIEF COMPLAINT: Alcohol intoxication, pancreatitis HISTORY OF PRESENT ILLNESS: Patient is a 63-year-old alcoholic man with a history of chronic pancreatitis who is well known to me and the department. He called EMS around noon today and requested transport for epigastric pain. He requested to go to [facility] and when EMS told them they are going to bring him here he walked away. He then called back about 4 hr later and according to paramedics appeared more intoxicated. He again complained of epigastric pain and requested transport. No vomiting. No fever. Year the patient complains of chronic epigastric pain unchanged from baseline. No chest pain or shortness of breath. Severity: Moderate Modifying factors: Baseline REVIEW OF SYSTEMS: Unable to obtain secondary to intoxication EXAM: GENERAL: Disheveled, alert and appears comfortable, no acute distress. HEAD: Atraumatic, normocephalic. EYES: Pupils equal round and reactive to light, extraocular movements intact, sclera anicteric, conjunctiva are normal. ENT: TMs normal, nares patent, oropharynx clear without exudates. Moist mucous membranes. NECK: Normal range of motion, supple without lymphadenopathy or JVD. LUNGS: Breath sounds clear to auscultation bilaterally and equal. No wheezes rales or rhonchi. HEART: Regular rate and rhythm without murmurs, rubs or gallops. ABDOMEN: Slightly distended but soft, nontender, normoactive bowel sounds. No guarding, no rebound. No masses appreciated. BACK: No CVA tenderness, no spinal tenderness, step-offs or deformities EXTREMITIES: Normal range of motion, no pitting or edema. No clubbing or cyanosis. NEUROLOGICAL: Cranial nerves II through XII grossly intact. Normal speech, normal gait. 5/5 strength, normal movement in all extremities, normal sensation , normal reflexes PSYCH: Angry SKIN: Warm, dry, normal turgor, no visible rashes or lesions. Source: Patient Exam Limitations: No limitations - Personal History Current Tetanus Diphtheria and Acellular Pertussis (TDAP): Unsure Tetanus Vaccine Date: 06/21/2009 - Medical/Surgical History Hx Asthma: No Hx Chronic Respiratory Disease: No Hx Diabetes: No Hx Cardiac Disease: Yes Hx Renal Disease: No Hx Cirrhosis: No Hx Alcoholism: Yes Hx HIV/AIDS: No Hx Splenectomy or Spleen Trauma: No Other PMH: Chronic Pancreatitis, alcoholism, htn, depression, numbness/tingling feet, leg weakness - Family History Significant Family History: No pertinent family hx - Social History Smoking Status: Never smoked Alcohol Use: Heavy Drug Use: Marijuana Constitutional: Initial Vital Signs Temperature (C) 37.1 C 08/29/18 16:17 Heart Rate 89 08/29/18 16:17 Respiratory Rate 18 08/29/18 16:17 Blood Pressure 127/82 H 08/29/18 16:17 O2 Sat (%) 94 08/29/18 16:17 O2 Delivery Mode Nasal Cannula O2 (L/minute) 1 Allergies/Adverse Reactions: No Known Allergies Allergy (Verified 08/28/18 19:10) Home Medications: Medication Instructions Recorded Lisinopril 08/20/18 Medical Decision Making ED Course/Re-evaluation: The patient clinically appears intoxicated. He has no epigastric tenderness. Last several times we have checked his lipase that is been normal as has been the rest of his chemistries. Will observe and re-evaluate. 5:50 p.m. Patient is sleeping comfortably but easily aroused. No abdominal pain or tenderness. Continue to await sobriety. 7:15 p.m. the patient is ambulating without difficulty. He was wishes to go home. He has no complaints currently. Differential Diagnosis: Partial list of the Differential diagnosis considered include but were not limited to; alcohol intoxication, abdominal pain, trauma and although unlikely based on the history and physical exam, I also considered infection, seizure, withdrawal. Departure - Departure Disposition: Home, Routine, Self-Care Clinical Impression: Alcohol intoxication Condition: Fair Instructions: Abuse of Alcohol (ED) Referrals: NONE *PRIMARY CARE P,. [Primary Care Provider] - As per Instructions [facility],. [Clinic] - As per Instructions
[2018-08-29 18:26] VITALS: BP 107/49
== END 2018-08-29 19:29 | disposition home or self-care (01) ==
LOC: EDUNIT#
DX: F10.920 Alcohol use, unspecified with intoxication, uncomplicated (principal); K85.90 Acute pancreatitis without necrosis or infection, unspecified

== ENCOUNTER 2018-08-29 20:29 | Emergency (ER) | payer OTHER ==
--- NOTE | 2018-08-29 20:42 | EDPHY ---
H & P Time Seen by Provider: 08/29/18 20:37 HPI/ROS: CHIEF COMPLAINT: Fell, bump on back of head HISTORY OF PRESENT ILLNESS: This is a 63-year-old male with a history of alcohol abuse. He was discharged from the emergency departmentan hour or two hour ago. He returns by ambulance. As per the paramedics he was sitting in a restaurant and fell backwards from his chair, striking the back of his head. Initially the patient complained of a bump on the back of his head and of some neck pain. Paramedics note that he did not have pain on palpation of his neck. He is moving all 4 extremities spontaneously. Patient is unable to tell me what happened. He is noted to have emptied his bladder (his jeans are wet), but denies doing so. REVIEW OF SYSTEMS: A ten system review of systems was performed and is negative with the exception of the items mentioned in the HPI. Past medical history: 1.Alcohol abuse 2.pancreatitis Social history:Undomiciled. Alcohol abuse. Tobacco use. Denies illicits. General Appearance: Alert. Vital signs reviewed. Head: There is a 2 cm by 2 cm swelling on the right high occiput. No palpable bony deformity. No hemotympanum. Eyes: Pupils equal and round, no conjunctival injection, no discharge. Anicteric. ENT, Mouth: Mucous membranes are moist, no oropharyngeal erythema or edema. Neck: Nontender to palpation over the cervical spine. Respiratory: Lungs are clear to auscultation; no wheezes, rales, or rhonchi. Cardiovascular: Regular rate and rhythm; no murmur, rub, or gallop. Gastrointestinal: Abdomen is soft and mildly diffusely tender without guarding , no masses or organomegaly, bowel sounds normal. Skin: Warm and dry, no rashes on exposed skin, normal color. Back: Nontender to palpation over the thoracolumbar spine. No CVAT. Extremities: No lower extremity edema, no calf tenderness or swelling. Neurological: Alert and oriented. Moving all four extremities easily and equally. Fishing Manager strength 5/5 bilaterally. SATISH. EOMI. Facial expression symmetric. Tongue midline. Psychiatric: Normal affect. - Personal History Tetanus Vaccine Date: 06/21/2009 - Medical/Surgical History Hx Asthma: No Hx Chronic Respiratory Disease: No Hx Diabetes: No Hx Cardiac Disease: Yes Hx Renal Disease: No Hx Cirrhosis: No Hx Alcoholism: Yes Hx HIV/AIDS: No Hx Splenectomy or Spleen Trauma: No Other PMH: Chronic Pancreatitis, alcoholism, htn, depression, numbness/tingling feet, leg weakness - Social History Smoking Status: Never smoked Constitutional: Initial Vital Signs Temperature (C) 37.1 C 08/29/18 20:36 Heart Rate 86 08/29/18 20:36 Respiratory Rate 20 08/29/18 20:36 Blood Pressure 127/82 H 08/29/18 20:36 O2 Sat (%) 90 L 08/29/18 20:36 O2 Delivery Mode Room Air O2 (L/minute) 3 Allergies/Adverse Reactions: No Known Allergies Allergy (Verified 08/30/18 12:13) Home Medications: Medication Instructions Recorded NK [No Known Home Meds] 08/29/18 Medical Decision Making ED Course/Re-evaluation: This patient appears clinically intoxicated. I learned that his jeans were wet when he left the department earlier--I had been concerned that he might have had a seizure, but I no longer think that that is the case. Given his intoxication and physical signs of head trauma, head CT and neck CT are being performed. 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 Disposition will be difficult. [facility] not [facility]. He tells me that he has a home but I am not sure that this is the case. At 9:40 p.m. I received the results of the CT scan of his brain and neck from Dr. Ribera; no acute findings. Patient was re-interviewed and found to be clinically more intoxicated than on arrival. He will be allowed to rest in the department while he metabolizes the alcohol he has consumed (he had a bottle of vodka in his jacket pocket). Care transferred to Dr. Ng. I anticipate discharge when he is clinically sober. Differential Diagnosis: I considered a differential diagnosis of traumatic injury that includes but is not limited to intracranial hemorrhage, skull fracture, concussion, vertebral injury, spinal cord injury, intrathoracic injury, intra-abdominal injury, long bone fractures, contusions, abrasions, and lacerations. Departure - Departure Disposition: Home, Routine, Self-Care Clinical Impression: Alcohol abuse Head contusion Qualifiers: Encounter type: initial encounter Contusion of head detail: scalp Qualified Code(s): S00.03XA - Contusion of scalp, initial encounter Condition: Good Instructions: Abuse of Alcohol (ED), Scalp Contusion in Adults (ED) Referrals: [facility],. [Clinic] - As per Instructions
[2018-08-30 06:09] VITALS: BP 128/82
== END 2018-08-30 06:14 | disposition home or self-care (01) ==
LOC: EDUNIT#
DX: S00.03XA Contusion of scalp, initial encounter (principal); F10.129 Alcohol abuse with intoxication, unspecified; W07.XXXA Fall from chair, initial encounter; Y92.511 Restaurant or cafe as the place of occurrence of the external cause; Y93.9 Activity, unspecified; Y99.9 Unspecified external cause status

== ENCOUNTER 2018-08-30 12:10 | Emergency (ER) | payer OTHER ==
[2018-08-30] MEDS ORDERED: LET GEL TOPICAL 1 EA SYR TP ONE (12:40)
--- NOTE | 2018-08-30 12:43 | EDPHY ---
General - History Smoking Status: Never smoked Time Seen by Provider: 08/30/18 12:14 Narrative: CLINICAL IMPRESSION: Acute alcohol intoxication, scalp laceration ASSESSMENT/PLAN: 63-year-old male presents to the emergency department after he reportedly fell this morning sustaining a scalp laceration while intoxicated. Patient was seen for the same in our emergency department 9:00 p.m. Last night and had normal CT scans at that time. Given his intoxicated state and evidence of obvious head trauma, I repeated CT head and neck which were read by Radiology with no acute abnormality compared to last night. Wound was cleaned. Patient refused tetanus update. Pipo placed as per chart note. Patient was allowed to sober and ambulated through the halls with a steady gait. No evidence of DTs or acute withdrawal. Patient ambulated out of the emergency department on his own. He is very familiar to our staff and case management and is not welcome at the [facility] despite [facility] hold by police. DIFFERENTIAL DX: Differential diagnosis for headache includes but not limited to subarachnoid hemorrhage, migraine headache, migraine varient headache, tension headache and infectious causes such as meningitis, pharyngitis and sinusitis. ED PROCEDURES: See lab and/or imaging results below Laceration Repair Verbal consent obtained by patient. Risks discussed, including but not limited to infection, pain, retained foreign body, need for additional repair, poor cosmetic result, tendon damage, nerve damage, poor wound healing, vascular damage. Alternatives to repair discussed. [place] protocol used to establish correct patient, procedure, equipment, operations support analyst, and site. Anesthesia obtained by local infiltration. Anesthetized with 0.5% bupivacaine with epinephrine. Laceration location right parietal scalp, length 3 cm, depth 3 mm, Repair type simple. Patient was prepped and draped in usual sterile fashion. Hemostasis achieved with direct pressure. Wound explored through full range of motion and entire depth of wound probed and visualized with gloved finger. No suspicion for nerve damage, tendon damage, underlying fracture, vascular damage, foreign body, or contamination. Area was cleansed with Shur-Clens and irrigated with sterile saline as per protocol. No foreign body or material removed. Repair method pipo. Seven pipo placed. Well aligned, closely approximated. wound was dressed with nothing. Patient tolerated well with no immediate complications. Wound care: Clean and dry x 24 hours, gently clean with soap and water, cover with topical antibiotic ointment/bandage. Suture/Staple removal: 14 Days ED COURSE: 12:30 p.m.: Patient seen and assessed by myself. Intoxicated but alert and answering questions. Obvious laceration to right occipital region. Will plan for CT head and neck. Patient declining tetanus 1:15 p.m.: CT scan read by Radiology, negative compared to CT scan done at 9: 00 p.m. Last night. Right parietal scalp laceration. No acute intracranial bleeding. 1:45 p.m.:. Parietal scalp laceration repaired by myself with 7 pipo. Patient is on an [facility] hold by police however is not welcome that the [facility]. Will plan to allow patient to sober , reassess, and road test. 2:10pm: Patient passed road test with steady gait. Patient walked out of the department on his own. CHIEF COMPLAINT: ETOH, fall, head laceration HPI: 63-year-old alcoholic male presents to the emergency department after he reports he was walking and then fell and struck his head. Patient is having trouble recollecting the events of the injury. He admits to drinking today. He reports "my pancreas hurts". He is reporting a headache. No reported nausea or vomiting. No reported neck pain. He does not want a tetanus shot today. He states he feels dizzy but does not report vertigo. No prior neck injury or surgery. PAST MEDICAL HISTORY: Alcohol abuse, chronic pancreatitis, hypertension, radiculopathy See nurse/triage notes for additional history if applicable Pertinent Past Surgical History: None reported Family History: Noncontributory Social History: Chronic alcoholic REVIEW OF SYSTEMS: All other systems negative Constitutional: No fever, no chills, appetite change. Eyes: No discharge, vision change ENT: No sore throat, congestion, ear pain. Cardiovascular: No chest pain, no palpitations. Respiratory: No cough, no shortness of breath. Gastrointestinal: Positive for chronic abdominal pain, no vomiting, diarrhea. Musculoskeletal: No back pain, denies neck pain, joint swelling, joint pain, myalgias. Skin: Positive for laceration to scalp, No rashes, color change. Neurological: Positive for headache, denies dizziness, weakness. PHYSICAL EXAM: General Appearance: Alert, oriented, appropriate, heavily intoxicated, NAD, well hydrated, hypertensive,, no hypoxia. HEENT: TMs are clear bilaterally no perforation or FB, no injection, no evidence of serous or mucopurulent otitis. No hemotympanum or Fitch sign. No evidence of intraoral laceration or dental injury. No malocclusion Oropharynx clear is no erythema or exudates, no tonsillar hypertrophy or asymmetry. Dentition without abnormality. 2 cm laceration to right parietal scalp. Eyes: PERRLA, no acute vision change, nystagmus, swelling, discharge, pain or photosensitivity. Conjunctiva pink, no pallor or injection Neck: Supple, nontender, no lymphadenopathy, no midline pain, FROM, no meningismus. Respiratory: There are no retractions, lungs are clear to auscultation. No chest wall pain or rib pain Cardiac: Regular rate and rhythm, no murmurs or gallops. Gastrointestinal: Abdomen is soft, nontender, bowel sounds normal, no masses/ hernia, no rigidity, guarding or focal peritoneal findings. Neurological: [ Alert and oriented x 3 Skin: Warm, dry, no rashes, no nodules on palpation. See above Musculoskeletal: Extremities are symmetrical, full range of motion, no tenderness, deformity, swelling, or erythema. Psychiatric: Patient is oriented X 3, there is no agitation. MEDICAL DECISION MAKING: Patient was seen independently. Secondary supervising physician at time of evaluation was Dr. Bullock. Diagnosis: Right parietal scalp laceration, alcohol intoxication . New, requires workup Summary: See Assessment and Plan for summary of ED visit Independent visualization of images, tracing, or specimens: Yes. Decision to obtain medical records or history from someone other than the patient: No Review / Summarize previous medical records: Reviewed recent ED chart notes Discussed patient with another provider: Radiology Patient Progress: Stable. (Kyle Hernandez) Medical Decision Making: I did not see this patient while he was in the emergency department. However his care was discussed with the PA while the patient was in the department. I agree with treatment plan and management (Adiel Bullock Fermín) - Objective Vital Signs: Initial Vital Signs Temperature (C) 36.7 C 08/30/18 12:14 Heart Rate 96 08/30/18 12:14 Respiratory Rate 16 08/30/18 12:14 Blood Pressure 136/81 H 08/30/18 12:14 O2 Sat (%) 92 08/30/18 12:14 O2 Delivery Mode Room Air Allergies/Adverse Reactions: No Known Allergies Allergy (Verified 08/30/18 12:13) Home Medications: Medication Instructions Recorded NK [No Known Home Meds] 08/29/18 Medications Given: Discontinued Medications Tetracaine/Epinephrine/Lidocaine (Let Gel Topical) 1 ea TP EDNOW ONE Stop: 08/30/18 12:41 Last Admin: 08/30/18 13:04 Dose: 1 ea Departure - Departure Disposition: Home, Routine, Self-Care Clinical Impression: Scalp laceration Condition: Fair Instructions: Laceration (ED) Additional Instructions: DISCHARGE INSTRUCTIONS FROM YOUR DOCTOR Thank you for visiting our emergency department today. You were treated by a physician credit assistant today and your case was reviewed with our ED Attending physician. Please keep in mind that discharge from the emergency department does not mean that there is nothing wrong - it simply means that we have not identified an emergency condition that requires further evaluation or treatment in the hospital. You should always plan to follow up with primary care for re- evaluation of your condition in the next 2-3 days. If you have been referred to a specialist, please call as soon as possible (today or tomorrow) to schedule your follow up appointment at the appropriate time. PLEASE HAVE SUTURES/PIPO REMOVED IN [address] SCAN OF YOUR HEAD AND NECK WERE NEGATIVE FOR INTRACRANIAL BLEEDING. PLEASE FOLLOW-UP WITH HER PRIMARY CARE DOCTOR IN 24 HR TO RECHECK. PLEASE STOP DRINKING ALCOHOL. YOU CAN RETURN TO THE EMERGENCY DEPARTMENT OR YOUR PRIMARY CARE FOR SUTURE/STAPLE REMOVAL. AVOID SUBMERGING SUTURES/PIPO UNDERWATER FOR PROLONGED PERIOD OF TIME UNTIL REMOVED. KEEP WOUND CLEAN AND DRY, COVER WITH ANTIBIOTIC OINTMENT AND BAND-AID. RETURN TO EMERGENCY DEPARTMENT FOR REDNESS, SWELLING, DISCHARGE, WARMTH TO THE SKIN, OR ANY OTHER CONCERNS FOR INFECTION. People present with illnesses and injuries in different ways, and it is always possible that we have missed something. You may always return for re-evaluation if symptoms worsen or if they are not improving or if you develop new/different symptoms. Again, thank you for choosing our emergency department. We hope that you feel better. Referrals: NONE *PRIMARY CARE P,. [Primary Care Provider] - As per Instructions [facility],. [Clinic] - 1-2 days without fail
[2018-08-30 14:01] VITALS: BP 142/89
--- NOTE | 2018-08-30 16:06 | ASMTCMCOM ---
CM Note CM Note Notes: YANI from ED RN Nabor regarding pt admission 3X in one day with ETOH related issues. While researching chart pt was admitted in ED again for ETOH related fall. Pt is not able to DC to [facility] and requested admission. Pt has similar pattern for over 10 years and CM is very familiar with the case. Pt was medically cleared for DC but stated that he wanted to be admitted for pancreatitis or his head injury. When he was told that he was medically cleared he stated, I want to and relayed that it was the reason that he drinks. Pt stated that has no contact with his family. His daughter is listed as next of kin but he has not spoken to her in several years. Pt again asked to be admitted because he hit his head hard when he was told no he asked this CM to leave the room. industrial security analyst informed CM that upon DC pt again asked for bus pass. When he was told there were no bus passes he became angry and verbally abusive. The pt. left without DC education regarding his stitches or DC paperwork. Pt brought to attention of CM mortgage operations manager and director for termite treater planning/discussion. CM to continue to follow. Date Signed: 08/30/2018 04:06 PM Electronically Signed By:Howie Swann LCSW
== END 2018-08-30 14:30 | disposition home or self-care (01) ==
LOC: EDUNIT#
PROC: 0HQ0XZZ Repair Scalp Skin, External Approach (ICD-10-PCS; principal; 2018-08-30)
DX: S01.01XA Laceration without foreign body of scalp, initial encounter (principal); F10.129 Alcohol abuse with intoxication, unspecified; W01.10XA Fall on same level from slipping, tripping and stumbling with subsequent striking against unspecified object, initial encounter; Y93.01 Activity, walking, marching and hiking; Y92.9 Unspecified place or not applicable; Y99.9 Unspecified external cause status

== ENCOUNTER 2018-08-30 16:58 | Emergency (ER) | payer OTHER ==
[2018-08-31] MEDS ORDERED: fentaNYL 100 MCG/2 ML INJ ONE (06:36)
[2018-08-31] MEDS ORDERED: SUCCINYLCHOLINE CHLORIDE 200 MG/10 ML SYR IVP ONE (06:36)
[2018-08-31] MEDS ORDERED: ETOMIDATE 40 MG/20 ML INJ ONE (06:37)
== END 2018-08-30 19:02 | disposition left against medical advice (07) ==
LOC: EDUNIT#
DX: Z53.21 Procedure and treatment not carried out due to patient leaving prior to being seen by health care provider (principal)
CPT/HCPCS: J0330; J3010

== ENCOUNTER 2018-08-30 22:58 | Emergency (ER) | payer OTHER ==
[2018-08-30] MEDS ORDERED: NS 1,000 ML IV ONE ×2 (23:03→23:14)
--- NOTE | 2018-08-30 23:07 | EDPHY ---
H & P Time Seen by Provider: 08/30/18 23:04 HPI/ROS: HPI CHIEF COMPLAINT: Unresponsive. GCS of 3. Alcohol intoxication. HISTORY OF PRESENT ILLNESS: Patient is a 63-year-old male well known to myself as well as the emergency room, homeless, history of alcoholism with daily alcohol use. He arrives to the emergency room by EMS unresponsive with nasal trumpet in place on a non-rebreather. EMS reports he had initial O2 sat of 81% room air and was unresponsive outside of a liquor store. He had a normal blood glucose by EMS, heart rate is been in the 70s, GCS is 3. He arrives to the emergency room where I greeted him in ER room 11 he is unresponsive he does not report spine to painful stimuli. Past Medical History: Alcoholism daily alcohol use. Past Surgical History: No recent surgery Social History: Homeless, daily alcohol use. Family History: Noncontributory ROS REVIEW OF SYSTEMS: Unresponsive Exam Constitutional unresponsive, GCS of 3, triage nursing summary reviewed, vital signs reviewed, Eyes normal conjunctivae and sclera, EOMI, PERRLA. HENT normal inspection, atraumatic, moist mucus membranes, no epistaxis, neck supple/ no meningismus, no raccoon eyes. Respiratory clear to auscultation bilaterally, normal breath sounds, no respiratory distress, no wheezing. Cardiovascular rate normal, regular rhythm, no murmur, no edema, distal pulses normal. Gastrointestinal soft, non-tender, no rebound, no guarding, normal bowel sounds, no distension, no pulsatile mass. Genitourinary no CVA tenderness. Musculoskeletal no midline vertebral tenderness, full range of motion, no calf swelling, no tenderness of extremities, no meningismus, good pulses, neurovascularly intact. Skin pink, warm, & dry, no rash, skin atraumatic. Neurologic GCS 3, Unresponsive moves Differential Diagnosis: Includes but is not limited to in a particular order acute alcohol intoxication, intracranial bleed, respiratory failure, unresponsiveness Medical Decision Making: Plan for this patient IV establishment, prepare for intubation. Re-evaluation: 2324: Patient here in emergency room unresponsive GCS of 3, highly intoxicated with alcohol smells of alcohol. I do not visualize any trauma. Patient was moved to ER room 1 Patient was placed on non-rebreather and nasal cannula high-flow and pre oxygenated. Patient blood glucose was noted to be normal. The patient unresponsive. Intubation Procedure: Patient was preoxygenated placed on full school lunch monitor. Patient was placed on non-rebreather, and nasal cannula high-flow. Patient was given 20 mg IV etomidate 100 mg of IO succinylcholine. Patient was intubated with a MAC 4 blade. I was able to directly visualize the patient's cords. 7.5 endotracheal tube was passed directly through the cords under direct visualization by myself. Adult tracheal tube was confirmed by chest x-ray pending at this time as well as humidified air, as well as capnography for change and bilateral breath sounds on exam. OG was placed. Patient is extremely hard IV stick. Multiple attempts were made to establish an IV however this was unsuccessful. Due to the emergent situation the patient had an IO placed in his right anterior proximal tib-fib region additionally had a 2nd IO placed in his left proximal anterior tib-fib region. ED x-ray chest one view: Endotracheal in good position. Haziness in the left lung field concerning for pneumonia. OG tube appears to be in appropriate place up below the diaphragm. Serum alcohol level 527. Time of this midnight. EKG interpretation by me on record in Prismatic system. Impression time of EKG 2337, sinus rhythm rate of 82, without any signs of acute ischemia or cardiac arrhythmia. Patient here with respiratory failure due to acute alcohol intoxication. Alcohol level 527. Unfortunately we do not have any intensive care unit beds at this time. The patient required to be transferred to another hospital given he is intubated and needs ICU care. Spoke with [facility]. However they are unable to accept the patient at this time. CT scan head without contrast no acute intracranial abnormality. And no evidence of cervical spine fracture. This was faxed me by direct Radiology at time 12:33 a.m.. 0109: Patient has been accepted at [facility] by Dr. Hughes, ICU. Critical Care: Total Critical Care Time Spent Managing this Patient: 85 Minutes. This time was spent Exclusively with this patient. This Care was exclusive of procedures. The Organ System/life at risk was Respiratory Failure, due to alcohol intoxication. This Patient was in Critical Condition because Respiratory Failure, due to alcohol intoxication. Source: Patient, EMS Exam Limitations: Clinical condition, Intoxication - Personal History Tetanus Vaccine Date: 06/21/2009 - Medical/Surgical History Hx Asthma: No Hx Chronic Respiratory Disease: No Hx Diabetes: No Hx Cardiac Disease: Yes Hx Renal Disease: No Hx Cirrhosis: No Hx Alcoholism: Yes Hx HIV/AIDS: No Hx Splenectomy or Spleen Trauma: No Other PMH: Chronic Pancreatitis, alcoholism, htn, depression, numbness/tingling feet, leg weakness - Social History Smoking Status: Never smoked Constitutional: Initial Vital Signs Heart Rate 79 08/30/18 23:00 Respiratory Rate 14 08/30/18 23:00 Blood Pressure 137/83 H 08/30/18 23:00 O2 Sat (%) 96 08/30/18 23:00 O2 Delivery Mode Ventilator O2 (L/minute) 6 Allergies/Adverse Reactions: No Known Allergies Allergy (Verified 08/30/18 12:13) Home Medications: Medication Instructions Recorded NK [No Known Home Meds] 08/29/18 Medical Decision Making - Diagnostics Imaging Results: Imaging Impressions Head CT 08/30/18 23:22 Impression: 1. Moderate atrophy. 2. No acute hemorrhage, hydrocephalus, or mass effect. 3. Cerebrovascular atherosclerosis. 4. No definite acute infarct. 5. Moderate microvascular ischemic gliosis. 6. No significant interval change. - Data Points Laboratory Results: Laboratory Results 08/30/18 23:20 08/30/18 23:20 Microbiology Results: MICROBIOLOGY 08/31/18 00:32 Blood Blood Culture - Preliminary Gram Positive Cocci Clusters 08/31/18 00:32 Blood Blood Panel (PCR) - Final Staph Coagulase Negative Medications Given: Discontinued Medications Etomidate (Etomidate) 20 mg IVP EDNOW ONE Stop: 08/30/18 23:14 Last Admin: 08/30/18 23:18 Dose: 20 mg Sodium Chloride (Ns) 1,000 mls @ 0 mls/hr IV EDNOW ONE; Wide Open PRN Reason: Protocol Stop: 08/30/18 23:04 Last Admin: 08/31/18 00:18 Dose: Not Given Sodium Chloride (Ns) 1,000 mls @ 0 mls/hr IV ONCE ONE PRN Reason: Wide Open Stop: 08/30/18 23:15 Last Admin: 08/30/18 23:16 Dose: 1,000 mls Propofol (Diprivan 10 Mg/Ml (Premix)) 50 mls @ 0 mls/hr IV EDNOW ONE; As Directed PRN Reason: Protocol Stop: 08/30/18 23:32 Last Admin: 08/30/18 23:36 Dose: 50 mls Azithromycin 500 mg/ Sodium (Chloride) 255 mls @ 255 mls/hr IV EDNOW ONE PRN Reason: Protocol Stop: 08/31/18 00:36 Last Admin: 08/31/18 01:01 Dose: 255 mls Ceftriaxone Sodium/Dextrose (Rocephin 1 Gm (Premix)) 50 mls @ 100 mls/hr IV EDNOW ONE PRN Reason: Protocol Stop: 08/31/18 00:06 Last Admin: 08/31/18 00:34 Dose: 50 mls Sodium Chloride (Ns) 1,000 mls @ 0 mls/hr IV ONCE ONE PRN Reason: Wide Open Stop: 08/31/18 00:15 Last Admin: 08/31/18 00:20 Dose: 1,000 mls Propofol (Diprivan) 40 mg IVP EDNOW ONE Stop: 08/30/18 23:32 Last Admin: 08/30/18 23:36 Dose: 40 mg Succinylcholine Chloride (Quelicin) 100 mg IVP EDNOW ONE Stop: 08/30/18 23:14 Last Admin: 08/30/18 23:19 Dose: 100 mg Point of Care Test Results: Chemistry 08/30/18 23:25 POC Troponin I 0.01 ng/mL ng/mL (0.00-0.08) Blood Gas/Lactic Acid-Arterial 08/31/18 00:10 Tidal Volume 550 Departure - Departure Disposition: [facility] Clinical Impression: Respiratory failure Qualifiers: Chronicity: acute Respiratory failure complication: hypoxia Qualified Code(s): J96.01 - Acute respiratory failure with hypoxia Alcohol intoxication Qualifiers: Complication of substance-induced condition: uncomplicated Qualified Code(s): F10.920 - Alcohol use, unspecified with intoxication, uncomplicated Condition: Critical Referrals: Patient,NotPresent [Unknown] - As per Instructions
[2018-08-30] MEDS ORDERED: SUCCINYLCHOLINE CHLORIDE 200 MG/10 ML SYR IVP ONE (23:13)
[2018-08-30] MEDS ORDERED: ETOMIDATE 40 MG/20 ML INJ IVP ONE (23:13)
[2018-08-30 23:28] LABS: PLATELET COUNT 298 10^3/uL (150-400)
[2018-08-30] MEDS ORDERED: PROPOFOL/EMULSION 50 ML IV ONE (23:31)
[2018-08-30] MEDS ORDERED: PROPOFOL 200 MG/20 ML VIAL IVP ONE (23:31)
[2018-08-30] MEDS ORDERED: AZITHROMYCIN IV 500 MG in NS 250 ML IV ONE (23:37)
[2018-08-31] MEDS ORDERED: NS 1,000 ML IV ONE (00:14)
[2018-08-31] MEDS ORDERED: PROPOFOL/EMULSION 500 MG/50 ML BOTTLE IV ONE (00:52)
[2018-08-31] MEDS ORDERED: PROPOFOL/EMULSION 1,000 MG/100 ML BOTTLE IV ONE (01:06)
[2018-08-31 03:10] VITALS: BP 116/81
--- NOTE | 2018-09-01 07:53 | CPEKG ---
Test Reason : OPEN Blood Pressure : / mmHG Vent. Rate : 082 BPM Atrial Rate : 082 BPM P-R Int : 138 ms QRS Dur : 093 ms QT Int : 383 ms P-R-T Axes : 075 -15 041 degrees QTc Int : 448 ms Sinus rhythm Borderline left axis deviation Confirmed by Sheldon Zaragoza ([id number]) on 09/01/2018 7:52:41 AM Referred By: Sheldon Zaragoza Confirmed By:Sheldon Zaragoza
== END 2018-08-31 03:49 | disposition short-term general hospital (02) ==
LOC: EDUNIT#
DX: J96.01 Acute respiratory failure with hypoxia (principal); F10.920 Alcohol use, unspecified with intoxication, uncomplicated; R40.2430 Glasgow coma scale score 3-8, unspecified time
CPT/HCPCS: 31500; 36680; 70450; 71045; 72125; 93005; 96365; 96366; 96367; 96375; 99291; 99292; J0456; J0696; J2704; 80305; 84484-ER; G0480

== ENCOUNTER 2018-09-06 15:56 | Emergency (ER) | payer OTHER ==
[2018-09-06 16:09] VITALS: BP 128/83
--- NOTE | 2018-09-06 16:14 | EDPHY ---
H & P Stated Complaint: ETOH/Fall Time Seen by Provider: 09/06/18 15:56 HPI/ROS: CHIEF COMPLAINT: Alcohol intoxication HISTORY OF PRESENT ILLNESS: The patient is brought to the emergency department after he was found intoxicated next to a bottle of vodka laying in a plantar. The patient denies any complaints of an acute headache. He actually denies any history of falling or trauma to me currently. He states that he feels fine. The patient did recently experience a fairly significant hospitalization secondary to a pneumonia. He was discharged from [facility] [place] uneventfully. The patient has no symptoms of acute shortness of breath. The patient was brought in by paramedics and was noted to have an oxygen saturation of 92% on room air. In the ED the patient denies any complaints of fever. He denies additional acute complaints. REVIEW OF SYSTEMS: A comprehensive 10 point review of systems is otherwise negative aside from elements mentioned in the history of present illness. Source: Patient Exam Limitations: No limitations - Personal History Current Tetanus/Diphtheria Vaccine: Yes Tetanus Vaccine Date: 06/21/2009 - Medical/Surgical History Hx Asthma: No Hx Chronic Respiratory Disease: No Hx Diabetes: No Hx Cardiac Disease: Yes Hx Renal Disease: No Hx Cirrhosis: No Hx Alcoholism: Yes Hx HIV/AIDS: No Hx Splenectomy or Spleen Trauma: No Other PMH: Chronic Pancreatitis, alcoholism, htn, depression, numbness/tingling feet, leg weakness - Social History Smoking Status: Never smoked - Physical Exam Exam: General Appearance: Intoxicated Head: Normocephalic, atraumatic, no external signs of trauma aside from a very small abrasion noted to the chin Neck: No midline tenderness to palpation. Eyes: Pupils equal and round no pallor or injection ENT, Mouth: Mucous membranes moist Respiratory: There are no retractions, lungs are clear to auscultation Cardiovascular: Regular rate and rhythm Gastrointestinal: Abdomen is soft and nontender, no masses, bowel sounds normal Neurological: A&O, normal motor function, normal sensory exam, normal cranial nerves Skin: Warm and dry, no rashes Musculoskeletal: Neck is supple nontender Extremities: symmetrical, full range of motion Constitutional: Initial Vital Signs Temperature (C) 36.5 C 09/06/18 16:05 Heart Rate 69 09/06/18 16:05 Respiratory Rate 18 09/06/18 16:05 Blood Pressure 128/83 H 09/06/18 16:05 O2 Sat (%) 96 09/06/18 16:05 O2 Delivery Mode Room Air Allergies/Adverse Reactions: No Known Allergies Allergy (Verified 09/06/18 16:09) Home Medications: Medication Instructions Recorded NK [No Known Home Meds] 08/29/18 Medical Decision Making ED Course/Re-evaluation: The patient presents to the ED with alcohol intoxication. He has no significant signs of trauma noted on exam. I have removed the patient's cervical collar. The patient denies any acute complaints. He is afebrile. He has stable vital signs. Plan will be for observation in the emergency department. 5:00 p.m.: The patient is ambulatory with a steady gait. He is insisting on being discharged from the emergency department. The patient was [facility] however has declined. The patient states he has no desire to stop drinking alcohol complaints to leave the department and resumed drinking. Departure - Departure Disposition: Home, Routine, Self-Care Clinical Impression: Alcohol intoxication Condition: Good Instructions: Alcohol Intoxication (ED) Additional Instructions: 1. Please follow up with the [facility] if you desire further assistance with your alcohol dependence. Referrals: [facility] [Outside] - As per Instructions
== END 2018-09-06 17:25 | disposition home or self-care (01) ==
LOC: EDUNIT#
DX: F10.129 Alcohol abuse with intoxication, unspecified (principal); K86.0 Alcohol-induced chronic pancreatitis; I10 Essential (primary) hypertension

== ENCOUNTER 2018-09-10 13:49 | Emergency (ER) | payer OTHER ==
--- NOTE | 2018-09-10 13:58 | EDPHY ---
H & P Time Seen by Provider: 09/10/18 13:52 HPI/ROS: CHIEF COMPLAINT: Altered, can't walk HISTORY OF PRESENT ILLNESS: EMS call to the [employer] [facility] for reports of a man who was unresponsive and could not walk. Mr. German says he drank about a pt of whiskey, has chronic abdominal pain, no injury or trauma, no suicidal thoughts. Unable to walk because of alcohol intoxication. Denies headache or fever or other recent illness. REVIEW OF SYSTEMS: Eye: no change in vision ENT: Mild sore throat, was recently intubated for alcohol intoxication and admitted in [place] Cardiac: no chest pain or syncope Pulmonary: no cough or SOB Abdomen: No vomiting but chronic abdominal pain present Musculoskeletal: no back pain Skin: no rash Neuro: no headache Constitutional: no fever : no urinary symptoms A comprehensive 10 point review of systems is otherwise negative aside from elements mentioned in the history of present illness. PAST MEDICAL HISTORY: Alcoholism, pancreatitis Social history: Alcoholism General Appearance: Alert and conversant, cooperative. Opens eyes spontaneously , response to questions. Eyes: No scleral icterus. ENT, Mouth: Normal mucous membranes. Respiratory: Normal respiratory effort, breath sounds equal, lungs are clear to auscultation. Cardiovascular: Regular rate and rhythm. Gastrointestinal: Abdomen is soft and non tender. No rebound or guarding. Neurological: Alert, face symmetric, normal motor and sensory in extremities. Speech normal. Skin: Warm and dry, no rashes. Musculoskeletal: No spinal or extremity deformity or tenderness. Psychiatric: Not agitated. Emergency Department course/MDM: Pre-hospital glucose 178, clinical presentation consistent with alcohol intoxication. I think that hypoglycemia or head trauma or other metabolic abnormality or seizure are all unlikely. Plan for serial examinations. Patient was up ambulatory to the bathroom but still unsteady on his feet. 1653: Ambulatory, not ataxic, fluent speech, stable for discharge. Smoking Status: Never smoked Constitutional: Initial Vital Signs Temperature (C) 36.8 C 09/10/18 13:49 Heart Rate 92 09/10/18 13:49 Respiratory Rate 16 09/10/18 13:49 Blood Pressure 141/100 H 09/10/18 13:49 O2 Sat (%) 98 09/10/18 13:49 O2 Delivery Mode Room Air O2 (L/minute) 2 Allergies/Adverse Reactions: No Known Allergies Allergy (Verified 09/06/18 16:09) Home Medications: Medication Instructions Recorded NK [No Known Home Meds] 08/29/18 Departure - Departure Disposition: Home, Routine, Self-Care Clinical Impression: Alcohol intoxication Qualifiers: Complication of substance-induced condition: uncomplicated Qualified Code(s): F10.920 - Alcohol use, unspecified with intoxication, uncomplicated Condition: Good Instructions: Alcohol Intoxication (ED) Referrals: [facility],. [Clinic] - As per Instructions
[2018-09-10 15:47] VITALS: BP 132/86
== END 2018-09-10 16:57 | disposition home or self-care (01) ==
LOC: EDUNIT#
DX: F10.129 Alcohol abuse with intoxication, unspecified (principal); K85.90 Acute pancreatitis without necrosis or infection, unspecified

== ENCOUNTER 2018-09-10 19:06 | Emergency (ER) | payer OTHER ==
--- NOTE | 2018-09-10 19:26 | EDPHY ---
H & P Smoking Status: Light smoker Time Seen by Provider: 09/10/18 19:09 HPI/ROS: CHIEF COMPLAINT: Passed out HISTORY OF PRESENT ILLNESS: 63-year-old man admits to alcohol is brought in by EMS passed out. Pre-hospital glucose 125. Complains of chronic abdominal pain but nothing else. He was seen earlier in our emergency department and observed until clinically sober. No trauma injury or suicidal ideation. REVIEW OF SYSTEMS: Eye: no change in vision ENT: no sore throat Cardiac: no chest pain or syncope Pulmonary: no cough or SOB Abdomen: No vomiting or diarrhea Musculoskeletal: no back pain Skin: no rash Neuro: no headache Constitutional: no fever : no urinary symptoms A comprehensive 10 point review of systems is otherwise negative aside from elements mentioned in the history of present illness. PAST MEDICAL HISTORY: Alcoholism and chronic abdominal pain Social history: Recent alcohol General Appearance: Sleepy but opens eyes spontaneously and responds appropriately to questions. Eyes: No scleral icterus. ENT, Mouth: Normal mucous membranes. Respiratory: Normal respiratory effort, breath sounds equal, lungs are clear to auscultation. Cardiovascular: Regular rate and rhythm. Gastrointestinal: Abdomen is soft and non tender. No rebound or guarding. Neurological: Alert, face symmetric, normal motor and sensory in extremities. Skin: Warm and dry, no rashes. Musculoskeletal: No extremity or spinal deformity or tenderness. Psychiatric: Not agitated. Emergency Department course/MDM: Alcohol ingestion with normal pre-hospital glucose. Plan for serial examinations. Respirations are depressed, initial saturation likely due to hypoventilation. Signed out to Narda; plan for serial exam and recheck O2 sat. (Bulmaro Kirkland ) Constitutional: Initial Vital Signs Temperature (C) 36.6 C 09/10/18 19:05 Heart Rate 83 09/10/18 19:05 Respiratory Rate 17 09/10/18 19:05 Blood Pressure 140/88 H 09/10/18 19:05 O2 Sat (%) 84 L 09/10/18 19:05 O2 Delivery Mode Room Air O2 (L/minute) 3 Allergies/Adverse Reactions: No Known Allergies Allergy (Verified 09/10/18 19:16) Home Medications: Medication Instructions Recorded NK [No Known Home Meds] 08/29/18 Medical Decision Making ED Course/Re-evaluation: I took over care of this patient at 9:00 p.m.. This patient is in the emergency department for alcohol intoxication. He has multiple emergency department visits related to his alcohol abuse. Secondary to his alcohol intoxication he has been mildly hypoxic at 88-90% on room air. Plan on transfer of care from Dr. Kirkland on his to observe until appropriately sober and then discharge. He is no longer welcome at the [facility]. 10:00 p.m., the patient is currently 96% on room air. He is sleeping. 11:00 p.m., the patient was turned over to Dr. Sheldon Zaragoza. Plan is as above. (Ngoc Allison) [id number]: Patient re-evaluated this time ambulated well throughout the emergency without any difficulty. He is clinically sober. Stable gait. Answers questions appropriately denies any complaints. Safe for discharge. I strongly encouraged patient to stop drinking alcohol. He has been monitored here for 11 hr in the emergency room. At this time no evidence of withdrawal. Ambulates well. Sober. Safe for discharge. (Sheldon Zaragoza) Departure - Departure Disposition: Home, Routine, Self-Care Clinical Impression: Acute alcohol intoxication Qualifiers: Complication of substance-induced condition: uncomplicated Qualified Code(s): F10.920 - Alcohol use, unspecified with intoxication, uncomplicated Condition: Good Instructions: Alcohol Intoxication (ED) Additional Instructions: Read and follow provided instructions. Return to the emergency department for worsening symptoms or other serious concerns. Referrals: [facility],. [Clinic] - As per Instructions
[2018-09-11 06:30] VITALS: BP 143/89
== END 2018-09-11 06:27 | disposition home or self-care (01) ==
LOC: EDUNIT#
DX: F10.920 Alcohol use, unspecified with intoxication, uncomplicated (principal)

== ENCOUNTER 2018-09-11 16:04 | Emergency (ER) | payer OTHER ==
--- NOTE | 2018-09-11 16:14 | EDPHY ---
H & P Time Seen by Provider: 09/11/18 16:05 HPI/ROS: CHIEF COMPLAINT: Altered, can't walk HISTORY OF PRESENT ILLNESS: EMS call to the [facility] for reports of a man who was having shortness of breath and could not walk. Mr. German says he drank about a bottle of vodka, has chronic abdominal pain, no injury or trauma, no suicidal thoughts. Unable to walk because of alcohol intoxication. Denies headache or fever or other recent illness. REVIEW OF SYSTEMS: Eye: no change in vision ENT: Mild sore throat, was recently intubated for alcohol intoxication and admitted in [place] Cardiac: no chest pain or syncope Pulmonary: no cough or SOB Abdomen: 2 episodes of vomiting and chronic abdominal pain present Musculoskeletal: no back pain Skin: no rash Neuro: no headache Constitutional: no fever : no urinary symptoms A comprehensive 10 point review of systems is otherwise negative aside from elements mentioned in the history of present illness. PAST MEDICAL HISTORY: Alcoholism, pancreatitis, hypertension Social history: Alcoholism General Appearance: Alert and conversant, cooperative. Opens eyes spontaneously , response to questions. Eyes: No scleral icterus. ENT, Mouth: Normal mucous membranes. Respiratory: Decreased respiratory effort, breath sounds equal, lungs are clear to auscultation. Cardiovascular: Regular rate and rhythm. Gastrointestinal: Abdomen is soft and non tender. No rebound or guarding. Neurological: Alert, face symmetric, normal motor and sensory in extremities. Speech normal. Skin: Warm and dry, no rashes. Musculoskeletal: No spinal or extremity deformity or tenderness. Psychiatric: Not agitated. Emergency Department course/MDM: Pre-hospital glucose 180. Initial O2 sat mid 80s, supplemental oxygen placed. Likely due to hypoventilation. 1945: awake, ambulatory, no abdominal tenderness, O2 sat 91% on room air. Not short of breath, clinically stable for discharge. Smoking Status: Light smoker Constitutional: Initial Vital Signs Temperature (C) 36.6 C 09/11/18 16:10 Heart Rate 96 09/11/18 16:10 Respiratory Rate 14 09/11/18 16:10 Blood Pressure 145/93 H 09/11/18 16:10 O2 Sat (%) 85 L 09/11/18 16:10 O2 Delivery Mode Room Air O2 (L/minute) 2 Allergies/Adverse Reactions: No Known Allergies Allergy (Verified 03/24/19 16:09) Home Medications: Medication Instructions Recorded NK [No Known Home Meds] 08/29/18 Departure - Departure Disposition: Home, Routine, Self-Care Clinical Impression: Alcohol dependence Qualifiers: Substance use status: uncomplicated Qualified Code(s): F10.20 - Alcohol dependence, uncomplicated Acute alcohol intoxication Qualifiers: Complication of substance-induced condition: uncomplicated Qualified Code(s): F10.920 - Alcohol use, unspecified with intoxication, uncomplicated Condition: Fair Instructions: Alcohol Intoxication (ED) Referrals: NONE *PRIMARY CARE P,. [Primary Care Provider] - As per Instructions [facility],. [Clinic] - As per Instructions
[2018-09-11 19:47] VITALS: BP 134/92
== END 2018-09-11 19:46 | disposition home or self-care (01) ==
LOC: EDUNIT#
DX: F10.920 Alcohol use, unspecified with intoxication, uncomplicated (principal); F10.20 Alcohol dependence, uncomplicated; R10.9 Unspecified abdominal pain; G89.29 Other chronic pain

== ENCOUNTER 2018-09-11 22:46 | Emergency (ER) | payer OTHER ==
--- NOTE | 2018-09-11 22:54 | EDPHY ---
H & P Time Seen by Provider: 09/11/18 22:52 HPI/ROS: HPI CHIEF COMPLAINT: Alcohol Intoxication HISTORY OF PRESENT ILLNESS: Patient is 63-year-old male, very familiar to myself as well as the emergency room in fact he was seen here 2 times earlier today and in fact I had him in the emergency room last night for alcohol intoxication. He is homeless, drinks alcohol daily. He presents to the emergency room with acute alcohol intoxication. He was at the bus stop intoxicated. Past Medical History: Alcoholism with daily alcohol use, hypertension, pancreatitis Past Surgical History: No recent surgery Social History: Homeless with daily alcohol use. Family History: Noncontributory ROS REVIEW OF SYSTEMS: 10 Systems were reviewed and negative with the exception of the elements mentioned in the history of present illness. Exam Constitutional Intoxicated, triage nursing summary reviewed, vital signs reviewed, Sleepy, smells of alcohol Eyes normal conjunctivae and sclera, horizontal beating nystagmus consistent acute alcohol intoxication, otherwise pupils equal and react to light HENT normal inspection, atraumatic, moist mucus membranes, no epistaxis, neck supple/ no meningismus, no raccoon eyes. Respiratory clear to auscultation bilaterally, normal breath sounds, no respiratory distress, no wheezing. Cardiovascular rate normal, regular rhythm, no murmur, no edema, distal pulses normal. Gastrointestinal soft, non-tender, no rebound, no guarding, normal bowel sounds, no distension, no pulsatile mass. Genitourinary no CVA tenderness. Musculoskeletal no midline vertebral tenderness, full range of motion, no calf swelling, no tenderness of extremities, no meningismus, good pulses, neurovascularly intact. Skin pink, warm, & dry, no rash, skin atraumatic. Neurologic sleepy, intoxicated with alcohol,, alert and oriented x 3, AAOx3, moves all 4 extremities equally, motor intact, sensory intact, CN II-XII intact , , normal vision, normal speech. Psychiatric normal mood/affect. Heme/Lymph/Immune no lymphadenopathy. Differential Diagnosis: Includes but is not limited to in a particular order acute alcohol intoxication, alcohol abuse, dehydration, electrolyte abnormality , nausea vomiting from acute alcohol intoxication Medical Decision Making: Plan for this patient fingerstick glucose, and breath alcohol and observe. Re-evaluation: Fingerstick blood glucose 127 Breath alcohol 273. 0600AM: Patient re-evaluate he has been sleeping here for the past 6 hr in no acute distress. He has no complaints. He is clinically sober he ambulates well. Answers questions appropriately. I believe he is safe for discharge. Again I counseled him on alcohol sensation. Source: Patient, EMS - Personal History Tetanus Vaccine Date: 06/21/2009 - Medical/Surgical History Hx Asthma: No Hx Chronic Respiratory Disease: No Hx Diabetes: No Hx Cardiac Disease: Yes Hx Renal Disease: No Hx Cirrhosis: No Hx Alcoholism: Yes Hx HIV/AIDS: No Hx Splenectomy or Spleen Trauma: No Other PMH: Chronic Pancreatitis, alcoholism, htn, depression, numbness/tingling feet, leg weakness - Social History Smoking Status: Light smoker Constitutional: Initial Vital Signs Temperature (C) 36.2 C 09/11/18 22:53 Heart Rate 78 09/11/18 22:53 Respiratory Rate 16 09/11/18 22:53 Blood Pressure 149/82 H 09/11/18 22:53 O2 Sat (%) 92 09/11/18 22:53 O2 Delivery Mode Room Air O2 (L/minute) 2 Allergies/Adverse Reactions: No Known Allergies Allergy (Verified 09/11/18 22:54) Home Medications: Medication Instructions Recorded NK [No Known Home Meds] 08/29/18 Medical Decision Making - Data Points Laboratory Results: 09/11/18 22:59 POC Glucose 127 mg/dL H mg/dL (70-100) Point of Care Test Results: Chemistry 09/11/18 22:59 POC Glucose 127 mg/dL H mg/dL (70-100) Departure - Departure Disposition: Home, Routine, Self-Care Clinical Impression: Alcoholism Condition: Good Instructions: Alcohol Intoxication (ED), Abuse of Alcohol (ED) Referrals: NONE *PRIMARY CARE P,. [Primary Care Provider] - As per Instructions [facility],. [Clinic] - As per Instructions
[2018-09-12 06:00] VITALS: BP 143/98
== END 2018-09-12 05:58 | disposition home or self-care (01) ==
LOC: EDUNIT#
DX: F10.129 Alcohol abuse with intoxication, unspecified (principal); K85.90 Acute pancreatitis without necrosis or infection, unspecified; I10 Essential (primary) hypertension; Z59.0 Homelessness

== ENCOUNTER 2018-09-12 13:35 | Emergency (ER) | payer OTHER ==
[2018-09-12 13:42] VITALS: BP 145/87
--- NOTE | 2018-09-12 13:53 | EDPHY ---
H & P Stated Complaint: etoh Time Seen by Provider: 09/12/18 13:37 HPI/ROS: CHIEF COMPLAINT: Intoxication HISTORY OF PRESENT ILLNESS: Patient is a 63-year-old homeless alcoholic man who passersby called ambulance for intoxication. Patient is here daily for same complaint. He is not allowed at the [facility]. He was here 4 times yesterday. EMS already refused transport him once earlier today. He has no complaints. No injuries. He was not walking for them on scene but is walking now. Severity: Mild Modifying factors: Moderate REVIEW OF SYSTEMS: Unable to obtain secondary to condition EXAM: GENERAL: Disheveled, intoxicated HEAD: Atraumatic, normocephalic. EYES: Pupils equal round and reactive to light, extraocular movements intact, sclera anicteric, conjunctiva are normal. ENT: nares patent, oropharynx clear without exudates. Moist mucous membranes. NECK: Normal range of motion, supple without lymphadenopathy or JVD. LUNGS: Breath sounds clear to auscultation bilaterally and equal. No wheezes rales or rhonchi. HEART: Regular rate and rhythm without murmurs, rubs or gallops. ABDOMEN: Soft, nontender, normoactive bowel sounds. No guarding, no rebound. No masses appreciated. BACK: No CVA tenderness, no spinal tenderness, step-offs or deformities EXTREMITIES: Normal range of motion, no pitting or edema. No clubbing or cyanosis. NEUROLOGICAL: Cranial nerves II through XII grossly intact. Slightly slurred speech, ambulating. 5/5 strength, normal movement in all extremities, normal sensation, normal reflexes PSYCH: Intoxicated SKIN: Warm, dry, normal turgor, no visible rashes or lesions. Source: Patient, EMS, Old records Exam Limitations: Intoxication - Personal History Current Tetanus/Diphtheria Vaccine: Yes Current Tetanus Diphtheria and Acellular Pertussis (TDAP): Yes Tetanus Vaccine Date: 06/21/2009 - Medical/Surgical History Hx Asthma: No Hx Chronic Respiratory Disease: No Hx Diabetes: No Hx Cardiac Disease: Yes Hx Renal Disease: No Hx Cirrhosis: No Hx Alcoholism: Yes Hx HIV/AIDS: No Hx Splenectomy or Spleen Trauma: No Other PMH: Chronic Pancreatitis, alcoholism, htn, depression, numbness/tingling feet, leg weakness - Family History Significant Family History: No pertinent family hx - Social History Smoking Status: Light smoker Alcohol Use: Heavy Constitutional: Initial Vital Signs Temperature (C) 36.4 C 09/12/18 13:35 Heart Rate 75 09/12/18 13:35 Respiratory Rate 16 09/12/18 13:35 Blood Pressure 145/87 H 09/12/18 13:35 O2 Sat (%) 95 09/12/18 13:35 O2 Delivery Mode Room Air Allergies/Adverse Reactions: No Known Allergies Allergy (Verified 09/11/18 22:54) Home Medications: Medication Instructions Recorded NK [No Known Home Meds] 08/29/18 Medical Decision Making ED Course/Re-evaluation: The patient is chronically intoxicated and is here several times a day. He is currently ambulatory. His vital signs are stable. He was discharged immediately after arrival. Currently he is without complaints. Differential Diagnosis: Partial list of the Differential diagnosis considered include but were not limited to; alcohol intoxication, polysubstance abuse and although unlikely based on the history and physical exam, I also considered head injury, pancreatitis, infection. Departure - Departure Disposition: Home, Routine, Self-Care Clinical Impression: Alcohol intoxication Qualifiers: Complication of substance-induced condition: uncomplicated Qualified Code(s): F10.920 - Alcohol use, unspecified with intoxication, uncomplicated Condition: Fair Instructions: Alcohol Intoxication (ED) Referrals: NONE *PRIMARY CARE P,. [Primary Care Provider] - As per Instructions [facility],. [Clinic] - As per Instructions
--- NOTE | 2018-09-12 19:13 | ASMTCMCOM ---
CM Note CM Note Notes: Pt presented to the ED via EMS for ETOH intoxication. This is the pt's 14th ED visit since 08/20/18. Pt was ambulatory on arrival to the ED and the ED MD immediately discharged pt to the waiting room. CM walked with pt out to the waiting area and asked him if he is interested in getting help with quitting drinking and pt said yes. Pt is very well known to the ED and has always been very resistant to wanting to quit or reduce his drinking, and pt typically does not even engage in having the conversation. Pt normally [facility] to [facility] ([facility]) on an Emergency Commitment hold that is initiated by [facility] or the ED. CM called [facility] yesterday (pt was in the ED 3 times on 09/11) and staff said pt is banned from their detox facility "indefinitely." CM called detox again today and confirmed pt is not allowed at their facility. Pt states he would like to go to [place] for detox. This CM offered pt a regional bus pass to [facility]. Pt is agreeable to this plan. CM called [facility] Homeless Outreach Team Officer Marino and requested that he transport pt to the [facility] RTD station so pt could get on the Regional bus from there. Officer Marino arrived to the ED waiting area to warehouse picker the pt but for no apparent reason, pt had become unable to stand (even though pt was ambulatory on arrival to the ED and walked to the ED waiting area without any assistance only 30 minutes prior to Officer Pichardo arrival). This CM and Officer Marino attempted to ambulate the pt but he was no longer able to stand without assistance so he was sat back down. This CM called the Driver Retraining Instructor of to discuss authorizing a cab voucher for pt to get to [facility] once pt becomes ambulatory again. The Director of was also on the call and suggested providing pt a Wheel Chair transport van via [facility] to [facility] and authorized to have [facility] bill [facility] under the contracted rate. This CM called [facility] ([phone]) and arranged a WC transport van for pt get to [facility] detox. This CM called [facility] ([phone]) and spoke w/Loraine (or Alexia?) to notify them of pt being transported there. This CM explained that the pt was being transported to their facility via [facility] WC transport van and also explained the overall situation (pt not being allowed at our local detox and pt wanting help and requesting to go to detox in [place]). Loraine (sp?) said as long as the patient had some form of identification on him that it would be fine for pt to arrive and be accepted there for treatment. This CM said pt was going to arrive there by [facility] WC van and that the local hazmat driver has pt's facesheet and other info but CM is not sure if pt has a form of identification on him. Loraine (?) said that the facesheet would be sufficient for identification purposes. This CM offered to provide additional info and possible RN report but Loraine said it was not necessary and that she would notify the RNs that we are sending a patient. Around 1750 this CM received a call from [facility] dispatch stating that [facility] had arrived with the pt at [facility] but that [facility] was not accepting the patient. This CM called [facility] and spoke w/the learning operations specialist, Jimi, who stated that [facility] cannot accept a patient from a service transport such as [facility]. If the pt had been transported by cab or Uber, etc. then yes, they could accept the pt without any issues. But Jimi said the pt would have to be medically cleared by [facility] ED prior to being transported by cab/Uber,etc. to [facility]. This CM called [facility] dispatch and spoke w/Jaja and explained the situation. Jaja said that the WC van cannot transport to an ED so a stretcher transport would need to warehouse picker the pt from the [facility] WC van and then transport the pt to the [facility] ED. This CM asked how that would be billed and asked if [facility] could bill pt's Medicare for the stretcher portion of the transport. Jaja said that yes, they would bill pt's Medicare for the stretcher transport portion and the WC transport portion would still be billed to [facility] CM. CM to followup w/[facility] tomorrow re: providing a PCS for the pt's stretcher transport that is billed to Medicare. Date Signed: 09/12/2018 07:12 PM Electronically Signed By:Vivien Plaza RN
--- NOTE | 2018-09-13 17:11 | ASDISCHSUM ---
Discharge Information Plan Status:Substance Abuse Referrals Medically Cleared to Leave: Discharge Date:09/12/2018 01:45 PM CM D/C Disposition:Other (Not listed) ADT D/C Disposition:Home, Routine, Self-Care Projected Discharge Date:09/12/2018 01:45 PM Transportation at D/C:Wheelchair Van Discharge Delay Reason: Follow-Up Date:09/12/2018 01:45 PM Discharge Slot: Final Diagnosis: Placement Information Patient Contact Information Contact Name:ANDRAE Relationship:Daughter Address: Work Phone: City:[place] Alternate Phone: State/[place] Healthcare Code:[place] Email: Financial Information Financial Class:Medicare Primary Plan Desc:MEDICARE OUTPATIENT Primary Plan Number:[id number] Secondary Plan Desc: Secondary Plan Number: Assessment Information [facility] Progress Note CM Note CM Note Notes: Pt presented to the ED via EMS for ETOH intoxication. This is the pt's 14th ED visit since 08/20/18. Pt was ambulatory on arrival to the ED and the ED MD immediately discharged pt to the waiting room. CM walked with pt out to the waiting area and asked him if he is interested in getting help with quitting drinking and pt said yes. Pt is very well known to the ED and has always been very resistant to wanting to quit or reduce his drinking, and pt typically does not even engage in having the conversation. Pt [facility]) on an Emergency Commitment hold that is initiated by [facility] or the ED. CLAUDIO called [facility] Detox yesterday (pt was in the ED 3 times on 09/11) and staff said pt is banned from their detox facility "indefinitely." CM called detox again today and confirmed pt is not allowed at their facility. Pt states he would like to go to [place] for detox. This offered pt a regional bus pass to [facility]. Pt is agreeable to this plan. CLAUDIO called [facility] Homeless Outreach Team Officer Marino and requested that he transport pt to the [facility] RTD station so pt could get on the Regional bus from there. Officer Marino arrived to the ED waiting area to filler picker the pt but for no apparent reason, pt had become unable to stand (even though pt was ambulatory on arrival to the ED and walked to the ED waiting area without any assistance only 30 minutes prior to Officer Pichardo arrival). This CM and Officer Pichardo attempted to ambulate the pt but he was no longer able to stand without assistance so he was sat back down. This CM called the [employer] of to discuss authorizing a cab voucher for pt to get to [facility] once pt becomes ambulatory again. The Director of was also on the call and suggested providing pt a Wheel Chair transport van via [facility] to [facility] and authorized to have [facility] CM under the contracted rate. This CM called [facility] ([phone]) and arranged a WC transport van for pt get to [facility] detox. This CM called [facility] ([phone]) and spoke w/Loraine (or Alexia?) to notify them of pt being transported there. This CM explained that the pt was being transported to their facility via [facility] WC transport van and also explained the overall situation (pt not being allowed at our local detox and pt wanting help and requesting to go to detox in [place]). Loraine (sp?) said as long as the patient had some form of identification on him that it would be fine for pt to arrive and be accepted there for treatment. This CM said pt was going to arrive there by [facility] WC van and that the driver/merchandiser has pt's facesheet and other info but CM is not sure if pt has a form of identification on him. Loraine (?) said that the facesheet would be sufficient for identification purposes. This CM offered to provide additional info and possible RN report but Loraine said it was not necessary and that she would notify the RNs that we are sending a patient. Around 1750 this CM received a call from [facility] dispatch stating that [facility] had arrived with the pt at [facility] but that [facility] was not accepting the patient. This CM called [facility] and spoke w/the dietitian assistant, Jimi, who stated that [facility] cannot accept a patient from a service transport such as [facility]. If the pt had been transported by cab or Uber, etc. then yes, they could accept the pt without any issues. But iJmi said the pt would have to be medically cleared by [facility] ED prior to being transported by cab/Uber,etc. to [facility]. This CM called [facility] dispatch and spoke w/Jaja and explained the situation. Jaja said that the WC van cannot transport to an ED so a stretcher transport would need to filler picker the pt from the [facility] WC van and then transport the pt to the [facility] ED. This CM asked how that would be billed and asked if [facility] could bill pt's Medicare for the stretcher portion of the transport. Jaja said that yes, they would bill pt's Medicare for the stretcher transport portion and the WC transport portion would still be billed to [facility] CM. CM to followup w/OMAR tomorrow re: providing a PCS for the pt's stretcher transport that is billed to Medicare. Date Signed: 09/12/2018 07:12 PM Electronically Signed By:Vivien Plaza RN Intervention Information Intervention Type:Substance Abuse Treatment Date of Service:09/12/2018 07:15 PM Patient Type:Emergency Room Staff Member:JOSE FRANCISCO Plaza [place] Hours:1 Discipline:Production Maintenance Mechanic Severity: Comment: Intervention Type:Post Acute Communication Date of Service:09/12/2018 05:03 PM Patient Type:Emergency Room Staff Member:JOSE FRANCISCO Plaza [place] Hours:0.25 Discipline:Production Maintenance Mechanic Severity: Comment:Spoke with Saroj, Production Maintenance Mechanic at [facility]. Pt has completed Coordinated Entry and was referred to [facility] but is n ot in good standing at this time so he would only be allowed to stay at the [facility]. Saroj states [facility] is full and there is already about 50 people on th e waitlist but the pt can followup with them and get on the waitlist. Saroj stat ed that pt cannot access CM services ther e at this time due to [facility] being fu ll and pt only being eligible for SWS at this time. CM informed pt of this and encouraged him to follow up with [facility] if/when pt returns to [place] after detox in [place].
== END 2018-09-12 13:45 | disposition home or self-care (01) ==
LOC: EDUNIT#
DX: F10.129 Alcohol abuse with intoxication, unspecified (principal); Z59.0 Homelessness; I10 Essential (primary) hypertension

== ENCOUNTER 2018-09-15 01:45 | Inpatient (IN) | payer OTHER ==
[2018-09-15] MEDS ORDERED: NS 1,000 ML IV ONE (01:52)
[2018-09-15] MEDS ORDERED: FOLIC ACID 1 MG TAB PO ONE (01:53)
--- NOTE | 2018-09-15 01:57 | EDPHY ---
H & P Time Seen by Provider: 09/15/18 01:54 HPI/ROS: HPI CHIEF COMPLAINT: Unable to walk, dizziness, falling down HISTORY OF PRESENT ILLNESS: 63-year-old male, well known to myself as well as the emergency room, this is his 42 ER visit, have seen and many nights, he presents emergency room with a complaint that he feels like he is unsteady gait and is off balance states that he fell down multiple times today trying to walk. Started he noticed this much earlier yesterday morning when he was walking to the grocery store. He did drink some alcohol about 4 hr ago however he arrives to the emergency room rather sober or at least more sober than I have seen him. He reports to me this is way different than normally would he is in the emergency room for. He reports that he is typically in the emergency room for acute alcohol intoxication however he states her something wrong with his balance. When I ambulate him here in the emergency room upon arrival he does have a unsteady gait, he denies being pulled 1 direction or the other but does feel off balance. His last drink was 4 hr ago. Past Medical History: Significant medical history for alcohol dependency, alcohol abuse, daily alcohol use, alcohol-induced pancreatitis, respiratory failure from alcohol overdose. Previous intubation by myself for an alcohol level that was over 500, hypertension Past Surgical History: No recent surgery Social History: Homeless, daily alcohol use. Family History: Noncontributory ROS REVIEW OF SYSTEMS: 10 Systems were reviewed and negative with the exception of the elements mentioned in the history of present illness. Exam Constitutional nontoxic, but does not appear well, triage nursing summary reviewed, vital signs reviewed, awake/alert. Eyes normal conjunctivae and sclera, EOMI, PERRLA. HENT normal inspection, atraumatic, moist mucus membranes, no epistaxis, neck supple/ no meningismus, no raccoon eyes. Respiratory clear to auscultation bilaterally, normal breath sounds, no respiratory distress, no wheezing. Cardiovascular rate normal, regular rhythm, no murmur, no edema, distal pulses normal. Gastrointestinal soft, non-tender, no rebound, no guarding, normal bowel sounds, no distension, no pulsatile mass. Genitourinary no CVA tenderness. Musculoskeletal no midline vertebral tenderness, full range of motion, no calf swelling, no tenderness of extremities, no meningismus, good pulses, neurovascularly intact. Skin pink, warm, & dry, no rash, skin atraumatic. Neurologic for uzvizn-bo-nieo was unremarkable, heel to crowley unremarkable however when I ambulate him, he has a rather unsteady wide-based gait, awake, alert and oriented x 3, AAOx3, moves all 4 extremities equally, motor intact, sensory intact, CN II-XII intact, normal vision, normal speech. Psychiatric normal mood/affect. Heme/Lymph/Immune no lymphadenopathy. Differential Diagnosis: Includes but is not limited to in a particular order: Acute alcohol intoxication, electrolyte disturbance, or neck is encephalopathy, cerebellar bleed, intracranial bleed, subdural Medical Decision Making: Plan for this patient IV establishment IV fluid bolus , thiamine and folate, check electrolytes, CT scan head without contrast, chest x-ray and EKG. Re-evaluation: EKG interpretation by me on record in [facility] system. Impression time of EKG 2:03 a.m., sinus rhythm rate of 76 without any signs of acute ischemia. No prolonged intervals. ED x-ray chest one view negative for acute cardiopulmonary disease. CT scan head without contrast faxed to me by direct Radiology at 2:51 a.m. No acute intracranial abnormality Serum alcohol level 209 Electrolytes are appropriate. Patient receiving thiamine and folate 335am attempt to ambulate still wide-based gait unsteady. Given his fall wrist plan for admission the hospital Consulted Dr. Blanchard Agrees to admit. Source: Patient, EMS - Personal History Tetanus Vaccine Date: 06/21/2009 - Medical/Surgical History Hx Asthma: No Hx Chronic Respiratory Disease: No Hx Diabetes: No Hx Cardiac Disease: Yes Hx Renal Disease: No Hx Cirrhosis: No Hx Alcoholism: Yes Hx HIV/AIDS: No Hx Splenectomy or Spleen Trauma: No Other PMH: Chronic Pancreatitis, alcoholism, htn, depression, numbness/tingling feet, leg weakness - Social History Smoking Status: Light smoker Constitutional: Initial Vital Signs Temperature (C) 36.3 C 09/15/18 01:51 Heart Rate 71 09/15/18 01:51 Respiratory Rate 18 09/15/18 01:51 Blood Pressure 143/87 H 09/15/18 01:51 O2 Sat (%) 93 09/15/18 01:51 O2 Delivery Mode Room Air O2 (L/minute) 2 Allergies/Adverse Reactions: No Known Allergies Allergy (Verified 09/15/18 01:53) Home Medications: Medication Instructions Recorded NK [No Known Home Meds] 08/29/18 Medical Decision Making - Data Points Laboratory Results: Laboratory Results 09/15/18 06:35 09/15/18 17:18 Medications Given: Azithromycin (Zithromax) 500 mg PO DAILY LANIE PRN Reason: Protocol Stop: 09/19/18 09:01 Last Admin: 09/18/18 08:31 Dose: 500 mg Enoxaparin Sodium (Lovenox) 40 mg SC DAILY LANIE Stop: 03/15/19 08:59 Last Admin: 09/18/18 08:30 Dose: 40 mg Famotidine (Pepcid) 20 mg PO BID LANIE Stop: 03/14/19 20:59 Last Admin: 09/18/18 08:31 Dose: 20 mg Folic Acid (Folic Acid) 1 mg PO DAILY LANIE Stop: 03/14/19 08:59 Last Admin: 09/18/18 08:31 Dose: 1 mg Ketorolac Tromethamine (Toradol) 30 mg IVP Q6H LANIE Stop: 09/20/18 16:59 Last Admin: 09/18/18 12:59 Dose: Not Given Lorazepam (Ativan) 1 - 2 mg PO Q4HRS PRN PRN Reason: Anxiety, Able to Take PO Stop: 03/15/19 10:34 Last Admin: 09/18/18 13:19 Dose: 2 mg Meclizine HCl (Meclizine Hcl) 25 mg PO BID LANIE Stop: 03/14/19 14:59 Last Admin: 09/18/18 08:31 Dose: 25 mg Multivitamins (Tab-A-Juan Ramon) 1 each PO DAILY LANIE Stop: 03/14/19 08:59 Last Admin: 09/18/18 08:31 Dose: 1 each Ondansetron HCl (Zofran Odt) 4 mg PO Q4HRS PRN PRN Reason: Nausea/Vomiting, Use 1st Stop: 03/14/19 03:34 Last Admin: 09/15/18 11:53 Dose: 4 mg Oxycodone HCl (Oxycodone Ir) 5 mg PO Q6H PRN PRN Reason: Pain, Severe Able to Take PO Stop: 09/25/18 05:05 Last Admin: 09/18/18 08:29 Dose: 5 mg Thiamine HCl (Vitamin B-1) 100 mg PO DAILY LANIE Stop: 03/17/19 08:59 Last Admin: 09/18/18 08:31 Dose: 100 mg Discontinued Medications Albuterol/Ipratropium (Duoneb) 3 ml IH QID LANIE Stop: 03/14/19 15:59 Last Admin: 09/17/18 05:20 Dose: Not Given Folic Acid (Folic Acid) 1 mg PO EDNOW ONE Stop: 09/15/18 01:54 Last Admin: 09/15/18 01:57 Dose: 1 mg Sodium Chloride (Ns) 1,000 mls @ 0 mls/hr IV EDNOW ONE; Wide Open PRN Reason: Protocol Stop: 09/15/18 01:53 Last Admin: 09/15/18 02:57 Dose: 1,000 mls Thiamine HCl 500 mg/ Sodium (Chloride) 105 mls @ 210 mls/hr IV Q8HRS LANIE Stop: 03/14/19 05:59 Last Admin: 09/15/18 03:30 Dose: 105 mls Thiamine HCl 500 mg/ Sodium (Chloride) 105 mls @ 210 mls/hr IV DAILY LANIE Stop: 09/17/18 09:29 Last Admin: 09/17/18 14:08 Dose: Not Given Sodium Chloride (Ns) 1,000 mls @ 100 mls/hr IV CONT LANIE Stop: 03/14/19 03:59 Last Admin: 09/16/18 05:53 Dose: 1,000 mls Potassium Chloride (Potassium Cl 10 Meq (Premix)) 100 mls @ 50 mls/hr IV Q2H LANIE Stop: 09/15/18 23:56 Last Admin: 09/15/18 22:00 Dose: 100 mls Magnesium Sulfate/Dextrose (Magnesium Sulf 1 Gm (Premix)) 100 mls @ 100 mls/hr IV ONCE ONE Stop: 09/17/18 07:19 Last Admin: 09/17/18 08:37 Dose: 100 mls Potassium Chloride (Potassium Cl 10 Meq (Premix)) 100 mls @ 100 mls/hr IV Q1H LANIE Stop: 09/17/18 11:29 Last Admin: 09/17/18 13:30 Dose: 100 mls Lorazepam (Ativan Injection) 0 mg IVP Q1H PRN; Protocol PRN Reason: Alcohol Withdrawal w/IV access Stop: 03/14/19 03:36 Last Admin: 09/16/18 19:49 Dose: 2 mg Lorazepam (Ativan Injection) 2 mg IVP ONCE ONE Stop: 09/17/18 14:46 Last Admin: 09/17/18 12:30 Dose: 2 mg Point of Care Test Results: Chemistry 09/15/18 03:03 POC Troponin I 0.00 ng/mL ng/mL (0.00-0.08) Departure - Departure Disposition: [facility] Acute Clinical Impression: Ataxia, Alcohol abuse Alcohol intoxication Qualifiers: Complication of substance-induced condition: uncomplicated Qualified Code(s): F10.920 - Alcohol use, unspecified with intoxication, uncomplicated Condition: Fair
[2018-09-15 03:11] LABS: PLATELET COUNT 117 10^3/uL (150-400)
[2018-09-15 03:16] LABS: INR 1.06 (0.83-1.16); PROTIME(PATIENT) 13.4 SEC (12.0-15.0)
[2018-09-15] MEDS ORDERED: ONDANSETRON DISINTEGRATING 4 MG TAB PO PRN (03:35)
[2018-09-15] MEDS ORDERED: ACETAMINOPHEN 325 MG TAB PO PRN (03:35)
[2018-09-15] MEDS ORDERED: ONDANSETRON 4 MG/2 ML VIAL IVP PRN (03:35)
[2018-09-15] MEDS ORDERED: LORazepam 2 MG/ML INJ IVP PRN (03:35)
[2018-09-15] MEDS ORDERED: LORazepam 1 MG TAB PO PRN (03:35)
[2018-09-15] MEDS ORDERED: FLUMAZENIL 0.5 MG/5 ML MDV IVP PRN (03:37)
--- NOTE | 2018-09-15 03:55 | PDGENHP ---
History and Physical - Chief Complaint Ataxia - History of Present Illness 63 yo M w/ hx of ETOH use d/o presents with ataxia. The patient tells me he has felt difficulty walking since yesterday morning. His symptoms have been ongoing for nearly 24 hours. He describes difficulty maintaining his balance. This has led to several falls today. He denies other focal neurologic symptoms such as headache, visual disturbance, difficulty with speech, numbness, or weakness. He is A&Ox3 during my evaluation and denies symptoms of ETOH withdrawal. He drank 2 shots of vodka today and usually drinks about a pint daily. His ED evaluation is mostly unremarkable including CT of the head. He is being admitted for observation and further work-up. Case discussed with ED physician Dr. Pineda; records reviewed and summarized above. History Information - Allergies/Home Medication List Allergies/Adverse Reactions: No Known Allergies Allergy (Verified 09/15/18 01:53) Home Medications: NK [No Known Home Meds] 08/29/18 [Last Taken Unknown] I have personally reviewed and updated: family history, medical history - Past Medical History Additional medical history: Chronic pain with chronic pancreatitis, secondary to alcoholism. Hypertension. Depression. Anxiety. BPH - Surgical History Additional surgical history: Right hand surgery - Family History Additional family history: Both parents of cancer, unclear type, there is also family history of alcoholism - Social History Smoking Status: Light smoker Additional social history: Patient's roommate recently the flu Review of Systems Review of Systems: ROS: 10pt was reviewed & negative except for what was stated in HPI & below Physical Exam Physical Exam: Temp Pulse Resp BP Pulse Ox 36.3 C 81 16 132/89 H 95 09/15/18 01:51 09/15/18 03:31 09/15/18 03:31 09/15/18 03:31 09/15/18 03:31 Constitutional: uncomfortable, unkempt Eyes: PERRL, EOMI, scleral injection Ears, Nose, Mouth, Throat: moist mucous membranes, no oral mucosal ulcers Cardiovascular: regular rate and rhythym, systolic murmur Respiratory: no respiratory distress, clear to auscultation Gastrointestinal: normoactive bowel sounds, soft, non-tender abdomen Skin: warm, normal color Musculoskeletal: full muscle strength, no muscle tenderness, other (Finger to nose and heel to crowley testing normal) Neurologic: AAOx3, CN II-XII Intact Psychiatric: interacting appropriately, not anxious Lab Data & Imaging Review 09/15/18 03:00 09/15/18 03:00 WBC 5.44 10^3/uL (3.80-9.50) 09/15/18 03:00 RBC 5.08 10^6/uL (4.40-6.38) 09/15/18 03:00 Hgb 15.3 g/dL (13.7-17.5) 09/15/18 03:00 Hct 46.1 % (40.0-51.0) 09/15/18 03:00 MCV 90.7 fL (81.5-99.8) 09/15/18 03:00 MCH 30.1 pg (27.9-34.1) 09/15/18 03:00 MCHC 33.2 g/dL (32.4-36.7) 09/15/18 03:00 RDW 13.8 % (11.5-15.2) 09/15/18 03:00 Plt Count 117 10^3/uL (150-400) L 09/15/18 03:00 MPV 10.0 fL (8.7-11.7) 09/15/18 03:00 Neut % (Auto) 61.7 % (39.3-74.2) 09/15/18 03:00 Lymph % (Auto) 27.8 % (15.0-45.0) 09/15/18 03:00 Harding % (Auto) 6.8 % (4.5-13.0) 09/15/18 03:00 Eos % (Auto) 2.9 % (0.6-7.6) 09/15/18 03:00 Baso % (Auto) 0.6 % (0.3-1.7) 09/15/18 03:00 Nucleat RBC Rel Count 0.0 % (0.0-0.2) 09/15/18 03:00 Absolute Neuts (auto) 3.36 10^3/uL (1.70-6.50) 09/15/18 03:00 Absolute Lymphs (auto) 1.51 10^3/uL (1.00-3.00) 09/15/18 03:00 Absolute Monos (auto) 0.37 10^3/uL (0.30-0.80) 09/15/18 03:00 Absolute Eos (auto) 0.16 10^3/uL (0.03-0.40) 09/15/18 03:00 Absolute Basos (auto) 0.03 10^3/uL (0.02-0.10) 09/15/18 03:00 Absolute Nucleated RBC 0.00 10^3/uL (0-0.01) 09/15/18 03:00 Immature Gran % 0.2 % (0.0-1.1) 09/15/18 03:00 Immature Gran # 0.01 10^3/uL (0.00-0.10) 09/15/18 03:00 PT 13.4 SEC (12.0-15.0) 09/15/18 03:00 INR 1.06 (0.83-1.16) 09/15/18 03:00 APTT 30.9 SEC (23.0-38.0) 09/15/18 03:00 Sodium 141 mEq/L (135-145) 09/15/18 03:00 Potassium 3.7 mEq/L (3.5-5.2) 09/15/18 03:00 Chloride 104 mEq/L (97-110) 09/15/18 03:00 Carbon Dioxide 20 mEq/l (22-31) L 09/15/18 03:00 Anion Gap 17 mEq/L (6-14) H 09/15/18 03:00 BUN 15 mg/dL (7-23) 09/15/18 03:00 Creatinine 0.7 mg/dL (0.7-1.3) 09/15/18 03:00 Estimated GFR > 60 09/15/18 03:00 Glucose 79 mg/dL (70-100) 09/15/18 03:00 Calcium 8.9 mg/dL (8.5-10.4) 09/15/18 03:00 Magnesium 1.8 mg/dL (1.6-2.3) 09/15/18 03:00 Total Bilirubin 1.1 mg/dL (0.1-1.4) 09/15/18 03:00 Conjugated Bilirubin 0.5 mg/dL (0.0-0.5) 09/15/18 03:00 Unconjugated Bilirubin 0.6 mg/dL (0.0-1.1) 09/15/18 03:00 AST 42 IU/L (17-59) 09/15/18 03:00 ALT 34 IU/L (21-72) 09/15/18 03:00 Alkaline Phosphatase 83 IU/L (38-126) 09/15/18 03:00 POC Troponin I 0.00 ng/mL (0.00-0.08) 09/15/18 03:03 NT-Pro-B Natriuret Pep 184 pg/mL (0-125) H 09/15/18 03:00 Total Protein 7.1 g/dL (6.3-8.2) 09/15/18 03:00 Albumin 4.4 g/dL (3.5-5.0) 09/15/18 03:00 Lipase 93 IU/L (23-300) 09/15/18 03:00 Ethyl Alcohol 209 mg/dL (0-10) H 09/15/18 03:00 Visualized and Interpreted EKG results: Yes EKG Interpretation: Positive for: normal sinsus rhythm Assessment & Plan Assessment: 63 yo M w/ hx of ETOH use d/o presents with ataxia. Plan: 1. Ataxia - Unclear etiology; possibly due to toxic cerebellar effect of ETOH but onset seems fairly acute. Wernicke's is another consideration noting heavy ETOH use. Symptoms have been present for about 24 hours, making evaluation for possible stroke less emergent. In addition, he denies additional neurologic symptoms and cerebellar function appears normal on exam. CTH in the ED unremarkable. - Admit for observation - PT/OT evaluations - High dose thiamine - May require MRI if not improving with conservative measures 2. Lower extremity edema - R>L on my exam; patient is not sure if this is chronic. CXR does not demonstrate cardiomegaly and BNP only 184. - B/L LE US to rule out DVT 3. ETOH use d/o - Drinks a point of vodka daily, BAL 209 on admission. He is not displaying signs of withdrawal at this time although he is at high risk for this. - CIWA protocol - High dose thiamine - Daily MVI, folate 4. Hx chronic pancreatitis 5. AGMA - Suspect ETOH related Diet - Regular Code - Full Ppx - SCDs Dispo - Admit under observation status
[2018-09-15] MEDS: oxyCODONE IR 5 MG TAB PO PRN ×2 (05:36→11:53)
[2018-09-15] MEDS: NS 1,000 ML IV SCH (05:39)
[2018-09-15] MEDS ORDERED: THIAMINE HCL 500 MG in NS 100 ML IV SCH (06:00)
--- NOTE | 2018-09-15 08:36 | HOSPPROG ---
Hospitalist Progress Note Assessment/Plan: DIAGNOSES: * Gait Ataxia/vertigo * Metabolic Acidosis, suspect alcohol related ketoacidosis * Acute on chronic pancreatitis * Bilateral leg edema without evidence of heart failure or DVT; ? Cardiopulmonary cause or venous insufficiency, other etiologies possible * Alcoholism * Thiamine Deficiency Suspected * thrombocytopenia from alcoholism * Hx of Chronic Pancreatitis * Hx of Depression/Anxiety PLANS: * thiamine replacement * Hydration * Will try some meclizine * MRI brain - he is requesting that we try and delay this until tomorrow as he has significant claustrophobia him like to feel better before he tries to have the study done, will need Ativan for certain * [facility] protocol * Will check an echocardiogram as further assessment for possible causes of leg edema Seen by me today on hospitalist day rounds as well as multidisciplinary rounds SUBJECTIVE: Patient complains of ongoing vertigo describes a whirling sensation and nausea very unsteady with any attempts to sit up or stand Currently not vomiting Ongoing pain of pancreatitis is worse than his usual No shortness of breath or fever symptoms, mild anxiety not tremulous does not feel confused OBJECTIVE Vitals reviewed: Some hypertension and tachycardia, no fever, stable respirations Food Beverage Attendant, my review: Exam: alert oriented, very mild anxiety, no tremor, no confusion hallucinations or agitation Neurologic a slight rotational nystagmus with left lateral gaze, no other focal findings skin warm dry color ok resps not labored lungs clear BSs heart regular abd soft mildly distended, some epigastric tenderness without rebound, bowel sounds present limbs warm, no edema iv site ok Imaging: I have reviewed his chest x-ray images from yesterday and I do not see any evidence of congestive heart failure, cardiac enlargement, or any other concerning abnormalities or anything that would explain his leg edema I reviewed images from his noncontrast CT head done yesterday in ER and this does not show any specific abnormalities to explain his ataxia. There is notable atrophy present Doppler ultrasound of the legs showed no evidence of DVT or other specific abnormality Greater than 35 min bedside time spent by me today in addition to the time spent earlier by Dr. Kristen Silverman on his admission activities Objective: Vital Signs Temp Pulse Resp BP Pulse Ox 36.4 C 92 12 127/79 H 88 L 09/15/18 04:07 09/15/18 07:00 09/15/18 07:00 09/15/18 07:00 09/15/18 07:00 Laboratory Results 09/15/18 06:35 09/14/18 09/15/18 09/16/18 06:59 06:59 06:59 Intake Total 1320 Output Total 0 Balance 1320 PT 13.4 SEC (12.0-15.0) 09/15/18 03:00 INR 1.06 (0.83-1.16) 09/15/18 03:00 ICD10 Worksheet Patient Problems: Problems Problem Status Onset Ataxia Acute Liver function tests abnormal Active Pain management Active Abdominal pain Acute Acute alcohol intoxication Acute Acute on chronic pancreatitis Acute Alcohol abuse Acute Alcohol dependence Acute Alcohol intoxication Acute Alcohol withdrawal syndrome Acute Alcoholism Acute Chronic abdominal pain Acute Depression Acute Hypoxemia Acute Pancreatitis Acute Pneumonia Acute Thrombocytopenia Acute
--- NOTE | 2018-09-15 09:16 | ASMTLACE ---
LUCIO Comorbidities - select Answers: Opioid dependence all that apply / Chronic pain Other Notes: HTN # of Emergency department Answers: 12+ visits in the last 6 months Social determinants Answers: History of substance abuse (ETOH, street drugs, prescription drugs, etc.) Homelessness (street, senior care) Mental health diagnosis (anxiety, depression, pers onality disorders, etc.) Score: 20 Date Signed: 09/15/2018 09:15 AM Electronically Signed By:Hallie Solomon
[2018-09-15] MEDS: MULTIVITAMINS 1 EACH TAB PO SCH (09:22)
[2018-09-15] MEDS: FOLIC ACID 1 MG TAB PO SCH (09:23)
[2018-09-15] MEDS: LORazepam 2 MG/ML INJ IVP PRN ×2 (11:53→17:03)
[2018-09-15] MEDS ORDERED: PROTOCOL MAGNESIUM 1 DOSE IV PRN (14:47)
[2018-09-15] MEDS ORDERED: PROTOCOL POTASSIUM 1 DOSE MISC PRN (14:47)
[2018-09-15] MEDS ORDERED: PROTOCOL K PHOSPHATE 1 DOSE IV PRN (15:44)
--- NOTE | 2018-09-15 16:06 | ASMTCMCOM ---
CM Note CM Note Notes: Pt is a 63 yo M in with ataxia. Has long history of alcoholism and has been in and out of [facility] Emergency department nearly daily. Has multiple detox stays. Pt reports he is interested in stopping drinking. CM provided education on ETOH use and rehabs in the area. CM provided with list and told pt process of rehab admission. CM to follow. Plan: TBD Date Signed: 09/15/2018 04:05 PM Electronically Signed By:LETI Nicholas
[2018-09-15] MEDS: IPRATROPIUM/ALBUTEROL 3 ML DEYVIAL IH SCH ×2 (16:40→21:18)
--- NOTE | 2018-09-15 16:49 | ECHO ---
[email or web address] [address] [address] Main: [phone] Echocardiography Examination Transthoracic Name: REMIGIO PAYNE MR#: [id number] Study Date: 09/15/2018 Study Time: 03:32 PM Date of : 1955 Age: 63 year(s) Height: 175.3 cm (69 in.) Weight: 83.46 kg (184 lb.) BSA: 1.99 m2 Gender: Male Examination: Echo Contrast: Image Quality: Adequate Rhythm: Tachycardia Heart Rate: 82 bpm BP: 156 mmHg/99 mmHg Indication: Bilateral LE Edema of Unknown etiology Procedure Staff Referring Physician: Machine Crater: Thee Larios RDCS Reading Physician: Philip Sawyer MD Requesting Provider: Indication: Bilateral LE Edema of Unknown etiology Measurements Chambers AV/MV Label Value Normal Value Label Value Normal Value IVSd, 2D 1.1 cm (0.6cm - 1.1cm) AV PGmax 12 mmHg LVDd, 2D 3.4 cm (4.2cm - 5.9cm) AV PGmean 6 mmHg LVDs, 2D 2.2 cm (2.1cm - 4cm) AV Vmax 1.75 m/s LVEF, 2D 65 % (54% - 74%) DILEEP (continuity eq. 1.8 cm2 LVOT PGmax 4 mmHg Vmax) LVOT PGmean 3 mmHg DILEEP D (continuity eq. 2.2 cm2 LVOT Vmax 1.01 m/s (0.7m/s - 1.1m/s) VTI) LVOT Vmean 0.75 m/s MV A Vmax 0.89 m/s LVOTd 2 cm (1.9cm - 2.1cm) MV E' lateral 0.07 m/s LVPWd, 2D 1 cm (0.6cm - 1cm) MV E' mean 0.07 m/s RVDd, 2D 3.2 cm (1.9cm - 3.8cm) MV E' septal 0.07 m/s LA Volume, BP 42 ml (18ml - 58ml) MV E Vmax 0.69 m/s LAESV index, BP 21.1 ml/m2 MV E/A 0.78 Additional Vessels MV E/E' lateral 9.6 Label Value Normal Value MV E/E' mean 9.86 AoRoot, MM 3.4 cm (2.2cm - 3.7cm) MV E/E' septal 10 (0.45 - 1.25) Conclusions Patient: REMIGIO PAYNE Study Date: 09/15/2018 Page 1 of 2 03:32 PM Overall Conclusions: No pericardial effusion. Preserved left ventricular systolic function. No significant valvular abnormalities by Doppler 2 dimensional study. No etiology for edema suggested by this study. Findings Left Ventricle: There is poor PA Lax views due to lung interference.. Left ventricle is normal in size. Normal global systolic left ventricular function. Left ventricle wall thickness is normal. There are no regional wall motion abnormalities. Cannot determine LAP and Diastolic Dysfunction Grade. Right Ventricle: Normal size right ventricle. Right ventricular wall thickness is normal. The RV function appears grossly normal. Left Atrium: The left atrium is normal in size. Right Atrium: The right atrium is normal in size. Mitral Valve: Mitral valve appears structurally normal. No mitral regurgitation. Aortic Valve: Aortic leaflets are structurally normal. No aortic valve regurgitation. The aortic valve is trileaflet. Tricuspid Valve: No significant tricuspid regurgitation. Pulmonic Valve: Pulmonic valve not well visualized. Aorta: The aorta is normal. The aortic root size in M-mode measures 3.4 cm. Aorta Measurements AoRoot, MM is 3.4 cm. Pericardium: No pericardial effusion. Exam Details Procedure Ordered: Echo Procedure Status: Routine study Image Quality: Adequate Facility Location: Cardiac Echo 1 (No Signature Object) Patient: REMIGIO PAYNE Study Date: 09/15/2018 Page 2 of 2 03:32 PM [id number]
[2018-09-15] MEDS: KETOROLAC 30 MG/1 ML SDV IVP SCH (17:00)
[2018-09-15] MEDS: MECLIZINE HCL 25 MG TAB PO SCH ×2 (17:00→21:08)
[2018-09-15] MEDS: AZITHROMYCIN 250 MG TAB PO SCH (17:00)
--- NOTE | 2018-09-15 17:30 | GCON ---
[f rep st] CONSULTATION PULMONARY CRITICAL CARE CONSULTATION DATE OF CONSULTATION: 09/15/2018 REASON FOR CONSULTATION: Chronic alcoholism with acute intoxication. HISTORY: The patient is a 63-year-old chronic alcoholic. He has had innumerable evaluations in the emergency department related to acute intoxication, falls secondary to alcohol, etc. He presented to the emergency department again with unsteadiness and falling. Blood alcohol was over 200 on admissi on. He drinks at least a pint of vodka daily and was actively drinking up to admission. PAST MEDICAL HISTORY: He has a history of chronic pancreatitis and chronic abdominal pain secondary to this. There is a history of depression, anxiety, and systemic hypertension. MEDICATIONS: He was taking no medications on admission. SOCIAL HISTORY: He is apparently homeless, but currently has been living in a hotel room; homeless a t times. He does smoke cigarettes, approximately a half pack per day. He apparently has a roommate who recently had the flu. FAMILY HISTORY: Cancer in his parents. REVIEW OF SYSTEMS: A 10-point review of systems is negative, except as mentioned in the HPI. There is no history of heart disease, thromboembolic disease, etc. He reports cough, chest congestion and m ucus over the last several days. PHYSICAL EXAMINATION: GENERAL: Reveals a gentleman who is somewhat disheveled. VITAL SIGNS: Blood pressure is approximately 180/100 when last checked, heart rate 108 with sinus tachycardia on the mo nitor. He is on room air. Saturations are 97%. He is afebrile. HEENT: Unremarkable for lymphaden opathy or thyromegaly. There is no jugular venous distention. Mucous membranes are dry. Pupils are equal. CHEST: Clear with passive breathing. With cough there is central congestion and some rhonc hi. He is not currently bringing up any mucus. With forced exhalation, there are some expiratory wh eezes secondary to mucus in the airways. He is not tight. HEART: Tachycardic. There is a soft sys tolic murmur, no gallop. ABDOMEN: Soft, nontender. Bowel sounds are present. Despite no obvious t enderness with palpation, he does complain of abdominal pain. EXTREMITIES: Remarkable for 1+ edema bilaterally. There are no obvious cords. NEUROLOGIC: Examination is nonfocal. He is oriented to p erson and place, not to the exact date. He does know it is 2018 and that it is August. He complains of some lightheadedness and vertigo type symptoms even sitting in bed. He does have a tremor. He ap pears mildly restless. DATABASE: CT scan of the head on admission was within normal limits. Chest x-ray showed no evidence of pneumonia, pulmonary infiltrates, pleural disease, or other abnorma lities. Bilateral lower extremity venous Doppler ultrasounds were negative for DVT. White blood cell count is 5400, hematocrit 46, platelets 117,000. PT and PTT were normal on admissio n. Basic metabolic panel was normal with the exception of a CO2 of 20 with an anion gap of 17. BUN was 15 with creatinine 0.7. Liver function studies were normal. Troponin was negative. BNP was low . Lipase was normal at 93. Albumin is 4.4. Blood alcohol on admission was 209. ASSESSMENT: 1. Chronic alcohol abuse. The patient has a long history of alcohol abuse. He has been seen innume rable times in the emergency department, treated and released. All of these visits would appear to b e secondary to acute or chronic alcohol ingestion, falling secondary to intoxication, etc. He states on this admission that he would like to consider stopping drinking. There is evidence of early alco hol withdrawal. This likely will become significantly worse. He is on the CIWA protocol; this will be continued. Precedex may or may not be needed. 2. Acute bronchitis. He does have pulmonary congestion with a negative chest x-ray. Oral azithromy radha and bronchodilator therapies will be given. 3. History of chronic abdominal pain secondary to chronic pancreatitis. Oxycodone has been ordered. 4. Gait instability, vertigo. Meclizine has been ordered. CT scan of the head is negative. His ga it instability may also be related to acute intoxication. PLAN AND RECOMMENDATIONS: Patient will be kept in the intensive care unit. CIWA protocol will be co ntinued. Thiamine will be given. Oral azithromycin will be started for bronchitis, along with DuoNe b. DVT and GI prophylaxis with enoxaparin and famotidine respectively will be added to his regimen. Appropriate pain medications will be continued for his chronic abdominal pain/chronic pancreatitis. Laboratory will be followed. Intravenous fluids will be continued. Meclizine will be given for pos sible vertigo. Further plans and recommendations will be made based on his progress over the next 12-24 hours. /[id number]/MODL
[2018-09-15] MEDS: POTASSIUM Cl (KCl) 100 ML IV SCH ×2 (21:08→22:00)
[2018-09-15] MEDS: FAMOTIDINE 20 MG TAB PO SCH (21:08)
[2018-09-16] MEDS: KETOROLAC 30 MG/1 ML SDV IVP SCH ×4 (02:03→16:10)
[2018-09-16] MEDS: IPRATROPIUM/ALBUTEROL 3 ML DEYVIAL IH SCH ×4 (05:34→20:06)
[2018-09-16] MEDS: oxyCODONE IR 5 MG TAB PO PRN ×2 (05:49→14:23)
[2018-09-16] MEDS: NS 1,000 ML IV SCH (05:53)
[2018-09-16] MEDS: AZITHROMYCIN 250 MG TAB PO SCH (08:00)
[2018-09-16] MEDS: MECLIZINE HCL 25 MG TAB PO SCH ×2 (08:01→21:16)
[2018-09-16] MEDS: ENOXAPARIN 40 MG/0.4 ML SYR SC SCH (08:01)
[2018-09-16] MEDS: FOLIC ACID 1 MG TAB PO SCH (08:01)
[2018-09-16] MEDS: MULTIVITAMINS 1 EACH TAB PO SCH (08:01)
[2018-09-16] MEDS: FAMOTIDINE 20 MG TAB PO SCH ×2 (08:01→21:16)
[2018-09-16] MEDS: LORazepam 2 MG/ML INJ IVP PRN ×5 (08:02→19:49)
[2018-09-16] MEDS: THIAMINE HCL 500 MG in NS 100 ML IV SCH (08:04)
--- NOTE | 2018-09-16 10:05 | HOSPPROG ---
Hospitalist Progress Note Assessment/Plan: DIAGNOSES: * Gait Ataxia/vertigo/gait instability/falls/generalized weakness -nurses and therapists report that the patient seems to be exaggerating his symptoms to some extent -diff dx does include etoh cerebellar toxicity, thiamine related dz, stroke or other lesiona * Metabolic Acidosis, suspect alcohol related ketoacidosis * Acute on chronic pancreatitis * Bilateral leg edema without evidence of heart failure or DVT; ? Cardiopulmonary cause or venous insufficiency, other etiologies possible * Alcoholism * Thiamine Deficiency Suspected * thrombocytopenia from alcoholism * Hx of Chronic Pancreatitis * Hx of Depression/Anxiety PLANS: * thiamine replacement, nutrition supplement with ensure clear * Hydration * continue meclizine * MRI brain today, will require ativan * continue CIWA protocol Seen by me today on hospitalist day rounds as well as multidisciplinary rounds reviewed with Dr Alonso Ford SUBJECTIVE: states same vertigo and unsteadiness, states is weaker (generalized) today states pancreatitis pain is worse today OBJECTIVE Vitals reviewed: Still some hypertension, less tachycardia, no fever, stable respirations Fruit Grower, my review: CIWA: scores have mostly been very low, had one at 10 Exam: alert oriented, very mild anxiety, no tremor, no confusion hallucinations or agitation Neurologic a slight rotational nystagmus with left lateral gaze, no other focal findings skin warm dry color ok resps not labored lungs clear BSs heart regular abd soft mildly distended, some epigastric tenderness without rebound, bowel sounds present limbs warm, no edema iv site ok Echocardiogram: nl EF and valves, no sign of pulm HTN Lab data: Na 134, renal fxn stable, bili up slightly today 1.7 anion gap is better but still some metabolic acidosis Objective: Vital Signs Temp Pulse Resp BP Pulse Ox 37.2 C 74 13 172/96 H 93 09/16/18 04:00 09/16/18 08:00 09/16/18 08:00 09/16/18 08:00 09/16/18 08:00 Laboratory Results 09/16/18 05:44 09/16/18 05:44 09/15/18 09/16/18 09/17/18 06:59 06:59 06:59 Intake Total 3284 Output Total 1300 Balance 1984 PT 13.4 SEC (12.0-15.0) 09/15/18 03:00 INR 1.06 (0.83-1.16) 09/15/18 03:00 - Time Spent With Patient Time Spent with Patient: greater than 35 minutes Time Spent with Patient: Greater than 35 minutes spent on this patients care, greater than 50% of time spent counseling, educating, and coordinating care regarding the above mentioned plan. ICD10 Worksheet Patient Problems: Problems Problem Status Onset Ataxia Acute Liver function tests abnormal Active Pain management Active Abdominal pain Acute Acute alcohol intoxication Acute Acute on chronic pancreatitis Acute Alcohol abuse Acute Alcohol dependence Acute Alcohol intoxication Acute Alcohol withdrawal syndrome Acute Alcoholism Acute Chronic abdominal pain Acute Depression Acute Hypoxemia Acute Pancreatitis Acute Pneumonia Acute Thrombocytopenia Acute
--- NOTE | 2018-09-16 11:12 | PDMN ---
Medical Necessity Medical necessity: Change to IP, as of 09/15/18, per & MCG MG-N Neurology; los >2 mn for ongoing management of gait ataxia & vertigo of unclear etiology, BLE edema, metabolic acidosis & acute on chronic pancreatitis; requiring further workup/SDU monitoring, CIWA protocol, IVFs, IV Thiamine, pain management & therapies; hx alcoholism
--- NOTE | 2018-09-16 11:27 | PDINTPN ---
Glove Finisher Progress Note Assessment/Plan: Assessment: Alcohol withdrawal. On CIWA Chronic alcohol abuse. Acute alcohol intoxication on admission Chronic pancreatitis, with abdominal pain. Lipase normal Metabolic: No significant issues identified. Sodium 134: Follow Bronchitis: On azithromycin, duo nebs. Ataxia/lower extremity weakness: Difficult to evaluate. At times he appears to move about fairly normally. At times he appears weaker but may be embellishing. Recommended waiting for resolution of his alcohol withdrawal for prior to further evaluation. He does have a history of falling but this may be significantly related to acute alcohol intoxication. Prophylaxis: On enoxaparin and famotidine Plan: Continue care as step-down status in the ICU today. Continue CIWA and present medications. Continue to mobilize. PT/OT evaluations. Continue treatments for bronchitis. 30 min of critical care time spent directly with the patient. Discussed with nursing, hospitalist, the ICU multi disciplinary team. Subjective: Complains of some cough and mucus, chest tightness. Some abdominal pain persists. Able to use the walker. Remains weak and unsteady on his feet. Objective: Vital Signs Temp Pulse Resp BP Pulse Ox 37.2 C 74 13 172/96 H 93 09/16/18 04:00 09/16/18 08:00 09/16/18 08:00 09/16/18 08:00 09/16/18 08:00 Laboratory Results 09/16/18 05:44 09/16/18 05:44 09/15/18 09/16/18 09/17/18 05:59 05:59 05:59 Intake Total 3284 Output Total 1300 Balance 1984 PT 13.4 SEC (12.0-15.0) 09/15/18 03:00 INR 1.06 (0.83-1.16) 09/15/18 03:00 Laboratory Tests 09/16/18 05:44 Calcium 8.4 L Phosphorus 3.5 Magnesium 1.6 Total Bilirubin 1.7 H AST 40 ALT 21 Albumin 3.8 Cardiac echo: Normal Physical Exam - Physical Exam General Appearance: other (Somnolent, arouses, responsive.) EENT: PERRL/EOMI, other (On room air) Neck: normal inspection (No JVD) Respiratory: lungs clear (To passive breathing), rhonchi (No zak rhonchi but central congestion with cough), wheezing (Some forced expiratory wheezes/ congestion present), No respiratory distress Cardiac/Chest: regular rate, rhythm Abdomen: normal bowel sounds, non-tender (With light palpation using the stethoscope), soft Male Genitalia: other (Using urinal or toilet. Good urine output) Skin: normal color, warm/dry Extremities: pedal edema (Trace + pedal edema bilaterally) Neuro/Psych: no motor/sensory deficits, other (Mild tremor present. CIWA 8 this morning), No cognition abnormalities ICD10 Worksheet Patient Problems: Problems Problem Status Onset Alcohol abuse Acute Liver function tests abnormal Active Pain management Active Depression Acute Alcohol intoxication Acute Abdominal pain Acute Pancreatitis Acute Pneumonia Acute Hypoxemia Acute Alcoholism Acute Alcohol withdrawal syndrome Acute Thrombocytopenia Acute Acute on chronic pancreatitis Acute Chronic abdominal pain Acute Acute alcohol intoxication Acute Alcohol dependence Acute Ataxia Acute
[2018-09-17] MEDS: KETOROLAC 30 MG/1 ML SDV IVP SCH ×5 (03:34→22:08)
[2018-09-17] MEDS: IPRATROPIUM/ALBUTEROL 3 ML DEYVIAL IH SCH (05:20)
[2018-09-17] MEDS ORDERED: MAGNESIUM SULF 1 GM/DEXTROSE 100 ML IV ONE (06:20)
[2018-09-17] MEDS: ENOXAPARIN 40 MG/0.4 ML SYR SC SCH (08:41)
[2018-09-17] MEDS: MULTIVITAMINS 1 EACH TAB PO SCH (08:41)
[2018-09-17] MEDS: FAMOTIDINE 20 MG TAB PO SCH ×2 (08:41→21:41)
[2018-09-17] MEDS: FOLIC ACID 1 MG TAB PO SCH (08:41)
[2018-09-17] MEDS: MECLIZINE HCL 25 MG TAB PO SCH ×2 (08:41→21:41)
[2018-09-17] MEDS: AZITHROMYCIN 250 MG TAB PO SCH (08:41)
[2018-09-17] MEDS: oxyCODONE IR 5 MG TAB PO PRN ×2 (08:43→17:16)
[2018-09-17] MEDS: LORazepam 1 MG TAB PO PRN ×2 (09:18→18:42)
[2018-09-17] MEDS: POTASSIUM Cl (KCl) 100 ML IV SCH ×3 (10:00→13:30)
[2018-09-17] MEDS ORDERED: IPRATROPIUM/ALBUTEROL 3 ML DEYVIAL IH PRN (10:10)
[2018-09-17] MEDS ORDERED: GADOBUTROL 10 ML VIAL IVP ONE (12:30)
--- NOTE | 2018-09-17 12:41 | HOSPPROG ---
Hospitalist Progress Note Assessment/Plan: DIAGNOSES: * Gait Ataxia/vertigo/gait instability/falls/generalized weakness -nurses and therapists report that the patient seems to be exaggerating his symptoms to some extent -diff dx does include etoh cerebellar toxicity, thiamine related dz, stroke or other lesiona * Metabolic Acidosis, suspect alcohol related ketoacidosis * Acute EtOH withdrawal - mild but still requiring CIWA monitor/tx * Acute on chronic pancreatitis * Bilateral leg edema without evidence of heart failure or DVT; ? Cardiopulmonary cause or venous insufficiency, other etiologies possible * Alcoholism * Thiamine Deficiency Suspected * thrombocytopenia from alcoholism * Hx of Chronic Pancreatitis * Hx of Depression/Anxiety PLANS: * thiamine replacement, nutrition supplement with ensure clear * Hydration * continue meclizine * MRI brain today, will require ativan (he declined again yesterday but agreeable today) * continue CIWA protocol Seen by me today on hospitalist day rounds as well as multidisciplinary rounds reviewed with Dr Alonso Ford SUBJECTIVE: states same vertigo and unsteadiness, states is weaker (generalized) today states pancreatitis pain is worse today OBJECTIVE Vitals reviewed: Still some hypertension, otherwise stable w/o fever Automatic Buffing Wheel Former, my review: sinus CIWA:4-9 Exam: alert oriented, some anxiety, no tremor, no confusion hallucinations or agitation Neurologic nonfocal with exam in bed skin warm dry color ok resps not labored lungs clear BSs heart regular abd soft nondistended, some epigastric tenderness without rebound, bowel sounds present limbs warm, no edema iv site ok Echocardiogram: nl EF and valves, no sign of pulm HTN Lab data: lytes all in good range Objective: Vital Signs Temp Pulse Resp BP Pulse Ox 37.2 C 86 16 150/100 H 92 09/17/18 11:40 09/17/18 11:40 09/17/18 11:40 09/17/18 11:40 09/17/18 11:40 Laboratory Results 09/16/18 05:44 09/17/18 05:00 09/16/18 09/17/18 09/18/18 06:59 06:59 06:59 Intake Total 3284 2179 400 Output Total 1300 1025 775 Balance 1983 1154 -375 PT 13.4 SEC (12.0-15.0) 09/15/18 03:00 INR 1.06 (0.83-1.16) 09/15/18 03:00 ICD10 Worksheet Patient Problems: Problems Problem Status Onset Ataxia Acute Liver function tests abnormal Active Pain management Active Abdominal pain Acute Acute alcohol intoxication Acute Acute on chronic pancreatitis Acute Alcohol abuse Acute Alcohol dependence Acute Alcohol intoxication Acute Alcohol withdrawal syndrome Acute Alcoholism Acute Chronic abdominal pain Acute Depression Acute Hypoxemia Acute Pancreatitis Acute Pneumonia Acute Thrombocytopenia Acute
[2018-09-17] MEDS: THIAMINE HCL 500 MG in NS 100 ML IV SCH (14:08)
[2018-09-17] MEDS ORDERED: LORazepam 2 MG/ML INJ IVP ONE (14:45)
[2018-09-17] MEDS ORDERED: PROTOCOL POTASSIUM 1 DOSE MISC PRN (14:55)
--- NOTE | 2018-09-17 15:41 | PDINTPN ---
Alto Singer Progress Note Assessment/Plan: Assessment: Alcohol withdrawal. On CIWA Chronic alcohol abuse. Acute alcohol intoxication on admission Chronic pancreatitis, with abdominal pain. Lipase normal. Improving Metabolic: No significant issues identified. Sodium 134, K+ 3.5: Follow Bronchitis: On azithromycin, duo nebs. Ataxia/lower extremity weakness: Difficult to evaluate. At times he appears to move about fairly normally. At times he appears weaker but may be embellishing. MRI of the brain negative. Recommended waiting for resolution of his alcohol withdrawal for prior to further evaluation. He does have a history of falling but this may be significantly related to acute alcohol intoxication. Prophylaxis: On enoxaparin and famotidine Plan: Continue inpatient care. Continue CIWA and present medications. Can transfer to a medical-surgical bed today. Continue to mobilize. PT/OT evaluations. Continue treatments for bronchitis. 30 min of critical care time spent directly with the patient. Discussed with nursing, hospitalist, the ICU multi disciplinary team. Subjective: Doing okay. Overall feeling better. Less cough and congestion. Abdominal pain improved, starting to eat. Remains weak. Objective: Vital Signs Temp Pulse Resp BP Pulse Ox 37.2 C 86 16 150/100 H 92 09/17/18 11:40 09/17/18 11:40 09/17/18 11:40 09/17/18 11:40 09/17/18 11:40 Laboratory Results 09/16/18 05:44 09/17/18 05:00 09/16/18 09/17/18 09/18/18 05:59 05:59 05:59 Intake Total 3284 2179 400 Output Total 1300 1025 975 Balance 1983 1154 -575 PT 13.4 SEC (12.0-15.0) 09/15/18 03:00 INR 1.06 (0.83-1.16) 09/15/18 03:00 MRI brain: Nothing acute identified. Some atrophy and small-vessel disease. Nonspecific. Physical Exam - Physical Exam General Appearance: other (Lightly sedated, arousable) EENT: PERRL/EOMI, other (On room air) Neck: normal inspection (No JVD) Respiratory: lungs clear (Anteriorly), decreased breath sounds (At bases), No rales, No rhonchi (No rhonchi but some mild central congestion with voluntary cough), No wheezing Cardiac/Chest: regular rate, rhythm, No gallop Abdomen: normal bowel sounds, non-tender, soft Skin: normal color, warm/dry Extremities: pedal edema Neuro/Psych: No no motor/sensory deficits (Moves all extremities equally. Walking in the [place] with apparent good balance using walker.), No cognition abnormalities (Oriented x3.) ICD10 Worksheet Patient Problems: Problems Problem Status Onset Alcohol abuse Acute Liver function tests abnormal Active Pain management Active Depression Acute Alcohol intoxication Acute Abdominal pain Acute Pancreatitis Acute Pneumonia Acute Hypoxemia Acute Alcoholism Acute Alcohol withdrawal syndrome Acute Thrombocytopenia Acute Acute on chronic pancreatitis Acute Chronic abdominal pain Acute Acute alcohol intoxication Acute Alcohol dependence Acute Ataxia Acute
[2018-09-17] MEDS ORDERED: LORazepam 1 MG TAB PO PRN (20:45)
[2018-09-18] MEDS: KETOROLAC 30 MG/1 ML SDV IVP SCH ×4 (05:39→21:51)
[2018-09-18] MEDS: oxyCODONE IR 5 MG TAB PO PRN ×2 (08:29→17:24)
[2018-09-18] MEDS: ENOXAPARIN 40 MG/0.4 ML SYR SC SCH (08:30)
[2018-09-18] MEDS: FOLIC ACID 1 MG TAB PO SCH (08:31)
[2018-09-18] MEDS: AZITHROMYCIN 250 MG TAB PO SCH (08:31)
[2018-09-18] MEDS: FAMOTIDINE 20 MG TAB PO SCH ×2 (08:31→20:50)
[2018-09-18] MEDS: THIAMINE HCL 100 MG TAB PO SCH (08:31)
[2018-09-18] MEDS: MECLIZINE HCL 25 MG TAB PO SCH ×2 (08:31→20:50)
[2018-09-18] MEDS: MULTIVITAMINS 1 EACH TAB PO SCH (08:31)
[2018-09-18] MEDS: LORazepam 1 MG TAB PO PRN ×4 (08:37→21:35)
--- NOTE | 2018-09-18 11:41 | ASMTCMCOM ---
CM Note CM Note Notes: Spoke with pt in the room who stated he would like to attempt ETOH rehab, however states "I've been an alcoholic for 30 years and I'll likely an alcoholic." Pt acknowledges need to regain walking balance and agreed to short term rehab as recommended by PT/OT. 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 Triggered PASRR faxed to OB. Pt agreed to apply to [facility] for ETOH recovery support. Referral application given to pt to fill out and be faxed by CM at a later date. CM to follow. D/C Plan: SNF Date Signed: 09/18/2018 11:02 AM Electronically Signed By:Shari Camacho
--- NOTE | 2018-09-18 15:04 | HOSPPROG ---
Hospitalist Progress Note Assessment/Plan: DIAGNOSES: * Gait Ataxia/vertigo/gait instability/falls/generalized weakness -suspect combination of alcohol toxicity and nutritional in issues related to alcohol -MRI shows only atrophy * Metabolic Acidosis, suspect alcohol related ketoacidosis * Acute EtOH withdrawal - mild but still requiring CIWA monitor/tx (suspect patient and bili seeing symptoms a bit) * Acute on chronic pancreatitis mild still symptomatic * Bilateral leg edema without evidence of heart failure or DVT; ? Normal echo * Alcoholism * Thiamine Deficiency Suspected * thrombocytopenia from alcoholism * Hx of Chronic Pancreatitis with atrophy and calcifications chronic pain * Hx of Depression/Anxiety PLANS: * thiamine replacement, nutrition supplement with ensure clear * Hydration * continue meclizine * continue CIWA protocol * Probably to prison facility 1-2 days * I had a very long talk with the patient today about the damages to his body from alcohol as well as his life, strongly encouraged him to continue seeking help in getting away from alcohol remaining sober SUBJECTIVE: Still unsteady requiring walker feels unsafe on his feet Unchanged pancreatitis pain but getting some food in OBJECTIVE Vitals reviewed: Still some hypertension, otherwise stable w/o fever Exam: alert oriented, some anxiety, no tremor, no confusion hallucinations or agitation Neurologic nonfocal with exam in bed skin warm dry color ok resps not labored lungs clear BSs heart regular abd soft nondistended, some epigastric tenderness without rebound, bowel sounds present limbs warm, no edema iv site ok Echocardiogram: nl EF and valves, no sign of pulm HTN Lab data: lytes all in good range Objective: Vital Signs Temp Pulse Resp BP Pulse Ox 36.9 C 96 16 164/105 H 93 09/18/18 11:32 09/18/18 11:32 09/18/18 11:32 09/18/18 11:46 09/18/18 11:32 Laboratory Results 09/16/18 05:44 09/17/18 05:00 09/17/18 09/18/18 09/19/18 06:59 06:59 06:59 Intake Total 2179 400 Output Total 1025 1525 Balance 1154 -1125 PT 13.4 SEC (12.0-15.0) 09/15/18 03:00 INR 1.06 (0.83-1.16) 09/15/18 03:00 ICD10 Worksheet Patient Problems: Problems Problem Status Onset Ataxia Acute Liver function tests abnormal Active Pain management Active Abdominal pain Acute Acute alcohol intoxication Acute Acute on chronic pancreatitis Acute Alcohol abuse Acute Alcohol dependence Acute Alcohol intoxication Acute Alcohol withdrawal syndrome Acute Alcoholism Acute Chronic abdominal pain Acute Depression Acute Hypoxemia Acute Pancreatitis Acute Pneumonia Acute Thrombocytopenia Acute
[2018-09-19] MEDS: KETOROLAC 30 MG/1 ML SDV IVP SCH ×3 (04:41→16:20)
[2018-09-19] MEDS: oxyCODONE IR 5 MG TAB PO PRN ×3 (08:22→19:46)
[2018-09-19] MEDS: MECLIZINE HCL 25 MG TAB PO SCH ×2 (08:23→19:47)
[2018-09-19] MEDS: MULTIVITAMINS 1 EACH TAB PO SCH (08:23)
[2018-09-19] MEDS: LORazepam 1 MG TAB PO PRN ×3 (08:23→19:46)
[2018-09-19] MEDS: AZITHROMYCIN 250 MG TAB PO SCH (08:24)
[2018-09-19] MEDS: FAMOTIDINE 20 MG TAB PO SCH ×2 (08:24→19:48)
[2018-09-19] MEDS: FOLIC ACID 1 MG TAB PO SCH (08:24)
[2018-09-19] MEDS: THIAMINE HCL 100 MG TAB PO SCH (08:24)
[2018-09-19] MEDS: ENOXAPARIN 40 MG/0.4 ML SYR SC SCH (08:25)
--- NOTE | 2018-09-19 13:22 | HOSPPROG ---
Hospitalist Progress Note Assessment/Plan: 63y male with falls and weakness. First encounter, chart reviewed. D/W CM. #Gait Ataxia/vertigo/gait instability/falls/generalized weakness -suspect combination of alcohol toxicity and nutritional in issues related to alcohol -MRI shows only atrophy -continue meclizine #Metabolic Acidosis -suspect alcohol related ketoacidosis #Acute EtOH withdrawal - mild but still requiring CIWA monitor/tx (suspect patient and bili seeing symptoms a bit) #Acute on chronic pancreatitis -mild still symptomatic -tolerated food today #Bilateral leg edema -without evidence of heart failure or DVT #Alcoholism -continue CIWA protocol #Thiamine Deficiency Suspected -replace -nutrition supplement with ensure clear #thrombocytopenia -from alcoholism #Hx of Chronic Pancreatitis -with atrophy and calcifications chronic pain #Hx of Depression/Anxiety #Dispo -awaiting SNF placement Subjective: Feeling weak today. Ate breakfast. No other complaints. Objective: Vital Signs Temp Pulse Resp BP Pulse Ox 36.6 C 89 16 143/97 H 91 L 09/19/18 11:14 09/19/18 11:14 09/19/18 11:14 09/19/18 11:14 09/19/18 11:14 Laboratory Results 09/16/18 05:44 09/19/18 04:27 09/18/18 09/19/18 09/20/18 05:59 05:59 05:59 Intake Total 400 500 Output Total 1525 200 Balance -1125 300 PT 13.4 SEC (12.0-15.0) 09/15/18 03:00 INR 1.06 (0.83-1.16) 09/15/18 03:00 - Physical Exam Constitutional: appears nourished, not in pain, chronically ill appearing Eyes: PERRL, anicteric sclera, EOMI Ears, Nose, Mouth, Throat: moist mucous membranes, hearing normal, ears appear normal Cardiovascular: regular rate and rhythym, edema, No JVD Respiratory: no respiratory distress, no rales or rhonchi, reduced air movement Gastrointestinal: normoactive bowel sounds, tenderness, No ascites Skin: warm, normal color, No mottled Musculoskeletal: normal joint ROM, no joint effusions, generalized weakness Neurologic: AAOx3 Psychiatric: not anxious, not encephalopathic, poor insight, poor judgement ICD10 Worksheet Patient Problems: Problems Problem Status Onset Alcohol abuse Acute Liver function tests abnormal Active Pain management Active Depression Acute Alcohol intoxication Acute Abdominal pain Acute Pancreatitis Acute Pneumonia Acute Hypoxemia Acute Alcoholism Acute Alcohol withdrawal syndrome Acute Thrombocytopenia Acute Acute on chronic pancreatitis Acute Chronic abdominal pain Acute Acute alcohol intoxication Acute Alcohol dependence Acute Ataxia Acute Alcohol abuse Acute
[2018-09-19] MEDS: IBUPROFEN 600 MG TAB PO SCH (19:47)
[2018-09-20] MEDS: IBUPROFEN 600 MG TAB PO SCH ×4 (02:00→20:22)
[2018-09-20] MEDS: ENOXAPARIN 40 MG/0.4 ML SYR SC SCH (08:13)
[2018-09-20] MEDS: MECLIZINE HCL 25 MG TAB PO SCH ×2 (08:14→20:23)
[2018-09-20] MEDS: FOLIC ACID 1 MG TAB PO SCH (08:14)
[2018-09-20] MEDS: MULTIVITAMINS 1 EACH TAB PO SCH (08:14)
[2018-09-20] MEDS: oxyCODONE IR 5 MG TAB PO PRN ×4 (08:14→21:18)
[2018-09-20] MEDS: FAMOTIDINE 20 MG TAB PO SCH ×2 (08:14→20:22)
[2018-09-20] MEDS: THIAMINE HCL 100 MG TAB PO SCH (08:14)
[2018-09-20] MEDS: LORazepam 1 MG TAB PO PRN ×3 (08:15→21:17)
--- NOTE | 2018-09-20 11:33 | PDIAF ---
- Diagnosis Diagnosis: weakness Code Status: Full Code - Medication Management Discharge Medications: electronically signed and located in the Home Medication List. PICC Care - Routine: N/A - Orders Services needed: Registered Nurse, Physical Therapy, Occupational Therapy Isolation Type: None - Follow Up Care Current Providers and Referrals: NONE *PRIMARY CARE P,. [Primary Care Provider] - As per Instructions
--- NOTE | 2018-09-20 14:21 | HOSPPROG ---
Hospitalist Progress Note Assessment/Plan: 63y male with falls and weakness. D/W CM. #Gait Ataxia/vertigo/gait instability/falls/generalized weakness -suspect combination of alcohol toxicity and nutritional in issues related to alcohol -MRI shows only atrophy -continue meclizine #Metabolic Acidosis -suspect alcohol related ketoacidosis #Acute EtOH withdrawal - mild but still requiring CIWA monitor/tx (suspect patient and bili seeing symptoms a bit) #Acute on chronic pancreatitis -mild still symptomatic -tolerated food today #Bilateral leg edema -without evidence of heart failure or DVT #Alcoholism -continue CIWA protocol #Thiamine Deficiency Suspected -replace -nutrition supplement with ensure clear #thrombocytopenia -from alcoholism #Hx of Chronic Pancreatitis -with atrophy and calcifications chronic pain #Hx of Depression/Anxiety #Dispo -awaiting SNF placement Subjective: Doesn't feel well today. Objective: Vital Signs Temp Pulse Resp BP Pulse Ox 36.6 C 78 16 150/100 H 94 09/20/18 12:00 09/20/18 12:00 09/20/18 12:00 09/20/18 12:00 09/20/18 12:00 Laboratory Results 09/16/18 05:44 09/19/18 19:57 09/19/18 09/20/18 09/21/18 05:59 05:59 05:59 Intake Total 500 500 Output Total 200 100 Balance 300 400 PT 13.4 SEC (12.0-15.0) 09/15/18 03:00 INR 1.06 (0.83-1.16) 09/15/18 03:00 - Physical Exam Constitutional: appears nourished, chronically ill appearing Eyes: PERRL, anicteric sclera Ears, Nose, Mouth, Throat: moist mucous membranes, hearing normal Cardiovascular: No JVD, No edema Respiratory: no respiratory distress, reduced air movement Gastrointestinal: No tenderness, No ascites Skin: warm, normal color Musculoskeletal: no joint effusions, generalized weakness Neurologic: AAOx3 Psychiatric: not anxious, not encephalopathic, poor judgement ICD10 Worksheet Patient Problems: Problems Problem Status Onset Alcohol abuse Acute Liver function tests abnormal Active Pain management Active Depression Acute Alcohol intoxication Acute Abdominal pain Acute Pancreatitis Acute Pneumonia Acute Hypoxemia Acute Alcoholism Acute Alcohol withdrawal syndrome Acute Thrombocytopenia Acute Acute on chronic pancreatitis Acute Chronic abdominal pain Acute Acute alcohol intoxication Acute Alcohol dependence Acute Ataxia Acute Alcohol abuse Acute
--- NOTE | 2018-09-20 16:11 | ASMTCMCOM ---
CM Note CM Note Notes: Pt refused by several rehab facilities due to inability to pay the co-pay of 20% as pt was in rehab facility in [place] earlier in the month and used all his fully covered days. [facility] was willing to accept patient with Medicaid to cover co-pay, however [employer] screened pt and his assisted income exceeds Medicaid limits. Pt is unable to pay 20% copay. Pt has been through [facility] but would rather sleep in the streets than [facility] where he is assigned. Sandy FELTON at [facility] contacted and stated that pt has been unable to engage in services due to intoxication, but is welcome to re-attempt if sober. Pt has daughter from whom he is estranged and reports he has no one else to call for a place to stay. CM spoke with pt about ETOH recovery and pt expresses understanding that ETOH toxicity has already caused damage to his brain and he is wanting to try recovery again. Pt completed [facility] application which was faxed to them by CM. Pt also given info about [facility] and encouraged to seek services even if he doesn't want to sleep in the [facility]. There is a Vivitrol program there and pt is aware. Pt states Vivitrol is worthless and he is not interested. Pt also given folder on ETOH resources for Medicare. Pt is aware he can also sleep in the severe [facility]. Pt will need [facility] appointment and [facility] appointment ([phone]) on discharge if he is interested. Pt will also need reserved hospital bed at the [facility] and [facility]. CM to follow. D/C Plan: [facility] bed or [facility] Date Signed: 09/20/2018 04:11 PM Electronically Signed By:Shari Camacho
[2018-09-21] MEDS: IBUPROFEN 600 MG TAB PO SCH ×2 (02:26→09:03)
[2018-09-21] MEDS: oxyCODONE IR 5 MG TAB PO PRN (05:32)
--- NOTE | 2018-09-21 08:42 | HOSPPROG ---
Hospitalist Progress Note Assessment/Plan: Dean is a 63 y/o male who presented w falls and weakness. First encounter, chart reviewed #Gait Ataxia/vertigo/gait instability/falls/generalized weakness -suspect combination of alcohol toxicity and nutritional in issues related to alcohol -MRI shows only atrophy -continue meclizine -likely has thiamine deficiency -ST is recommending SNF but has not been accepted to any places, per nursing he has been ambulating well in the [facility] -has declined to go to jail or [facility] #Metabolic Acidosis -secondary to alcohol ketoacidosis #Acute EtOH withdrawal -CIWA 0-2, very mild #Acute on chronic pancreatitis #Bilateral leg edema -without evidence of heart failure or DVT #thrombocytopenia -from alcohol use #Hx of Chronic Pancreatitis #Hx of Depression/Anxiety #plan: patient is upset this morning, said he has not received any information from staff, etc. Reviewed findings of CM report w him, Also, Rebecca britt CM met w him this morning. Subjective: Adam is upset and said 'you are throwing me out', not c/o pain. Objective: Vital Signs Temp Pulse Resp BP Pulse Ox 36.6 C 70 18 146/104 H 93 09/21/18 08:00 09/21/18 08:00 09/21/18 08:00 09/21/18 08:00 09/21/18 08:00 Laboratory Results 09/16/18 05:44 09/19/18 19:57 09/20/18 09/21/18 09/22/18 05:59 05:59 05:59 Intake Total 500 400 Output Total 100 450 Balance 400 -50 PT 13.4 SEC (12.0-15.0) 09/15/18 03:00 INR 1.06 (0.83-1.16) 09/15/18 03:00 - Physical Exam Constitutional: appears nourished, chronically ill appearing Eyes: PERRL Ears, Nose, Mouth, Throat: hearing normal Cardiovascular: regular rate and rhythym Respiratory: no respiratory distress Skin: warm Neurologic: AAOx3 Psychiatric: agitated ICD10 Worksheet Patient Problems: Problems Problem Status Onset Alcohol abuse Acute Alcohol intoxication Acute Ataxia Acute Liver function tests abnormal Active Pain management Active Abdominal pain Acute Acute alcohol intoxication Acute Acute on chronic pancreatitis Acute Alcohol abuse Acute Alcohol dependence Acute Alcohol withdrawal syndrome Acute Alcoholism Acute Chronic abdominal pain Acute Depression Acute Hypoxemia Acute Pancreatitis Acute Pneumonia Acute Thrombocytopenia Acute
[2018-09-21 09:00] VITALS: BP 164/110
[2018-09-21] MEDS: THIAMINE HCL 100 MG TAB PO SCH (09:00)
[2018-09-21] MEDS: MULTIVITAMINS 1 EACH TAB PO SCH (09:01)
[2018-09-21] MEDS: MECLIZINE HCL 25 MG TAB PO SCH (09:01)
[2018-09-21] MEDS: FOLIC ACID 1 MG TAB PO SCH (09:01)
[2018-09-21] MEDS: FAMOTIDINE 20 MG TAB PO SCH (09:01)
[2018-09-21] MEDS: ENOXAPARIN 40 MG/0.4 ML SYR SC SCH (09:02)
[2018-09-21] MEDS: LORazepam 1 MG TAB PO PRN (10:18)
--- NOTE | 2018-09-21 10:33 | ASMTCMCOM ---
CM Note CM Note Notes: Met with pt, notified him of discharge, he states no one has talked with him about a discharge and that he's got no where to go. Reminded pt that he met with CM yesterday who worked with him on several options. I reviewed same options with patient today; [facility] bed, [facility], SNF if he can manage copay. Pt refused all options, stating he will "end up walking in front of a truck and then it will be on you". Pt becoming aggrivated so CM left room. RN then came to CM, stating pt told her that he "has a proposition", CM and RN returned to pt's room to talk, pt explains he just needs one more day and that he will be better tommorow. I told pt I would discuss with hospitalist. Unfortunately, due to pt's severe hx of ETOH, he does not qualify for hotel respite and medically pt is stable as well as walking in room independently. CM notified pt that he would have to dc, I offered [facility] bed and appt with the [facility] but pt again refused. His Medications will be delivered to his room and CM provided bus passes. DC Plan: Independent Date Signed: 09/21/2018 10:33 AM Electronically Signed By:Rebecca Peña RN
--- NOTE | 2018-09-21 11:12 | GDS ---
[f rep st] DISCHARGE SUMMARY DISCHARGE DIAGNOSES: 1. Ataxia with gait instability and generalized weakness. 2. Metabolic acidosis. 3. Acute alcohol withdrawal. 4. Acute on chronic pancreatitis. 5. Bilateral leg edema. 6. Thrombocytopenia. 7. History of depression and anxiety. CONSULTATION: Dr. Alonso Ford. Briefly, the patient is a 63-year-old gentleman who was admitted on September 15, who presented with atax ia. He had difficulty walking in the morning and symptoms had been going on for 24 hours. He drank 2 shots of vodka prior to his admission. He usually drinks a pint. He had a CT of his head, which s howed nothing acute. Subsequently, a brain MRI was performed, which showed atrophy and probable smal l-vessel ischemic disease noted. He was negative for acute ischemia, hemorrhage, or mass lesions. I n addition, he had an echocardiogram performed because of ongoing lower extremity swelling. This any wed an EF of 65%. No regional wall abnormalities. He has good left systolic function. Throughout h is stay, he was evaluated by Physical Therapy and Occupational Therapy. Recommendation was for a [facility] nursing facility. He was seen and evaluated by Case Management who tried to help with options f or the patient. Referrals were sent to many places and these did not go through. He was offered to go to the care home today or to [facility]. He prefers to be discharged back to the street. Bec ause of his history of alcohol abuse, he did not qualify for any further care. Of good note, the pat presley was ambulating quite well today in his room. HOSPITAL COURSE: 1. Gait instability with ataxia. I suspect this is from alcohol use and likely has a thiamine defic iency. He is walking better today. 2. Metabolic acidosis. This is secondary to alcohol ketoacidosis. 3. Acute alcohol withdrawal. It is a 0 this morning. 4. Acute on chronic pancreatitis. No complaints of abdominal pain. 5. Bilateral leg edema. He had an ultrasound that was negative for DVT. He does not have any signs or symptoms of any type of heart failure. 6. Thrombocytopenia secondary to alcohol use. 7. History of depression and anxiety. I suspect that is why he is drinking. DISCHARGE CONDITION: Stable. Blood pressure is 146/104, heart rate is 70, respiratory rate of 18, O 2 sat on room air 93%, temperature 36.6 Celsius. MEDICATIONS AT DISCHARGE: Please see the EMR. DISCHARGE INSTRUCTIONS: 1. To abstain from all alcohol. 2. Recommended he stay on the thiamine. Greater than 30 minutes discharging and coordinating this patient's care with Case Management. /[id number]/MODL
--- NOTE | 2018-09-22 08:05 | CPEKG ---
Test Reason : OPEN Blood Pressure : / mmHG Vent. Rate : 076 BPM Atrial Rate : 076 BPM P-R Int : 137 ms QRS Dur : 088 ms QT Int : 410 ms P-R-T Axes : 062 -29 014 degrees QTc Int : 462 ms Sinus rhythm Borderline left axis deviation Confirmed by Sheldon Zaragoza ([id number]) on 09/22/2018 8:03:58 AM Referred By: Sheldon Zaragoza Confirmed By:Sheldon Zaragoza
== END 2018-09-21 11:00 | disposition home or self-care (01) | DRG 896 ==
LOC: EDUNIT# → F2N 04:43 → INTOOBSV 17:19 → OBSVTOIN 17:19 → F3E 09-17 15:41
PROVIDERS: ADMIT Student in an Organized Health Care Education/Training Program; ATTEND Student in an Organized Health Care Education/Training Program
DX: F10.229 Alcohol dependence with intoxication, unspecified (principal); K85.90 Acute pancreatitis without necrosis or infection, unspecified; E51.9 Thiamine deficiency, unspecified; K86.1 Other chronic pancreatitis; E87.2 Acidosis; F10.239 Alcohol dependence with withdrawal, unspecified; Y90.7 Blood alcohol level of 200-239 mg/100 ml; D69.59 Other secondary thrombocytopenia; F32.9 Major depressive disorder, single episode, unspecified; F41.9 Anxiety disorder, unspecified; I10 Essential (primary) hypertension; Z72.0 Tobacco use; Z59.0 Homelessness
CPT/HCPCS: 84484-ER; 96365; 97116-GP; 97161-GP; 97165-GO; 97530-GO; 97535-GO; A9585; G0480; J1650; J1885; J2060; J3411; J3475; J3480

== ENCOUNTER 2018-09-21 19:03 | Emergency (ER) | payer OTHER ==
--- NOTE | 2018-09-21 19:03 | EDPHY ---
H & P Time Seen by Provider: 09/21/18 19:20 Constitutional: Initial Vital Signs Temperature (C) 36.8 C 09/21/18 19:10 Heart Rate 91 09/21/18 19:10 Respiratory Rate 16 09/21/18 19:10 Blood Pressure 130/90 H 09/21/18 19:10 O2 Sat (%) 90 L 09/21/18 19:10 O2 Delivery Mode Room Air Allergies/Adverse Reactions: No Known Allergies Allergy (Verified 09/21/18 19:08) Home Medications: Medication Instructions Recorded Famotidine [Pepcid 20 MG (*)] 20 mg PO BID tab 09/20/18 Folic Acid [Folic Acid 1 MG (*)] 1 mg PO DAILY tab 09/20/18 Ibuprofen [Motrin (*)] 600 mg PO Q6H tab 09/20/18 Meclizine HCl [Meclizine HCl 25 mg 25 mg PO BID tab 09/20/18 (RX,OTC)] Multivitamins [Multivitamin (*)] 1 each PO DAILY tab 09/20/18 Thiamine HCl [Vitamin B-1] 100 mg PO DAILY tab 09/20/18 Medical Decision Making - Diagnostics Imaging: Discussed imaging studies w/ outbound call center representative Radiologist, I viewed and interpreted images myself - Diagnostics Imaging Results: Imaging Impressions Cervical Spine CT 09/21/18 19:20 Impression: No evidence of acute intracranial abnormality. Stable chronic findings, as above. CT Cervical Spine, Without Contrast History: Trauma. Technique: 1.5-mm helical images were obtained of the cervical spine, without contrast. Multiplanar reformation was performed. Radiation dose technique was utilized. Findings: Multilevel degenerative disk and degenerative joint disease is seen in the cervical spine. This is most pronounced at C5-C6, with moderate central spinal canal and bilateral neural foraminal narrowing. No evidence for a fracture or subluxation. No evidence for prevertebral soft tissue swelling. Impression: No evidence for an acute fracture cervical spine. Multilevel degenerative change, most pronounced at C5-C6. Results called and discussed with Parish Mack M.D., on September 21, [address] 09/21/18 19:20 Impression: No evidence of acute intracranial abnormality. Stable chronic findings, as above. CT Cervical Spine, Without Contrast History: Trauma. Technique: 1.5-mm helical images were obtained of the cervical spine, without contrast. Multiplanar reformation was performed. Radiation dose technique was utilized. Findings: Multilevel degenerative disk and degenerative joint disease is seen in the cervical spine. This is most pronounced at C5-C6, with moderate central spinal canal and bilateral neural foraminal narrowing. No evidence for a fracture or subluxation. No evidence for prevertebral soft tissue swelling. Impression: No evidence for an acute fracture cervical spine. Multilevel degenerative change, most pronounced at C5-C6. Results called and discussed with Parish Mack M.D., on September 21, 2018 at 2020. ED Course/Re-evaluation: CHIEF COMPLAINT: Alcohol intoxication. HISTORY OF PRESENT ILLNESS: The patient is a chronic alcoholic living on the [address]. Patient drinks on a daily basis and obtains whatever alcohol is available. Patient was discharged from this hospital this morning for ataxia, which he has chronically. Patient was found by bystanders who called EMS system. Bystanders state that the patient fell, so he was placed in a c-collar. Patient has had multiple ER visits over the last several years for the same complaint. Patient denies co- ingestion. Patient denies suicidal or homicidal behavior. REVIEW OF SYSTEMS: A comprehensive 10 system review of systems is otherwise negative aside from elements mentioned in the history of present illness and medical decision making. PHYSICAL EXAM: General Appearance: Appears intoxicated, well hydrated, appropriate, and non- toxic appearing. Head: Atraumatic without scalp tenderness or obvious injury Eyes: Pupils equal, round, reactive to light and accommodation, EOMI, no trauma , no injection. Ears: Clear bilaterally, no perforation, normal landmarks Nose: Atraumatic, no rhinorrhea, clear. Throat: There is no erythema or exudates, no lesions, normal tonsils, mucus membranes moist. Neck: C-collar in place, 2+ carotid upstroke, nontender, no lymphadenopathy. Respiratory: No retractions, no distress, no wheezes, and no accessory muscle use. Lungs are clear to auscultation bilaterally. Cardiovascular: Regular rate and rhythm, no murmurs, rubs, or gallops. Bilateral carotid, radial, dorsalis pedis, and posterior tibial pulses intact. Good capillary refill all extremities. Gastrointestinal: Abdomen is soft, nontender, non-distended, no masses, no rebound, no guarding, no peritoneal signs. Musculoskeletal: Normal active ROM of all extremities, atraumatic. Neurological: Somnolent. The patient has normal DTRs and non-focal cranial nerves, motor, sensory, and cerebellar exam. Skin: 1 cm facial laceration. No rashes, good turgor, no nodules on palpation. PAST MEDICAL HISTORY: Alcoholism PAST SURGICAL HISTORY: Denies SOCIAL HISTORY: Transient, single, not employed DIAGNOSTICS/PROCEDURES/CRITICAL CARE TIME: Head CT: No acute findings. C-spine CT: No acute findings. DIFFERENTIAL DIAGNOSIS: The differential diagnosis for the patient's altered mental status included but was not limited to hypoglycemia, infectious process, electrolyte abnormality, head injury, neurologic process, anemia, cardiac process, and intoxicants. MEDICAL DECISION MAKING: The patient is a 63 y/o alcoholic arriving via EMS for a fall and alcohol intoxication. Due to the fall he was placed in a c-collar. On exam the patient appears intoxicated and is somnolent; he also has a 1 cm facial laceration. Head and C-spine CT ordered due to patient's fall and unknown loss of consciousness. 2020: I spoke with Dr. iKm, radiologist, who reports that the patient's CT is negative. I removed patient's C-collar as he cleared his c-spine. JOE Aburto will suture the patient's facial laceration. I serially examined this patient since the patient's arrival here in the emergency department. The patient continues to become more and more sober with each examination. I serially questioned the patient and the patient's story given initially has not changed. The patient still denies any trauma, any head injury, and any illicit drug use. At this point, the patient is walking the department freely and is clinically sober. We're discharging the patient to the [facility] in stable condition. (Parish Mack) [id number]: Patient ambulated well. Clinically sober. Resting comfortably. No acute distress. Answers questions appropriately and safe for discharge. Ambulated well. (Sheldon Zaragoza) Departure - Departure Disposition: Home, Routine, Self-Care Clinical Impression: Alcohol abuse Acute alcohol intoxication Qualifiers: Complication of substance-induced condition: uncomplicated Qualified Code(s): F10.920 - Alcohol use, unspecified with intoxication, uncomplicated Facial laceration Qualifiers: Encounter type: initial encounter Qualified Code(s): S01.81XA - Laceration without foreign body of other part of head, initial encounter Condition: Good Instructions: Alcohol Intoxication (ED), Abuse of Alcohol (ED), Facial Laceration (ED) Additional Instructions: 1. Please refrain from abusing alcohol. 2. Return to the emergency department immediately for fever, vomiting, confusion , headache, abdominal pain or other worsening of condition. 3. Followup with your primary care physician within 72 hours for reevaluation. Referrals: NONE *PRIMARY CARE P,. [Primary Care Provider] - As per Instructions [facility],. [Clinic] - As per Instructions Report Scribed for: Parish Mack Report Scribed by: Selena Crowell Date of Report: 09/21/18 Time of Report: 19:21
[2018-09-21] MEDS ORDERED: SKIN ADHESIVE (DERMABOND) 1 EACH TP ONE (23:38)
[2018-09-22 05:36] VITALS: BP 132/87
--- NOTE | 2018-09-26 15:49 | PQFORM ---
PHYSICIAN QUERY FORM Needs Your Response This query form is being sent to you to assure this patient record is coded properly. 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 Mack, Documentation clarification is needed in order to assign the most appropriate codes for this account. Documentation in the physical exam notes a 1 cm facial laceration and a final diagnosis of laceration of the head is provided. The nursing documentation indicates there was a laceration of the forehead closed by Dermabond. No procedure note is found in the Provider Report. Could you please clarify if a repair of the laceration was made? If a repair was made, a procedure note is required for minimally invasive, noninvasive and bedside procedures. Thanks for your help! Warm regards, CAROLIN KramerN, PRINTING AGENT, CCS, [facility] Coal Hauler Operator/Grove Worker INSTRUCTIONS FOR RESPONSE: Answer question by clicking on the "Edit Document" button. Move cursor to area below the stars. When complete, hit "Save." Click on the "Sign" button, then click "Sign" again. Type in your PIN and hit "Enter." MTDD
== END 2018-09-22 05:44 | disposition home or self-care (01) ==
LOC: EDUNIT#
PROC: 0HQ1XZZ Repair Face Skin, External Approach (ICD-10-PCS; principal; 2018-09-21)
DX: S01.81XA Laceration without foreign body of other part of head, initial encounter (principal); F10.920 Alcohol use, unspecified with intoxication, uncomplicated; M50.322 Other cervical disc degeneration at C5-C6 level; M47.812 Spondylosis without myelopathy or radiculopathy, cervical region; M48.02 Spinal stenosis, cervical region; R27.0 Ataxia, unspecified; W19.XXXA Unspecified fall, initial encounter; Y99.9 Unspecified external cause status

== ENCOUNTER 2018-09-22 13:49 | Emergency (ER) | payer OTHER ==
--- NOTE | 2018-09-22 15:10 | EDPHY ---
H & P Stated Complaint: EtOH/Fall - Personal History Current Tetanus/Diphtheria Vaccine: Unsure Current Tetanus Diphtheria and Acellular Pertussis (TDAP): Unsure Tetanus Vaccine Date: 06/21/2009 - Medical/Surgical History Hx Asthma: No Hx Chronic Respiratory Disease: No Hx Diabetes: No Hx Cardiac Disease: Yes Hx Renal Disease: No Hx Cirrhosis: No Hx Alcoholism: Yes Hx HIV/AIDS: No Hx Splenectomy or Spleen Trauma: No Other PMH: Chronic Pancreatitis, alcoholism, htn, depression, numbness/tingling feet, leg weakness - Social History Smoking Status: Heavy smoker Time Seen by Provider: 09/22/18 14:14 HPI/ROS: Chief Complaint: Alcohol intoxication, fall HPI: A 63-year-old homeless male well known to this emergency department with a history of chronic alcohol abuse with frequent falls. The patient was just seen last night after a fall after drinking. He had CT scanning which is unremarkable. EMS was called by a bystander today as the patient was found down. He admits to drinking alcohol heavily today. Does not recall events. Is complaining of some mild headache and some mild neck pain. He is also complaining of some upper abdominal pain. No nausea or vomiting. Denies black tarry stools. No fevers or chills. No cough. Remainder of the history is unobtainable secondary to the patient's significant intoxication. ROS: 10 systems were reviewed and were negative except those elements noted in the HPI. PMH: Chronic alcohol abuse Social History: No smoking, daily heavy alcohol, homeless Family History: non-contributory Physical Exam: Gen: Awake, Alert, slurred speech, smells strongly of alcohol HEENT: Abrasion on his forehead and nose, no bony tenderness or crepitus Nose: no rhinorrhea Eyes: PERRLA, EOMI Mouth: Moist mucosa Neck: Supple, no JVD Chest: nontender, lungs clear to auscultation Heart: S1, S2 normal, no murmur Abd: Soft, very mild left upper abdominal tenderness, no guarding Back: no CVA tenderness, no midline tenderness Ext: no edema, non-tender Skin: no rash Neuro: CN II-XII intact, Sensation grossly intact, Strength 5/5 in bilateral upper and lower extremities (Elan Traylor) Constitutional: Initial Vital Signs Temperature (C) 36.7 C 09/22/18 13:55 Heart Rate 82 09/22/18 13:55 Respiratory Rate 18 09/22/18 13:55 Blood Pressure 97/60 L 09/22/18 13:55 O2 Sat (%) 88 L 09/22/18 13:55 O2 Delivery Mode Room Air O2 (L/minute) 2 Allergies/Adverse Reactions: No Known Allergies Allergy (Verified 09/22/18 14:13) Home Medications: Medication Instructions Recorded Famotidine [Pepcid 20 MG (*)] 20 mg PO BID tab 09/20/18 Folic Acid [Folic Acid 1 MG (*)] 1 mg PO DAILY tab 09/20/18 Ibuprofen [Motrin (*)] 600 mg PO Q6H tab 09/20/18 Meclizine HCl [Meclizine HCl 25 mg 25 mg PO BID tab 09/20/18 (RX,OTC)] Multivitamins [Multivitamin (*)] 1 each PO DAILY tab 09/20/18 Thiamine HCl [Vitamin B-1] 100 mg PO DAILY tab 09/20/18 Medical Decision Making ED Course/Re-evaluation: 63-year-old male toxic aided male found down. Unclear if he fell. Patient has abrasions are healing from his previous fall. Completely neurologically intact. There is no evidence of acute new intracranial or cervical spine injury. Plan will be to let him metabolize his alcohol and reassess. Patient signed out to Dr. Camp pending improvement in his mental state from his alcohol intoxication. (Elan Traylor) Other Provider: Patient sobering appropriately, ok for discharge. Ambulatory. (Chad Camp ) Departure - Departure Disposition: Home, Routine, Self-Care Clinical Impression: Alcohol abuse, Acute alcohol intoxication Condition: Good Instructions: Abuse of Alcohol (ED) Referrals: [facility],. [Clinic] - As per Instructions
--- NOTE | 2018-09-22 16:50 | ASMTCMCOM ---
CM Note CM Note Notes: Patient presents to the ED after being found down intoxicated. Patient is well known to the ED. See ED and CM reports for extensive history This CM contacted Geronimo at [facility] (Withdrawal Management) and confirmed that patient remains unwelcome for services until September 25. Geronimo states that he and Sharita discussed the situation today and Wednesday evening is the soonest patient would be able to return, although he was unable to elaborate as to "why". When asked, Geronimo confirms that would could send patient over on an EC at that time or later and they would keep patient for 5 days and attempt to get further recovery resources if patient is willing. This CM then contacted Adrien at [facility] and confirmed that patient is able to stay at the [facility] tonight in a reserved bed. Adrien states that patient has not gone through the coordinated entry process but has used the warming [facility] without incident. Long Term bed reserved at this time. I discussed the above with Dr. Camp and plan to discharge patient to the [facility] when he is sober enough to go. I have provided a cab voucher to staff. Patient is currently sleeping. High risk screen updated regarding patient's staus at the [facility] and suggested plan to place patient on an EC hold if/when he returns on or after 09/25/18 Date Signed: 09/22/2018 04:50 PM Electronically Signed By:Brooke Mccarthy RN
[2018-09-22 19:20] VITALS: BP 118/76
== END 2018-09-22 20:09 | disposition home or self-care (01) ==
LOC: EDUNIT#
DX: F10.120 Alcohol abuse with intoxication, uncomplicated (principal); R29.6 Repeated falls; Z59.0 Homelessness

== ENCOUNTER 2018-09-22 22:20 | Emergency (ER) | payer OTHER ==
--- NOTE | 2018-09-22 22:26 | EDPHY ---
H & P Source: Patient, EMS - Personal History Tetanus Vaccine Date: 06/21/2009 - Medical/Surgical History Hx Asthma: No Hx Chronic Respiratory Disease: No Hx Diabetes: No Hx Cardiac Disease: Yes Hx Renal Disease: No Hx Cirrhosis: No Hx Alcoholism: Yes Hx HIV/AIDS: No Hx Splenectomy or Spleen Trauma: No Other PMH: Chronic Pancreatitis, alcoholism, htn, depression, numbness/tingling feet, leg weakness - Social History Smoking Status: Heavy smoker Time Seen by Provider: 09/22/18 22:25 HPI/ROS: HPI CHIEF COMPLAINT: Alcohol Intoxication HISTORY OF PRESENT ILLNESS: 63-year-old male, well known to myself as well as the emergency room, history of alcoholism daily alcohol use, was actually seen here earlier tonight for alcohol intoxication and discharged. He left the emergency room and apparently drank more alcohol. [place] No new trauma. Does have old forehead and facial trauma last week. Previously had CT imaging. He arrives to the emergency room somewhat somnolent, intoxicated, however open his mouth to get a temperature in follows minimal commands. Past Medical History: Alcoholism daily alcohol use. Past Surgical History: Noncontributory Social History: Homeless, daily alcohol use. Family History: Noncontributory ROS REVIEW OF SYSTEMS: 10 Systems were reviewed and negative with the exception of the elements mentioned in the history of present illness. Exam Constitutional Intoxicated, triage nursing summary reviewed, vital signs reviewed, Sleepy, smells of alcohol Eyes normal conjunctivae and sclera, horizontal beating nystagmus consistent acute alcohol intoxication, otherwise pupils equal and react to light HENT normal inspection, atraumatic, moist mucus membranes, no epistaxis, neck supple/ no meningismus, no raccoon eyes. Respiratory clear to auscultation bilaterally, normal breath sounds, no respiratory distress, no wheezing. Cardiovascular rate normal, regular rhythm, no murmur, no edema, distal pulses normal. Gastrointestinal soft, non-tender, no rebound, no guarding, normal bowel sounds, no distension, no pulsatile mass. Genitourinary no CVA tenderness. Musculoskeletal no midline vertebral tenderness, full range of motion, no calf swelling, no tenderness of extremities, no meningismus, good pulses, neurovascularly intact. Skin pink, warm, & dry, no rash, skin atraumatic. Neurologic sleepy, intoxicated with alcohol,, alert and oriented x 3, AAOx3, moves all 4 extremities equally, motor intact, sensory intact, CN II-XII intact , , normal vision, normal speech. Psychiatric normal mood/affect. Heme/Lymph/Immune no lymphadenopathy. Differential Diagnosis: Includes but is not limited to in a particular order acute alcohol intoxication, alcohol abuse, dehydration, electrolyte abnormality , nausea vomiting from acute alcohol intoxication Medical Decision Making: Plan for this patient breath alcohol. And further monitoring. Re-evaluation: 06: Patient been monitored here throughout the night. He has been resting comfortably without any complaints or distress. He has not any vomiting. Again I counseled him on alcohol cessation. 0708: Patient signed over to Dr. Mack at 7am. Patient pending sobriety ( Sheldon Zaragoza) Constitutional: Initial Vital Signs Temperature (C) 36.4 C 09/22/18 22:25 Heart Rate 79 09/22/18 22:25 Respiratory Rate 20 09/22/18 22:25 Blood Pressure 123/78 H 09/22/18 22:25 O2 Sat (%) 94 09/22/18 22:25 O2 Delivery Mode Nasal Cannula O2 (L/minute) 2 Allergies/Adverse Reactions: No Known Allergies Allergy (Verified 09/22/18 14:13) Home Medications: Medication Instructions Recorded Famotidine [Pepcid 20 MG (*)] 20 mg PO BID tab 09/20/18 Folic Acid [Folic Acid 1 MG (*)] 1 mg PO DAILY tab 09/20/18 Ibuprofen [Motrin (*)] 600 mg PO Q6H tab 09/20/18 Meclizine HCl [Meclizine HCl 25 mg 25 mg PO BID tab 09/20/18 (RX,OTC)] Multivitamins [Multivitamin (*)] 1 each PO DAILY tab 09/20/18 Thiamine HCl [Vitamin B-1] 100 mg PO DAILY tab 09/20/18 - Data Points Laboratory Results: 09/22/18 22:45 Ethyl Alcohol 505 mg/dL H* mg/dL (0-10) Departure - Departure Disposition: Home, Routine, Self-Care Clinical Impression: Alcoholism Alcohol intoxication Qualifiers: Complication of substance-induced condition: uncomplicated Qualified Code(s): F10.920 - Alcohol use, unspecified with intoxication, uncomplicated Condition: Good Instructions: Alcohol Intoxication (ED), Abuse of Alcohol (ED) Additional Instructions: Please refrain from abusing alcohol. Return to the emergency department immediately for fever, vomiting, confusion, headache, abdominal pain or other worsening of condition. Followup with your primary care physician within 72 hours for reevaluation. Referrals: [facility],. [Clinic] - As per Instructions
[2018-09-23 09:26] VITALS: BP 122/81
== END 2018-09-23 09:15 | disposition home or self-care (01) ==
LOC: EDUNIT#
DX: F10.220 Alcohol dependence with intoxication, uncomplicated (principal)
CPT/HCPCS: G0480

== ENCOUNTER 2018-09-24 03:54 | Emergency (ER) | payer OTHER ==
--- NOTE | 2018-09-24 04:02 | EDPHY ---
H & P Stated Complaint: ABD pain, reports only a few drinks today, multiple visits in last 72 hours Time Seen by Provider: 09/24/18 03:58 HPI/ROS: HPI CHIEF COMPLAINT: Alcohol Intoxication HISTORY OF PRESENT ILLNESS: 63-year-old male, presents to the emergency room with acute alcohol intoxication. Patient was found outside of a [employer]. Staff there called 911. Patient arrives to the emergency room highly intoxicated alcohol. Patient was here in the emergency room last night with alcohol level 505. He has had vodka to drink today. Denies any chest pain or shortness of breath. Past Medical History: Alcoholism daily, daily alcohol use. Past Surgical History: No significant surgical history Social History: Alcoholism with daily alcohol use, homeless. Family History: Noncontributory ROS REVIEW OF SYSTEMS: 10 Systems were reviewed and negative with the exception of the elements mentioned in the history of present illness. Exam Constitutional Intoxicated, triage nursing summary reviewed, vital signs reviewed, Sleepy, smells of alcohol Eyes normal conjunctivae and sclera, horizontal beating nystagmus consistent acute alcohol intoxication, otherwise pupils equal and react to light HENT normal inspection, atraumatic, moist mucus membranes, no epistaxis, neck supple/ no meningismus, no raccoon eyes. Respiratory clear to auscultation bilaterally, normal breath sounds, no respiratory distress, no wheezing. Cardiovascular rate normal, regular rhythm, no murmur, no edema, distal pulses normal. Gastrointestinal soft, non-tender, no rebound, no guarding, normal bowel sounds, no distension, no pulsatile mass. Genitourinary no CVA tenderness. Musculoskeletal no midline vertebral tenderness, full range of motion, no calf swelling, no tenderness of extremities, no meningismus, good pulses, neurovascularly intact. Skin pink, warm, & dry, no rash, skin atraumatic. Neurologic sleepy, intoxicated with alcohol,, alert and oriented x 3, AAOx3, moves all 4 extremities equally, motor intact, sensory intact, CN II-XII intact , , normal vision, normal speech. Psychiatric normal mood/affect. Heme/Lymph/Immune no lymphadenopathy. Differential Diagnosis: Includes but is not limited to in a particular order acute alcohol intoxication, alcohol abuse, dehydration, electrolyte abnormality , nausea vomiting from acute alcohol intoxication Medical Decision Making: Plan for this patient is vital signs are stable, will check breath alcohol, fingerstick glucose. Re-evaluate Re-evaluation: Alcohol level 276 Blood sugar 80. Lipase normal. 6:40 a.m. patient re-evaluated resting comfortably no acute distress. Ambulatory. Stable gait. Safe for discharge from the emergency room. No evidence of acute pancreatitis on exam. No vomiting. Abdomen is soft nontender. Source: Patient, EMS - Personal History Current Tetanus/Diphtheria Vaccine: Yes Current Tetanus Diphtheria and Acellular Pertussis (TDAP): Yes Tetanus Vaccine Date: 06/21/2009 - Medical/Surgical History Hx Asthma: No Hx Chronic Respiratory Disease: No Hx Diabetes: No Hx Cardiac Disease: Yes Hx Renal Disease: No Hx Cirrhosis: No Hx Alcoholism: Yes Hx HIV/AIDS: No Hx Splenectomy or Spleen Trauma: No Other PMH: Chronic Pancreatitis, alcoholism, htn, depression, numbness/tingling feet, leg weakness - Social History Smoking Status: Heavy smoker Constitutional: Initial Vital Signs Temperature (C) 36.0 C 09/24/18 03:58 Heart Rate 94 09/24/18 03:58 Respiratory Rate 14 09/24/18 03:58 Blood Pressure 140/86 H 09/24/18 03:58 O2 Delivery Mode Nasal Cannula Allergies/Adverse Reactions: No Known Allergies Allergy (Verified 09/24/18 03:58) Home Medications: Medication Instructions Recorded Famotidine [Pepcid 20 MG (*)] 20 mg PO BID tab 09/20/18 Folic Acid [Folic Acid 1 MG (*)] 1 mg PO DAILY tab 09/20/18 Ibuprofen [Motrin (*)] 600 mg PO Q6H tab 09/20/18 Meclizine HCl [Meclizine HCl 25 mg 25 mg PO BID tab 09/20/18 (RX,OTC)] Multivitamins [Multivitamin (*)] 1 each PO DAILY tab 09/20/18 Thiamine HCl [Vitamin B-1] 100 mg PO DAILY tab 09/20/18 Medical Decision Making - Data Points Laboratory Results: Laboratory Results 09/24/18 04:45 09/24/18 04:45 09/24/18 09/24/18 09/24/18 04:45 04:45 04:06 WBC 7.42 10^3/uL 10^3/uL (3.80-9.50) RBC 5.18 10^6/uL 10^6/uL (4.40-6.38) Hgb 15.5 g/dL g/dL (13.7-17.5) Hct 46.7 % % (40.0-51.0) MCV 90.2 fL fL (81.5-99.8) MCH 29.9 pg pg (27.9-34.1) MCHC 33.2 g/dL g/dL (32.4-36.7) RDW 14.2 % % (11.5-15.2) Plt Count 303 10^3/uL 10^3/uL (150-400) MPV 9.1 fL fL (8.7-11.7) Neut % (Auto) 61.6 % % (39.3-74.2) Lymph % (Auto) 25.7 % % (15.0-45.0) [place] % (Auto) 10.8 % % (4.5-13.0) Eos % (Auto) 0.7 % % (0.6-7.6) Baso % (Auto) 0.8 % % (0.3-1.7) Nucleat RBC Rel Count 0.0 % % (0.0-0.2) Absolute Neuts (auto) 4.57 10^3/uL 10^3/uL (1.70-6.50) Absolute Lymphs (auto) 1.91 10^3/uL 10^3/uL (1.00-3.00) Absolute Monos (auto) 0.80 10^3/uL 10^3/uL (0.30-0.80) Absolute Eos (auto) 0.05 10^3/uL 10^3/uL (0.03-0.40) Absolute Basos (auto) 0.06 10^3/uL 10^3/uL (0.02-0.10) Absolute Nucleated RBC 0.00 10^3/uL 10^3/uL (0-0.01) Immature Gran % 0.4 % % (0.0-1.1) Immature Gran # 0.03 10^3/uL 10^3/uL (0.00-0.10) Sodium 143 mEq/L mEq/L (135-145) Potassium 4.6 mEq/L mEq/L (3.5-5.2) Chloride 105 mEq/L mEq/L (97-110) Carbon Dioxide 19 mEq/l L mEq/l (22-31) Anion Gap 19 mEq/L H mEq/L (6-14) BUN 17 mg/dL mg/dL (7-23) Creatinine 0.8 mg/dL mg/dL (0.7-1.3) Estimated GFR > 60 Glucose 84 mg/dL mg/dL (70-100) POC Glucose 80 mg/dL mg/dL (70-100) Calcium 9.3 mg/dL mg/dL (8.5-10.4) Lipase 48 IU/L IU/L (23-300) Ethyl Alcohol 276 mg/dL H mg/dL (0-10) Medications Given: Discontinued Medications Sodium Chloride (Ns) 1,000 mls @ 0 mls/hr IV EDNOW ONE; Wide Open PRN Reason: Protocol Stop: 09/24/18 04:08 Last Admin: 09/24/18 04:51 Dose: 1,000 mls Lorazepam (Ativan Injection) 1 mg IVP EDNOW ONE Stop: 09/24/18 04:54 Last Admin: 09/24/18 04:56 Dose: 1 mg Point of Care Test Results: Chemistry 09/24/18 04:06 POC Glucose 80 mg/dL mg/dL (70-100) Departure - Departure Disposition: Home, Routine, Self-Care Clinical Impression: Alcohol intoxication Condition: Good Instructions: Alcohol Intoxication (ED) Additional Instructions: 1. Highly recommend you stop drinking alcohol. Referrals: NONE *PRIMARY CARE P,. [Primary Care Provider] - As per Instructions
[2018-09-24] MEDS ORDERED: NS 1,000 ML IV ONE (04:07)
[2018-09-24] MEDS ORDERED: LORazepam 2 MG/ML INJ IVP ONE (04:53)
[2018-09-24 05:30] LABS: PLATELET COUNT 303 10^3/uL (150-400)
[2018-09-24 07:06] VITALS: BP 124/79
== END 2018-09-24 07:06 | disposition home or self-care (01) ==
LOC: EDUNIT#
DX: F10.920 Alcohol use, unspecified with intoxication, uncomplicated (principal); E86.9 Volume depletion, unspecified; Z59.0 Homelessness
CPT/HCPCS: 96361; 96374; 99284; J2060; G0480

== ENCOUNTER 2018-09-24 18:14 | Emergency (ER) | payer OTHER ==
--- NOTE | 2018-09-24 18:22 | EDPHY ---
H & P Time Seen by Provider: 09/24/18 18:20 HPI/ROS: CHIEF COMPLAINT: Head injury, suspected alcohol use HISTORY OF PRESENT ILLNESS: 63-year-old male familiar to emergency department staff arrives via ambulance after he was found at [place] bus stop with a head injury , admit to alcohol use. He has no complaints of pain or discomfort. Smells of alcohol. He denies: Headache, nausea, vomiting, peripheral paresthesia, weakness, numbness, assault REVIEW OF SYSTEMS: 10 systems reviewed and negative with the exception of the elements mentioned in the history of present illness PAST MEDICAL/SURGICAL HISTORY: history of alcoholism SOCIAL HISTORY: Positive for self disclosed alcohol use today PHYSICAL EXAM 1) GENERAL: Well-developed, well-nourished, alert and oriented. Appears to be in no acute distress. Answering questions appropriately. GCS 15 2) HEAD: Normocephalic, acute frontal abrasion 3) HEENT: Pupils equal, round, reactive to light bilaterally. Negative Horners. Nasopharynx, oropharynx, clear. No deformity or angulation of nose. No septal hematoma. No rhinorrhea. No oral trauma. Ears bilaterally with normal tympanic membranes. No hemotympanum. No fluid or blood in the external auditory canal. No raccoon eyes. No Fitch sign. Teeth are normally aligned with no gross malocclusion, TMJ bilaterally nontender, facial bones nontender including the zygomatic arch, maxilla mandible. 4) NECK: Cervical collar is on.Cervical collar is removed while holding inline traction and patient has no complaints of midline cervical pain, no effusion noted, trachea midline, no JVD. Cervical collar is replaced due to patient's alcohol use. 5) LUNGS: Clear to auscultation bilaterally, no wheezes, no rhonchi, no retractions. No obvious signs of trauma. No chest wall pain. No flaring, no grunting. Moving symmetrically. No crepitus. 6) HEART: [Regular rate and rhythm, 7) ABDOMEN: No guarding, no rebound, no focal tenderness, no peritoneal signs, no signs of trauma, no ecchymosis 8) MUSCULOSKELETAL: Moving all extremities, no focal areas of tenderness, no obvious trauma. 9) BACK: No midline vertebral tenderness, no fluctuance, no step-off, no obvious trauma, no visual or palpable abnormality. 10) SKIN: No laceration. No abrasion 11) NEURO: Awake, alert, and oriented to person, place and time. Answers questions appropriately. There were no obvious focal neurologic abnormalities. No cerebellar dysfunction. Cranial nerves 2 through to 12 intact. Normal steady gait. Upper and lower extremities bilaterally with strength 5 / 5, reflexes 2+. 12) CERVICAL SPINE NEURO EXAM: Bilateral reflexes of biceps triceps brachioradialis intact equal bilaterally Motor exam: deltoid, biceps, wrist extension, tricep, finger extension, finger flexion, finger abduction intact equal bilaterally 5/5 DIFFERENTIAL DIAGNOSIS: Not necessarily in any particular order, my differential diagnosis includes, but is not limited to, concussion, skull fracture, intraparenchymal contusion, subarachnoid, subdural and epidural hematoma. The patient understands that this diagnosis is provisional and can never be 100% accurate. - Personal History Tetanus Vaccine Date: 06/21/2009 - Medical/Surgical History Hx Asthma: No Hx Chronic Respiratory Disease: No Hx Diabetes: No Hx Cardiac Disease: Yes Hx Renal Disease: No Hx Cirrhosis: No Hx Alcoholism: Yes Hx HIV/AIDS: No Hx Splenectomy or Spleen Trauma: No Other PMH: Chronic Pancreatitis, alcoholism, htn, depression, numbness/tingling feet, leg weakness - Social History Smoking Status: Heavy smoker Constitutional: Initial Vital Signs Temperature (C) 36.7 C 09/24/18 18:15 Heart Rate 83 09/24/18 18:15 Respiratory Rate 16 09/24/18 18:15 Blood Pressure 140/80 H 09/24/18 18:15 O2 Sat (%) 94 09/24/18 18:15 O2 Delivery Mode Room Air Allergies/Adverse Reactions: No Known Allergies Allergy (Verified 09/24/18 03:58) Home Medications: Medication Instructions Recorded Famotidine [Pepcid 20 MG (*)] 20 mg PO BID tab 09/20/18 Folic Acid [Folic Acid 1 MG (*)] 1 mg PO DAILY tab 09/20/18 Ibuprofen [Motrin (*)] 600 mg PO Q6H tab 09/20/18 Meclizine HCl [Meclizine HCl 25 mg 25 mg PO BID tab 09/20/18 (RX,OTC)] Multivitamins [Multivitamin (*)] 1 each PO DAILY tab 09/20/18 Thiamine HCl [Vitamin B-1] 100 mg PO DAILY tab 09/20/18 Medical Decision Making - Diagnostics Imaging Results: Imaging Impressions Cervical Spine CT 09/24/18 18:19 Impression: There is no acute intracranial abnormality identified on this unenhanced CT evaluation, or significant interval change since 09/21/2018. UNENHANCED CT SCAN OF THE CERVICAL SPINE Technique: A multidetector unenhanced helical CT scan was obtained from the clivus caudally through the upper thoracic spine, with images reformatted at 1.50 mm increments, and are reviewed in soft tissue, bone, and lung windows. Parasagittal and paracoronal reconstructed images are reviewed on the workstation. The DFOV is 18.2 cm. A dose reduction protocol was used. Findings: The cervical vertebral body heights and posterior alignments are maintained. There is moderate C5-C6 and mild C6-C7 degenerative disk space narrowing with vacuum phenomena. There are ventral traction osteophytes at C4-C5 , and posterior traction osteophytes at C5-C6. Multilevel facet degenerative change is once again noted. There is a moderate degree of central canal stenosis and moderate to severe bilateral neural foraminal stenosis at C5-C6, unchanged. There is no acute fracture, or facet malalignment. The interspinous distances are normal. The craniocervical junction is normal. The predental space , and the atlantoaxial lateral mass alignment is normal. The base and the tip of the dens are normal. There is no prevertebral or epidural hematoma identified. The prevertebral soft tissues are normal (there is some stable coarse calcification seen along the right paratracheal aspect of the thyroid gland on series 4, image 110), as are the lung apices (slightly degraded by breathing artifact). Impression: Multilevel degenerative change, most pronounced at C5-C6, stable from 09/21/2008, with no acute cervical osseous abnormality. If there is further clinical concern regarding the patient's symptoms, correlative MR imaging could be considered, if otherwise not contraindicated. Findings were discussed with Balbina Taylor PA-C at 19:11, on 09/24/2018. Head CT 09/24/18 18:19 Impression: There is no acute intracranial abnormality identified on this unenhanced CT evaluation, or significant interval change since 09/21/2018. UNENHANCED CT SCAN OF THE CERVICAL SPINE Technique: A multidetector unenhanced helical CT scan was obtained from the clivus caudally through the upper thoracic spine, with images reformatted at 1.50 mm increments, and are reviewed in soft tissue, bone, and lung windows. Parasagittal and paracoronal reconstructed images are reviewed on the workstation. The DFOV is 18.2 cm. A dose reduction protocol was used. Findings: The cervical vertebral body heights and posterior alignments are maintained. There is moderate C5-C6 and mild C6-C7 degenerative disk space narrowing with vacuum phenomena. There are ventral traction osteophytes at C4-C5 , and posterior traction osteophytes at C5-C6. Multilevel facet degenerative change is once again noted. There is a moderate degree of central canal stenosis and moderate to severe bilateral neural foraminal stenosis at C5-C6, unchanged. There is no acute fracture, or facet malalignment. The interspinous distances are normal. The craniocervical junction is normal. The predental space , and the atlantoaxial lateral mass alignment is normal. The base and the tip of the dens are normal. There is no prevertebral or epidural hematoma identified. The prevertebral soft tissues are normal (there is some stable coarse calcification seen along the right paratracheal aspect of the thyroid gland on series 4, image 110), as are the lung apices (slightly degraded by breathing artifact). Impression: Multilevel degenerative change, most pronounced at C5-C6, stable from 09/21/2008, with no acute cervical osseous abnormality. If there is further clinical concern regarding the patient's symptoms, correlative MR imaging could be considered, if otherwise not contraindicated. Findings were discussed with Balbina Taylor PA-C at 19:11, on 09/24/2018. Images reviewed myself ED Course/Re-evaluation: 6:21 p.m.: Head CT ordered in this patient for trauma for the following indication: Loss of consciousness and intoxicated. Care of patient under supervision of secondary supervising physician Dr De Leon with whom I discussed case. Dr De Leon has evaluated the patient, cleared the patient's cervical collar. Departure - Departure Disposition: Home, Routine, Self-Care Clinical Impression: Alcohol abuse Condition: Good Instructions: Abuse of Alcohol (ED) Referrals: [facility],. [Clinic] - As per Instructions
[2018-09-24 19:17] VITALS: BP 144/76
== END 2018-09-24 19:17 | disposition home or self-care (01) ==
LOC: EDUNIT#
DX: S09.90XA Unspecified injury of head, initial encounter (principal); F10.920 Alcohol use, unspecified with intoxication, uncomplicated; Y92.521 Bus station as the place of occurrence of the external cause; Y93.9 Activity, unspecified; Y99.9 Unspecified external cause status
CPT/HCPCS: 96374; G0480; J2060

== ENCOUNTER 2018-09-24 20:10 | Emergency (ER) | payer OTHER ==
[2018-09-24 20:27] VITALS: BP 128/80
--- NOTE | 2018-09-24 20:53 | EDPHY ---
H & P Stated Complaint: ETOH, ABD PAIN Time Seen by Provider: 09/24/18 20:51 HPI/ROS: CHIEF COMPLAINT: Intoxication HISTORY OF PRESENT ILLNESS: Patient is a homeless alcoholic 63-year-old man who is here several times a day. He was just discharged a couple of hours ago after a fall and negative head and neck CT. He was found sleeping in front of [employer] and bystanders called paramedics who brought him here. [facility]. He told paramedics that he has pancreatitis. He has no abdominal pain on my exam and has no complaints. He has been worked up several times for pancreatitis and all of his recent lipase is been normal. No vomiting. No fever. He admits to continue drinking. He does not wish to seek sobriety. Severity: Mild Modifying factors: None REVIEW OF SYSTEMS: Unable to obtain secondary to intoxication EXAM: Physical Exam General Appearance: WD/WN, no apparent distress, alert EENT: PERRL/EOMI, normal ENT inspection, TMs normal, pharynx normal Neck: non-tender, full range of motion, supple, normal inspection Respiratory: chest non-tender, lungs clear, normal breath sounds Cardiac/Chest: normal peripheral pulses, regular rate, rhythm, P Peripheral Pulses: 2+: carotid (R), carotid (L), femoral (R), femoral (L), dorsalis-pedis (R), dorsalis-pedis (L) Abdomen: normal bowel sounds, non-tender, soft Extremities: normal range of motion, non-tender, normal inspection, normal capillary refill Neurological: calm, drum builder II-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 Alert, answers questions appropriately Appearance: appropriate appearance, appropriate insight, neat, denies illness Behavior/Eye Contact/Speech: cooperative, decreased rate of speech Thoughts/Hallucinations: normal thought pattern, no apparent hallucination Skin: normal color, warm/dry Source: Patient, EMS Exam Limitations: Intoxication - Personal History Current Tetanus Diphtheria and Acellular Pertussis (TDAP): Yes Tetanus Vaccine Date: 06/21/2009 - Medical/Surgical History Hx Asthma: No Hx Chronic Respiratory Disease: No Hx Diabetes: No Hx Cardiac Disease: Yes Hx Renal Disease: No Hx Cirrhosis: No Hx Alcoholism: Yes Hx HIV/AIDS: No Hx Splenectomy or Spleen Trauma: No Other PMH: Chronic Pancreatitis, alcoholism, htn, depression, numbness/tingling feet, leg weakness - Family History Significant Family History: No pertinent family hx - Social History Smoking Status: Heavy smoker Alcohol Use: Heavy Drug Use: Other Constitutional: Initial Vital Signs Temperature (C) 36.6 C 09/24/18 20:26 Heart Rate 87 09/24/18 20:26 Respiratory Rate 14 09/24/18 20:26 Blood Pressure 128/80 H 09/24/18 20:26 O2 Sat (%) 94 09/24/18 20:26 O2 Delivery Mode Room Air Allergies/Adverse Reactions: No Known Allergies Allergy (Verified 09/26/18 16:30) Home Medications: Medication Instructions Recorded Famotidine [Pepcid 20 MG (*)] 20 mg PO BID tab 09/20/18 Folic Acid [Folic Acid 1 MG (*)] 1 mg PO DAILY tab 09/20/18 Ibuprofen [Motrin (*)] 600 mg PO Q6H tab 09/20/18 Meclizine HCl [Meclizine HCl 25 mg 25 mg PO BID tab 09/20/18 (RX,OTC)] Multivitamins [Multivitamin (*)] 1 each PO DAILY tab 09/20/18 Thiamine HCl [Vitamin B-1] 100 mg PO DAILY tab 09/20/18 Medical Decision Making ED Course/Re-evaluation: The patient is intoxicated but he is able to ambulate. He has no complaints to me and has stable vital signs. He told paramedics he had pancreatitis but he has been worked up for this multiple times which have all been negative recently. He has no abdominal tenderness currently. Will discharge at this time. Differential Diagnosis: Partial list of the Differential diagnosis considered include but were not limited to; intoxication, head injury and although unlikely based on the history and physical exam, I also considered infection, pancreatitis. Departure - Departure Disposition: Home, Routine, Self-Care Clinical Impression: Alcoholism Alcohol intoxication Qualifiers: Complication of substance-induced condition: uncomplicated Qualified Code(s): F10.920 - Alcohol use, unspecified with intoxication, uncomplicated Condition: Fair Instructions: Alcohol Intoxication (ED) Referrals: Patient,NotPresent [Unknown] - As per Instructions [facility],. [Clinic] - As per Instructions
== END 2018-09-24 20:59 | disposition home or self-care (01) ==
LOC: EDUNIT#
DX: F10.920 Alcohol use, unspecified with intoxication, uncomplicated (principal); Z59.0 Homelessness

== ENCOUNTER 2018-09-25 20:24 | Emergency (ER) | payer OTHER ==
--- NOTE | 2018-09-25 20:40 | EDPHY ---
H & P - Personal History Tetanus Vaccine Date: 06/21/2009 - Medical/Surgical History Hx Asthma: No Hx Chronic Respiratory Disease: No Hx Diabetes: No Hx Cardiac Disease: Yes Hx Renal Disease: No Hx Cirrhosis: No Hx Alcoholism: Yes Hx HIV/AIDS: No Hx Splenectomy or Spleen Trauma: No Other PMH: Chronic Pancreatitis, alcoholism, htn, depression, numbness/tingling feet, leg weakness - Social History Smoking Status: Heavy smoker Time Seen by Provider: 09/25/18 20:33 HPI/ROS: CHIEF COMPLAINT: Suspected alcohol abuse HISTORY OF PRESENT ILLNESS: 63 year old homeless male arrives via ambulance for suspected alcohol abuse after he was found sleeping on a bench. Patient unable to ambulate without assistance. No reports of trauma or assault. No fall from height. No structures of height near patient. REVIEW OF SYSTEMS: 10 systems reviewed and negative with the exception of the elements mentioned in the history of present illness PAST MEDICAL/SURGICAL HISTORY: no anticoagulant use, no relevant medical/ surgical history SOCIAL HISTORY: Case of empty beer at his side PHYSICAL EXAM 1) GENERAL: poorly kept, foul smelling,Smells of alcohol. 2) HEAD: Normocephalic, atraumatic 3) HEENT: Pupils equal, round, reactive to light bilaterally. Negative Horners. Nasopharynx, oropharynx, clear. No deformity or angulation of nose. No septal hematoma. No rhinorrhea. No oral trauma. Ears bilaterally with normal tympanic membranes. No hemotympanum. No fluid or blood in the external auditory canal. No raccoon eyes. No Fitch sign. Teeth are normally aligned with no gross malocclusion, TMJ bilaterally nontender, facial bones nontender including the zygomatic arch, maxilla mandible. 4) NECK: No cervical collar is on. Posterior cervical spine is nontender, no stepoff, no effusion. Full range of motion which does not elicit any midline cervical spine pain, no posterior midline tenderness, no step-off. 5) LUNGS: Clear to auscultation bilaterally, no wheezes, no rhonchi, no retractions. No obvious signs of trauma. No chest wall pain. No flaring, no grunting. Moving symmetrically. No crepitus. 6) HEART: Regular rate and rhythm, 7) ABDOMEN: No guarding, no rebound, no focal tenderness, no peritoneal signs, no signs of trauma, no ecchymosis 8) MUSCULOSKELETAL: Moving all extremities, no focal areas of tenderness, no obvious trauma. 9) BACK: No midline vertebral tenderness, no fluctuance, no step-off, no obvious trauma, no visual or palpable abnormality. 10) SKIN: No laceration. No abrasion DIFFERENTIAL DIAGNOSIS: In no particular orderincluding but not limited to hypoglycemia, infectious process, electrolyte abnormality, head injury and intoxicants. (Carmen Taylor) Constitutional: Initial Vital Signs Temperature (C) 36.5 C 09/25/18 20:31 Heart Rate 77 09/25/18 20:31 Respiratory Rate 16 09/25/18 20:31 Blood Pressure 127/79 H 09/25/18 20:31 O2 Sat (%) 92 09/25/18 20:31 O2 Delivery Mode Nasal Cannula O2 (L/minute) 3 Allergies/Adverse Reactions: No Known Allergies Allergy (Verified 09/25/18 20:34) Home Medications: Medication Instructions Recorded Famotidine [Pepcid 20 MG (*)] 20 mg PO BID tab 09/20/18 Folic Acid [Folic Acid 1 MG (*)] 1 mg PO DAILY tab 09/20/18 Ibuprofen [Motrin (*)] 600 mg PO Q6H tab 09/20/18 Meclizine HCl [Meclizine HCl 25 mg 25 mg PO BID tab 09/20/18 (RX,OTC)] Multivitamins [Multivitamin (*)] 1 each PO DAILY tab 09/20/18 Thiamine HCl [Vitamin B-1] 100 mg PO DAILY tab 09/20/18 Medical Decision Making Other Provider: 0030 care assumed from PA pending ability to ambulate. (Elan Traylor) Departure - Departure Disposition: Home, Routine, Self-Care Clinical Impression: Alcohol abuse Condition: Good Instructions: Abuse of Alcohol (ED) Referrals: [facility],. [Clinic] - As per Instructions
[2018-09-26 03:49] VITALS: BP 129/79
== END 2018-09-26 04:08 | disposition home or self-care (01) ==
LOC: EDUNIT#
DX: F10.10 Alcohol abuse, uncomplicated (principal); I10 Essential (primary) hypertension; F32.9 Major depressive disorder, single episode, unspecified; F17.200 Nicotine dependence, unspecified, uncomplicated; Z59.0 Homelessness

== ENCOUNTER 2018-09-26 16:25 | Emergency (ER) | payer OTHER ==
--- NOTE | 2018-09-26 16:44 | EDPHY ---
H & P Stated Complaint: ETOH Time Seen by Provider: 09/26/18 16:30 HPI/ROS: CHIEF COMPLAINT: Abdominal pain HISTORY OF PRESENT ILLNESS: 63-year-old male with history of alcohol abuse, well known to the emergency department as this is his 50th visit this year. He presents today complaining of upper abdominal pain. He has not had nausea or vomiting. He admits to drinking alcohol. He was recently hospitalized because of ataxia and started on thiamine, which he has not been taking. He provides no additional history other than that he has been drinking alcohol. He tells me that his walking is "no good, I can not walk". REVIEW OF SYSTEMS: A ten system review of systems was performed and is negative with the exception of the items mentioned in the HPI. Past medical history: 1. Alcohol abuse 2. Pancreatitis 3. Depression 4. Thrombocytopenia 5. Lower extremity edema Past surgical history: Unknown Family history: Unknown to me Social history: He is homeless. He has a history of alcohol abuse. He denies the use of illicits. General Appearance: Alert. Vital signs reviewed. Head: Normocephalic atraumatic. He has some healing scabs on the glabella. Eyes: Pupils equal and round, bilateral conjunctival injection, no discharge. Anicteric. ENT, Mouth: Mucous membranes are moist, no oropharyngeal erythema or edema. Neck: No lymphadenopathy, supple. No cervical spine tenderness with palpation in the midline. Respiratory: Lungs are clear to auscultation; no wheezes, rales, or rhonchi. Cardiovascular: Regular rate and rhythm; no murmur, rub, or gallop. Gastrointestinal: Abdomen is soft and mildly tender in the midepigastrium, no guarding or rebound, no masses or organomegaly, bowel sounds normal. Skin: Warm and dry, no rashes on exposed skin, normal color. Face is sunburned. Back: Nontender to palpation over the thoracolumbar spine. No CVAT. Extremities: Bilateral 1+ lower extremity edema, no calf tenderness or swelling. Neurological: Awake and alert. Moving all four extremities easily and equally. Psychiatric: Flat affect. Answering my questions appropriately. - Personal History Current Tetanus Diphtheria and Acellular Pertussis (TDAP): Unsure Tetanus Vaccine Date: 06/21/2009 - Medical/Surgical History Hx Asthma: No Hx Chronic Respiratory Disease: No Hx Diabetes: No Hx Cardiac Disease: Yes Hx Renal Disease: No Hx Cirrhosis: No Hx Alcoholism: Yes Hx HIV/AIDS: No Hx Splenectomy or Spleen Trauma: No Other PMH: Chronic Pancreatitis, alcoholism, htn, depression, numbness/tingling feet, leg weakness - Social History Smoking Status: Heavy smoker Constitutional: Initial Vital Signs Temperature (C) 36.8 C 09/26/18 16:27 Heart Rate 87 09/26/18 16:27 Respiratory Rate 16 09/26/18 16:27 Blood Pressure 119/77 09/26/18 16:27 O2 Sat (%) 95 09/26/18 16:27 O2 Delivery Mode Room Air O2 (L/minute) 2 Allergies/Adverse Reactions: No Known Allergies Allergy (Verified 09/26/18 16:30) Home Medications: Medication Instructions Recorded Famotidine [Pepcid 20 MG (*)] 20 mg PO BID tab 09/20/18 Folic Acid [Folic Acid 1 MG (*)] 1 mg PO DAILY tab 09/20/18 Ibuprofen [Motrin (*)] 600 mg PO Q6H tab 09/20/18 Meclizine HCl [Meclizine HCl 25 mg 25 mg PO BID tab 09/20/18 (RX,OTC)] Multivitamins [Multivitamin (*)] 1 each PO DAILY tab 09/20/18 Thiamine HCl [Vitamin B-1] 100 mg PO DAILY tab 09/20/18 Medical Decision Making ED Course/Re-evaluation: Patient well known to the emergency department. His case management notes indicate that he can be seen [facility] the [facility]--in the past he has not been welcome there. He was hospitalized here from September 15 through 2018. During that hospitalization efforts were made to find placement for him; these efforts were unsuccessful. He declined the option of alf facility and preferred to be discharged to the street. Since his discharge she has resumed daily heavy alcohol use. Case management was again involved in this patient, whose care is difficult given his intractable alcohol abuse. He was placed on an alcohol hold. The [facility] has agreed to accept him on a 5 day hold. The hope is that he can be placed on a longer involuntary hold for treatment of alcohol abuse. His recent hospitalization occurred because he was ataxic. I note that he is walking independently and without difficulty in the emergency department today. He was transferred to the [facility] by [place] [employer]. Differential Diagnosis: I considered a differential diagnosis that includes but is not limited to alcohol intoxication, Wernicke's, pancreatitis, gastritis, and cholecystitis. He did not have significant pain on abdominal exam and I did not feel that additional abdominal evaluation was needed. - Data Points Medications Given: Discontinued Medications Chlordiazepoxide (Librium 25 Mg Prepack#6) 1 btl TAKEHOME EDNOW ONE Stop: 09/26/18 18:09 Last Admin: 09/26/18 18:16 Dose: 1 btl Ondansetron HCl (Zofran Odt 4 Mg Prepack#2) 1 btl TAKEHOME EDNOW ONE Stop: 09/26/18 18:09 Last Admin: 09/26/18 18:17 Dose: 1 btl Ondansetron HCl (Zofran Odt 4 Mg Prepack#2) 1 btl TAKEHOME EDNOW ONE Stop: 09/26/18 18:11 Last Admin: 09/26/18 18:17 Dose: 1 btl Thiamine HCl (Vitamin B-1) 100 mg PO EDNOW ONE Stop: 09/26/18 17:04 Last Admin: 09/26/18 17:17 Dose: 100 mg Departure - Departure Disposition: Law Enforcement/Court/Nursing Home Clinical Impression: Alcohol abuse Condition: Fair Instructions: Abuse of Alcohol (ED) Additional Instructions: To the [facility] by Librium and zofran for use at [facility]. Referrals: [facility],. [Clinic] - As per Instructions
[2018-09-26] MEDS ORDERED: THIAMINE HCL 100 MG TAB PO ONE (17:03)
--- NOTE | 2018-09-26 17:10 | ASMTCMCOM ---
CM Note CM Note Notes: Patient presents to the ED, intoxicated and complaining of abdominal pain. See ED report for details. please also see Case Management note from 09/22/18 This CM contacted Nolvia at [facility] ([facility]) [phone] regarding patient's status. Nolvia confirmed with Sharita that patient is able to return to the [facility] this evening after he is cleared in the ED and sober enough to walk. Nolvia requests that patient be sent with Librium as well as Zofran if patient is nauseated or has been vomiting. Nolvia confirms that they will be placing patient on an EC hold when he arrives and that there has been a request filed with the [facility] for an IC (involuntary committment) as well. Nolvia does not have more details to provide CM at this time, but states that Sharita has confirmed that they will be following up with this and continuing to provide help to patient as they are able-and patient's behavior allows. This CM has discussed above with Dr. Edwards and JOSE FRANCISCO Hu. Patient berny remain on an ARC hold until he is ready to be transferred to the [facility] with medication Date Signed: 09/26/2018 05:10 PM Electronically Signed By:Brooke Mccarthy RN
[2018-09-26 17:43] VITALS: BP 137/77
[2018-09-26] MEDS ORDERED: ONDANSETRON 4MG PREPACK#2 BTL TAKEHOME ONE ×2 (18:08→18:10)
[2018-09-26] MEDS ORDERED: CHLORDIAZEPOXIDE 25MG PREPK#6 BTL TAKEHOME ONE (18:08)
== END 2018-09-26 18:37 ==
LOC: EDUNIT#
DX: F10.10 Alcohol abuse, uncomplicated (principal); R10.10 Upper abdominal pain, unspecified; F32.9 Major depressive disorder, single episode, unspecified; D69.6 Thrombocytopenia, unspecified; Z59.0 Homelessness; I10 Essential (primary) hypertension; F17.200 Nicotine dependence, unspecified, uncomplicated; R60.9 Edema, unspecified

== ENCOUNTER 2018-09-28 03:11 | Emergency (ER) | payer OTHER ==
--- NOTE | 2018-09-28 03:30 | EDPHY ---
H & P Stated Complaint: ETOH, epigastric pain - Personal History Current Tetanus Diphtheria and Acellular Pertussis (TDAP): Yes Tetanus Vaccine Date: 06/21/2009 - Medical/Surgical History Hx Asthma: No Hx Chronic Respiratory Disease: No Hx Diabetes: No Hx Cardiac Disease: Yes Hx Renal Disease: No Hx Cirrhosis: No Hx Alcoholism: Yes Hx HIV/AIDS: No Hx Splenectomy or Spleen Trauma: No Other PMH: Chronic Pancreatitis, alcoholism, htn, depression, numbness/tingling feet, leg weakness - Social History Smoking Status: Heavy smoker Time Seen by Provider: 09/28/18 03:23 HPI/ROS: Chief Complaint: Alcohols intoxication, abdominal pain HPI: 63-year-old was male who is very well known to myself and this emergency department. He has a history chronic alcohol abuse. He was admitted to this hospital on the of last month for several days. He was placed on thiamin but did not continue this as an outpatient. At that time they attempted to place him snf facility. The patient refused and was discharged back to the community. Patient is continuing to drink alcohol. This is his 32nd visit to this emergency department in 2019. He was last seen here 2 days ago. He is brought in by EMS this morning after being found down outside the bus station intoxicated. The pain was complaining of upper abdominal pain. He has multiple visits and complaints of abdominal pain. In reviewing his records he has had mild pancreatitis with his lipase maximum the 400s. Typically his lipase is normal with normal liver function test. He denies any vomiting. ROS: 10 systems were reviewed and were negative except those elements noted in the HPI. PMH: Alcohol gastritis, alcohol intoxication Social History: No smoking, daily heavy alcohol Family History: non-contributory Physical Exam: Gen: Somnolent, arousable, intoxicated, some of alcohol HEENT: Nose: no rhinorrhea Eyes: PERRLA, EOMI Mouth: Moist mucosa Neck: Supple, no JVD Chest: nontender, lungs clear to auscultation Heart: S1, S2 normal, no murmur Abd: Soft, epigastric tenderness, no guarding Back: no CVA tenderness, no midline tenderness Ext: no edema, non-tender Skin: no rash Neuro: CN II-XII intact, Sensation grossly intact, Strength 5/5 in bilateral upper and lower extremities (Elan Traylor) Constitutional: Initial Vital Signs Temperature (C) 36.5 C 09/28/18 03:13 Heart Rate 65 09/28/18 03:13 Respiratory Rate 17 09/28/18 03:13 Blood Pressure 131/68 H 09/28/18 03:13 O2 Sat (%) 89 L 09/28/18 03:13 O2 Delivery Mode Room Air O2 (L/minute) 3 Allergies/Adverse Reactions: No Known Allergies Allergy (Verified 09/26/18 16:30) Home Medications: Medication Instructions Recorded Famotidine [Pepcid 20 MG (*)] 20 mg PO BID tab 09/20/18 Folic Acid [Folic Acid 1 MG (*)] 1 mg PO DAILY tab 09/20/18 Ibuprofen [Motrin (*)] 600 mg PO Q6H tab 09/20/18 Meclizine HCl [Meclizine HCl 25 mg 25 mg PO BID tab 09/20/18 (RX,OTC)] Multivitamins [Multivitamin (*)] 1 each PO DAILY tab 09/20/18 Thiamine HCl [Vitamin B-1] 100 mg PO DAILY tab 09/20/18 Medical Decision Making ED Course/Re-evaluation: [address] patient signed out to Dr. Bullock pending improvement in his mental status and ability to ambulate. (Elan Traylor) Care was signed out to me at 7:00 a.m.. I saw the patient at 7:05 a.m.. He stable. Vital signs are stable. He is arousable though otherwise sleeping. At about 8:30 a.m. Patient is ambulatory. Is clinically sober. He will be discharged to the [facility] recovery Center (Adiel Bullock) Differential Diagnosis: Alcohol intoxication without evidence of trauma (Adiel Bullock) Departure - Departure Disposition: Home, Routine, Self-Care Clinical Impression: Chronic abdominal pain, Acute alcohol intoxication Condition: Fair Instructions: Abuse of Alcohol (DC) Additional Instructions: Drink alcohol responsibly Referrals: NONE *PRIMARY CARE P,. [Primary Care Provider] - As per Instructions [facility] [Outside] - 2-3 days without fail
[2018-09-28 08:49] VITALS: BP 128/76
== END 2018-09-28 08:54 | disposition home or self-care (01) ==
LOC: EDUNIT#
DX: R10.13 Epigastric pain (principal); F10.920 Alcohol use, unspecified with intoxication, uncomplicated; G89.29 Other chronic pain; I10 Essential (primary) hypertension; F32.9 Major depressive disorder, single episode, unspecified; F17.200 Nicotine dependence, unspecified, uncomplicated

== ENCOUNTER 2018-09-28 11:36 | Emergency (ER) | payer OTHER ==
--- NOTE | 2018-09-28 13:34 | EDPHY ---
H & P Stated Complaint: ETOH intoxication - Personal History Current Tetanus/Diphtheria Vaccine: Yes Current Tetanus Diphtheria and Acellular Pertussis (TDAP): Yes Tetanus Vaccine Date: 06/21/2009 - Medical/Surgical History Hx Asthma: No Hx Chronic Respiratory Disease: No Hx Diabetes: No Hx Cardiac Disease: Yes Hx Renal Disease: No Hx Cirrhosis: No Hx Alcoholism: Yes Hx HIV/AIDS: No Hx Splenectomy or Spleen Trauma: No Other PMH: Chronic Pancreatitis, alcoholism, htn, depression, numbness/tingling feet, leg weakness - Social History Smoking Status: Heavy smoker Time Seen by Provider: 09/28/18 12:31 HPI/ROS: CHIEF COMPLAINT: Patient makes none HISTORY OF PRESENT ILLNESS: This is a 63-year-old male with a history of chronic alcohol abuse, well known to the emergency department and to me from previous visits, with this being his 50 sec visit this year. He was discharged from this emergency department around 7:00 a.m. this morning and returns, via ambulance after being found down by a citizen, a few hours later. Mr. German makes no complaints to me at the time of my initial interview. I last saw him in this department 2 days ago. At that time he was discharged to the [facility]. Reportedly he became violent and he has been banned from that center for life. He was admitted to this hospital at the end of August with ataxia. At that time is discharged on thiamine, which he has not been taking. He was offered placement in a halfway facility and refused. He has a history of chronic pancreatitis. REVIEW OF SYSTEMS: A ten system review of systems was performed and is negative with the exception of the items mentioned in the HPI. Past medical history: 1. Alcohol abuse looks line 2. Chronic pancreatitis Social history: Chronic alcohol abuse. Homeless. General Appearance: Vital signs reviewed. At the time of my initial interview he is arousable to painful stimulation and localizes pain. He opens his eyes but does not verbalize. He was initially mildly hypoxic with a room air oxygen of 90%. He was on 3 L at the time of my interview with a pulse ox of 98%. Head: Normocephalic. He has healing scabs on the glabella, improved from the last time ice on 2 days ago. Eyes: Pupils equal and round, no conjunctival injection, no discharge. Anicteric. ENT, Mouth: Mucous membranes are moist, no oropharyngeal erythema or edema. Neck: No lymphadenopathy, supple. Respiratory: Lungs are clear to auscultation; no wheezes, rales, or rhonchi. Cardiovascular: Regular rate and rhythm; no murmur, rub, or gallop. Gastrointestinal: Abdomen is soft with some mild tenderness in the epigastrium. , no masses or organomegaly, bowel sounds normal. Skin: Warm and dry, no rashes on exposed skin, normal color. Back: Nontender to palpation over the thoracolumbar spine. No CVAT. Extremities: No lower extremity edema, no calf tenderness or swelling. Neurological: Alert and oriented. Moving all four extremities easily and equally. Psychiatric: Normal affect. (Josie Edwards) Constitutional: Initial Vital Signs Temperature (C) 36.4 C 09/28/18 11:42 Heart Rate 80 09/28/18 11:42 Respiratory Rate 16 09/28/18 11:42 Blood Pressure 101/64 09/28/18 11:42 O2 Sat (%) 90 L 09/28/18 11:42 O2 Delivery Mode Room Air O2 (L/minute) 2 Allergies/Adverse Reactions: No Known Allergies Allergy (Verified 10/02/18 16:16) Home Medications: Medication Instructions Recorded Famotidine [Pepcid 20 MG (*)] 20 mg PO BID tab 09/20/18 Folic Acid [Folic Acid 1 MG (*)] 1 mg PO DAILY tab 09/20/18 Ibuprofen [Motrin (*)] 600 mg PO Q6H tab 09/20/18 Meclizine HCl [Meclizine HCl 25 mg 25 mg PO BID tab 09/20/18 (RX,OTC)] Multivitamins [Multivitamin (*)] 1 each PO DAILY tab 09/20/18 Thiamine HCl [Vitamin B-1] 100 mg PO DAILY tab 09/20/18 Medical Decision Making ED Course/Re-evaluation: 4:00 a.m.- Patient awoke and appears to be in alcohol withdrawal at this time. He is feeling tremulous. We will treat his symptoms currently, vital signs are normal. He will get Librium 50 mg p. O. And Ativan as needed via this CIWA scale. (Sharita Price) 63-year-old male with chronic alcohol abuse presents intoxicated. This is the 2nd visit today, 52nd visit of the year. He has been banned from the [facility]. It is my impression that this patient needs court-ordered involuntary detox. Case management from [facility] has worked on this in the past, but thus far unsuccessfully. slots manager, Vivien, has been working diligently trying to determine the status of an involuntary commitment for Mr. Josep vidal. It this point in time is not clear whether or not papers have been filed for an involuntary commitment. The patient was serially examined by me in the emergency department. At 4:45 p.m. he is beginning to wake up a bit. He arouses to voice and gentle stimulation. When asked, he tells me that he would like to quit drinking. At 6:00 p.m. The patient is awake and alert. He is interactive and I held a somewhat lengthy conversation with him. He tells me that he "desperately" wants to stop drinking. I learned that he is originally from [place] and has been in [place] for 40 years. 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 Arrangements have been made for him to go to [place] and he states that he would like to do so. A bus passes been provided. When he is fully ambulatory he will be discharged from the emergency department with a bus pass and instructions as to how to go to [place]. Hopefully he will follow through on this. 9:00 p.m. Patient did become more alert but was not independently ambulatory. He was noted to have an oxygen saturation on room air in mid 80s while sleeping. Supplemental oxygen was placed. He had been alert with normal oxygenation, but seemed to become a bit more lethargic. He is easily arousable , but not ready for discharge to the bus station. I spoke with him shortly after 9:00 p.m.. He complained of abdominal pain, a typical complaint for him. His abdomen remains mildly tender in the midepigastrium without peritoneal signs. He has been evaluated with blood work repeatedly in the past for pancreatitis. He has history of chronic pancreatitis. I am not repeating blood work. It seems likely that he will spend the night in the emergency department and be discharged in the morning to the bus station with a bus pass, again with the hope that he will present at [place]. (Josie Edwards) Other Provider: 6:45 p.m. September 29. The patient has been here for 31 hr. We have explored multiple options most predominantly sending him to [place] on a bus or cab verses disposition to the alcohol recovery Center verses disposition to home. Last night when I saw the patient and he was able to ambulate we were planning on sending him on a bus to [place] but he refused this and said he would get a taxi and go to hotel, that he has money. We decided to wait and tried again to sent to [place] this morning but this fell through. There has been much discussion today about placing home on extended care holds and placing him either at the [facility] or at a different Addiction recovery Center. The [facility] is willing to accept him back as long as he behaves. He has been very well- behaved here in the department. I am willing to place him on an extended care hold and an involuntary extended hold if this assists in getting him placed. We have not made any moves in this direction however because there is uncertainty as to whether not this will help or inhibit him from being placed. We have now been informed that he can go to the [facility] but not on an extended care hold. Will transfer him there at this time. 7:15 p.m. the patient is now refusing to go to the [facility] and states that he has money to take a cab and go to hot. (Jeremías De Leon) - Data Points Medications Given: Discontinued Medications Chlordiazepoxide HCl (Librium) 50 mg PO EDNOW ONE Stop: 09/29/18 03:55 Last Admin: 09/29/18 04:09 Dose: 50 mg Chlordiazepoxide HCl (Librium) 50 mg PO EDNOW ONE Stop: 09/29/18 10:59 Last Admin: 09/29/18 11:04 Dose: 50 mg Chlordiazepoxide HCl (Librium) 25 mg PO EDNOW ONE Stop: 09/29/18 17:50 Last Admin: 09/29/18 17:49 Dose: 25 mg Sodium Chloride (Ns) 1,000 mls @ 0 mls/hr IV ONCE ONE; Wide Open PRN Reason: Protocol Stop: 09/29/18 04:09 Last Admin: 09/29/18 04:09 Dose: 1,000 mls Ibuprofen (Motrin) 200 mg PO EDNOW ONE Stop: 09/29/18 13:12 Last Admin: 09/29/18 13:16 Dose: 200 mg Lorazepam (Ativan) 1 mg PO EDNOW ONE Stop: 09/29/18 03:44 Last Admin: 09/29/18 03:46 Dose: 1 mg Lorazepam (Ativan) 0 mg PO Q4H PRN; Protocol PRN Reason: Alcohol Withdrawal w/IV access Stop: 09/29/18 15:54 Last Admin: 09/29/18 13:17 Dose: 2 mg Lorazepam (Ativan Injection) 0 mg IVP Q1H PRN; Protocol PRN Reason: Alcohol Withdrawal w/IV access Stop: 09/29/18 15:54 Last Admin: 09/29/18 11:32 Dose: 2 mg Departure - Departure Disposition: Home, Routine, Self-Care Clinical Impression: Alcohol intoxication Qualifiers: Complication of substance-induced condition: uncomplicated Qualified Code(s): F10.920 - Alcohol use, unspecified with intoxication, uncomplicated Alcohol withdrawal Qualifiers: Complication of substance-induced condition: uncomplicated Qualified Code(s): F10.230 - Alcohol dependence with withdrawal, uncomplicated Condition: Fair Instructions: Abuse of Alcohol (DC), Alcohol Withdrawal (DC) Referrals: [facility],. [Clinic] - As per Instructions
[2018-09-29] MEDS ORDERED: LORazepam 1 MG TAB PO ONE (03:43)
[2018-09-29] MEDS ORDERED: chlordiazePOXIDE 25 MG CAP PO ONE ×3 (03:54→17:49)
[2018-09-29] MEDS ORDERED: NS 1,000 ML IV ONE (04:08)
[2018-09-29] MEDS: LORazepam 2 MG/ML INJ IVP PRN ×2 (04:10→11:32)
[2018-09-29] MEDS: LORazepam 1 MG TAB PO PRN ×2 (07:56→13:17)
[2018-09-29] MEDS ORDERED: THIAMINE HCL 100 MG TAB ONE (11:24)
[2018-09-29] MEDS ORDERED: IBUPROFEN 200 MG TAB PO ONE (13:11)
[2018-09-29] MEDS ORDERED: LORazepam 2 MG/ML INJ IVP PRN (14:44)
[2018-09-29] MEDS ORDERED: LORazepam 1 MG TAB PO PRN (14:44)
[2018-09-29] MEDS ORDERED: chlordiazePOXIDE 25 MG CAP ONE (17:46)
[2018-09-29] MEDS ORDERED: CHLORDIAZEPOXIDE 25MG PREPK#6 BTL TAKEHOME ONE (18:49)
--- NOTE | 2018-09-29 19:16 | ASMTCMCOM ---
CM Note CM Note Notes: Pt presented to the ED yesterday for ETOH intoxication. Pt was not safe to discharge (due to pt's weakness, difficulty ambulating and the severe weather) until this morning per ED staff. CM requested pt remain in the ED while CM speak to the CM and ED Mgrs, Detox Director, [facility] of Behavioral [facility] in order to discuss possible E.C. and I.C. options due to the recent cases of pt being barred "indefinitely" from Detox. This was an all day process of phone calls, etc and the ED Provider Dr Camp was also in agreement w/having the pt remain in the ED during this time while CM tried to discern what the possible options from the ED today could be. Overall, pt can [facility] per the Director's approval if 1) pt is voluntary and wants to go to Detox (Per Detox Director, pt can no longer be placed on an E.C. at this time because he is sober), 2) pt agrees to act and behave appropriately, not threaten Detox staff, etc.; and 3) agrees to not demand to have 911 called or want to leave within minutes of arriving to detox due to his chronic pancreatitis pain that the ED has already ruled out as an emergency/acute issue. If pt doesn't want to go to Detox and agree to those terms, then patient can be discharged to take the bus to [facility] or [facility] in [place], or discharge [facility] the [facility]. This CM went over these options with the pt. Pt going to make a decision and let the ED RN and Provider know what he wishes to do. If/when pt returns to the ED, please place pt on an E.C. and get CM involved AINSLEY/when they arrive This CM to put in a more detailed Care Plan when she returns to work tomorrow. Date Signed: 09/29/2018 07:15 PM Electronically Signed By:Vivien Plaza RN
[2018-09-29 19:31] VITALS: BP 142/84
== END 2018-09-29 19:31 | disposition home or self-care (01) ==
LOC: EDUNIT#
DX: F10.129 Alcohol abuse with intoxication, unspecified (principal); E86.9 Volume depletion, unspecified; K86.1 Other chronic pancreatitis; I10 Essential (primary) hypertension; Z59.0 Homelessness
CPT/HCPCS: 96361; 96374; 96376; 99284; J2060

== ENCOUNTER 2018-09-30 13:35 | Emergency (ER) | payer OTHER ==
--- NOTE | 2018-09-30 13:32 | EDPHY ---
H & P Time Seen by Provider: 09/30/18 13:39 Constitutional: Initial Vital Signs Temperature (C) 37.4 C 09/30/18 13:35 Heart Rate 81 09/30/18 13:35 Respiratory Rate 16 09/30/18 13:35 Blood Pressure 137/83 H 09/30/18 13:35 O2 Sat (%) 92 09/30/18 13:35 O2 Delivery Mode Room Air Allergies/Adverse Reactions: No Known Allergies Allergy (Verified 09/26/18 16:30) Home Medications: Medication Instructions Recorded Famotidine [Pepcid 20 MG (*)] 20 mg PO BID tab 09/20/18 Folic Acid [Folic Acid 1 MG (*)] 1 mg PO DAILY tab 09/20/18 Ibuprofen [Motrin (*)] 600 mg PO Q6H tab 09/20/18 Meclizine HCl [Meclizine HCl 25 mg 25 mg PO BID tab 09/20/18 (RX,OTC)] Multivitamins [Multivitamin (*)] 1 each PO DAILY tab 09/20/18 Thiamine HCl [Vitamin B-1] 100 mg PO DAILY tab 09/20/18 Medical Decision Making ED Course/Re-evaluation: CHIEF COMPLAINT: Alcohol intoxication. HISTORY OF PRESENT ILLNESS: A 63-year-old homeless male well known to this emergency department with a history of chronic alcohol abuse with frequent falls. The patient was just seen last night after drinking. EMS was called by a bystander today as the patient was found down. He admits to drinking alcohol heavily today. He is complaining of some upper abdominal pain. He also states "why won't you let me ". No nausea or vomiting. Denies black tarry stools. No fevers or chills. No cough. Patient denies any injuries denies loss of consciousness denies any recent trauma. No co-ingestion. Patient denies homicidal behavior. REVIEW OF SYSTEMS: A comprehensive 10 system review of systems is otherwise negative aside from elements mentioned in the history of present illness and medical decision making. PHYSICAL EXAM: General Appearance: Appears intoxicated and disheveled, alert, well hydrated, appropriate, and non-toxic appearing. Head: Atraumatic without scalp tenderness or obvious injury Eyes: Pupils equal, round, reactive to light and accommodation, EOMI, no trauma , no injection. Ears: Clear bilaterally, no perforation, normal landmarks Nose: Atraumatic, no rhinorrhea, clear. Throat: There is no erythema or exudates, no lesions, normal tonsils, mucus membranes moist. Neck: Supple, 2+ carotid upstroke, nontender, no lymphadenopathy. Respiratory: No retractions, no distress, no wheezes, and no accessory muscle use. Lungs are clear to auscultation bilaterally. Cardiovascular: Regular rate and rhythm, no murmurs, rubs, or gallops. Bilateral carotid, radial, dorsalis pedis, and posterior tibial pulses intact. Good capillary refill all extremities. Gastrointestinal: Abdomen is soft, nontender, non-distended, no masses, no rebound, no guarding, no peritoneal signs. Musculoskeletal: Normal active ROM of all extremities, atraumatic. Neurological: Mildly somnolent and intoxicated. The patient has normal DTRs and non-focal cranial nerves, motor, sensory, and cerebellar exam. Skin: No rashes, good turgor, no nodules on palpation. PAST MEDICAL HISTORY: Alcoholism, pancreatitis. SOCIAL HISTORY: Transient, not-employed, single DIAGNOSTICS/PROCEDURES/CRITICAL CARE TIME: Not indicated. DIFFERENTIAL DIAGNOSIS: The differential diagnosis for the patient's altered mental status included but was not limited to hypoglycemia, infectious process, electrolyte abnormality, head injury, neurologic process, anemia, cardiac process, and intoxicants. MEDICAL DECISION MAKING: A 63-year-old homeless male well known to this emergency department with a history of chronic alcohol abuse with frequent falls. He arrives via EMS today for alcohol intoxication and abdominal pain. He is stating "why won't you let me ". We have tried sending the patient t [facility], admitting him here, and sending him to the [facility] (which he is permanently banned from). We will wait for him to sober up today. I serially examined this patient since the patient's arrival here in the emergency department. The patient continues to become more and more sober with each examination. 1415: I serially questioned the patient and the patient's story given initially has not changed. The patient still denies any trauma, any head injury, and any illicit drug use. At this point, the patient is walking the department freely and is clinically sober. We're discharging the patient in stable condition. Departure - Departure Disposition: Home, Routine, Self-Care Clinical Impression: Alcohol abuse, Alcoholism Alcohol intoxication Qualifiers: Complication of substance-induced condition: uncomplicated Qualified Code(s): F10.920 - Alcohol use, unspecified with intoxication, uncomplicated Condition: Good Instructions: Alcohol Intoxication (ED), Abuse of Alcohol (ED) Additional Instructions: Please refrain from abusing alcohol. Return to the emergency department immediately for fever, vomiting, confusion, headache, abdominal pain or other worsening of condition. Followup with your primary care physician within 72 hours for reevaluation. Referrals: [facility],. [Clinic] - As per Instructions Report Scribed for: Parish Mack Report Scribed by: Selena Crowell Date of Report: 09/30/18 Time of Report: 13:39
[2018-09-30 13:44] VITALS: BP 137/83
== END 2018-09-30 14:38 | disposition home or self-care (01) ==
LOC: EDUNIT#
DX: F10.220 Alcohol dependence with intoxication, uncomplicated (principal); R29.6 Repeated falls; Z59.0 Homelessness

== ENCOUNTER 2018-09-30 21:52 | Emergency (ER) | payer OTHER ==
--- NOTE | 2018-09-30 22:08 | EDPHY ---
H & P Stated Complaint: EtOH Time Seen by Provider: 09/30/18 22:00 HPI/ROS: HPI The patient presents with alcohol intoxication, brought in by ambulance from [facility] where he was found by bystanders. Patient currently has no complaints. He was seen earlier today in the emergency department and discharged in the afternoon. He returned to the street and began drinking again. He denies any headache. He said he did vomit several hours ago.. REVIEW OF SYSTEMS 10 systems were reviewed and negative with the exception of the elements mentioned in the history of present illness. PMHx: Alcohol abuse, hypertension, chronic alcoholic pancreatitis her record Soc Hx: Homelessness alcohol abuse PHYSICAL General Appearance: Obviously intoxicated Eyes: Pupils equal and round no pallor or injection ENT, Mouth: Mucous membranes moist Respiratory: There are no retractions, lungs are clear to auscultation Cardiovascular: Regular rate and rhythm Gastrointestinal: Abdomen is soft and non-tender, no masses, bowel sounds normal Neurological: A&O, moves all extremities Skin: Warm and dry, no rashes Musculoskeletal: Neck is supple non tender Extremities: symmetrical, full range of motion Psychiatric: Patient is oriented X 3, there is no agitation Source: Patient Exam Limitations: No limitations - Personal History Tetanus Vaccine Date: 06/21/2009 - Medical/Surgical History Hx Asthma: No Hx Chronic Respiratory Disease: No Hx Diabetes: No Hx Cardiac Disease: Yes Hx Renal Disease: No Hx Cirrhosis: No Hx Alcoholism: Yes Hx HIV/AIDS: No Hx Splenectomy or Spleen Trauma: No Other PMH: Chronic Pancreatitis, alcoholism, htn, depression, numbness/tingling feet, leg weakness - Social History Smoking Status: Heavy smoker Allergies/Adverse Reactions: No Known Allergies Allergy (Verified 09/26/18 16:30) Home Medications: Medication Instructions Recorded Famotidine [Pepcid 20 MG (*)] 20 mg PO BID tab 09/20/18 Folic Acid [Folic Acid 1 MG (*)] 1 mg PO DAILY tab 09/20/18 Ibuprofen [Motrin (*)] 600 mg PO Q6H tab 09/20/18 Meclizine HCl [Meclizine HCl 25 mg 25 mg PO BID tab 09/20/18 (RX,OTC)] Multivitamins [Multivitamin (*)] 1 each PO DAILY tab 09/20/18 Thiamine HCl [Vitamin B-1] 100 mg PO DAILY tab 09/20/18 Medical Decision Making Differential Diagnosis: 63-year-old male with history of alcohol abuse, homelessness, pancreatitis, hypertension, very frequent ED visits presents brought in by ambulance for alcohol intoxication with inability to walk, found in [facility] after being discharged about 8 hr ago from our emergency department. He has no external signs of trauma. His abdominal exam is benign. He said he had had some vomiting, however has no active vomiting here. [facility]. He will be discharged from the emergency department. Departure - Departure Disposition: Home, Routine, Self-Care Clinical Impression: Alcohol abuse, Homelessness Condition: Good Instructions: At-Risk Alcohol Use (ED) Referrals: [facility] [Outside] - As per Instructions
[2018-09-30 22:10] VITALS: BP 158/75
[2018-09-30] MEDS ORDERED: CHLORDIAZEPOXIDE 25MG PREPK#6 BTL TAKEHOME ONE (22:15)
== END 2018-09-30 23:15 | disposition home or self-care (01) ==
LOC: EDUNIT#
DX: F10.10 Alcohol abuse, uncomplicated (principal); I10 Essential (primary) hypertension; Z59.0 Homelessness

== ENCOUNTER 2018-10-01 18:20 | Emergency (ER) | payer OTHER ==
--- NOTE | 2018-10-01 18:24 | EDPHY ---
H & P Time Seen by Provider: 10/01/18 18:23 HPI/ROS: HPI CHIEF COMPLAINT: Alcohol Intoxication HISTORY OF PRESENT ILLNESS: 63-year-old male, presents emergency room with acute alcohol intoxication. Patient was sleeping on a park bench when bystanders called 911 to check on him. No reported illness or trauma. Patient arrives emergency room highly intoxicated with alcohol. He arrives somnolent, unable to obtain much history from him. Blood sugar reported by EMS 120s. Past Medical History: Alcoholism daily alcohol use. Past Surgical History: No recent surgical history Social History: Daily alcohol use. Homeless. Family History: Noncontributory ROS REVIEW OF SYSTEMS: Limited due to alcohol intoxication. Exam Constitutional Intoxicated, triage nursing summary reviewed, vital signs reviewed, Sleepy, smells of alcohol Eyes normal conjunctivae and sclera, horizontal beating nystagmus consistent acute alcohol intoxication, otherwise pupils equal and react to light HENT normal inspection, atraumatic, moist mucus membranes, no epistaxis, neck supple/ no meningismus, no raccoon eyes. Respiratory clear to auscultation bilaterally, normal breath sounds, no respiratory distress, no wheezing. Cardiovascular rate normal, regular rhythm, no murmur, no edema, distal pulses normal. Gastrointestinal soft, non-tender, no rebound, no guarding, normal bowel sounds, no distension, no pulsatile mass. Genitourinary no CVA tenderness. Musculoskeletal no midline vertebral tenderness, full range of motion, no calf swelling, no tenderness of extremities, no meningismus, good pulses, neurovascularly intact. Skin pink, warm, & dry, no rash, skin atraumatic. Neurologic sleepy, intoxicated with alcohol,, alert and oriented x 3, AAOx3, moves all 4 extremities equally, motor intact, sensory intact, CN II-XII intact , , normal vision, normal speech. Psychiatric normal mood/affect. Heme/Lymph/Immune no lymphadenopathy. Differential Diagnosis: Includes but is not limited to in a particular order acute alcohol intoxication, alcohol abuse, dehydration, electrolyte abnormality , nausea vomiting from acute alcohol intoxication Medical Decision Making: Plan for this patient breath alcohol, monitor for worsening condition monitor for sobriety. Re-evaluation: Breath alcohol 253. 1838 Patient to be discharged to [facility]. Source: Patient, EMS - Personal History Tetanus Vaccine Date: 06/21/2009 - Medical/Surgical History Hx Asthma: No Hx Chronic Respiratory Disease: No Hx Diabetes: No Hx Cardiac Disease: Yes Hx Renal Disease: No Hx Cirrhosis: No Hx Alcoholism: Yes Hx HIV/AIDS: No Hx Splenectomy or Spleen Trauma: No Other PMH: Chronic Pancreatitis, alcoholism, htn, depression, numbness/tingling feet, leg weakness - Social History Smoking Status: Heavy smoker Constitutional: Initial Vital Signs Temperature (C) 36.4 C 10/01/18 18:20 Heart Rate 75 10/01/18 18:20 Respiratory Rate 16 10/01/18 18:20 Blood Pressure 112/66 10/01/18 18:20 O2 Sat (%) 94 10/01/18 18:20 O2 Delivery Mode Room Air Allergies/Adverse Reactions: No Known Allergies Allergy (Verified 09/30/18 22:10) Home Medications: Medication Instructions Recorded Famotidine [Pepcid 20 MG (*)] 20 mg PO BID tab 09/20/18 Folic Acid [Folic Acid 1 MG (*)] 1 mg PO DAILY tab 09/20/18 Ibuprofen [Motrin (*)] 600 mg PO Q6H tab 09/20/18 Meclizine HCl [Meclizine HCl 25 mg 25 mg PO BID tab 09/20/18 (RX,OTC)] Multivitamins [Multivitamin (*)] 1 each PO DAILY tab 09/20/18 Thiamine HCl [Vitamin B-1] 100 mg PO DAILY tab 09/20/18 Departure - Departure Disposition: Home, Routine, Self-Care Clinical Impression: Alcohol intoxication Qualifiers: Complication of substance-induced condition: uncomplicated Qualified Code(s): F10.920 - Alcohol use, unspecified with intoxication, uncomplicated Condition: Good Instructions: Alcohol Intoxication (ED), Abuse of Alcohol (ED) Referrals: NONE *PRIMARY CARE P,. [Primary Care Provider] - As per Instructions [facility],. [Clinic] - As per Instructions
[2018-10-01 21:58] VITALS: BP 113/68
== END 2018-10-01 22:31 | disposition home or self-care (01) ==
LOC: EDUNIT#
DX: F10.920 Alcohol use, unspecified with intoxication, uncomplicated (principal)

== ENCOUNTER 2018-10-02 14:53 | Emergency (ER) | payer OTHER ==
--- NOTE | 2018-10-02 14:56 | EDPHY ---
H & P Time Seen by Provider: 10/02/18 14:55 HPI/ROS: Chief complaint. Alcohol intoxication HPI. 63-year-old male well-known to the emergency department complains of abdominal pain. That has been off and on for the last several weeks. He drinks alcohol regularly. He has been seen multiple times in the emergency department in the last several days. He does have a history of pancreatitis. ROS 10 systems were reviewed and negative with the exception of the elements mentioned in the history of present illness Smoking Status: Heavy smoker Allergies/Adverse Reactions: No Known Allergies Allergy (Verified 09/30/18 22:10) Home Medications: Medication Instructions Recorded Famotidine [Pepcid 20 MG (*)] 20 mg PO BID tab 09/20/18 Folic Acid [Folic Acid 1 MG (*)] 1 mg PO DAILY tab 09/20/18 Ibuprofen [Motrin (*)] 600 mg PO Q6H tab 09/20/18 Meclizine HCl [Meclizine HCl 25 mg 25 mg PO BID tab 09/20/18 (RX,OTC)] Multivitamins [Multivitamin (*)] 1 each PO DAILY tab 09/20/18 Thiamine HCl [Vitamin B-1] 100 mg PO DAILY tab 09/20/18 Medical Decision Making Procedures: IV normal saline ED Course/Re-evaluation: 3:30 p.m. Patient has taken his IV out and walked out of the emergency department. Departure - Departure Disposition: Home, Routine, Self-Care Clinical Impression: Acute alcohol intoxication Qualifiers: Complication of substance-induced condition: uncomplicated Qualified Code(s): F10.920 - Alcohol use, unspecified with intoxication, uncomplicated Condition: Good Referrals: NONE *PRIMARY CARE P,. [Primary Care Provider] - As per Instructions
[2018-10-02 15:37] VITALS: BP 130/82
== END 2018-10-02 15:40 | disposition left against medical advice (07) ==
LOC: EDUNIT#
DX: F10.920 Alcohol use, unspecified with intoxication, uncomplicated (principal); F17.200 Nicotine dependence, unspecified, uncomplicated

== ENCOUNTER 2018-10-02 16:14 | Emergency (ER) | payer OTHER ==
[2018-10-02] MEDS ORDERED: ONDANSETRON 4 MG/2 ML VIAL IVP ONE (16:18)
[2018-10-02] MEDS ORDERED: LORazepam 2 MG/ML INJ IVP ONE (16:18)
[2018-10-02] MEDS ORDERED: NS 1,000 ML IV ONE ×2 (16:18)
[2018-10-02 16:19] VITALS: BP 159/106
--- NOTE | 2018-10-02 16:21 | EDPHY ---
H & P Time Seen by Provider: 10/02/18 16:19 HPI/ROS: HPI CHIEF COMPLAINT: Alcohol withdrawal HISTORY OF PRESENT ILLNESS: 63-year-old male very familiar to myself, presents emergency room by EMS for alcohol withdrawal. Patient was here earlier in the emergency room and left. He states he walks a few blocks and then began feeling more shaky. He feels nauseous. His last drink was yesterday. He arrives back to the emergency room hemodynamically stable and has tremors with arm extension. Denies any chest pain or shortness of breath. Past Medical History: Alcoholism daily alcohol use Past Surgical History: Denies recent surgical history Social History: Daily alcohol use. Family History: Noncontributory ROS REVIEW OF SYSTEMS: 10 Systems were reviewed and negative with the exception of the elements mentioned in the history of present illness. Exam Constitutional disheveled, unkempt, triage nursing summary reviewed, vital signs reviewed, Eyes normal conjunctivae and sclera, horizontal beating nystagmus consistent acute alcohol intoxication, otherwise pupils equal and react to light HENT normal inspection, atraumatic, moist mucus membranes, no epistaxis, neck supple/ no meningismus, no raccoon eyes. Respiratory clear to auscultation bilaterally, normal breath sounds, no respiratory distress, no wheezing. Cardiovascular rate normal, regular rhythm, no murmur, no edema, distal pulses normal. Gastrointestinal soft, non-tender, no rebound, no guarding, normal bowel sounds, no distension, no pulsatile mass. Genitourinary no CVA tenderness. Musculoskeletal somewhat tremulous with arm extension, no tongue fasciculations , no midline vertebral tenderness, full range of motion, no calf swelling, no tenderness of extremities, no meningismus, good pulses, neurovascularly intact. Skin pink, warm, & dry, no rash, skin atraumatic. Neurologic sleepy, intoxicated with alcohol,, alert and oriented x 3, AAOx3, moves all 4 extremities equally, motor intact, sensory intact, CN II-XII intact , , normal vision, normal speech. Psychiatric normal mood/affect. Heme/Lymph/Immune no lymphadenopathy. Differential Diagnosis: Includes but is not limited to in a particular order acute alcohol with draw, alcohol intoxication, alcohol abuse, dehydration, electrolyte abnormality, nausea vomiting from acute alcohol intoxication Medical Decision Making: Plan for this patient IV establishment IV fluid bolus , IV Ativan 1 mg, IV Zofran for nausea, basic labs, electrolytes, alcohol level and monitor. Re-evaluation: Patient eloped from the ER. Did not notify staff or nursing staff. He had no IV in. Plan was for observation here in the ER for alcohol intoxication/withdrawl. However patient left eloped on his own. Source: Patient, EMS - Personal History Tetanus Vaccine Date: 06/21/2009 - Medical/Surgical History Hx Asthma: No Hx Chronic Respiratory Disease: No Hx Diabetes: No Hx Cardiac Disease: Yes Hx Renal Disease: No Hx Cirrhosis: No Hx Alcoholism: Yes Hx HIV/AIDS: No Hx Splenectomy or Spleen Trauma: No Other PMH: Chronic Pancreatitis, alcoholism, htn, depression, numbness/tingling feet, leg weakness - Social History Smoking Status: Heavy smoker Constitutional: Initial Vital Signs Heart Rate 112 H 10/02/18 16:17 Respiratory Rate 18 10/02/18 16:17 Blood Pressure 159/106 H 10/02/18 16:17 O2 Sat (%) 94 10/02/18 16:17 O2 Delivery Mode Room Air Allergies/Adverse Reactions: No Known Allergies Allergy (Verified 10/02/18 16:16) Home Medications: Medication Instructions Recorded Famotidine [Pepcid 20 MG (*)] 20 mg PO BID tab 09/20/18 Folic Acid [Folic Acid 1 MG (*)] 1 mg PO DAILY tab 09/20/18 Ibuprofen [Motrin (*)] 600 mg PO Q6H tab 09/20/18 Meclizine HCl [Meclizine HCl 25 mg 25 mg PO BID tab 09/20/18 (RX,OTC)] Multivitamins [Multivitamin (*)] 1 each PO DAILY tab 09/20/18 Thiamine HCl [Vitamin B-1] 100 mg PO DAILY tab 09/20/18 Medical Decision Making - Data Points Medications Given: Discontinued Medications Sodium Chloride (Ns) 1,000 mls @ 0 mls/hr IV EDNOW ONE; Wide Open PRN Reason: Protocol Stop: 10/02/18 16:19 Last Admin: 10/02/18 17:00 Dose: Not Given Sodium Chloride (Ns) 1,000 mls @ 0 mls/hr IV ONCE ONE PRN Reason: Wide Open Stop: 10/02/18 16:19 Last Admin: 10/02/18 17:01 Dose: Not Given Lorazepam (Ativan Injection) 1 mg IVP EDNOW ONE Stop: 10/02/18 16:19 Last Admin: 10/02/18 17:00 Dose: Not Given Lorazepam (Ativan) 2 mg PO EDNOW ONE Stop: 10/02/18 17:02 Last Admin: 10/02/18 17:05 Dose: 2 mg Ondansetron HCl (Zofran) 4 mg IVP EDNOW ONE Stop: 10/02/18 16:19 Last Admin: 10/02/18 17:01 Dose: Not Given Ondansetron HCl (Zofran Odt) 4 mg PO EDNOW ONE Stop: 10/02/18 17:03 Last Admin: 10/02/18 17:05 Dose: 4 mg Departure - Departure Disposition: Against Medical Advice Clinical Impression: Alcohol withdrawal Qualifiers: Complication of substance-induced condition: uncomplicated Qualified Code(s): F10.230 - Alcohol dependence with withdrawal, uncomplicated Condition: Good Instructions: Alcohol Withdrawal (ED) Referrals: NONE *PRIMARY CARE P,. [Primary Care Provider] - As per Instructions [facility],. [Clinic] - As per Instructions
[2018-10-02] MEDS ORDERED: LORazepam 1 MG TAB PO ONE (17:01)
[2018-10-02] MEDS ORDERED: ONDANSETRON DISINTEGRATING 4 MG TAB PO ONE (17:02)
--- NOTE | 2018-10-02 19:07 | ASMTCMCOM ---
CM Note CM Note Notes: Pt presented to the ED via EMS twice today for ETOH withdrawal and abdominal pain. The 1st time pt was in the ED, he ended up removing his IV and walking out of the ED. Pt is able to ambulate very well and also ended up walking out the 2nd time. This is the pt's 38th ED visit in 2019. Pt has had 71 ED visit in the past 12 months. Please see various CM Reports, 09/29/18, 09/26/18, 09/22, 09/21, 09/20 and 09/12/18 and various other past CM Reports, ED RN Notes, etc. Overall and as of 10/02, pt is allowed at [facility] if he meets criteria for going to detox (actively intoxicated or in active ETOH withdrawal). Pt will either need to go voluntarily or be placed on an Emergency Commitment hold. Per staff at [facility], pt was there this morning and shortly after arriving he asked "Am I on a hold?" and when staff told him he wasn't, the pt said "then screw it I'm leaving." If pt doesn't meet criteria for detox (say he is clinically sober but not in withdrawal, etc.) then pt can discharge to a hotel if pt can pay for it, or the streets or the severe weather assisted (which is closed [facility], and pt was informed by this CM). Pt states he is not allowed at the [facility] (and also says he doesn't even want to stay there) or the [facility] even if CM were to reserve one of the [facility] assisted beds. Pt has been provided various resources such as how to get re-established at [facility], follow-up /[facility] and [facility]; Medicare substance abuse resources, and various other resources. Unfortunately, pt does not followup outpatient as recommended. Over the last 5 days, this CM has been in contact with the Director of Detox regarding allowing the pt back at their detox and the overall process of potentially placing pt on an Involuntary Commitment. First, the pt would need to be intoxicated or in active withdrawal and then he would need to be on an E.C. and at Detox while the I.C. is submitted. This CM has discussed the I.C. process with a couple of ED Providers who have expressed willingness to complete the I.C. so that it is ready to go when the pt is placed on E.C. and sent to detox (petitioning for an I.C. is a time sensitive process and overall only have around 5 days for the I.C. to be reviewed and potentially approved). This CM considered completing the I.C. on the pt but ultimately decided not to due to not being able to commit to the possible time requirements (testifying in court at a date no later 10 days after the date the petition was filed, etc.) at this time. This CM did provide info on the I.C. statement and process to one of the ED Providers so they could review and make an informed decision on whether they want to be the petitioner or not. If any of the ED Providers, Hospitalists, or any other Interested Democrat who has had direct observation and first-hand knowledge of pt's abuse of ETOH and his being a danger to himself, & would like to complete the I.C., please feel free to review the process and paperwork at: www.[place].gov/pacific/cdhs/pvgquay-ulzm-vrccrqymp-commitmentalcohol- hcec-jhgwalspmal-kwuncsijap And please be sure to review the "Considerations before pursuing an Involuntary Commitment." If you have any questions, please feel free to reach out to CM or the Director of Detox. CM will continue to follow and be available for assistance if needed. Date Signed: 10/02/2018 07:06 PM Electronically Signed By:Vivien Plaza RN
== END 2018-10-02 17:26 | disposition left against medical advice (07) ==
LOC: EDUNIT#
DX: F10.230 Alcohol dependence with withdrawal, uncomplicated (principal); E86.9 Volume depletion, unspecified
CPT/HCPCS: J2060; J2405

== ENCOUNTER 2018-10-03 00:23 | Emergency (ER) | payer OTHER ==
--- NOTE | 2018-10-03 03:50 | EDPHY ---
H & P Stated Complaint: ETOH, abd pain Time Seen by Provider: 10/03/18 01:03 HPI/ROS: HPI The patient presents with alcohol intoxication, found down outside of a liquor store. He denies any trauma though does complain of abdominal pain which is a chronic problem for him. He is brought in by paramedics. He was discharged from the emergency department earlier today when he was seen for alcohol withdrawal symptoms.. REVIEW OF SYSTEMS 10 systems were reviewed and negative with the exception of the elements mentioned in the history of present illness. PMHx: Chronic pancreatitis, frequent ED visits Soc Hx: Chronic alcohol abuse, homeless PHYSICAL General Appearance: Obviously intoxicated Eyes: Pupils equal and round no pallor or injection ENT, Mouth: Mucous membranes moist Respiratory: There are no retractions, lungs are clear to auscultation Cardiovascular: Regular rate and rhythm Gastrointestinal: Abdomen is soft and non-tender, no masses, bowel sounds normal Neurological: A&O, moves all extremities Skin: Warm and dry, no rashes Musculoskeletal: Neck is supple non tender Extremities: symmetrical, full range of motion Psychiatric: Patient is oriented X 3, there is no agitation Source: Patient, EMS Exam Limitations: Intoxication - Personal History Current Tetanus/Diphtheria Vaccine: Yes Tetanus Vaccine Date: 06/21/2009 - Medical/Surgical History Hx Asthma: No Hx Chronic Respiratory Disease: No Hx Diabetes: No Hx Cardiac Disease: Yes Hx Renal Disease: No Hx Cirrhosis: No Hx Alcoholism: Yes Hx HIV/AIDS: No Hx Splenectomy or Spleen Trauma: No Other PMH: Chronic Pancreatitis, alcoholism, htn, depression, numbness/tingling feet, leg weakness - Social History Smoking Status: Heavy smoker Constitutional: Initial Vital Signs Temperature (C) 36.3 C 10/03/18 00:25 Heart Rate 67 10/03/18 00:25 Respiratory Rate 18 10/03/18 00:25 Blood Pressure 133/91 H 10/03/18 00:25 O2 Sat (%) 94 10/03/18 00:25 O2 Delivery Mode Room Air O2 (L/minute) 3 Allergies/Adverse Reactions: No Known Allergies Allergy (Verified 10/02/18 16:16) Home Medications: Medication Instructions Recorded Famotidine [Pepcid 20 MG (*)] 20 mg PO BID tab 09/20/18 Folic Acid [Folic Acid 1 MG (*)] 1 mg PO DAILY tab 09/20/18 Ibuprofen [Motrin (*)] 600 mg PO Q6H tab 09/20/18 Meclizine HCl [Meclizine HCl 25 mg 25 mg PO BID tab 09/20/18 (RX,OTC)] Multivitamins [Multivitamin (*)] 1 each PO DAILY tab 09/20/18 Thiamine HCl [Vitamin B-1] 100 mg PO DAILY tab 09/20/18 Medical Decision Making Differential Diagnosis: 63-year-old male well known to our emergency department repeat presents with alcohol intoxication after recent discharge. Found outside of a liquor store unable to walk. No signs of trauma. No complaints. Patient observed for about 6 hr here and was eventually stable unable to walk. He did urinate on himself. He was discharged to the street. He is not welcome at the [facility] currently. Departure - Departure Instructions: Alcohol Dependence (ED) Referrals: NONE *PRIMARY CARE P,. [Primary Care Provider] - As per Instructions
[2018-10-03 06:35] VITALS: BP 128/72
== END 2018-10-03 06:36 | disposition home or self-care (01) ==
LOC: EDUNIT#
DX: F10.129 Alcohol abuse with intoxication, unspecified (principal); Z59.0 Homelessness

== ENCOUNTER 2018-10-03 22:35 | Emergency (ER) | payer OTHER ==
--- NOTE | 2018-10-03 22:41 | EDPHY ---
H & P Time Seen by Provider: 10/03/18 22:37 HPI/ROS: Chief Complaint: Alcohol intoxication, head injury HPI: 63-year-old homeless male well known to this emergency department with a history of chronic alcohol abuse. Patient has been seen multiple times in the last several weeks. [place]. Patient admits to drinking a pt of alcohol. He does have a left scalp hematoma with acute bleeding. Patient is answering questions. Slurred speech. Denies any other injuries. ROS: 10 systems were reviewed and were negative except those elements noted in the HPI. PMH: Chronic alcohol abuse Social History: No smoking, daily heavy alcohol, homeless Family History: non-contributory Physical Exam: Gen: Awake, Alert, slurred speech, smells strongly of alcohol HEENT: Head: Left parietal scalp hematoma with abrasion with fresh blood. No bony crepitus or deformity Eyes: PERRLA, EOMI Nose: No epistaxis Mouth: Normal dentition, Airway patent Face: No deformity Neck: non-tender, no stepoff, Full ROM without pain Chest: non-tender, lungs CTA Heart: normal heart tones Abd: soft, non-tender, atraumatic Pelvis: non-tender, stable to AP and Lateral compression Back: atraumatic, no midline tenderness Ext: atramatic, full ROM Skin: no rash Neuro: CN II-XII intact, Strength 5/5 in all extremities, sensation intact in all extremities - Personal History Tetanus Vaccine Date: 06/21/2009 - Medical/Surgical History Hx Asthma: No Hx Chronic Respiratory Disease: No Hx Diabetes: No Hx Cardiac Disease: Yes Hx Renal Disease: No Hx Cirrhosis: No Hx Alcoholism: Yes Hx HIV/AIDS: No Hx Splenectomy or Spleen Trauma: No Other PMH: Chronic Pancreatitis, alcoholism, htn, depression, numbness/tingling feet, leg weakness - Social History Smoking Status: Heavy smoker Constitutional: Initial Vital Signs Temperature (C) 36.6 C 10/03/18 23:26 Heart Rate 61 10/03/18 23:26 Respiratory Rate 16 10/03/18 23:26 Blood Pressure 98/52 L 10/03/18 23:26 O2 Sat (%) 85 L 10/03/18 23:26 O2 Delivery Mode Room Air Allergies/Adverse Reactions: No Known Allergies Allergy (Verified 10/03/18 23:26) Home Medications: Medication Instructions Recorded Famotidine [Pepcid 20 MG (*)] 20 mg PO BID tab 09/20/18 Folic Acid [Folic Acid 1 MG (*)] 1 mg PO DAILY tab 09/20/18 Ibuprofen [Motrin (*)] 600 mg PO Q6H tab 09/20/18 Meclizine HCl [Meclizine HCl 25 mg 25 mg PO BID tab 09/20/18 (RX,OTC)] Multivitamins [Multivitamin (*)] 1 each PO DAILY tab 09/20/18 Thiamine HCl [Vitamin B-1] 100 mg PO DAILY tab 09/20/18 Medical Decision Making - Diagnostics Imaging Results: EXAMS: 1. CT Head, without Contrast 2. CT Cervical Spine, without Contrast DATE/ TIME: 10/03/2018, 10:46 PM INDICATION: Trauma, fall TECHNIQUE: Axial CT imaging was performed through the head without intravenous administration of contrast. Helical CT was then performed through the cervical spine. Coronal and sagittal reconstructions of each data set were generated and reviewed. Exam was performed using one or more of the following dose reduction techniques: automated exposure control, adjustment of the mA and/or kV according to patient size, or use of iterative reconstruction technique. COMPARISON: -- CT Head and CT Cervical Spine exams 09/24/2018. -- CT Head 09/15/2018. CT HEAD FINDINGS: Soft tissue swelling at the left posterior parietal region is noted. There is no intracranial hemorrhage, mass or mass-effect. The brain exhibits moderate diffuse atrophy with associated corpus callosal thinning. Focus of parenchymal calcification is redemonstrated within the right frontal lobe. There is no CT evidence of an acute infarct. Imaging begins at the maxillary alveolar ridge level. Orbital structures are unremarkable. Cranial vault shows no evidence of fracture. Mastoid air cells and paranasal sinuses are clear. IMPRESSION: 1. CT imaging shows no acute traumatic intracranial abnormality. 2. Left posterior parietal extracranial soft tissue contusion. 3. Atrophy CT CERVICAL SPINE FINDINGS: There is no evidence of fracture. Multilevel facet arthropathy is seen. Discogenic degenerative change is present and most pronounced at C5-C6. Sagittal reconstructions show normal alignment including the craniovertebral and cervicothoracic junctions. Prevertebral and retropharyngeal soft tissues are normal. A calcified 1.0 x 0.6 x 1.4 cm nodule in the right thyroid lobe is noted. There is no apical pneumothorax. IMPRESSION: 1. CT of the cervical spine shows no evidence of fracture. 2. Multilevel discovertebral degenerative change and facet arthropathy. ELECTRONICALLY SIGNED BY: Wild Neil DO Oct 03, 2018 11:44:50 PM MDT Departure - Departure Disposition: Home, Routine, Self-Care Clinical Impression: Alcohol intoxication, Scalp contusion Condition: Good Instructions: Scalp Contusion in Adults (ED), Abrasion (ED), Alcohol Intoxication (ED), Abuse of Alcohol (ED) Referrals: [facility],. [Clinic] - As per Instructions
[2018-10-04 06:13] VITALS: BP 117/70
== END 2018-10-04 06:25 | disposition home or self-care (01) ==
LOC: EDBD → EDUNIT#
DX: F10.920 Alcohol use, unspecified with intoxication, uncomplicated (principal); S00.03XA Contusion of scalp, initial encounter; I10 Essential (primary) hypertension; Z59.0 Homelessness

== ENCOUNTER 2018-10-04 16:38 | Emergency (ER) | payer OTHER ==
[2018-10-04] MEDS ORDERED: NS 1,000 ML IV ONE (16:41)
--- NOTE | 2018-10-04 16:43 | EDPHY ---
H & P Time Seen by Provider: 10/04/18 16:41 HPI/ROS: HPI CHIEF COMPLAINT: Alcohol Intoxication HISTORY OF PRESENT ILLNESS: Patient is a 63 year old male, well known to myself , well known to the emergency room, history of alcoholism daily alcohol use, he binge drink large amount of alcohol today. At some point he fell on his left leg. Has abrasion to his left crowley. No other trauma seen or reported. Patient arrived to the emergency room highly intoxicated with alcohol. Unable to obtain history from him as he is too intoxicated. Smells of alcohol. Slurring speech. Past Medical History: Alcoholism daily alcohol use Past Surgical History: No recent surgery Social History: Homeless, daily alcohol use. Family History: Noncontributory ROS REVIEW OF SYSTEMS: Limited due to acute alcohol intoxication Exam Constitutional Intoxicated, triage nursing summary reviewed, vital signs reviewed, Sleepy, smells of alcohol Eyes normal conjunctivae and sclera, horizontal beating nystagmus consistent acute alcohol intoxication, otherwise pupils equal and react to light HENT normal inspection, atraumatic, moist mucus membranes, no epistaxis, neck supple/ no meningismus, no raccoon eyes. Respiratory clear to auscultation bilaterally, normal breath sounds, no respiratory distress, no wheezing. Cardiovascular rate normal, regular rhythm, no murmur, no edema, distal pulses normal. Gastrointestinal soft, non-tender, no rebound, no guarding, normal bowel sounds, no distension, no pulsatile mass. Genitourinary no CVA tenderness. Musculoskeletal no midline vertebral tenderness, full range of motion, no calf swelling, no tenderness of extremities, no meningismus, good pulses, neurovascularly intact. Skin left lower extremity shows an abrasion. Neurologic sleepy, intoxicated with alcohol,, alert and oriented x 3, AAOx3, moves all 4 extremities equally, motor intact, sensory intact, CN II-XII intact , , normal vision, normal speech. Psychiatric normal mood/affect. Heme/Lymph/Immune no lymphadenopathy. Differential Diagnosis: Includes but is not limited to in a particular order acute alcohol intoxication, alcohol abuse, dehydration, electrolyte abnormality , nausea vomiting from acute alcohol intoxication Medical Decision Making: Plan for this patient IV establishment basic labs, chemistry panel, alcohol level and re-evaluate. Re-evaluation: Serum alcohol level 414. 1952: Patient re-evaluated this time resting comfortably in no acute distress. He is up ambulatory. Answers my questions appropriately, denies any acute complaints. In he is safe for discharge to detox. Again I have counseled him on alcohol abstinence. Highly recommend he stops drinking alcohol. Source: Patient, EMS Exam Limitations: Intoxication - Personal History Tetanus Vaccine Date: 06/21/2009 - Medical/Surgical History Hx Asthma: No Hx Chronic Respiratory Disease: No Hx Diabetes: No Hx Cardiac Disease: Yes Hx Renal Disease: No Hx Cirrhosis: No Hx Alcoholism: Yes Hx HIV/AIDS: No Hx Splenectomy or Spleen Trauma: No Other PMH: Chronic Pancreatitis, alcoholism, htn, depression, numbness/tingling feet, leg weakness - Social History Smoking Status: Heavy smoker Constitutional: Initial Vital Signs Temperature (C) 37 C 10/04/18 16:58 Heart Rate 99 10/04/18 16:58 Respiratory Rate 18 10/04/18 16:58 Blood Pressure 145/78 H 10/04/18 16:58 O2 Sat (%) 95 10/04/18 16:58 O2 Delivery Mode Nasal Cannula O2 (L/minute) 4 Allergies/Adverse Reactions: No Known Allergies Allergy (Verified 10/03/18 23:26) Home Medications: Medication Instructions Recorded Famotidine [Pepcid 20 MG (*)] 20 mg PO BID tab 09/20/18 Folic Acid [Folic Acid 1 MG (*)] 1 mg PO DAILY tab 09/20/18 Ibuprofen [Motrin (*)] 600 mg PO Q6H tab 09/20/18 Meclizine HCl [Meclizine HCl 25 mg 25 mg PO BID tab 09/20/18 (RX,OTC)] Multivitamins [Multivitamin (*)] 1 each PO DAILY tab 09/20/18 Thiamine HCl [Vitamin B-1] 100 mg PO DAILY tab 09/20/18 Medical Decision Making - Data Points Laboratory Results: Laboratory Results 10/04/18 17:22 10/04/18 17:22 10/04/18 10/04/18 17:22 17:22 WBC 6.00 10^3/uL 10^3/uL (3.80-9.50) RBC 5.22 10^6/uL 10^6/uL (4.40-6.38) Hgb 15.6 g/dL g/dL (13.7-17.5) Hct 47.0 % % (40.0-51.0) MCV 90.0 fL fL (81.5-99.8) MCH 29.9 pg pg (27.9-34.1) MCHC 33.2 g/dL g/dL (32.4-36.7) RDW 14.3 % % (11.5-15.2) Plt Count 142 10^3/uL L 10^3/uL (150-400) MPV 9.9 fL fL (8.7-11.7) Neut % (Auto) 57.9 % % (39.3-74.2) Lymph % (Auto) 34.7 % % (15.0-45.0) [place] % (Auto) 4.7 % % (4.5-13.0) Eos % (Auto) 1.7 % % (0.6-7.6) Baso % (Auto) 0.7 % % (0.3-1.7) Nucleat RBC Rel Count 0.0 % % (0.0-0.2) Absolute Neuts (auto) 3.48 10^3/uL 10^3/uL (1.70-6.50) Absolute Lymphs (auto) 2.08 10^3/uL 10^3/uL (1.00-3.00) Absolute Monos (auto) 0.28 10^3/uL L 10^3/uL (0.30-0.80) Absolute Eos (auto) 0.10 10^3/uL 10^3/uL (0.03-0.40) Absolute Basos (auto) 0.04 10^3/uL 10^3/uL (0.02-0.10) Absolute Nucleated RBC 0.00 10^3/uL 10^3/uL (0-0.01) Immature Gran % 0.3 % % (0.0-1.1) Immature Gran # 0.02 10^3/uL 10^3/uL (0.00-0.10) Sodium 142 mEq/L mEq/L (135-145) Potassium 3.8 mEq/L mEq/L (3.5-5.2) Chloride 101 mEq/L mEq/L (97-110) Carbon Dioxide 25 mEq/l mEq/l (22-31) Anion Gap 16 mEq/L H mEq/L (6-14) BUN 9 mg/dL mg/dL (7-23) Creatinine 0.9 mg/dL mg/dL (0.7-1.3) Estimated GFR > 60 Glucose 89 mg/dL mg/dL (70-100) Calcium 8.7 mg/dL mg/dL (8.5-10.4) Ethyl Alcohol 414 mg/dL H* mg/dL (0-10) Medications Given: Discontinued Medications Sodium Chloride (Ns) 1,000 mls @ 0 mls/hr IV EDNOW ONE; Wide Open PRN Reason: Protocol Stop: 10/04/18 16:42 Last Admin: 10/04/18 17:39 Dose: 1,000 mls Departure - Departure Disposition: Home, Routine, Self-Care Clinical Impression: Alcohol intoxication Condition: Good Instructions: Alcohol Intoxication (ED) Referrals: NONE *PRIMARY CARE P,. [Primary Care Provider] - As per Instructions [facility],. [Clinic] - As per Instructions
[2018-10-04 17:37] LABS: PLATELET COUNT 142 10^3/uL (150-400)
[2018-10-04] MEDS ORDERED: CHLORDIAZEPOXIDE 25MG PREPK#6 BTL TAKEHOME ONE ×2 (20:03→20:04)
[2018-10-04 20:06] VITALS: BP 118/62
--- NOTE | 2018-10-04 20:20 | ASMTCMCOM ---
CM Note CM Note Notes: Pt was brought into the ED on an Emergency Commitment initiated by SARAH. This CM called [facility] (formerly known as the [facility]) and spoke w/Nolvia; she states pt is able to go there once he is ambulatory and stable. Again, please see various past CM Reports (specifically the most recent 10/02, 09/29, 09/26, 09/22) and know that any Interested Democrat who is willing and able to commit to the process (petitioner will have to either testify in court or over the phone during the petition hearing in the next 1-2 weeks), and who also has first-hand experience and observation of the pt's ETOH abuse, can initiate an Involuntary Commitment hold by first writing the petition statement. This CM asked other ED providers in the last couple of days but neither of them are able to commit to this process at this time. If the Interested Democrat has any questions re: this process, please feel free to reach out to ED CM and/or [facility] ([facility]) ([phone]) and ask to speak to their Director, Sharita Monterroso. The information re: petitioning/initiating an I.C. can also be found in the filing cabinet by the ED [facility] and [employer] tech area and is under the "Emergency Commitment" labeled folder. And also online at: https://www.[place].gov/pacific/cdhs/gnxpsnp-efzz-fpmutilpr- [email or web address]-[email or web address]-[email or web address] The staff at [facility] (including their Psychiatrist or PA, etc.) cannot be the one who initiates the I.C. because they are w/the facility that is accepting the E.C./I.C. and overall responsible for placement. Also, always feel free to reach out to CM for further assistance if needed. Date Signed: 10/04/2018 08:20 PM Electronically Signed By:Vivien Plaza RN
== END 2018-10-04 20:24 | disposition home or self-care (01) ==
LOC: EDUNIT#
DX: F10.129 Alcohol abuse with intoxication, unspecified (principal); S80.812A Abrasion, left lower leg, initial encounter; E86.9 Volume depletion, unspecified; Y90.8 Blood alcohol level of 240 mg/100 ml or more; I10 Essential (primary) hypertension; Z59.0 Homelessness
CPT/HCPCS: G0480

== ENCOUNTER 2018-10-05 11:39 | Emergency (ER) | payer OTHER ==
[~2018-10-05 11:39] MED LIST: ONDANSETRON DISINTEGRATING 4 MG TAB PO SCH; traMADol 50 MG TAB PO SCH
[2018-10-05] MEDS ORDERED: ONDANSETRON DISINTEGRATING 4 MG TAB PO ONE (13:02)
[2018-10-05] MEDS ORDERED: traMADol 50 MG TAB PO ONE (13:24)
[2018-10-05] MEDS ORDERED: THIAMINE HCL 100 MG TAB PO ONE (13:25)
--- NOTE | 2018-10-05 13:26 | EDPHY ---
H & P Stated Complaint: r rib pain r abd pain he feels is r/t [id number] Time Seen by Provider: 10/05/18 12:09 HPI/ROS: CHIEF COMPLAINT:right rib pain, abdominal pain HISTORY OF PRESENT ILLNESS: This is a 63 year old male with a history of alcohol abuse who was transferred to the ED from the [facility] where he has been undergoing alcohol withdrawal. He is on a hold through Withdrawal Management. He is well known to the ED staff because of frequent visits. Today he is complaining of pain in his mid lateral rib cage, related to a fall that apparently occurred yesterday. He is able to take a deep breath, although it is uncomfortable for him to do so. No change in his breathing, no new cough. He also c/0 mid epigastric abdominal pain--this is a longstanding complaint for him. He has history of chronic pancreatitis. No fever or vomiting. REVIEW OF SYSTEMS: A ten system review of systems was performed and is negative with the exception of the items mentioned in the HPI. Past medical history: Alcohol abuse Past surgical history: Family history: Social history: Undomicilied. Alcohol abuse. Records indicate tobacco abuse, but he tells me today that he does not smoke. General Appearance: Alert. Vital signs reviewed. BP 158/89. RA pulse ox 98%. Eyes: Pupils equal and round, no conjunctival injection, no discharge. Anicteric. ENT, Mouth: Mucous membranes are moist, no oropharyngeal erythema or edema. Neck: No lymphadenopathy, supple. Respiratory: Lungs are clear to auscultation; no wheezes, rales, or rhonchi. Cardiovascular: Regular rate and rhythm; no murmur, rub, or gallop. Gastrointestinal: Abdomen is soft with mild midepigastric tenderness, no guarding, no masses or organomegaly, bowel sounds normal. Skin: Warm and dry, no rashes on exposed skin, normal color. Back: Nontender to palpation over the thoracolumbar spine. No CVAT. Extremities: No lower extremity edema, no calf tenderness or swelling. Neurological: Alert and oriented. Moving all four extremities easily and equally. Psychiatric: Normal affect. Cooperative. - Personal History Current Tetanus Diphtheria and Acellular Pertussis (TDAP): Yes Tetanus Vaccine Date: 06/21/2009 - Medical/Surgical History Hx Asthma: No Hx Chronic Respiratory Disease: No Hx Diabetes: No Hx Cardiac Disease: Yes Hx Renal Disease: No Hx Cirrhosis: No Hx Alcoholism: Yes Hx HIV/AIDS: No Hx Splenectomy or Spleen Trauma: No Other PMH: Chronic Pancreatitis, alcoholism, htn, depression, numbness/tingling feet, leg weakness - Social History Smoking Status: Never smoked Constitutional: Initial Vital Signs Temperature (C) 37.2 C 10/05/18 11:43 Heart Rate 91 10/05/18 11:43 Respiratory Rate 20 10/05/18 11:43 Blood Pressure 158/89 H 10/05/18 11:43 O2 Sat (%) 98 10/05/18 11:43 O2 Delivery Mode Room Air Allergies/Adverse Reactions: No Known Allergies Allergy (Verified 10/05/18 11:47) Home Medications: Medication Instructions Recorded Famotidine [Pepcid 20 MG (*)] 20 mg PO BID tab 09/20/18 Folic Acid [Folic Acid 1 MG (*)] 1 mg PO DAILY tab 09/20/18 Ibuprofen [Motrin (*)] 600 mg PO Q6H tab 09/20/18 Meclizine HCl [Meclizine HCl 25 mg 25 mg PO BID tab 09/20/18 (RX,OTC)] Multivitamins [Multivitamin (*)] 1 each PO DAILY tab 09/20/18 Thiamine HCl [Vitamin B-1] 100 mg PO DAILY tab 09/20/18 Lisinopril 10/05/18 Ondansetron Odt [Zofran Odt 4 mg 4 mg PO Q4 PRN #10 tab 10/05/18 (RX)] traMADol [Ultram 50 mg (*)] 50 mg PO Q6 PRN #12 tab 10/05/18 Medical Decision Making ED Course/Re-evaluation: Chest xray negative for rib fracture/pneumothorax. Patient given dose of tramadol PO for rib pain, likely secondary to contusion. Abdominal exam consistent with my previous patient encounters. He took PO in ED (at his request). Zofran for nausea--he had no vomiting. I am not pursueing lab workup for acute pancreatitis, as I think that his abdominal complaints and exam are baseline for him. I do not suspect other intra -abdominal problem such as cholecystitis/gastritis/appendicitis. No urinary complaints. RX for zofran and small quantity tramadol filled to accompany patient when he returns to Withdrawal Management. Patient was cooperative and pleasant during our encounters, expresses continued desire for sobriety. He is clinically sober. Case management involved. I have continued hope for involuntary commitment, which I feel this patient needs. - Data Points Medications Given: Discontinued Medications Chlordiazepoxide HCl (Librium) 50 mg PO EDNOW ONE Stop: 10/05/18 13:33 Last Admin: 10/05/18 13:34 Dose: 50 mg Ondansetron HCl (Zofran Odt) 4 mg PO EDNOW ONE Stop: 10/05/18 13:03 Last Admin: 10/05/18 13:05 Dose: 4 mg Thiamine HCl (Vitamin B-1) 100 mg PO EDNOW ONE Stop: 10/05/18 13:26 Last Admin: 10/05/18 13:29 Dose: 100 mg Tramadol HCl (Ultram) 50 mg PO EDNOW ONE Stop: 10/05/18 13:25 Last Admin: 10/05/18 13:28 Dose: 50 mg Departure - Departure Disposition: Home, Routine, Self-Care Clinical Impression: Abdominal pain Qualifiers: Abdominal location: epigastric Qualified Code(s): R10.13 - Epigastric pain Contusion Qualifiers: Encounter type: initial encounter Contusion area: thoracic wall Laterality: right Condition: Fair Instructions: Pancreatitis (ED), Chronic Abdominal Pain (ED) Referrals: [facility],. [Clinic] - As per Instructions Prescriptions: Ondansetron Odt [Zofran Odt 4 mg (RX)] 4 mg PO Q4 PRN #10 tab PRN Reason: nausea traMADol [Ultram 50 mg (*)] 50 mg PO Q6 PRN #12 tab PRN Reason: Pain, Moderate
[2018-10-05] MEDS ORDERED: chlordiazePOXIDE 25 MG CAP PO ONE (13:32)
[2018-10-05 15:06] VITALS: BP 151/86
--- NOTE | 2018-10-05 15:11 | ASMTCMCOM ---
CM Note CM Note Notes: Patient is well known to this CM and the ED. Chart reviewed, including recent ED visits and CM note from yesterday, 10/04/18. This CM called and spoke with Geovanna at [facility] regarding patient's current status. Per Geovanna, patient is currently on an MIH which was initiated at and patient may return to in police custody. Patient is currently sober, cooperative, and comfortable with this plan. This CM mapped prescriptions for Tramadol and Zofran ( total cost < $4) which will be given to [facility] upon patient's cloth picker/return to . Geovanna at is aware and has approved this. Geovanna also confirmed that patient was placed on an EC hold (5 day) yesterday at 1554 PM per [facility]. Geovanna and I discussed goal of getting patient on an IC (involuntary committment). See CM note from 10/04/18 for details regarding obligations/requirements for initiating an IC Date Signed: 10/05/2018 03:10 PM Electronically Signed By:Brooke Mccarthy RN
== END 2018-10-05 15:06 | disposition home or self-care (01) ==
LOC: EDUNIT#
DX: S20.211A Contusion of right front wall of thorax, initial encounter (principal); R10.13 Epigastric pain; F10.230 Alcohol dependence with withdrawal, uncomplicated; W19.XXXA Unspecified fall, initial encounter

== ENCOUNTER 2018-10-11 22:40 | Emergency (ER) | payer OTHER ==
--- NOTE | 2018-10-11 22:41 | EDPHY ---
H & P Source: Patient, EMS, Old records Exam Limitations: Intoxication - Personal History Tetanus Vaccine Date: 06/21/2009 - Medical/Surgical History Hx Asthma: No Hx Chronic Respiratory Disease: No Hx Diabetes: No Hx Cardiac Disease: Yes Hx Renal Disease: No Hx Cirrhosis: No Hx Alcoholism: Yes Hx HIV/AIDS: No Hx Splenectomy or Spleen Trauma: No Other PMH: Chronic Pancreatitis, alcoholism, htn, depression, numbness/tingling feet, leg weakness - Social History Smoking Status: Never smoked Time Seen by Provider: 10/11/18 22:41 HPI/ROS: HPI: This is a 63-year-old male who presents with Chief Complaint: Alcohol intoxication Location: Body Quality: Alcohol intoxication Duration: Today Signs and Symptoms: no fever, no nausea, no vomiting, no hematemesis, no blood in stool, no abdominal bloating, no diarrhea, no back pain, no urinary symptoms , no testicular/groin pain, no indigestion, no chest pain, no shortness of breath Timing: Acute on chronic Severity: Moderate Context: Patient is well-known to the emergency room as this is his 62nd visit this year as well as well-known to me, presents via EMS as a manager meeting of a local [employer] called when she noticed that patient was sitting at a table with fellow patrons with his head down sleeping. When police arrived, they noted that he was intoxicated and minimally responsive. Police called EMS who are familiar with the patient. [facility] and was released this morning. Patient keeps mumbling "I am so sorry I am so sorry I am so sorry." Denies suicidal ideation, homicidal ideation. Complains of chronic epigastric discomfort but denies nausea, vomiting, fever, diarrhea. Patient reports that he drank a pint of vodka today. Modifying Factors: None Comment: ROS: A comprehensive 10 system review of systems is otherwise negative aside from elements mentioned in the history of present illness. MEDICAL/SURGICAL/SOCIAL HISTORY: Medical history: Chronic Pancreatitis, alcoholism, htn, depression, numbness/ tingling feet, leg weakness Surgical history: Denies Social history: Homeless. Nonsmoker. Family history noncontributory. CONSTITUTIONAL: Intoxicated, cooperative, elderly white male, tidy and in new clothes and shoes, awake and alert, no obvious distress HEENT: Atraumatic and normocephalic, PERRL, EOMI. Nares patent; no rhinorrhea; no nasal mucosal edema. Tympanic membranes clear. Oropharynx clear, no exudate and moist pink mucosa. Airway patent. No lymphadenopathy. No meningismus. Cardiovascular: Normal S1/S2, regular rate, regular rhythm, without murmur rub or gallop. PULMONARY/CHEST: Symmetrical and nontender. Clear to auscultation bilaterally. Good air movement. No accessory muscle usage. ABDOMEN: Soft, nondistended, nontender, no rebound, no guarding, no peritoneal signs, no masses or organomegaly. No CVAT. EXTREMITIES: 2/2 pulses, strength 5/5, no deformities, no clubbing, no cyanosis or edema. NEUROLOGICAL: no focal neuro deficits. Speech clear, able to follow simple commands. SKIN: Warm and dry, no erythema. no rash. Good capillary refill. (Haley Aragon) Constitutional: Initial Vital Signs Temperature (C) 36.5 C 10/11/18 22:50 Heart Rate 74 10/11/18 22:50 Respiratory Rate 18 10/11/18 22:50 Blood Pressure 123/82 H 10/11/18 22:50 O2 Sat (%) 95 10/11/18 22:50 O2 Delivery Mode Room Air O2 (L/minute) 2 Allergies/Adverse Reactions: No Known Allergies Allergy (Verified 10/11/18 22:50) Home Medications: Medication Instructions Recorded Famotidine [Pepcid 20 MG (*)] 20 mg PO BID tab 09/20/18 Folic Acid [Folic Acid 1 MG (*)] 1 mg PO DAILY tab 09/20/18 Ibuprofen [Motrin (*)] 600 mg PO Q6H tab 09/20/18 Meclizine HCl [Meclizine HCl 25 mg 25 mg PO BID tab 09/20/18 (RX,OTC)] Multivitamins [Multivitamin (*)] 1 each PO DAILY tab 09/20/18 Thiamine HCl [Vitamin B-1] 100 mg PO DAILY tab 09/20/18 Lisinopril 10/05/18 Ondansetron Odt [Zofran Odt 4 mg 4 mg PO Q4 PRN #10 tab 10/05/18 (RX)] traMADol [Ultram 50 mg (*)] 50 mg PO Q6 PRN #12 tab 10/05/18 Medical Decision Making ED Course/Re-evaluation: Vital signs reviewed and stable upon arrival. Breathalyzer ordered. Placed on cardiac/vascular sonographer as well as oxygen therapy for history of hypoxia with sleeping while intoxicated. Charge nurse reports that the [facility] is willing to [facility] patient back once patient becomes more sober and able to ambulate without ataxia Patient does not meet M1 hold or MIH criteria. 2250: ETOH [id number]: End of shift. Signed over to Dr. Stubbs pending re-evaluation once more sober and likely discharged to the [facility]. This patient was seen under the supervision of my secondary supervising physician. I evaluated and cared for this patient with attending. (Haley Aragon) At approximately 6:30 a.m., patient was able to walk with a steady gait. He will be discharged to the [facility]. (Sharita Price) Differential Diagnosis: Altered mental status including but not limited to hypoglycemia, infectious process, electrolyte abnormality, head injury and intoxicants. (Haley Aragon) Departure - Departure Disposition: Home, Routine, Self-Care Clinical Impression: Alcoholic intoxication without complication, Alcohol abuse Condition: Fair Instructions: Alcohol Intoxication (ED), Abuse of Alcohol (ED) Referrals: [facility] [Outside] - As per Instructions
[2018-10-12 06:06] VITALS: BP 124/72
== END 2018-10-12 06:12 | disposition home or self-care (01) ==
LOC: EDUNIT#
DX: F10.920 Alcohol use, unspecified with intoxication, uncomplicated (principal)

== ENCOUNTER 2018-10-12 15:50 | Emergency (ER) | payer OTHER ==
--- NOTE | 2018-10-12 16:30 | EDPHY ---
H & P Stated Complaint: BIBA after bystander saw him slumped over next to a planter. Time Seen by Provider: 10/12/18 16:03 HPI/ROS: CHIEF COMPLAINT: Alcohol intoxication HISTORY OF PRESENT ILLNESS: 63-year-old male with alcoholism presents with alcohol intoxication. He was found slumped over by a bystander. On EMS arrival , he was intoxicated. Blood sugar was 131. No trauma and no recent illness. Multiple recent ED visits for same. REVIEW OF SYSTEMS: complete 10 point ROS reviewed and is negative except for the noted elements in the HPI - Personal History Current Tetanus/Diphtheria Vaccine: Unsure Current Tetanus Diphtheria and Acellular Pertussis (TDAP): Unsure Tetanus Vaccine Date: 06/21/2009 - Medical/Surgical History Hx Asthma: No Hx Chronic Respiratory Disease: No Hx Diabetes: No Hx Cardiac Disease: Yes Hx Renal Disease: No Hx Cirrhosis: No Hx Alcoholism: Yes Hx HIV/AIDS: No Hx Splenectomy or Spleen Trauma: No Other PMH: Chronic Pancreatitis, alcoholism, htn, depression, numbness/tingling feet, leg weakness - Social History Smoking Status: Never smoked Alcohol Use: Heavy Drug Use: None - Physical Exam Exam: General Appearance: Alert, slurred speech, cooperative Eyes: Pupils dilated, no nystagmus ENT, Mouth: Mucous membranes moist, no trauma Neck: normal inspection, no tenderness Respiratory: Lungs are clear to auscultation Cardiovascular: Regular rate and rhythm Gastrointestinal: Abdomen is soft, epigastric tenderness, no peritoneal signs Neurological: Drowsy, non-focal exam Skin: Warm and dry, sunburn on arms Extremities: Mild swelling of hands Psychiatric: Mood and affect normal Constitutional: Initial Vital Signs Temperature (C) 36.2 C 10/12/18 15:58 Heart Rate 89 10/12/18 15:58 Respiratory Rate 16 10/12/18 15:58 Blood Pressure 122/75 H 10/12/18 15:58 O2 Sat (%) 94 10/12/18 15:58 O2 Delivery Mode Room Air O2 (L/minute) 2 Allergies/Adverse Reactions: No Known Allergies Allergy (Verified 10/11/18 22:50) Home Medications: Medication Instructions Recorded Famotidine [Pepcid 20 MG (*)] 20 mg PO BID tab 09/20/18 Folic Acid [Folic Acid 1 MG (*)] 1 mg PO DAILY tab 09/20/18 Ibuprofen [Motrin (*)] 600 mg PO Q6H tab 09/20/18 Meclizine HCl [Meclizine HCl 25 mg 25 mg PO BID tab 09/20/18 (RX,OTC)] Multivitamins [Multivitamin (*)] 1 each PO DAILY tab 09/20/18 Thiamine HCl [Vitamin B-1] 100 mg PO DAILY tab 09/20/18 Lisinopril 10/05/18 Ondansetron Odt [Zofran Odt 4 mg 4 mg PO Q4 PRN #10 tab 10/05/18 (RX)] traMADol [Ultram 50 mg (*)] 50 mg PO Q6 PRN #12 tab 10/05/18 Medical Decision Making ED Course/Re-evaluation: Able to walk with a steady gait on discharge. Declines going to [facility]. Departure - Departure Disposition: Home, Routine, Self-Care Clinical Impression: Alcohol intoxication Condition: Fair Instructions: Alcohol Intoxication (ED) Referrals: [facility],. [Clinic] - As per Instructions
[2018-10-12 17:39] VITALS: BP 136/82
== END 2018-10-12 17:49 | disposition home or self-care (01) ==
LOC: EDUNIT#
DX: F10.920 Alcohol use, unspecified with intoxication, uncomplicated (principal)

== ENCOUNTER 2018-10-12 21:18 | Emergency (ER) | payer OTHER | END 2018-10-13 01:00 | disposition home or self-care (01) | DX: F10.920 Alcohol use, unspecified with intoxication, uncomplicated (principal) ==

== ENCOUNTER 2018-10-13 16:52 | Emergency (ER) | payer OTHER ==
[2018-10-13] MEDS ORDERED: CHLORDIAZEPOXIDE 25MG PREPK#6 BTL TAKEHOME ONE (17:49)
[2018-10-13] MEDS ORDERED: ONDANSETRON 4MG PREPACK#2 BTL TAKEHOME ONE (17:49)
== END 2018-10-13 19:03 | disposition home or self-care (01) ==
DX: F10.188 Alcohol abuse with other alcohol-induced disorder (principal); I10 Essential (primary) hypertension; K86.1 Other chronic pancreatitis; F32.9 Major depressive disorder, single episode, unspecified